=== PATIENT | male | born 1945 | race Caucasian/White ===

== ENCOUNTER 2017-05-05 07:53 | Day surgery (SDC) | payer MEDICARE, MEDICAID ==
[~2017-05-05 07:53] MED LIST: Buffered Lidocaine 0.9% SYRIN* 5 ML/SYR SYRINGE INTRADERM ONE; Famotidine IV* 10 MG/ML 2 ML (20 mg) IV ONE; Metoclopramide IV* 5 MG/ML 2 ML VIAL IV SLOW PU ONE
[2017-05-05] MEDS ORDERED: ceFAZolin 2 GM PREMIX (*) 2 GM/50 ML BAG IVPB ONE (08:00)
[2017-05-05] MEDS ORDERED: Metoclopramide IV* 5 MG/ML 2 ML VIAL ONE (08:00)
[2017-05-05] MEDS ORDERED: Famotidine IV* 10 MG/ML 2 ML (20 mg) ONE (08:00)
[2017-05-05] MEDS ORDERED: Buffered Lidocaine 0.9% SYRIN* 5 ML/SYR SYRINGE ONE (08:00)
[2017-05-05] MEDS ORDERED: Bupivacaine 0.25% SDV* 30 ML ONE ×2 (09:51→11:14)
[2017-05-05] MEDS ORDERED: Heparin DIALYSIS ONLY(*) 1,000 UNITS/ML VIAL ONE (09:51)
[2017-05-05] MEDS ORDERED: PROCHLORPERAZINE INJ 5 MG/ML 2 ML VIAL IV PRN (10:09)
[2017-05-05] MEDS ORDERED: oxyCODONE TAB* 5 MG TAB PO PRN (10:09)
[2017-05-05] MEDS ORDERED: fentaNYL* 50 MCG/ML 2 ML VIAL (100 MCG VIAL) IV PRN (10:09)
[2017-05-05] MEDS ORDERED: Propofol* 10 MG/ML 20 ML BTL IV PUSH ONE (10:16)
[2017-05-05] MEDS ORDERED: Mivacurium Chloride* 20 MG/10 ML VIAL IV ONE (10:16)
[2017-05-05] MEDS ORDERED: Lidocaine 2% PF * 5 ML VIAL ONE (10:17)
[2017-05-05] MEDS ORDERED: fentaNYL* 50 MCG/ML 2 ML VIAL (100 MCG VIAL) ONE ×2 (10:17→10:33)
[2017-05-05] MEDS ORDERED: EPHEDrine (Pressors)* 50 MG/ML VIAL ONE (10:38)
[2017-05-05] MEDS ORDERED: Ondansetron INJ* 2 MG/ML VIAL ONE (10:46)
--- NOTE | 2017-05-05 11:26 | SURGPN ---
Brief Operative Note - Surgery Procedures: Procedures Pre-OP Diagnoses: ESRD Post-op Diagnosis: ESRD, umbilical hernia epigastric hernia, R inguinal hernia Procedure: Laparoscopic placement of peritoneal dialysis catheter, primary repair of umbilical and epigastgric hernia Surgeon: Hetal Asst: Eunice Connellythegarett: ANGE Grayson EBL: minimal IVF: 600ccNS Specimen: none Drains: 62cm [facility]
[2017-05-05] MEDS ORDERED: Insulin LISPRO* 1 UNITS UNIT SUBCUT ONE (12:04)
[2017-05-05] MEDS ORDERED: oxyCODONE TAB* 5 MG TAB ONE (12:28)
[2017-05-05 13:42] VITALS: BP 153/61
--- NOTE | 2017-05-06 03:29 | OP ---
CC: Dr. Kyle Watkins; Dr. Akin Chacon * DATE OF OPERATION: 05/05/17 - [facility] DATE OF : 43 SURGEON: Haroon Fong MD SUPERINTENDENT COMPRESSOR STATIONS: SHANNON Burns ANESTHESIOLOGIST: Sanjay Grayson MD ANESTHESIA: General anesthesia. PRE-OP DIAGNOSIS: End-stage renal disease. POST-OP DIAGNOSES: 1. End-stage renal disease. 2. Umbilical hernia. 3. Epigastric hernia. 4. Left groin inguinal hernia. OPERATIVE PROCEDURE: Laparoscopic placement of peritoneal dialysis catheter and primary repair of umbilical and epigastric hernia. ESTIMATED BLOOD LOSS: Minimal blood loss. FLUIDS: 600 cc of normal saline given. SPECIMEN: None. CATHETER: 62-Argent[place] Curl catheter placed in the deep pelvis. DESCRIPTION OF PROCEDURE: The patient identified in the preoperative area. Consent signed. He was marked and brought to the operating room and placed on the operating table in supine position. General anesthesia was induced. The patient's abdomen was prepped and draped in a standard surgical fashion. A time -out was performed. He had received preoperative antibiotics. Sequential devices were applied to both extremities. A subcostal incision was made on the left. This was deepened to the anterior fascia, which was elevated and a Veress needle inserted through the abdominal cavity, which was then allowed to insufflate to pressure of 15 mmHg. The patient tolerated the insufflation well. The Veress needle was removed and an 8 -mm trocar was inserted. Laparoscope was inserted through this. There was no evidence of injuries on trocar insertion or from Veress needle. Review of the abdomen showed an umbilical hernia with omentum. Additional 5-mm trocar was then placed in the left lower quadrant. The patient was placed in a Trendelenburg fashion. The umbilical hernia was reduced. The omentum taken out of the defect and we were able to identify 2 defects; one just below a centimeter and one just above a centimeter. The smaller one at the umbilicus and a larger one just above this. Next, a 62-cm Curl catheter was inserted into the abdominal cavity. It was placed into the pelvis. Review of the pelvis did reveal a left inguinal hernia through the direct space. We made decision not to repair this, as this would require mesh. The neck appeared to be approximately 1 cm and it did not travel very far. With the catheter placed in the pelvis, a 5-mm trocar was then inserted along the left rectus muscle and the catheter grasped and brought out through this port site. The cuffs were both brought into the incision with the cuff closer to the abdomen right under the peritoneum. Next, an omentopexy was performed with a 0 Vicryl suture tacking this to the right upper quadrant. Next, the 2 hernias were reapproximated utilizing 0 Prolene suture making small skin viridiana just below the umbilicus and one above and a figure-of-8 was used at the epigastric hernia site. These both obliterated the defects. Next, the catheter was tunneled in the chosen position preoperatively. This was hooked up to dialysate which flowed freely and then was removed with ease. Review of the abdomen showed that hemostasis was excellent. The abdomen was allowed to collapse. Trocar was removed under direct vision. All skin incisions were reapproximated with 4-0 Monocryl subcuticular sutures. We did place a 0 Polysorb suture at the right upper quadrant 8-mm port site through the fascial layer. Steri- Strips and sterile dressing were applied. The patient tolerated the procedure well. He will most likely require a left inguinal hernia repair in the future, but this is not emergent. [id number]/[facility] #: [id number] MTDD
== END 2017-05-05 13:54 | disposition home or self-care (01) ==
LOC: OR 07:53
PROVIDERS: ATTEND Surgery
DX: E11.22 Type 2 diabetes mellitus with diabetic chronic kidney disease (principal); N18.6 End stage renal disease; K42.9 Umbilical hernia without obstruction or gangrene; K43.9 Ventral hernia without obstruction or gangrene; K40.90 Unilateral inguinal hernia, without obstruction or gangrene, not specified as recurrent; Z79.4 Long term (current) use of insulin; Z87.891 Personal history of nicotine dependence; J44.9 Chronic obstructive pulmonary disease, unspecified; I12.9 Hypertensive chronic kidney disease with stage 1 through stage 4 chronic kidney disease, or unspecified chronic kidney disease
CPT/HCPCS: A9270-GY; J0690; J1644; J2405; J2704; J2765; J3010

== ENCOUNTER 2017-05-14 15:39 | Inpatient (IN) | payer MEDICARE, MEDICAID ==
[2017-05-14 17:55] LABS: ABS Basophils 0 10^3/ul (0-0.2); ABS Eosinophils 0.2 10^3/ul (0-0.6); ABS Monocytes 0.7 10^3/ul (0-0.8); ABS Neutrophils 3.5 10^3/ul (1.5-7.7); ABS Nucleated RBC 0 10^3/ul; Hematocrit 26 % (42-52); Hemoglobin 9.1 g/dl (14.0-18.0); Lymphocyte % 17.8 % (25-47); Mean Corpuscular HGB Conc 35 g/dl (31-36); Mean Corpuscular Hemoglobin 31 pg (27-31); Mean Corpuscular Volume 88 fL (80-94); Mean Platelet Volume 8 um3 (7.4-10.4); Nucleated Red Blood Cells % 0; Platelet Count 190 10^3/ul (150-450); Red Blood Count 2.92 10^6/ul (4.0-5.4); Red Cell Distribution Width 13 % (10.5-15); White Blood Count 5.5 10^3/ul (3.5-10.8)
[2017-05-14 18:01] LABS: Urine Appearance Cloudy; Urine Blood Negative (Negative); Urine Color Yellow; Urine Ketones Negative (Negative); Urine Protein 3+(>=500 mg/dL) (Negative); Urine Specific Gravity 1.011 (1.010-1.030); Urine Urobilinogen Negative (Negative)
[2017-05-14 18:03] LABS: INR 1.03 (0.89-1.11)
[2017-05-14 18:10] LABS: EGFR Non-African American 5.8 (>60)
--- NOTE | 2017-05-14 18:25 | RAD ---
CLINICAL HISTORY: The patient is 7 days status post placement of a peritoneal dialysis catheter and reports no bowel movement since. Additional relevant surgery includes appendectomy. COMPARISON: CT of the abdomen and pelvis dated October 03, 2015. TECHNIQUE: Noncontrast CT examination of the abdomen and pelvis from the lung bases through the initial tuberosities. FINDINGS: VISUALIZED LUNG BASES: There is pleural-based linear density at the right lower lobe most consistent with atelectasis. Otherwise the visualized lung bases are grossly clear. There is no pleural effusion. There is coarse calcification of the coronary arteries and mitral valve. ABDOMEN AND PELVIS: Evaluation of the solid organs and vasculature is limited without intravenous contrast. The liver, spleen, pancreas and adrenal glands are grossly normal in appearance. Hyperdense material in the dependent portion of the gallbladder is consistent with gallstones and/or sludge. The kidneys are normal in appearance without focal mass, calcification or signs of hydronephrosis. Evaluation of the gastrointestinal tract is limited without oral contrast. The small bowel is not pathologically dilated. The appendix is not seen consistent with patient's reported surgical history. There is gas in the lateral seen throughout the length of the colon. The rectum is stool-filled measuring up to 7.9 x 7.5 cm in the axial plane. There is no pathologic dilatation of the bowel. There is no gross retroperitoneal or mesenteric lymphadenopathy. Overlying the left lower abdomen there is a peritoneal dialysis catheter that terminates along the posterior inferior margin of the urinary bladder. The pelvic viscera is normal in appearance. There is calcified atherosclerosis of the infrarenal abdominal aorta. Calcified atherosclerosis is seen in the major branch vessels and bilateral common iliac arteries. Degenerative changes include multilevel loss of intervertebral disc height involving the lower thoracic and lumbar spine.There are no sinister bone lesions. IMPRESSION: 1. There is a moderate amount of stool in the rectum with the rectum top normal in dimension measuring 7.5 x 8 cm in the axial plane. More proximally there is stool throughout the colon but no pathologic bowel dilatation. CT findings are most indicative of rectal fecal impaction with subsequent constipation. 2. The peritoneal dialysis catheter appears to be appropriately positioned along the posterior margin of the urinary bladder. 3. There are additional chronic, degenerative and iatrogenic findings as described in the body the report.
--- NOTE | 2017-05-14 19:22 | ED ---
Kahlil Pope Tiffany, scribed for Dhaval Horta MD on 05/14/17 at 1753 . Abdominal Pain/Male - HPI Summary HPI Summary: This patient is a 72 year old M referred from his radiologist to [facility] accompanied by with a chief complaint of abdominal pain that has lasted one week. The patient rates the pain 5/10 in severity. Symptoms aggravated by nothing. Symptoms alleviated by nothing. Patient reports constipation, vomiting with brown production since nine days ago, chills, abdominal bloating, feet swelling, and decreased appetite. Patient denies dysuria and problems passing gas. The patient recently had an operation for a catheter nine days ago. He has not been to the bathroom since then. - History of Current Complaint Chief Complaint: EDAbdPain Stated Complaint: NO BOWEL MOVEMNT, SOB Time Seen by Provider: 05/14/17 17:16 Hx Obtained From: Patient Onset/Duration: Gradual Onset, Lasting Weeks - One week, Still Present Pain Intensity: 5 Pain Scale Used: 0-10 Numeric Location: Diffuse Aggravating Factor(s): Nothing Alleviating Factor(s): Nothing Associated Signs And Symptoms: Positive: Other - constipation, vomiting with brown production, chills, abdominal bloating, swelling of the feet, and decreased appetite; NEGATIVE: dysuria and problems passing gas - Allergies/Home Medications Allergies/Adverse Reactions: Allergies Allergy/AdvReac Type Severity Reaction Status Date / Time Amlodipine [From Norvasc] Allergy Severe Swelling Verified 04/28/17 11:35 Hydrocodone Allergy Severe Difficulty Verified 04/28/17 11:35 Breathing Lisinopril Allergy Intermediate Coughing Verified 04/28/17 11:35 NSAIDs Allergy Unknown Verified 04/28/17 11:35 Reaction Details Shellfish Allergy Allergy Difficulty Verified 04/28/17 11:35 Breathing Acetaminophen [From Tylenol] AdvReac Unknown Verified 04/28/17 11:35 Reaction Details Home Medications: Home Medications Albuterol HFA INHALER* [Ventolin HFA Inhaler*] 2 puff INH Q6H PRN 05/14/17 [ History Confirmed 05/14/17] Cholecalciferol TAB* [Vitamin D TAB*] 1,000 unit PO BID 05/14/17 [History Confirmed 05/14/17] Diltiazem CD CAP* [Cardizem CD CAP*] 180 mg PO DAILY 05/14/17 [History Confirmed 05/14/17] Flaxseed (Linseed) [Flax Seed Oil 1000 mg] 1 cap PO DAILY 05/14/17 [History Confirmed 05/14/17] Glucagon* [Glucagen*] 1 mg SUBCUT ONCE 05/14/17 [History Confirmed 05/14/17] Guaifenesin-Codeine [Codeine/Guaifenesin 100-10 mg/5Ml] 10 ml PO BID PRN MDD 20ml 05/14/17 [History Confirmed 05/14/17] Multivitamins/Minerals TAB* [Theragran/minerals TAB*] 1 tab PO DAILY 05/14/17 [ History Confirmed 05/14/17] Omeprazole CAP* [Prilosec CAP* 20 MG] 40 mg PO BID 05/14/17 [History Confirmed 05/14/17] Simvastatin (NF) [Zocor (NF)] 40 mg PO DAILY 05/14/17 [History Confirmed ] Triamcinolone 0.1% CREAM (NF) [Kenalog 0.1% Cream (NF)] 1 applic TOPICAL BID [History Confirmed 05/14/17] PMH/Surg Hx/FS Hx/Imm Hx Previously Healthy: No Endocrine/Hematology History: Reports: Hx Diabetes Denies: Hx Thyroid Disease, Hx Anemia Cardiovascular History: Reports: Hx Angina, Hx Coronary Artery Disease, Hx Hypercholesterolemia, Hx Hypertension, Hx Myocardial Infarction, Hx Peripheral Vascular Disease - RECENTLY HAD PROCEDURE WITH DR. PAN, Other Cardiovascular Problems/Disorders Denies: Hx Pacemaker/ICD, Hx Valvular Heart Disease Respiratory History: Reports: Hx Asthma, Hx Chronic Bronchitis, Hx Chronic Obstructive Pulmonary Disease (COPD), Hx Pneumonia, Hx Seasonal Allergies GI History: Reports: Hx Gastroesophageal Reflux Disease, Other GI Disorders - GASTROENTERITIS/COLITIS Denies: Hx Jaundice History: Reports: Hx Acute Renal Failure, Hx Chronic Renal Failure Musculoskeletal History: Reports: Hx Back Problems Sensory History: Reports: Hx Cataracts, Hx Contacts or Glasses, Hx Glaucoma Denies: Hx Hearing Aid Opthamlomology History: Reports: Hx Cataracts, Hx Contacts or Glasses, Hx Glaucoma Neurological History: Reports: Other Neuro Impairments/Disorders - DIABETIC NEUROPATHY Denies: Hx Headaches, Hx Seizures, Hx Spinal Cord Injury - Cancer History Cancer Type, Location and Year: Basal Cell CA Hx Chemotherapy: No Hx Radiation Therapy: No - Surgical History Surgery Procedure, Year, and Place: Eye surgery 1986, . Tonsillectomy, appendectomy in childhood Hx Anesthesia Reactions: No Infectious Disease History: No Infectious Disease History: Denies: Traveled Outside the [place] in Last 30 Days - Family History Known Family History: Positive: Cardiac Disease - Mother from heart attack , Other - Brother has kidney disease - Social History Alcohol Use: None Alcohol Amount: Stopped 30 years ago Hx Substance Use: No Substance Use Type: Reports: None Hx Tobacco Use: Yes Smoking Status (MU): Former Smoker Type: Cigarettes, Cigars, Pipe, Smokeless Tobacco Amount Used/How Often: Daily Length of Time of Smoking/Using Tobacco: 30 years Have You Smoked in the Last Year: No Review of Systems Positive: Chills Positive: Abdominal Pain, Vomiting, Other - Abdominal bloating, decreased appetite; NEGATIVE: problems passing gas Negative: dysuria Positive: Other - Swelling of feet All Other Systems Reviewed And Are Negative: Yes Physical Exam Triage Information Reviewed: Yes Vital Signs On Initial Exam: Initial Vitals Temp Pulse Resp BP Pulse Ox 98.2 F 63 18 118/61 100 05/14/17 15:40 05/14/17 15:40 05/14/17 15:40 05/14/17 15:40 05/14/17 15:40 Vital Signs Reviewed: Yes Appearance: Positive: Well-Appearing, No Pain Distress Skin: Positive: Warm, Skin Color Reflects Adequate Perfusion Head/Face: Positive: Normal Head/Face Inspection Eyes: Positive: EOMI ENT: Positive: Normal ENT inspection, Hearing grossly normal Neck: Positive: Nontender Respiratory/Lung Sounds: Positive: Clear to Auscultation, Breath Sounds Present Cardiovascular: Positive: RRR. Negative: Murmur Abdomen Description: Positive: Distended - No peritoneal signs. Musculoskeletal: Positive: Strength/ROM Intact Neurological: Positive: Sensory/Motor Intact, Alert, Oriented to Person Place, Time, CN Intact II-III Psychiatric: Positive: Normal - Rachelle Coma Scale Best Eye Response: 4 - Spontaneous Best Motor Response: 6 - Obeys Commands Best Verbal Response: 5 - Oriented Coma Scale Total: 15 Diagnostics - Vital Signs Vital Signs Temp Pulse Resp BP Pulse Ox 05/14/17 15:40 98.2 F 63 18 118/61 100 - Laboratory Lab Results: Lab Results 05/14/17 05/14/1717 Range/Units 17:34 17:42 17:42 WBC 5.5 (3.5-10.8) 10^3/ul RBC 2.92 L (4.0-5.4) 10^6/ul Hgb 9.1 L (14.0-18.0) g/dl Hct 26 L (42-52) % MCV 88 (80-94) fL MCH 31 (27-31) pg MCHC 35 (31-36) g/dl RDW 13 (10.5-15) % Plt Count 190 (150-450) 10^3/ul MPV 8 (7.4-10.4) um3 Neut % (Auto) 64.6 (38-83) % Lymph % (Auto) 17.8 L (25-47) % [place] % (Auto) 13.2 H (1-9) % Eos % (Auto) 4.0 (0-6) % Baso % (Auto) 0.4 (0-2) % Absolute Neuts (auto) 3.5 (1.5-7.7) 10^3/ul Absolute Lymphs (auto) 1.0 (1.0-4.8) 10^3/ul Absolute Monos (auto) 0.7 (0-0.8) 10^3/ul Absolute Eos (auto) 0.2 (0-0.6) 10^3/ul Absolute Basos (auto) 0 (0-0.2) 10^3/ul Absolute Nucleated RBC 0 10^3/ul Nucleated RBC % 0 INR (Anticoag Therapy) (0.89-1.11) Sodium 135 (133-145) mmol/L Potassium 3.3 L (3.5-5.0) mmol/L Chloride 91 L (101-111) mmol/L Carbon Dioxide 28 (22-32) mmol/L Anion Gap 16 H (2-11) mmol/L BUN 128 H (6-24) mg/dL Creatinine 8.94 H (0.67-1.17) mg/dL Est GFR ( Amer) 7.5 (>60) Est GFR (Non-Af Amer) 5.8 (>60) BUN/Creatinine Ratio 14.3 (8-20) Glucose 119 H (70-100) mg/dL Lactic Acid (0.5-2.0) mmol/L Calcium 9.9 (8.6-10.3) mg/dL Total Bilirubin 0.50 (0.2-1.0) mg/dL AST 21 (13-39) U/L ALT 11 (7-52) U/L Alkaline Phosphatase 70 (34-104) U/L C-Reactive Protein 23.99 H (< 5.00) mg/L Total Protein 7.0 (6.4-8.9) g/dL Albumin 3.9 (3.2-5.2) g/dL Globulin 3.1 (2-4) g/dL Albumin/Globulin Ratio 1.3 (1-3) Lipase 24 (11.0-82.0) U/L Urine Color Yellow Urine Appearance Cloudy Urine pH 7.0 (5-9) Ur Specific [place] 1.011 (1.010-1.030) Urine Protein 3+(>=500 mg/dl) H (Negative) Urine Ketones Negative (Negative) Urine Blood Negative (Negative) Urine Nitrate Negative (Negative) Urine Bilirubin Negative (Negative) Urine Urobilinogen Negative (Negative) Ur Leukocyte Esterase Trace H (Negative) Urine WBC (Auto) 1+(6-10/hpf) H (Absent) Urine RBC (Auto) 1+(3-5/hpf) H (Absent) Ur Squamous Epith Cells Present H (Absent) Urine Bacteria 1+ H (Absent) Urine Glucose 1+(50 mg/dl) H (Negative) 05/14/17 05/14/17 Range/Units 17:42 17:42 WBC (3.5-10.8) 10^3/ul RBC (4.0-5.4) 10^6/ul Hgb (14.0-18.0) g/dl Hct (42-52) % MCV (80-94) fL MCH (27-31) pg MCHC (31-36) g/dl RDW (10.5-15) % Plt Count (150-450) 10^3/ul MPV (7.4-10.4) um3 Neut % (Auto) (38-83) % Lymph % (Auto) (25-47) % [place] % (Auto) (1-9) % Eos % (Auto) (0-6) % Baso % (Auto) (0-2) % Absolute Neuts (auto) (1.5-7.7) 10^3/ul Absolute Lymphs (auto) (1.0-4.8) 10^3/ul Absolute Monos (auto) (0-0.8) 10^3/ul Absolute Eos (auto) (0-0.6) 10^3/ul Absolute Basos (auto) (0-0.2) 10^3/ul Absolute Nucleated RBC 10^3/ul Nucleated RBC % INR (Anticoag Therapy) 1.03 (0.89-1.11) Sodium (133-145) mmol/L Potassium (3.5-5.0) mmol/L Chloride (101-111) mmol/L Carbon Dioxide (22-32) mmol/L Anion Gap (2-11) mmol/L BUN (6-24) mg/dL Creatinine (0.67-1.17) mg/dL Est GFR ( Amer) (>60) Est GFR (Non-Af Amer) (>60) BUN/Creatinine Ratio (8-20) Glucose (70-100) mg/dL Lactic Acid 1.5 (0.5-2.0) mmol/L Calcium (8.6-10.3) mg/dL Total Bilirubin (0.2-1.0) mg/dL AST (13-39) U/L ALT (7-52) U/L Alkaline Phosphatase (34-104) U/L C-Reactive Protein (< 5.00) mg/L Total Protein (6.4-8.9) g/dL Albumin (3.2-5.2) g/dL Globulin (2-4) g/dL Albumin/Globulin Ratio (1-3) Lipase (11.0-82.0) U/L Urine Color Urine Appearance Urine pH (5-9) Ur Specific [place] (1.010-1.030) Urine Protein (Negative) Urine Ketones (Negative) Urine Blood (Negative) Urine Nitrate (Negative) Urine Bilirubin (Negative) Urine Urobilinogen (Negative) Ur Leukocyte Esterase (Negative) Urine WBC (Auto) (Absent) Urine RBC (Auto) (Absent) Ur Squamous Epith Cells (Absent) Urine Bacteria (Absent) Urine Glucose (Negative) Result Diagrams: 05/14/17 17:42 05/14/17 17:42 Lab Statement: Any lab studies that have been ordered have been reviewed, and results considered in the medical decision making process. - CT Abd/Pel CT Interpretation Completed By: Radiologist - 1. There is a moderate amount of stool in the rectum with the rectum top normal in dimension measuring 7.5 x 8 cm in the axial plane. More proximally there is stool throughout the colon but no pathologic bowel dilatation. CT findings are most indicative of rectal fecal impaction with subsequent constipation. 2. The peritoneal dialysis catheter appears to be appropriately positioned along the posterior margin of the urinary bladder. 3. There are additional chronic, degenerative and iatrogenic findings as described in the body the report. ED physician has reviewed this radiology report and agrees. - EKG 17:38 Cardiac Rate: NL EKG Rhythm: Sinus Rhythm - 63 BPM. EKG Interpretation: Non-STEMI. Abdominal Pain Fem Course/Dx - Course Course Of Treatment: Case George Chacon who recommends OBV admission with serial enemas. He states he may start dialysis while patient here. Case George Alexander the hospitalists who will admit the patient for further treatment. - Diagnoses Provider Diagnoses: Constipation, Fecal impaction of colon - Provider Notifications Discussed Care Of Patient With: Akin Chacon Time Discussed With Above Provider: 19:05 Discharge - Discharge Plan Condition: Good Disposition: ADMITTED TO [facility] Referrals: Kyle Watkins MD [Primary Care Provider] - The documentation as recorded by the Kahlil rivera Tiffany accurately reflects the service I personally performed and the decisions made by , Dhaval Horta MD.
[2017-05-14] MEDS ORDERED: Albuterol HFA INHALER* 8 gm MDI INH PRN (19:51)
[2017-05-14] MEDS ORDERED: Cetirizine* 10 MG TAB PO PRN (19:51)
[2017-05-14] MEDS ORDERED: Dextrose 50% Syringe 50 ML* 25 GM/50 ML SYRINGE IV PUSH PRN (20:16)
[2017-05-14] MEDS: Cholecalciferol TAB* 1000 UNITS PO SCH (23:13)
[2017-05-14] MEDS: Heparin VIAL(*) 5000 UNITS/ML VIAL (FIVE THOUSAND) SUBCUT SCH (23:13)
[2017-05-14] MEDS: Omeprazole CAP* 20 MG PO SCH (23:13)
[2017-05-14] MEDS: traZODone TAB* 50 MG TAB PO SCH (23:13)
[2017-05-14] MEDS: Ondansetron INJ* 2 MG/ML VIAL IV PRN (23:14)
--- NOTE | 2017-05-14 23:20 | HP ---
H&P (Free Text) History and Physical: Mr Kaur is a 72YO male HX ESRD recently undergoing placement of PD catheter with constipation ever since. He will be admitted overnight for bowel regimen. Dr Chacon aware.
--- NOTE | 2017-05-14 23:45 | HP ---
CC: Dr. Watkins * HOSPITAL MEDICINE HISTORY AND PHYSICAL: DATE OF ADMISSION: 05/14/17 PRIMARY CARE PHYSICIAN: Dr. Watkins. ATTENDING PHYSICIAN: Aravind Win MD * (dictation provided by Mamie Plunkett NP). CHIEF COMPLAINT: Nausea and lower abdominal pain and bloating. HISTORY OF PRESENT ILLNESS: Mr. Kaur is a 72-year-old male with a past medical history of diabetes which is insulin dependent, chronic kidney disease, now with end-stage renal disease on peritoneal dialysis and COPD, who presents today to the hospital with concern for no bowel movement since his peritoneal dialysis catheter placement on 05/05/17. Mr. Kaur states that he tolerated dialysis catheter placement well , but since then he has had continued bloating with constipation. Today, he was nauseous, has plan to follow up with Dr. Fong who placed the catheter but after he spoke with the nurse at the office, she recommended that he come directly to the emergency room for evaluation based on the fact that he had not had a bowel movement for about 9 days. The patient denies any other complaints. He has had no fevers, no chills, no unintentional weight loss, no chest pain, no shortness of breath. In the emergency room, Mr. Kaur had labs which showed a chronic anemia. He has an elevated BUN and creatinine which is consistent with previous, though at its maximum with BUN 128 and creatinine of 8.94. CRP is 23.99. His urine shows trace leuk esterase and 1+ bacteria. He had a CT abdomen, pelvis which showed fecal impaction. PAST MEDICAL HISTORY: 1. CKD with end-stage renal disease now with peritoneal dialysis catheter placement on 05/05/17. 2. Type 2 diabetes insulin dependent. 3. Glaucoma. 4. COPD. 5. Hypertension. 6. Hyperlipidemia. PAST SURGICAL HISTORY: He denies any surgical history. MEDICATIONS: Outpatient: 1. Furosemide 80 mg p.o. b.i.d. 2. NPH insulin 40 units subcutaneously b.i.d. 3. Regular insulin 10 to 15 units in the a.m. and 15 to 20 units in the p.m. 4. Dorzolamide 2% 1 drop both eyes b.i.d. 5. Flaxseed 1 cap p.o. daily. 6. Fluticasone/salmeterol 115/21, 2 puffs inhaled b.i.d. 7. Glucagon 1 mg subcutaneously once as needed. 8. Guaifenesin with codeine 10 mL p.o. b.i.d. p.r.n. 9. Triamcinolone 0.1% cream 1 application topically b.i.d. 10. Albuterol inhaler 2 puffs inhaled q.6 hours p.r.n. 11. Ascorbic acid 1000 mg p.o. q.a.m. 12. Brimonidine 0.2% 1 drop both eyes b.i.d. 13. Cholecalciferol 1000 units p.o. b.i.d. 14. Diltiazem CD 180 mg p.o. daily. 15. Loratadine 10 mg p.o. q.p.m. p.r.n. 16. Losartan 100 mg p.o. q.p.m. 17. Multivitamins with minerals 1 tab p.o. daily. 18. Omeprazole 40 mg p.o. b.i.d. 19. Simvastatin 40 mg p.o. daily. 20. Trazodone 50 mg p.o. at bedtime. ALLERGIES: AMLODIPINE, HYDROCODONE, LISINOPRIL, NSAIDS, and SHELLFISH as well as TYLENOL. FAMILY HISTORY: The patient reports his father has , thinks this was from an [place] at about 65. His mother around 88 from old age. SOCIAL HISTORY: He is a former smoker. He does not drink alcohol or use illicit drugs. He has no children. 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 Suyapa Shannon would be his healthcare proxy. REVIEW OF SYSTEMS: A 14-point review of systems was completed with Mr. Kaur and all those not mentioned above are negative. PHYSICAL EXAMINATION GENERAL: Mr. Kaur is sitting up in the chair. He is in no acute distress. VITAL SIGNS: Temperature 98.2, heart rate 61, respiratory rate 19, O2 saturation 95% on room air, blood pressure 122/50. LUNGS: Clear to auscultation bilaterally with no accessory muscle use and good aeration. HEART: S1, S2. No murmur, rub, or gallop and regular. ABDOMEN: Soft, but distended. There is bowel sounds positive x4 and there is tenderness in the lower abdomen to deep palpation. EXTREMITIES: No cyanosis, clubbing, or edema. NEURO: He is alert. He is oriented x3. He moves all extremities equally. There is no facial asymmetry or focal weakness. Extraocular movements are intact. SKIN: Intact. DIAGNOSTIC STUDIES/LAB DATA: WBC 5.5, hemoglobin 9.1, hematocrit 96, platelet count 190,000. INR 1.03. Sodium 135, potassium 3.3, chloride 91, serum bicarbonate 28, BUN 128, creatinine 8.94, glucose 135, CRP 23.99. Urine shows trace leuk esterase and 1+ bacteria. CT abdomen and pelvis shows "there was a moderate amount of stool in rectum with rectum top normal in dimension measuring 7.5 x 8 cm in the axial plane. More proximally there is stool throughout the colon, but no pathological bladder dilatation." CT findings are most indicative of rectal fecal impaction with subsequent constipation. Peritoneal dialysis catheter appears to be appropriately positioned along the posterior margin of the urinary bladder. ASSESSMENT: Mr. Kaur is a 72-year-old male with a past medical history of diabetes which is insulin dependent and chronic kidney disease, is now end- stage renal disease with plan for peritoneal dialysis who had a catheter placed on 05/05/17 and has not had a bowel movement since. Plans are for him to be observed in the hospital overnight for fecal impaction. Plan is as follows: 1. Fecal impaction with constipation: The patient will have soap suds enema now. He will have lactulose which has been ordered in the ED. He will go on to receive a mineral oil enema at 5 a.m. Further treatment will be arranged based on clinical course. 2. Type 2 diabetes. The patient states that he has taken 40 units of NPH b.i.d., but he adjusts this based on his blood sugars. Given the fact that I anticipate he will not eat much, I plan to use 10 units subcutaneously b.i.d. He will have lispro sliding scale with meals. 3. Hypertension. Continue diltiazem and furosemide and losartan. 4. Gastroesophageal reflux disease. Continue omeprazole. 5. Hyperlipidemia. Continue with simvastatin. 6. DVT prophylaxis with heparin subcutaneous. 7. Code status is full code. TIME SPENT: Approximately 60 minutes were spent on the admission of this patient, more than half of the time was spent with the patient at the bedside reviewing the events leading up to this hospitalization, performing the physical examination, and reviewing my plan of care. MAMIE PLUNKETT, TWILL CUTTER [id number]/[facility] #: [id number] [facility] HOSPITALLucas
[2017-05-15] MEDS: Mineral Oil ENEMA* 1 BOTTLE PR SCH (06:04)
[2017-05-15] MEDS: Heparin VIAL(*) 5000 UNITS/ML VIAL (FIVE THOUSAND) SUBCUT SCH ×3 (06:04→21:49)
[2017-05-15 06:31] LABS: ABS Basophils 0 10^3/ul (0-0.2); ABS Eosinophils 0.3 10^3/ul (0-0.6); ABS Lymphocytes 1.3 10^3/ul (1.0-4.8); ABS Monocytes 0.7 10^3/ul (0-0.8); ABS Neutrophils 3.8 10^3/ul (1.5-7.7); ABS Nucleated RBC 0 10^3/ul; Eosinophil % 4.8 % (0-6); Hematocrit 27 % (42-52); Hemoglobin 9.2 g/dl (14.0-18.0); Lymphocyte % 21.1 % (25-47); Mean Corpuscular HGB Conc 34 g/dl (31-36); Mean Corpuscular Hemoglobin 31 pg (27-31); Mean Corpuscular Volume 89 fL (80-94); Mean Platelet Volume 9 um3 (7.4-10.4); Nucleated Red Blood Cells % 0.1; Platelet Count 191 10^3/ul (150-450); Red Blood Count 3.02 10^6/ul (4.0-5.4); Red Cell Distribution Width 13 % (10.5-15); White Blood Count 6.1 10^3/ul (3.5-10.8)
[2017-05-15] MEDS: Ondansetron INJ* 2 MG/ML VIAL IV PRN (07:42)
[2017-05-15] MEDS: Multivitamins/Minerals TAB PO SCH (08:51)
[2017-05-15] MEDS: Insulin LISPRO* 1 UNITS UNIT SUBCUT SCH ×3 (08:51→17:22)
[2017-05-15] MEDS: Cholecalciferol TAB* 1000 UNITS PO SCH ×2 (08:52→21:46)
[2017-05-15] MEDS: Ascorbic Acid TAB* 500 MG PO SCH (08:52)
[2017-05-15] MEDS: Insulin ISOPH/REG 70/30 (*) 1 UNITS UNIT SUBCUT SCH ×2 (09:17→17:24)
--- NOTE | 2017-05-15 09:17 | PN ---
Subjective Date of Service: 05/15/17 Interval History: Patient has nausea, no appetite this AM. Had soap suds enema then mineral oil enema overnight, little output. Abdomen feels bloated. Patient has not had to proceed with hemodialysis or PD at this point, but it is planned. Tolerating PO liquids. Family History: Unchanged from Admission Social History: Unchanged from Admission Past Medical History: Unchanged from Admission Objective Active Medications: Albuterol (Ventolin Hfa Inhaler*) 2 puff INH Q6H PRN PRN Reason: SHORTNESS OF BREATH Ascorbic Acid (Vitamin C Tab*) 1,000 mg PO QAM [facility] Last Admin: 05/15/17 08:52 Dose: Not Given Atorvastatin Calcium (Lipitor*) 20 mg PO DAILY [facility] Brimonidine Tartrate (Alphagan 0.2%) 1 drop BOTH EYES BID [facility] Last Admin: 05/14/17 23:13 Dose: 1 drop Cetirizine HCl (Zyrtec*) 10 mg PO QPM PRN PRN Reason: Allergy Symptoms Cholecalciferol (Vitamin D Tab*) 1,000 units PO BID [facility] Last Admin: 05/15/17 08:52 Dose: Not Given Dextrose (D50w Syringe 50 Ml*) 12.5 gm IV PUSH .FOR FS < 60 - SS PRN PRN Reason: FS < 60 Diltiazem HCl (Cardizem Cd Cap*) 180 mg PO DAILY [facility] Furosemide (Lasix Tab*) 80 mg PO BID [facility] Heparin Sodium (Porcine) (Heparin Vial(*)) 5,000 units SUBCUT Q8HR [facility] Last Admin: 05/15/17 06:04 Dose: 5,000 units Insulin Human Isoph/Insulin Regular (Humulin 70/30 (*)) 10 units SUBCUT 0800, 1700 [facility] Insulin Human Lispro (Humalog*) 0 units SUBCUT AC [facility] PRN Reason: Protocol Last Admin: 05/15/17 08:51 Dose: Not Given Losartan Potassium (Cozaar Tab*) 100 mg PO QPM [facility] Mineral Oil (Fleet Mineral Oil Enema*) 1 bottle SD ONCE ONE Stop: 05/15/17 13:01 Multivitamins/Minerals (Theragran/Minerals Tab*) 1 tab PO DAILY [facility] Last Admin: 05/15/17 08:51 Dose: Not Given Omeprazole (Prilosec Cap*) 40 mg PO BID [facility] Last Admin: 05/14/17 23:13 Dose: 40 mg Ondansetron HCl (Zofran Inj*) 4 mg IV Q6H PRN PRN Reason: NAUSEA Last Admin: 05/15/17 07:42 Dose: 4 mg Trazodone HCl (Desyrel Tab*) 50 mg PO BEDTIME [facility] Last Admin: 05/14/17 23:13 Dose: 50 mg Vital Signs 05/14/17 05/14/17 05/15/17 21:30 22:46 04:10 Temperature 36.7 C 36.8 C Pulse Rate 63 66 72 Respiratory 17 20 18 Rate Blood Pressure 138/54 124/54 (mmHg) O2 Sat by Pulse 98 100 97 Oximetry 05/15/17 06:42 Temperature 36.4 C Pulse Rate 69 Respiratory 20 Rate Blood Pressure 125/57 (mmHg) O2 Sat by Pulse 100 Oximetry Oxygen Devices in Use Now: None Appearance: no distress Eyes: No Scleral Icterus Ears/Nose/Mouth/Throat: NL Teeth, Lips, Gums Neck: Trachea Midline Respiratory: Clear to Auscultation Cardiovascular: NL Sounds; No Murmurs; No JVD Abdominal: - - tender RLQ, LLQ, hypoactive BS, no masses, rectal no masses, no impaction Skin: No Rash or Ulcers Neurological: Alert and Oriented x 3 Lines/Tubes/Other Access: Clean, Dry and Intact Other Access - PD cath at umbilicus Nutrition: Taking PO's Result Diagrams: 05/15/17 06:17 05/15/17 06:17 Additional Lab and Data: Lab Results Assess/Plan/Problems-Billing Assessment: 72 year old man w/ CKD stage 5, with obstipation since PD catheter placement 10 days 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 -Assessed w/ rectal exam, no need for disimpaction. -SMOG enema ordered (2) Type II diabetes mellitus - poor control Current Visit: Yes Status: Chronic Priority: Medium Code(s): E11.65 - TYPE 2 DIABETES MELLITUS WITH HYPERGLYCEMIA SNOMED Code(s): 64925371 Comment: -On 1/4 of usual dose 70/30, sugars running high. -Will remain on low dose today, as not taking POs well -May increase dose later in day if FS >200 (3) Nephrotic syndrome Current Visit: Yes Status: Chronic Priority: Medium Code(s): N04.9 - NEPHROTIC SYNDROME WITH UNSPECIFIED MORPHOLOGIC CHANGES SNOMED Code(s): 79095590 Comment: -Patient at stage 5 CKD -No immediate need for dialysis, no hyperkalemia, acidosis, or volume overload -May need to start hemodialysis while inpatient (4) DVT prophylaxis Current Visit: Yes Status: Chronic Priority: Low Code(s): DED3341 - SNOMED Code(s): 918780663 Comment: on SC heparin Status and Disposition: Continued inpatient stay due to obstipation, not responding well to treatment so far
[2017-05-15] MEDS: Furosemide TAB* 40 MG PO SCH ×3 (09:56→21:46)
[2017-05-15] MEDS: Omeprazole CAP* 20 MG PO SCH ×3 (09:56→21:46)
[2017-05-15] MEDS ORDERED: GLYCERIN ONE (11:00)
[2017-05-15] MEDS ORDERED: Mineral Oil ENEMA* 1 BOTTLE PR ONE ×2 (11:00→13:00)
[2017-05-15] MEDS: Diltiazem CD CAP* 180 MG PO SCH (12:08)
[2017-05-15] MEDS: Atorvastatin* 20 MG TAB PO SCH (12:09)
[2017-05-15] MEDS ORDERED: Docusate CAP* 100 MG PO STA (16:02)
[2017-05-15] MEDS: Magnesium CITRATE* 300 ML BTL PO ONE ×2 (16:44→16:46)
[2017-05-15] MEDS: Losartan TAB* 25 MG PO SCH (16:44)
[2017-05-15] MEDS: traZODone TAB* 50 MG TAB PO SCH (21:47)
[2017-05-15] MEDS ORDERED: Mineral Oil, LAXITIVE* 30 ML UDC PO ONE (23:00)
[2017-05-16] MEDS: Ondansetron INJ* 2 MG/ML VIAL IV PRN ×2 (01:07→23:10)
[2017-05-16 05:08] LABS: EGFR Non-African American 5.8 (>60)
[2017-05-16] MEDS: Mineral Oil ENEMA* 1 BOTTLE PR SCH (05:15)
[2017-05-16] MEDS: Heparin VIAL(*) 5000 UNITS/ML VIAL (FIVE THOUSAND) SUBCUT SCH ×3 (05:27→22:21)
[2017-05-16] MEDS: Diltiazem CD CAP* 180 MG PO SCH (09:11)
[2017-05-16] MEDS: Insulin LISPRO* 1 UNITS UNIT SUBCUT SCH ×3 (09:11→17:35)
[2017-05-16] MEDS: Ascorbic Acid TAB* 500 MG PO SCH (09:11)
[2017-05-16] MEDS: Cholecalciferol TAB* 1000 UNITS PO SCH ×2 (09:11→20:04)
[2017-05-16] MEDS: Furosemide TAB* 40 MG PO SCH ×2 (09:11→19:55)
[2017-05-16] MEDS: Omeprazole CAP* 20 MG PO SCH ×2 (09:11→20:03)
[2017-05-16] MEDS: Multivitamins/Minerals TAB PO SCH (09:11)
[2017-05-16] MEDS: Atorvastatin* 20 MG TAB PO SCH (09:11)
[2017-05-16] MEDS: Insulin ISOPH/REG 70/30 (*) 1 UNITS UNIT SUBCUT SCH ×2 (09:12→17:35)
[2017-05-16] MEDS ORDERED: Metoclopramide IV* 5 MG/ML 2 ML VIAL IV SLOW PU ONE (11:39)
--- NOTE | 2017-05-16 13:20 | PN ---
Subjective Date of Service: 05/16/17 Interval History: No new issues. Patient is ambulatory. No bowel movement yet. Discussed case with Dr Chacon. He ordered Reglan Family History: Unchanged from Admission Social History: Unchanged from Admission Past Medical History: Unchanged from Admission Objective Active Medications: Albuterol (Ventolin Hfa Inhaler*) 2 puff INH Q6H PRN PRN Reason: SHORTNESS OF BREATH Ascorbic Acid (Vitamin C Tab*) 1,000 mg PO QAM [facility] Last Admin: 05/16/17 09:11 Dose: 1,000 mg Atorvastatin Calcium (Lipitor*) 20 mg PO DAILY [facility] Last Admin: 05/16/17 09:11 Dose: 20 mg Brimonidine Tartrate (Alphagan 0.2%) 1 drop BOTH EYES BID [facility] Last Admin: 05/16/17 09:16 Dose: 1 drop Cetirizine HCl (Zyrtec*) 10 mg PO QPM PRN PRN Reason: Allergy Symptoms Cholecalciferol (Vitamin D Tab*) 1,000 units PO BID [facility] Last Admin: 05/16/17 09:11 Dose: 1,000 units Dextrose (D50w Syringe 50 Ml*) 12.5 gm IV PUSH .FOR FS < 60 - SS PRN PRN Reason: FS < 60 Diltiazem HCl (Cardizem Cd Cap*) 180 mg PO DAILY [facility] Last Admin: 05/16/17 09:11 Dose: 180 mg Furosemide (Lasix Tab*) 80 mg PO BID [facility] Last Admin: 05/16/17 09:11 Dose: 80 mg Heparin Sodium (Porcine) (Heparin Vial(*)) 5,000 units SUBCUT Q8HR [facility] Last Admin: 05/16/17 05:27 Dose: 5,000 units Insulin Human Isoph/Insulin Regular (Humulin 70/30 (*)) 10 units SUBCUT 0800, 1700 [facility] Last Admin: 05/16/17 09:12 Dose: 10 unit Insulin Human Lispro (Humalog*) 0 units SUBCUT AC [facility] PRN Reason: Protocol Last Admin: 05/16/17 12:46 Dose: 2 unit Lactulose (Lactulose*) 30 ml PO QID [facility] Last Admin: 05/16/17 12:46 Dose: 30 ml Losartan Potassium (Cozaar Tab*) 100 mg PO QPM [facility] Last Admin: 05/15/17 16:44 Dose: 100 mg Mineral Oil (Fleet Mineral Oil Enema*) 1 bottle SD 0500 [facility] Last Admin: 05/16/17 05:15 Dose: 1 bottle Multivitamins/Minerals (Theragran/Minerals Tab*) 1 tab PO DAILY [facility] Last Admin: 05/16/17 09:11 Dose: 1 tab Omeprazole (Prilosec Cap*) 40 mg PO BID [facility] Last Admin: 05/16/17 09:11 Dose: 40 mg Ondansetron HCl (Zofran Inj*) 4 mg IV Q6H PRN PRN Reason: NAUSEA Last Admin: 05/16/17 01:07 Dose: 4 mg Trazodone HCl (Desyrel Tab*) 50 mg PO BEDTIME [facility] Last Admin: 05/15/17 21:47 Dose: 50 mg Vital Signs 05/15/17 05/16/17 05/16/17 23:24 04:07 08:05 Temperature 36.5 C 36.5 C 36.6 C Pulse Rate 59 57 58 Respiratory 16 16 16 Rate Blood Pressure 112/49 119/50 127/55 (mmHg) O2 Sat by Pulse 97 99 94 Oximetry 05/16/17 11:47 Temperature 36.6 C Pulse Rate 52 Respiratory 16 Rate Blood Pressure 123/54 (mmHg) O2 Sat by Pulse 98 Oximetry Oxygen Devices in Use Now: None Appearance: no distress Ears/Nose/Mouth/Throat: Clear Oropharnyx Neck: No Thyroid Enlargement, Masses Respiratory: Symmetrical Chest Expansion and Respiratory Effort Cardiovascular: NL Sounds; No Murmurs; No JVD Abdominal: No Hepatosplenomegaly, - - active BS, distended, soft Skin: No Rash or Ulcers Neurological: Alert and Oriented x 3 Lines/Tubes/Other Access: Clean, Dry and Intact Peripheral IV Nutrition: Taking PO's Result Diagrams: 05/15/17 06:17 05/16/17 04:24 Assess/Plan/Problems-Billing Assessment: 72 year old man w/ CKD stage 5, with obstipation since PD catheter placement 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 (1) Obstipation Current Visit: Yes Status: Acute Priority: High Code(s): K59.00 - CONSTIPATION, UNSPECIFIED SNOMED Code(s): 670892263 Comment: -Patient has no had good response to mineral oil, SMOG, lactulose -Trying reglan IV, and then will try gastrograffin enema in radiology (2) Type II diabetes mellitus - poor control Current Visit: Yes Status: Chronic Priority: Medium Code(s): E11.65 - TYPE 2 DIABETES MELLITUS WITH HYPERGLYCEMIA SNOMED Code(s): 24306226 Comment: -On 1/4 of usual dose 70/30, sugars running high, dose of 70/30 increased (3) Nephrotic syndrome Current Visit: Yes Status: Chronic Priority: Medium Code(s): N04.9 - NEPHROTIC SYNDROME WITH UNSPECIFIED MORPHOLOGIC CHANGES SNOMED Code(s): 16460613 Comment: -Patient at stage 5 CKD -No immediate need for dialysis, no hyperkalemia, acidosis, or volume overload -May need to start hemodialysis while inpatient -BP may be overtreated, will reduce dose lasix, could be contributing to constipation. (4) DVT prophylaxis Current Visit: Yes Status: Chronic Priority: Low Code(s): QPD3714 - SNOMED Code(s): 084084661 Comment: on SC heparin Status and Disposition: Continued inpatient stay due to obstipation, not responding well to treatment so far
[2017-05-16] MEDS: Losartan TAB* 25 MG PO SCH (17:35)
[2017-05-16] MEDS: traZODone TAB* 50 MG TAB PO SCH (20:04)
--- NOTE | 2017-05-16 23:47 | PN ---
PROGRESS NOTE: DATE OF SERVICE: 05/16/17 HISTORY: Mr. Kaur is well known to me from previous consultations and outpatient management. He was admitted because of feeling bloated and not having a bowel movement for a number of days. It is now according to him, 10 days since his last bowel movement. He has had some nausea and some vomiting. He has had no response to enemas. PHYSICAL EXAMINATION: His vital signs are stable with a blood pressure 127/55, pulse 58, respirations 16. He is anicteric. His extraocular muscles are intact. Mucous membranes are moist. His abdomen is distended. He has got 1+ edema, which is typical for him. LABORATORY DATA: His sodium is 136, potassium 3.3, total CO2 of 29, chloride 92 , BUN 120 with a creatinine of 9.01. These are up from his previous values. IMPRESSION AND PLAN: Constipation with obstipation. I think there may be a component of gastroparesis with this as well. I think it will be a good idea to get him some intravenous Reglan as well as the presently prescribed lactulose. I will discuss this with Dr. Allen. [id number]/[facility] #: [id number] NAMAN
[2017-05-17] MEDS: LORazepam INJ* 2 MG/ML 1 ML VIAL IV PUSH SCH ×2 (01:41→05:25)
[2017-05-17] MEDS: Mineral Oil ENEMA* 1 BOTTLE PR SCH (05:26)
[2017-05-17] MEDS: Heparin VIAL(*) 5000 UNITS/ML VIAL (FIVE THOUSAND) SUBCUT SCH (05:37)
[2017-05-17 08:15] VITALS: BP 122/61
[2017-05-17] MEDS: Atorvastatin* 20 MG TAB PO SCH (08:16)
[2017-05-17] MEDS: Multivitamins/Minerals TAB PO SCH (08:17)
[2017-05-17] MEDS: Insulin LISPRO* 1 UNITS UNIT SUBCUT SCH ×2 (08:17→12:40)
[2017-05-17] MEDS: Ascorbic Acid TAB* 500 MG PO SCH (08:17)
[2017-05-17] MEDS: Diltiazem CD CAP* 180 MG PO SCH (08:17)
[2017-05-17] MEDS: Furosemide TAB* 40 MG PO SCH (08:17)
[2017-05-17] MEDS: Omeprazole CAP* 20 MG PO SCH (08:17)
[2017-05-17] MEDS: Cholecalciferol TAB* 1000 UNITS PO SCH (08:17)
[2017-05-17] MEDS: Insulin ISOPH/REG 70/30 (*) 1 UNITS UNIT SUBCUT SCH (08:17)
--- NOTE | 2017-05-17 14:56 | PN ---
Subjective Date of Service: 05/17/17 Interval History: Patient seen and examined at bedside. Denies fever, chills, shortness of breath , chest discomfort, N/V/D. Pt states that he has been moving his bowels and is anxious to be discharged to home. Family History: Unchanged from Admission Social History: Unchanged from Admission Past Medical History: Unchanged from Admission Objective Active Medications: Albuterol (Ventolin Hfa Inhaler*) 2 puff INH Q6H PRN Reason: SHORTNESS OF BREATH Ascorbic Acid (Vitamin C Tab*) 1,000 mg PO QAM [facility] Atorvastatin Calcium (Lipitor*) 20 mg PO DAILY [facility] Brimonidine Tartrate (Alphagan 0.2%) 1 drop BOTH EYES BID [facility] Cetirizine HCl (Zyrtec*) 10 mg PO QPM PRN Reason: Allergy Symptoms Cholecalciferol (Vitamin D Tab*) 1,000 units PO BID [facility] Dextrose (D50w Syringe 50 Ml*) 12.5 gm IV PUSH .FOR FS < 60 - SS PRN Reason: FS < 60 Diltiazem HCl (Cardizem Cd Cap*) 180 mg PO DAILY [facility] Furosemide (Lasix Tab*) 40 mg PO BID [facility] Heparin Sodium (Porcine) (Heparin Vial(*)) 5,000 units SUBCUT Q8HR [facility] Insulin Human Isoph/Insulin Regular (Humulin 70/30 (*)) 16 units SUBCUT 0800, 1700 [facility] Insulin Human Lispro (Humalog*) 0 units SUBCUT AC [facility] Reason: Protocol Lactulose (Lactulose*) 30 ml PO QID [facility] Losartan Potassium (Cozaar Tab*) 100 mg PO QPM [facility] Mineral Oil (Fleet Mineral Oil Enema*) 1 bottle [place] 0500 [facility] Multivitamins/Minerals (Theragran/Minerals Tab*) 1 tab PO DAILY [facility] Omeprazole (Prilosec Cap*) 40 mg PO BID [facility] Ondansetron HCl (Zofran Inj*) 4 mg IV Q6H PRN Reason: NAUSEA Trazodone HCl (Desyrel Tab*) 50 mg PO BEDTIME [facility] Vital Signs 05/16/17 05/16/17 05/16/17 15:37 19:31 21:00 Temperature 97.7 F 97.6 F Pulse Rate 54 60 Respiratory 16 20 16 Rate Blood Pressure 122/50 120/46 (mmHg) O2 Sat by Pulse 98 98 Oximetry 11/26/17 11/27/17 11/27/17 23:19 00:23 01:41 Temperature 98.2 F Pulse Rate 51 Respiratory 16 18 18 Rate Blood Pressure 110/40 (mmHg) O2 Sat by Pulse 99 Oximetry 05/17/17 05/17/17 05/17/17 03:30 05:08 07:35 Temperature 97.8 F 98.3 F Pulse Rate 56 64 Respiratory 16 16 19 Rate Blood Pressure 122/47 122/61 (mmHg) O2 Sat by Pulse 98 96 Oximetry 05/17/17 08:00 Temperature Pulse Rate Respiratory 19 Rate Blood Pressure (mmHg) O2 Sat by Pulse Oximetry Oxygen Devices in Use Now: None Appearance: NAD, sitting up in chair Respiratory: Symmetrical Chest Expansion and Respiratory Effort, Clear to Auscultation Cardiovascular: NL Sounds; No Murmurs; No JVD, RRR Abdominal: NL Sounds; No Tenderness; No Distention Extremities: No Edema Skin: No Rash or Ulcers Neurological: Alert and Oriented x 3, NL Muscle Strength and Tone Lines/Tubes/Other Access: Clean, Dry and Intact Peripheral IV - site benign Nutrition: Taking PO's Result Diagrams: 05/15/17 06:17 05/16/17 04:24 Additional Lab and Data: Assess/Plan/Problems-Billing Assessment: Mr. 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 (1) Obstipation Code(s): K59.00 - CONSTIPATION, UNSPECIFIED SNOMED Code(s): 094712021 Comment: - Patient states he has been moving his bowels since yesterday - Will continue Lactulose PRN at home (2) Type II diabetes mellitus - poor control Code(s): E11.65 - TYPE 2 DIABETES MELLITUS WITH HYPERGLYCEMIA SNOMED Code(s): 52641527 Comment: - Glucose 140-150's - Resume home Insulin (3) Nephrotic syndrome Code(s): N04.9 - NEPHROTIC SYNDROME WITH UNSPECIFIED MORPHOLOGIC CHANGES SNOMED Code(s): 15112810 Comment: - Stage 5 CKD - No immediate need for dialysis, no hyperkalemia, acidosis, or volume overload - BP may be overtreated, reduce dose lasix, could be contributing to constipation. (4) Hypertension Code(s): I10 - ESSENTIAL (PRIMARY) HYPERTENSION SNOMED Code(s): 19081367 Comment: - SBP 110-120's - Continue Lasix (decreased), Losartan (5) Hyperlipidemia Status: Chronic Priority: Low Code(s): E78.5 - HYPERLIPIDEMIA, UNSPECIFIED SNOMED Code(s): 56172287 (6) Obesity Code(s): E66.9 - OBESITY, UNSPECIFIED SNOMED Code(s): 255143934 Comment: - BMI 32.8 (7) DVT prophylaxis Code(s): RTG4523 - SNOMED Code(s): 482530580 Comment: - SC heparin (8) Full code status Code(s): Z78.9 - OTHER SPECIFIED HEALTH STATUS SNOMED Code(s): 655094775 Status and Disposition: Inpatient due to obstipation. Stable for discharge to home today.
[2017-05-17] MEDS ORDERED: GLYCERIN ONE (16:30)
--- NOTE | 2017-05-18 18:50 | DS ---
CC: Dr. Kyle Watkins * DISCHARGE SUMMARY: DATE OF ADMISSION: 05/14/17 DATE OF DISCHARGE: 05/17/17 ATTENDING PHYSICIAN: Dr. Tia Alexander * (dictated by Tess Landa NP) PRIMARY CARE PROVIDER: Dr. Kyle Watkins. PRIMARY DIAGNOSIS: Obstipation. SECONDARY DIAGNOSES: 1. Diabetes mellitus. 2. Hypertension. 3. Gastroesophageal reflux disease. 4. Hyperlipidemia. 5. Chronic kidney disease stage 5. CONSULTATIONS WHILE IN THE HOSPITAL: Dr. Akin Chacon with Nephrology. STUDIES WHILE IN THE HOSPITAL: Abdomen and pelvis CT on 05/14/17. Radiologist' s impression: There is a moderate amount of stool in the rectum with the rectum top normal in dimension measuring 7.5 x 3 cm in the axial plane. More proximally, there is stool throughout the colon, but no pathologic bowel dilation. CT findings are most indicative of rectal, cecal impaction with subsequent constipation. The peritoneal dialysis catheter appears to be appropriately positioned along the posterior margin of the urinary bladder. There are additional chronic degenerative and iatrogenic findings as described in the body of the report. DISCHARGE MEDICATIONS: New home medication: Lactulose 30 mL oral 4 times daily as needed for constipation. Continued home medications: 1. Losartan 100 mg oral every evening. 2. Regular insulin 15 to 20 units subcutaneous every evening. 3. Regular insulin 10 to 15 units subcutaneous every morning. 4. NPH 40 units subcutaneous twice daily. 5. Claritin 10 mg oral every evening as needed for allergy symptoms. 6. Advair HFA 115/21 two puffs inhalation twice daily. 7. Ascorbic acid 1000 mg oral every morning. 8. Trazodone 50 mg once daily at bedtime. 9. Trusopt 2% ophthalmic solution 1 drop to both eyes twice daily. 10. Alphagan P 0.2% 1 drop to both eyes twice daily. 11. Triamcinolone 0.1% cream apply topical twice daily. 12. Simvastatin 40 mg oral daily. 13. Albuterol HFA inhaler 2 puffs inhalation every 6 hours as needed for shortness of breath or wheeze. 14. Omeprazole 40 mg oral twice daily. 15. Glucagon 1 mg subcutaneous once as needed for low blood sugars. 16. Flaxseed oil 1000 mg oral daily. 17. Diltiazem CD 180 mg oral daily. 18. Vitamin D 1000 units oral twice daily. 19. Multivitamin 1 tablet oral daily. 20. Guaifenesin with codeine 100/10, 10 mL oral twice daily as needed for cough. Changed home medication: 1. Furosemide 40 mg oral twice daily, decreased from 80 mg twice daily. HISTORY OF PRESENT ILLNESS/HOSPITAL COURSE: Mr. Kaur is a 72-year-old male with past medical history significant for chronic kidney disease with end-stage renal disease, now with a peritoneal dialysis catheter placement on 05/05/17; diabetes mellitus type 2; glaucoma; COPD; hypertension; hyperlipidemia, who presented to the hospital with concern of no bowel movement since the placement of his peritoneal dialysis catheter on 05/05/17. The patient denied any complications with his dialysis catheter placement, but reported bloating and constipation since its placement in addition to some nausea. The patient had been in contact with Dr. Fong's office who had recommended that he come to the emergency room for evaluation due to the fact that he had not had a bowel movement in 9 days. While in the emergency room, the patient had labs showing a chronic anemia and elevated BUN and creatinine, which were consistent with his previous labs. CRP of 23.99. He had a urine showing trace leukocyte esterase, 1+ bacteria. He had a CT of his abdomen and pelvis showing a fecal impaction. The hospitalists were asked to evaluate the patient for admission. While in the hospital, the patient was treated with glycerin suppository, mineral enemas, lactulose. He was seen in consultation by Dr. Chacon who recommended trying Reglan as he felt that gastroparesis could be playing a role into this, and additionally, it was felt that the patient may be over-diuresed, and his Lasix could be contributing to his constipation, so his Lasix was decreased. The patient was also given barium enema by Dr. Allen on 05/16/17. He was only able to retain the enema for approximately 1 minute. The patient later had a soft, medium bowel movement and then had 2 more medium bowel movements feeling some relief in his discomfort. The patient was frequently ambulating. He felt as though his abdomen was feeling better, although it was still slightly distended. The patient was feeling better and requesting to go home today. Mr. Kaur is stable for discharge to home today. Vital signs are as follows: Temperature 98.3, heart rate 64, respiratory rate 19, O2 sat 96% on room air, blood pressure 122/61. DISCHARGE PLAN: Mr. Kaur will be discharged to home. Activity as tolerated. He has been encouraged to ambulate. Consistent carbohydrate diet. As far as the patient's constipation, he has been encouraged to keep walking, make sure that he is drinking plenty of fluids, and to continue lactulose 30 mL every 6 hours as needed for constipation. We have also decreased his furosemide to 40 mg daily from 80 as this may have been contributing to his constipation. He has a followup appointment with his primary care provider, Dr. Kyle Watkins, on 07/07 at 2:40 p.m. Points for follow-up: If it is felt that gastroparesis is contributing to his constipation, I would recommend considering Reglan for this. This is a summarized report of a complex medical history and hospital stay. For further details, please see the entire medical record. TIME SPENT: Time for this discharge was approximately 50 minutes, greater than half of that was spent [id number] with the patient, discussing discharge plans and instructions. CONDITION ON DISCHARGE: Stable. Reviewed by FRANCESCO KENNEY 05/21/17 1145 [id number]/[facility] #: [id number] NAMAN
== END 2017-05-17 15:45 | disposition home or self-care (01) | DRG 388 ==
LOC: ED 15:39 → MED 20:03 → OBSVTOIN 05-16 13:14
PROVIDERS: ADMIT Hospitalist; ATTEND Hospitalist
DX: K56.41 Fecal impaction (principal); N18.6 End stage renal disease; E11.21 Type 2 diabetes mellitus with diabetic nephropathy; E11.65 Type 2 diabetes mellitus with hyperglycemia; I12.0 Hypertensive chronic kidney disease with stage 5 chronic kidney disease or end stage renal disease; K31.84 Gastroparesis; E11.22 Type 2 diabetes mellitus with diabetic chronic kidney disease; Z99.2 Dependence on renal dialysis; H40.9 Unspecified glaucoma; J44.9 Chronic obstructive pulmonary disease, unspecified; E78.5 Hyperlipidemia, unspecified; K21.9 Gastro-esophageal reflux disease without esophagitis; D64.9 Anemia, unspecified; Z79.84 Long term (current) use of oral hypoglycemic drugs; Z79.4 Long term (current) use of insulin; Z79.899 Other long term (current) drug therapy; Z88.8 Allergy status to other drugs, medicaments and biological substances; Z88.6 Allergy status to analgesic agent; Z88.5 Allergy status to narcotic agent; Z91.013 Allergy to seafood; Z82.49 Family history of ischemic heart disease and other diseases of the circulatory system; Z87.891 Personal history of nicotine dependence; E66.9 Obesity, unspecified; Z68.32 Body mass index [BMI] 32.0-32.9, adult; E11.43 Type 2 diabetes mellitus with diabetic autonomic (poly)neuropathy
CPT/HCPCS: 36415; 74020; 74176; 80048; 80053; 81003; 81015; 83605; 83690; 84443; 85025; 85610; 86140; 87086; 93005; 99284; A9270-GY; G0378; J1644; J2060; J2405; J2765

== ENCOUNTER → 2017-06-29 11:46 | Day surgery (SDC) | payer MEDICARE, MEDICAID ==
--- NOTE | 2017-06-25 21:01 | HP ---
CC: Dr. Kyle Watkins; Dr. Akin Chacon * ADMISSION HISTORY AND PHYSICAL: DATE OF ADMISSION: Will be 06/29/17. ATTENDING SURGEON: Dr. Haroon Fong * (DICTATED BY SHANNON MUÑOZ) CHIEF COMPLAINT: End-stage renal disease with malfunctioning peritoneal dialysis catheter. HISTORY OF PRESENT ILLNESS: This is a 72-year-old male with chronic kidney disease who underwent laparoscopic placement of a peritoneal dialysis catheter in April [address] Fong. His postoperative course was complicated by significant obstipation. The patient has been through teaching and trial of fluid instillation via the catheter. However, he does not tolerate large volumes of fluid and in fact states that his whole abdomen becomes hard and painful with pain radiating to the shoulder. A PD catheter imaging study was performed, which per Dr. Fong's note showed a loculated collection at the distal end of the loop with no free flow of contrast. Dr. Fong met with Mr. Kaur on 06/24/17 and reviewed the indications for surgery, the risks, benefits , and alternatives. The patient would like to proceed as scheduled with laparoscopic revision of peritoneal dialysis catheter. Also, of note, tentative plans are in place for placement of an upper extremity AV fistula by Dr. Craven in July. PAST MEDICAL HISTORY: 1. Chronic kidney disease (not actively receiving dialysis at the present time) . 2. Diabetes mellitus. 3. COPD. 4. Hypertension. 5. 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 6. Chronic bilateral lower extremity edema. 7. Allergic rhinitis. 8. GERD. 9. Restless legs syndrome. 10. Glaucoma. 11. Hyperlipidemia. 12. Hypothyroidism. 13. Insomnia. 14. Chronic constipation. 15. Retinal detachment. PAST SURGICAL HISTORY: Include peritoneal dialysis catheter placement in April 2017, appendectomy, tonsillectomy, right eye vitrectomy. CURRENT MEDICATIONS: 1. Advair 115/21 two puffs b.i.d. 2. Vitamin C 1000 mg once daily. 3. Brimonidine 0.2% eye drops one drop each eye b.i.d. 4. Multivitamin once daily. 5. Vitamin D 3 1000 IU 2 tablets once daily. 6. Diltiazem extended release 180 mg daily. 7. Dorzolamide 2% eye drops one drop OU b.i.d. 8. Furosemide 40 mg b.i.d. 9. Humulin N 25 to 40 units subcutaneous b.i.d. (generally the patient uses 25 to 30 units). 10. Regular insulin 10 to 15 units q.a.m., 15 to 20 units q.p.m. or as directed. 11. Loratadine 10 mg once daily. 12. Losartan 100 mg once daily. 13. Metolazone 5 mg once daily. 14. Omeprazole 40 mg b.i.d. 15. ProAir HFA 2 puffs q.i.d. p.r.n. (has not required recently). 16. Simvastatin 40 mg daily. 17. Trazodone 50 mg 1 to 2 tablets q.h.s. p.r.n. for insomnia. 18. Metoclopramide 5 mg 1 tablet 15 minutes before each meal and at bedtime. 19. Levothyroxine 25 mcg once daily. 20. Metolazone 5 mg daily. 21. Ropinirole 0.25 mg 2 tablets at h.s. 22. Lactulose 15 mL once or twice daily p.r.n. for constipation. DRUG ALLERGIES: NORVASC (swelling), HYDROCODONE (shortness of breath) (the patient does tolerate oxycodone and codeine, though has had significant postoperative constipation), TYLENOL and NSAIDs (directed by Dr. Chacon not to use because of his renal failure), LISINOPRIL (cough). FAMILY HISTORY: Remarkable for diabetes including a brother who with end- stage renal disease. SOCIAL HISTORY: The patient lives with his long time partner. 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 He is a former smoker who quit cigarettes, cigars, and pipe in 1989 and stopped chewing tobacco in 1995. He also stopped alcohol in 1989. He denies other drug use. REVIEW OF SYSTEMS: General: No recent constitutional symptoms or acute illnesses other than described in the HPI. Cardiovascular: No recent chest pain, palpitations. He does use lymphedema pumps most of the days, though his restless legs syndrome has not permitted the use of the pumps lately. He also states that he has a small skin tear on the left lower extremity, but no evidence of infection. Respiratory: No recent exacerbations of the COPD. No chronic cough. GI: GERD well controlled. No lower GI symptoms. His last colonoscopy was approximately 5 years ago and he is due for repeat exam later this year with no interval problems reported. : As above per HPI. No additions. Endocrine: Diabetes (he reports occasional hypoglycemia up to once weekly and has tapered his insulin accordingly and sometimes holds it altogether ). He was recently diagnosed as being mildly hypothyroid and is followed by Dr. Watkins. PHYSICAL EXAMINATION GENERAL: Well-nourished, obese male, in no acute distress. VITAL SIGNS: Height 68 inches, weight 213 pounds, temperature 98.3, blood pressure 152/68, pulse 78, respirations 18. HEENT: He has some conjunctival injection of the right eye. EOMs intact. Otherwise normal. LUNGS: Clear to auscultation. No rales or wheezes. HEART: Regular rate and rhythm. No murmur appreciated. ABDOMEN: Peritoneal dialysis catheter with exit to the left mid abdomen. Well - healed laparoscopic incision sites. Per Dr. Fong, there is recurrent epigastric hernia, though I am not able to discern that on today's exam. He apparently also has an inguinal hernia, though on my exam I am unable to differentiate. The abdomen is otherwise obese, but soft, nontender without palpable masses within limitations of exam. GENITALIA: No definite palpable inguinal hernia. BACK: No spinous process or CVA tenderness. EXTREMITIES: 1 to 2+ edema. He has compression stockings in place and therefore the skin was not examined directly. There is a bandage present along the anterolateral aspect of the left lower leg. Distal pulses were not examined. NEUROLOGICAL: Grossly intact. SKIN: Warm and dry. No suspicious rashes or lesions noted. IMPRESSION: End-stage renal disease with malfunctioning peritoneal dialysis catheter. PLAN: Laparoscopic revision of peritoneal dialysis catheter. SHANNON MUÑOZ [id number]/[facility] #: [id number] NAMAN
[~2017-06-29 11:46] MED LIST changes: +ALBUTEROL INH PRN; +Acetaminophen TAB* 325 MG PO PRN; +Ascorbic Acid TAB* 500 MG PO SCH; +Buffered Lidocaine 0.9% SYRIN* 5 ML/SYR SYRINGE ONE; +Bupivacaine 0.5% SDV PF* 10-30ML VIAL ONE; +Cholecalciferol TAB* 1000 UNITS PO SCH; +DOXYcycline CAP(*) 100 MG PO SCH; +Dexamethasone IV* 4 MG/ML 1 ML (4 MG) ONE; +DiMENhydriNATE IV* 50 MG/ML VIAL IV PUSH PRN; +DiMENhydriNATE IV* 50 MG/ML VIAL ONE; +Diltiazem CD CAP* 180 MG PO SCH; +Dorzolamide 2% OPTH (NF) 10 ML BTL BOTH EYES SCH; +Famotidine IV* 10 MG/ML 2 ML (20 mg) ONE; +Fluticas/Salmet 115/21 HFA(NF) MDI INH SCH; +Furosemide TAB* 40 MG PO SCH; +Glycopyrrolate IV* 0.2 MG/ML 1 ML VIAL ONE; +Heparin DIALYSIS ONLY(*) 1,000 UNITS/ML VIAL ONE; +Heparin VIAL(*) 5000 UNITS/ML VIAL (FIVE THOUSAND) SUBCUT SCH; +INSULIN REGULAR SUBCUT SCH; +Levothyroxine TAB* 25 MCG TAB PO SCH; +Lidocaine 2% PF * 5 ML VIAL ONE; +LoraTADine TAB(NF) 10 MG TAB (AUTOSUB to CETIRIZINE) PO PRN; +Losartan TAB* 25 MG PO SCH; +METOCLOPRAMIDE HCL 5 MG PO SCH; -Metoclopramide IV* 5 MG/ML 2 ML VIAL IV SLOW PU ONE; +Metoclopramide TAB* 10 MG PO SCH; +Metolazone TAB* 5 MG PO SCH; +Midazolam* 1 MG/ML 2 ML VIAL (2 MG) ONE; +NS 0.9% 1000 ML* 1,000 ML IV SCH; +Neostigmine Methylsulfate* 2 MG/2 ML SYRINGE ONE; +Omeprazole CAP* 20 MG PO SCH; +Ondansetron INJ* 2 MG/ML VIAL ONE; +Propofol* 10 MG/ML 20 ML BTL IV PUSH ONE; +ROPINIROLE HYDROCHLORIDE 0.5 MG PO SCH; +Rocuronium* 10 MG/ML VIAL ONE; +Simvastatin (NF) 40 MG TAB PO SCH; +Succinylcholine* 20 MG/ML 10 ML VIAL ONE; +Triamcinolone 0.1% CREAM (NF) 15 GM TUBE TOPICAL SCH; +ceFAZolin 2 GM PREMIX (*) 2 GM/50 ML BAG IVPB ONE; +fentaNYL* 50 MCG/ML 2 ML VIAL (100 MCG VIAL) ONE; +guaiFENesin/CODIEN 100MG-10MG* 5 ML UDC PO PRN; +oxyCODONE/Acetamin 5/325 MG* TAB PO PRN; +traZODone TAB* 50 MG TAB PO SCH
[2017-06-29 13:11] LABS: EGFR Non-African American 9.7 (>60)
--- NOTE | 2017-06-29 15:02 | BRIEFOPN ---
Brief Operative Note - Surgery Procedures: Procedures Pre-OP Diagnoses: ESRD Post-op Diagnosis: same Procedure: Laparoscopic revision of peritoneal dialysis catheter Surgeon: Hetal Asst: none Anethesia: ANGE Bland EBL: minimal IVF: minimal Specimen: none Drains: [facility]
[2017-06-29 18:16] VITALS: BP 131/61
--- NOTE | 2017-06-30 10:41 | OP ---
C: Dr. Akin Chacon * DATE OF OPERATION: 06/29/17 - [facility] DATE OF : 43 SURGEON: Haroon Fong MD [employer] REPAIRER: None. ANESTHESIOLOGIST: Dr. Bland. ANESTHESIA: General anesthesia. PRE-OP DIAGNOSIS: Malfunctioning peritoneal dialysis catheter and end-stage renal disease. POST-OP DIAGNOSIS: Malfunctioning peritoneal dialysis catheter and end-stage renal disease. OPERATIVE PROCEDURE: Laparoscopic revision of peritoneal dialysis catheter. ESTIMATED BLOOD LOSS: Minimal. FLUIDS: Minimal crystalloid fluids given. The patient remained with 62 cm curl catheter in the same position. DESCRIPTION OF PROCEDURE: The patient was identified in the preoperative area. I noted that he did have a left lower extremity partial thickness wound that likely was secondary to venous stasis disease and continued swelling of his lower extremities. The patient was then marked on the abdomen. Consent was signed. He was taken to the operating room, placed on the operating table in supine position. Preoperative antibiotics were given. Sequential devices were placed on the right lower extremity. General anesthesia was induced. The patient's abdomen was prepped and draped in a standard surgical fashion after the hair in the abdomen was clipped and the time-out was performed. I entered the previous left upper quadrant incision, deepened down to the anterior fascia, which is elevated and a Veress needle inserted into the abdominal cavity, which was allowed to insufflate to a pressure of 15 mmHg. The patient tolerated the insufflation well. A 5 mm trocar was then inserted at this site. Laparoscope was inserted. There was no evidence of injury from the trocar insertion or from the Veress needle. The Veress needle was then removed. Review of the abdomen showed no free fluid. Bowel appeared intact. There was no significant adhesions. The omentopexy of the right upper quadrant still held. We could see Prolene sutures from previous surgery at the umbilicus and at the epigastrium area. There was additional herniation in between these 2 sites and we placed a 5 mm trocar through this small approximately 4 mm hernia. Another 5 mm trocar was then placed in the left lower quadrant. We accessed the pelvis and placed the patient in a Trendelenburg. The curl catheter was then brought up through the pelvis to take a look at. We then flushed with saline and noted that there was no obstruction and the ports, where the side holes were, all appearing patent. There was no clotting. There was no sheath or fibers, connective tissue at the site of the catheter. However, we did note in the pelvis, there was a large redundant bulky sigmoid colon that may have been part of the issue. I reviewed the left and right hernias. These hernias seem very shallow and not significant. Next, we performed a pexy of the epiploica to the sigmoid colon and attached this to the anterior abdominal wall of the left lower quadrant hoping that this would give more mobility to freely flow the dialysate through the abdominal cavity. Once this was done, we put dialysate through the catheter. If flowed freely in and also out. We then removed the umbilical port and used an Endo Close device and a #1 Prolene suture to reapproximate this hernia defect in a [id number] fashion. Next, the trocar was removed and abdomen collapsed and then all the skin incisions were reapproximated with skin emeka followed by a sterile dressing. The patient tolerated the procedure well. [id number]/[facility] #: [id number] NAMAN
== END | disposition home or self-care (01) ==
LOC: OR 11:46
PROVIDERS: ATTEND Surgery
DX: T85.611A Breakdown (mechanical) of intraperitoneal dialysis catheter, initial encounter (principal); Y83.1 Surgical operation with implant of artificial internal device as the cause of abnormal reaction of the patient, or of later complication, without mention of misadventure at the time of the procedure; N18.6 End stage renal disease; E11.9 Type 2 diabetes mellitus without complications; Z79.4 Long term (current) use of insulin; I12.0 Hypertensive chronic kidney disease with stage 5 chronic kidney disease or end stage renal disease; E03.9 Hypothyroidism, unspecified; J44.9 Chronic obstructive pulmonary disease, unspecified; I25.2 Old myocardial infarction; R60.0 Localized edema; K21.9 Gastro-esophageal reflux disease without esophagitis; G25.81 Restless legs syndrome; E78.5 Hyperlipidemia, unspecified; K59.09 Other constipation; Z79.899 Other long term (current) drug therapy; Z99.2 Dependence on renal dialysis
CPT/HCPCS: 36415; 80048; J0330; J0690; J1100; J1240; J1644; J2250; J2405; J2704; J3010

== ENCOUNTER 2017-08-11 10:22 | Day surgery (SDC) | payer MEDICARE, MEDICAID ==
--- NOTE | 2017-08-06 20:02 | HP ---
HISTORY AND PHYSICAL: DATE OF ADMISSION: 08/11/17 The patient is scheduled for surgery on 08/11/17 at [facility] where he will undergo left arm [place] AV fistula to be performed by Dr. Craven. ATTENDING SURGEON: Dr. Craven * (DICTATED BY SHANNON RAYA) HISTORY OF PRESENT ILLNESS: This is a 72-year-old male who presented to Dr. Craven for the evaluation of placement of an AV fistula due to his renal failure. The patient has a long medical history, which includes insulin dependent diabetes, COPD, hypertension, coronary artery disease, and most recently end-stage renal disease for which he currently is using peritoneal dialysis and is followed by Dr. Chacon. He prefers to stay local and not travel to have this procedure done and had been a previous patient of Dr. Craven and presented for his evaluation on in April 2017 for the evaluation of an AV fistula for dialysis. The patient was evaluated by Dr. Craven in April 2017. He had end-stage renal disease at that time. He was undergoing peritoneal dialysis back in April 2017. He was referred by Dr. Chacon for AV fistula placement. On examination, the patient had visible palpable veins bilaterally noted on the dorsum of both hands right and left. The left hand is better and arm. He has excellent palpable pulses at the radial, brachial and axillary region. It was felt that the patient would be a good candidate for AV fistula of the left arm to be done by Dr. Craven, so at that point in April, we had them save the left arm for no needle sticks IV in preparation for the upcoming surgery. The patient understands that fistulas have to mature. There is potential complication, such as thrombosis and bleeding, and understands all of these concerns and wishes to proceed with a fistula as scheduled on 08/11/17 at [facility] with Dr. Craven. PAST MEDICAL HISTORY: For this patient includes COPD; end-stage renal disease, currently using peritoneal dialysis and is followed by Dr. Chacon. He has a history of coronary artery disease. He is status post an OR 2 years ago. He does not have any active chronic angina and had a full workup 2 years ago as well at [facility] for his cardiac condition. He is insulin dependent diabetic. He has a history of hypertension, history of heart murmur, and has chronic venous insufficiency, and venous hypertension, had non-healing ulcer on to the right leg at one point and is status post endoluminal radiofrequency closure of the right greater saphenous vein by Dr. Craven back in February 2017. MEDICATIONS: Medications are many and current medications are the followin. He is on Cozaar 100 mg p.o. q.p.m. 2. He takes insulin regular, Humulin 10 to 15 units subcu every morning. He takes insulin regular 15 to 20 units subcu every evening. He takes NPH insulin 0 to 40 units subcu twice a day, not to exceed 100 units. 3. Claritin 10 mg daily as needed. 4. Advair 2 puffs inhaler twice a day. 5. Vitamin C tablet 1000 units daily. 6. Trazodone 50 mg p.o. q.h.s. 7. Trusopt 2% ophthalmic solution both eyes twice a day. 8. Eye drops brimonidine 0.2% 1 drop both eyes daily. 9. Kenalog 0.1% cream apply topically daily as needed. 10. Zocor 40 mg p.o. q.h.s. 11. Albuterol inhaler 2 puffs every 6 hours as needed. 12. Prilosec 40 mg twice a day. 13. Cardizem CD 180 mg p.o. q.a.m. 14. Vitamin D tablet 1000 units twice a day. 15. Multivitamin each morning. 16. She takes codeine cough medicine, guaifenesin 100-10 mg cough medicine 10 mL orally daily as needed for cough. 17. Lasix 40 mg twice daily. 18. Zaroxolyn 5 mg daily. 19. Ropinirole 0.5 mg orally at bedtime. 20. Metoclopramide HCl 5 mg 3 times daily before meals. 21. Levo-T 25 mcg orally at bedtime, which is levothyroxine. 22. Reglan 5 mg p.o. q.h.s. 23. Lactulose 30 mL orally 3 times a day. ALLERGIES: He appears to have an allergy to NORVASC where he has swelling. Allergic to HYDROCODONE, difficulty breathing. SHELLFISH allergy, difficulty breathing. ACETAMINOPHEN intolerance. NON-STEROIDAL ANTI-INFLAMMATORIES has some side effects. SOCIAL HISTORY: I believe he is . He does not smoke, previously smoked and drank, but has not smoked and drank for many years since 1989. He has no children. Lives in his home. He does drive. PHYSICAL EXAMINATION VITAL SIGNS: Today in our office, the patient's vital signs: His weight is 209 pounds, he is 5 feet 8 inches. His blood pressure is 161/53, his pulse is 67 and regular. HEENT: Within normal limits. NECK: Supple. There is no JVD or carotid bruits. Thyroid is felt to be normal. LUNGS: Breast sounds are distant. There were no wheezes or rhonchi heard today. HEART: His heart had a regular rhythm, but there is a loud systolic murmur 3/6 , which he said is noted has had for several years. ABDOMEN: He has a catheter in place from the peritoneal dialysis. There is no signs of infection. The abdomen itself is soft. There is no tenderness on exam. EXTREMITIES: As we mentioned before, the left arm has been saved. There has been no IV or needle sticks to the left arm and the veins were in good condition. He was evaluated and scanned by Dr. Craven who felt there were a couple of excellent places for placement of the AV fistula. Extremities reveal full range of motion without limitations. NEUROLOGIC: He is nonfocal and grossly intact. He is alert and oriented x3. IMPRESSION: The patient in end-stage renal disease, requiring access for hemodialysis. PLAN: At this time is to undergo placement of AV fistula to the left arm to be performed by Dr. Craven. Plan is for surgery to be scheduled at [facility] on 08/11/17. SHANNON RAYA [id number]/[facility] #: [id number] MTDD
[~2017-08-11 10:22] MED LIST changes: -ALBUTEROL INH PRN; -Acetaminophen TAB* 325 MG PO PRN; -Ascorbic Acid TAB* 500 MG PO SCH; -Buffered Lidocaine 0.9% SYRIN* 5 ML/SYR SYRINGE ONE; -Bupivacaine 0.5% SDV PF* 10-30ML VIAL ONE; -Cholecalciferol TAB* 1000 UNITS PO SCH; -DOXYcycline CAP(*) 100 MG PO SCH; -Dexamethasone IV* 4 MG/ML 1 ML (4 MG) ONE; -DiMENhydriNATE IV* 50 MG/ML VIAL IV PUSH PRN; -DiMENhydriNATE IV* 50 MG/ML VIAL ONE; -Diltiazem CD CAP* 180 MG PO SCH; -Dorzolamide 2% OPTH (NF) 10 ML BTL BOTH EYES SCH; -Famotidine IV* 10 MG/ML 2 ML (20 mg) ONE; -Fluticas/Salmet 115/21 HFA(NF) MDI INH SCH; -Furosemide TAB* 40 MG PO SCH; -Glycopyrrolate IV* 0.2 MG/ML 1 ML VIAL ONE; +Heparin 2 UNITS/ML IVPREMIX* 1,000 ML IV ONE; -Heparin VIAL(*) 5000 UNITS/ML VIAL (FIVE THOUSAND) SUBCUT SCH; -INSULIN REGULAR SUBCUT SCH; -Levothyroxine TAB* 25 MCG TAB PO SCH; +Lidocaine 1% INJ* 10 MG/ML 30 ML SDV ONE; -Lidocaine 2% PF * 5 ML VIAL ONE; -LoraTADine TAB(NF) 10 MG TAB (AUTOSUB to CETIRIZINE) PO PRN; -Losartan TAB* 25 MG PO SCH; -METOCLOPRAMIDE HCL 5 MG PO SCH; -Metoclopramide TAB* 10 MG PO SCH; -Metolazone TAB* 5 MG PO SCH; -Midazolam* 1 MG/ML 2 ML VIAL (2 MG) ONE; +NS 0.45% 1000 ML BAG* 1,000 ML IV SCH; -NS 0.9% 1000 ML* 1,000 ML IV SCH; -Neostigmine Methylsulfate* 2 MG/2 ML SYRINGE ONE; -Omeprazole CAP* 20 MG PO SCH; -Ondansetron INJ* 2 MG/ML VIAL ONE; -Propofol* 10 MG/ML 20 ML BTL IV PUSH ONE; -ROPINIROLE HYDROCHLORIDE 0.5 MG PO SCH; -Rocuronium* 10 MG/ML VIAL ONE; -Simvastatin (NF) 40 MG TAB PO SCH; -Succinylcholine* 20 MG/ML 10 ML VIAL ONE; -Triamcinolone 0.1% CREAM (NF) 15 GM TUBE TOPICAL SCH; -ceFAZolin 2 GM PREMIX (*) 2 GM/50 ML BAG IVPB ONE; -fentaNYL* 50 MCG/ML 2 ML VIAL (100 MCG VIAL) ONE; -guaiFENesin/CODIEN 100MG-10MG* 5 ML UDC PO PRN; -oxyCODONE/Acetamin 5/325 MG* TAB PO PRN; -traZODone TAB* 50 MG TAB PO SCH
[2017-08-11] MEDS ORDERED: Buffered Lidocaine 0.9% SYRIN* 5 ML/SYR SYRINGE ONE ×3 (10:26→11:41)
[2017-08-11] MEDS ORDERED: Famotidine IV* 10 MG/ML 2 ML (20 mg) ONE (10:26)
[2017-08-11] MEDS ORDERED: ceFAZolin 2 GM in 100 MLS NS (*) BAG IVPB ONE (10:32)
[2017-08-11] MEDS ORDERED: Propofol* 10 MG/ML 20 ML BTL IV PUSH ONE ×3 (10:33→13:21)
[2017-08-11] MEDS ORDERED: KETAMINE HCL* 50 MG/ML 10 ML VIAL ONE (10:33)
[2017-08-11] MEDS ORDERED: Ondansetron INJ* 2 MG/ML VIAL ONE (10:33)
[2017-08-11] MEDS ORDERED: fentaNYL* 50 MCG/ML 2 ML VIAL (100 MCG VIAL) ONE (10:33)
[2017-08-11] MEDS ORDERED: Midazolam* 1 MG/ML 10 ML VIAL (10 MG) ONE (10:33)
[2017-08-11] MEDS ORDERED: Lidocaine 2% PF * 5 ML VIAL ONE ×2 (10:33→12:19)
[2017-08-11] MEDS ORDERED: Heparin VIAL(*) 5000 UNITS/ML VIAL (FIVE THOUSAND) ONE (10:40)
[2017-08-11] MEDS ORDERED: Phenylephrine 1% NASAL* 15 ML BOT ONE (13:08)
[2017-08-11] MEDS ORDERED: Naloxone* 0.4 MG/ML 1 ML VIAL IV PRN (13:44)
[2017-08-11] MEDS ORDERED: Levalbuterol 0.63MG/3ML NEB* UNIT OF USE INH PRN (13:44)
[2017-08-11] MEDS ORDERED: Ondansetron INJ* 2 MG/ML VIAL IV PRN (13:44)
[2017-08-11] MEDS ORDERED: fentaNYL* 50 MCG/ML 2 ML VIAL (100 MCG VIAL) IV PRN (13:44)
[2017-08-11] MEDS ORDERED: Oxymetazoline 0.05% NASAL SPR* 15 ML BTL ONE (15:57)
[2017-08-11 16:03] VITALS: BP 132/72
--- NOTE | 2017-08-12 09:56 | OP ---
CC: Dr. Akin Chacon * DATE OF OPERATION: 08/11/17 - [facility] DATE OF : 43 SURGEON: Ziggy Craven MD. SECURITY ALARM INSTALLER: AMY Pool. ANESTHESIA: Local plus MAC. PRE-OP DIAGNOSIS: Endstage renal failure. POST-OP DIAGNOSIS: Endstage renal failure. OPERATIVE PROCEDURE: Left radiocephalic arteriovenous fistula. ESTIMATED BLOOD LOSS: Less than 20 cc. IV FLUIDS: 550 cc. DESCRIPTION OF PROCEDURE: The patient was taken to the procedure room. Prior to the surgery, the patient's cephalic vein and radial artery had been marked and ultrasound of the different sizes of the veins and arteries had been evaluated in the office prior to surgery. The patient was placed in the supine position. He received preoperative antibiotics. He was prepped and draped in the usual sterile fashion and exposing the left arm after proper identification and time-out. Lidocaine 1% was used to infiltrate on the lateral aspect of the left mid wrist and after the local anesthesia had been given a lateral incision was then made the; incision carried down through the skin, subcutaneous tissue , bleeding was controlled by electrocoagulation. The cephalic vein was identified and dissected off proximally and distally with enough length to avoid tension. After this was done the vein was encircled in vessel loops and after this was completed the radial artery was then exposed. Vessel loops were placed around the radial artery proximally and distally. The radial nerve was identified and preserved and left away from the operative field. After the vessels were completely exposed, the patient received 1000 units of heparin. We then proceeded to ligate the cephalic vein distally and transected with Metzenbaum scissors and we then proceeded to use the coronary dilators and the dilators were used up to a size of 3.5 mm and they will go easily without any evidence of stenosis or obstruction. After this was done, heparinized saline was used and cephalic vein was tested and there was good pulse and dilatation using the heparinized saline and after this was completed we then proceeded to apply a clamp to the cephalic vein. We then proceeded to cross clamp the radial artery proximally and distally. An arteriotomy was performed within 11 blade and enlarged with micro Amin. We then place the cephalic vein next to the to arteriotomy to match their size and in order to be open with minimal spatulation. The anastomosis was then performed using 6-0 Prolene running and after this was completed we then proceeded to release the levee superintendent the distal clamp of the radial and then the proximal. There was a good thrill noticed right away, any adhesions around the cephalic vein to avoid kinking were relieved and after this was done there was a good strong pulse on the radial artery distally and ulnar artery as well. There was a good thrill into the veins and at this point the incision was then closed; first subcutaneous tissue with 4-0 Vicryl sutures and the skin was closed subcuticular using 5-0 Monocryl and Steri- Strips without tension. The patient tolerated procedure well and he was taken in good condition to recovery room. [id number]/[facility] #: [id number] NAMAN
== END 2017-08-11 17:11 | disposition home or self-care (01) ==
LOC: OR 10:22
PROVIDERS: ATTEND Surgery
DX: N18.6 End stage renal disease (principal); E11.9 Type 2 diabetes mellitus without complications; Z79.4 Long term (current) use of insulin; J44.9 Chronic obstructive pulmonary disease, unspecified; I25.10 Atherosclerotic heart disease of native coronary artery without angina pectoris; E03.9 Hypothyroidism, unspecified; D64.9 Anemia, unspecified; I12.0 Hypertensive chronic kidney disease with stage 5 chronic kidney disease or end stage renal disease
CPT/HCPCS: A9270-GY; J1644; J2250; J2405; J2704; J3010

== ENCOUNTER 2017-08-27 10:54 | Day surgery (SDC) | payer MEDICARE, MEDICAID ==
[~2017-08-27 10:54] MED LIST changes: -Famotidine IV* 10 MG/ML 2 ML (20 mg) IV ONE; -Heparin 2 UNITS/ML IVPREMIX* 1,000 ML IV ONE; -Heparin DIALYSIS ONLY(*) 1,000 UNITS/ML VIAL ONE; -Lidocaine 1% INJ* 10 MG/ML 30 ML SDV ONE; -NS 0.45% 1000 ML BAG* 1,000 ML IV SCH; +NS 0.9% 1000 ML* 1,000 ML IV SCH
[2017-08-27] MEDS ORDERED: ceFAZolin 2 GM (*##) 2 GM/100 ML BAG USE CEFA2SOL IVPB ONE (11:18)
[2017-08-27] MEDS ORDERED: Buffered Lidocaine 0.9% SYRIN* 5 ML/SYR SYRINGE ONE (11:38)
[2017-08-27] MEDS ORDERED: Naloxone* 0.4 MG/ML 1 ML VIAL IV PRN (12:19)
[2017-08-27] MEDS ORDERED: Ondansetron INJ* 2 MG/ML VIAL IV PRN (12:19)
[2017-08-27] MEDS ORDERED: Midazolam* 1 MG/ML 2 ML VIAL (2 MG) ONE ×2 (12:46→14:26)
[2017-08-27] MEDS ORDERED: fentaNYL* 50 MCG/ML 2 ML VIAL (100 MCG VIAL) ONE ×2 (12:46→14:56)
[2017-08-27] MEDS ORDERED: Lidocaine 1% MPF wEPI 200,000* 30 ML SDV ONE (12:51)
[2017-08-27] MEDS ORDERED: Propofol* 10 MG/ML 20 ML BTL IV PUSH ONE ×3 (13:38→14:51)
[2017-08-27] MEDS ORDERED: Lidocaine 2% PF * 5 ML VIAL ONE (13:38)
[2017-08-27] MEDS ORDERED: Ondansetron INJ* 2 MG/ML VIAL ONE (14:26)
--- NOTE | 2017-08-27 15:21 | BRIEFOPN ---
Brief Operative Note - Surgery Procedures: Procedures Pre-OP Diagnoses: ESRD Post-op Diagnosis: same Procedure: placement of hemodialysis catheter Surgeon: Hetal Asst: none Anethesia: local, MAC EBL: minimal IVF: minimal Specimen: none Drains: 23cm 14.5fr curved catheter placed via R IJV
--- NOTE | 2017-08-27 16:32 | RAD ---
Indication: Post hemodialysis catheter placement. Assess for pneumothorax. Comparison: November 02, 2016 Technique: Upright AP 1538 hours Report: Distal tip of the dual-lumen tunneled RIGHT side central venous catheter is at the level of the RIGHT atrium inferior vena cava junction. Negative for pneumothorax. Suboptimal inspiration with mild subsegmental atelectasis. Diffuse mild prominence of the interstitial markings. Negative for pleural effusions. Mild cardiomegaly and mild prominence of the central pulmonary vasculature. IMPRESSION: 1. Negative for pneumothorax post tunneled hemodialysis catheter placement. 2. Probable mild pulmonary vascular congestion.
[2017-08-27 16:45] VITALS: BP 125/51
--- NOTE | 2017-08-27 16:49 | RAD ---
CPT II Codes: 6045F INDICATION: Renal failure TECHNIQUE: Intraoperative fluoroscopy was provided during placement of a right internal jugular vein hemodialysis catheter. FINDINGS: 2 spot films depict a right internal jugular vein tunneled hemodialysis catheter with the tip terminating at the cavoatrial junction. Fluoroscopy time: 155 seconds IMPRESSION: As above.
--- NOTE | 2017-08-27 21:34 | OP ---
CC: Dr. Kyle Watkins; Dr. Akin Chacon; [facility] OPERATIVE REPORT: DATE OF OPERATION: 08/27/17 DATE OF : 43 SURGEON: Haroon Fong MD PERFORMING ARTS TECHNICIANS: None. ANESTHESIOLOGIST: Dr. Montes. ANESTHESIA: Local MAC anesthesia. PRE-OP DIAGNOSIS: End-stage renal disease. POST-OP DIAGNOSIS: End-stage renal disease. OPERATIVE PROCEDURE: Insertion of hemodialysis catheter. ESTIMATED BLOOD LOSS: Minimal blood loss. FLUIDS: Minimal crystalloid fluid given. SPECIMEN: None. INSTRUMENT: A 23-cm hemodialysis catheter inserted via the right IJ vein. DESCRIPTION OF PROCEDURE: The patient was identified in the preoperative area, case discussed, conse nt signed, he was marked. He was taken to the operating room, placed on the operating table in a nor mal supine position with back minimally up. His upper neck was prepped and draped in a standard surgi zack fashion. A time-out was performed. I injected lidocaine for a local block at our anticipated site. The patient was placed in a [place] n[place] fashion and we accessed what we thought was the internal jugular vein. A wire did not advance and after multiple attempts, which simply go towards the subclavian vein. At this point, the needle was removed and we made an attempt to use a micro-access kit. We were unable to find the vein again and utilized ultrasound. With ultrasound over the right neck, we could see a very collapsed IJ vein just overlying the carotid artery. With the ultrasound, we placed a micro-access needle into the vei n and advanced its wiring, placed the small catheter over this microwire. This was all done under fl uoroscopy and once the wire was removed as well as the dilated portion of the small catheter, it appe ared that we were in an artery. The catheter was removed and pressure held for approximately 7 minut es. No hematoma was appreciated. Next, we placed the ultrasound over the site. There was no hematoma. We moved our attempt more infe rior to this. Again, the vein appeared almost on top of the artery. The vein was accessed and the m icrowire inserted with ease. We then placed its catheter through and under fluoroscopy, I assured th at we were in a right position, placed the dialysis wire over this micro-access catheter set under fl uoroscopy. Now with this all intact, the patient was taken out of Trendelenburg. The vein was dilated in a step burnett fashion until we could put in the 8-Libyan catheter split- away catheter in. We then tunneled t he 23-cm catheter from a separate stab incision on the upper chest to this puncture site and then ins erted it through the split-away catheter, which was then removed. We assured the appropriate locatio n with fluoroscopy. We then sutured the catheter to the skin. Both ports were flushed with saline a fter aspiration of blood. We then closed our incision sites with 4-0 Monocryl subcuticular sutures a nd placed 3-0 Prolene at the hub of the catheter. Heparinized saline was injected into both lumen an d sterile dressing was applied. The patient tolerated the procedure well. This overall represented a more complicated case than usual representing more than twice the time of typical that taking 90 mi nutes in all. [id number]/[facility] #: [id number]
== END 2017-08-27 16:45 | disposition home or self-care (01) ==
LOC: OR 10:54
PROVIDERS: ATTEND Surgery
DX: N18.6 End stage renal disease (principal); Z87.891 Personal history of nicotine dependence; I87.8 Other specified disorders of veins; E11.9 Type 2 diabetes mellitus without complications; Z79.4 Long term (current) use of insulin; I12.9 Hypertensive chronic kidney disease with stage 1 through stage 4 chronic kidney disease, or unspecified chronic kidney disease; J44.9 Chronic obstructive pulmonary disease, unspecified; E03.9 Hypothyroidism, unspecified; Z99.2 Dependence on renal dialysis; I83.009 Varicose veins of unspecified lower extremity with ulcer of unspecified site
CPT/HCPCS: 71045; 76000; C1752; J1642; J2001; J2250; J2405; J2704; J3010

== ENCOUNTER 2017-09-22 12:08 | Day surgery (SDC) | payer MEDICARE, MEDICAID ==
--- NOTE | 2017-09-20 23:02 | HP ---
CC: Dr. Kyle Watkins; Dr. Akin Chacon * ADMISSION HISTORY AND PHYSICAL: DATE OF ADMISSION: 09/22/17 ATTENDING SURGEON: Dr. Haroon Fong * (SHANNON Jenkins, dictating). CHIEF COMPLAINT: Left inguinal hernia. HISTORY OF PRESENT ILLNESS: This is a 72-year-old male with chronic kidney disease, currently undergoing hemodialysis on a Wednesday, , Wednesday schedule. He had had a peritoneal dialysis catheter placed laparoscopically in April 2017 with subsequent revision on 06/29/17 (no specific findings at that time, but sigmoid colon was pexied with subsequent improvement in PD catheter function). The patient was noted at the time of his April surgery to have an umbilical and supraumbilical hernia, which were closed at that time as well as a left inguinal hernia. There was no intervention on the left inguinal hernia at that time. Since then, the patient has attempted peritoneal dialysis, but with subsequent scrotal swelling of significance. He has therefore continued with hemodialysis, but would like to transition back to peritoneal dialysis. He states that the swelling typically occurs after 1 to 2 days of peritoneal dialysis and that it is asymptomatic in terms of pain or discomfort. It has been difficult to confirm the presence of a hernia by physical exam, though again an inguinal hernia was noted on the left at the time of initial laparoscopy in April of 2017. The patient was seen again today by Dr. Fong. Indications for surgery were discussed, the open approach versus laparoscopic, and the risks and benefits. The patient would like to proceed as scheduled with open repair of left inguinal hernia with mesh. PAST MEDICAL HISTORY: Kidney disease, currently on hemodialysis; diabetes mellitus; COPD; hypertension; old ND; chronic bilateral lower extremity edema; allergic rhinitis; GERD; restless leg syndrome; glaucoma; hyperlipidemia; hypothyroidism; insomnia; chronic constipation; retinal detachment. PAST SURGICAL HISTORY: Previous surgeries include peritoneal dialysis catheter placement, April 2017 with subsequent revision, June of 2017, appendectomy , tonsillectomy, right eye vitrectomy, recent left forearm [place] AV fistula by Dr. Craven. CURRENT MEDICATIONS: 1. Losartan 100 mg q.p.m. 2. Insulin NPH, usually 30 units q.a.m. and between 10 and 30 units q.p.m. subcutaneously based on fingersticks. 3. Novolin R typically 5 to 10 units q.a.m. and 5 to 10 units q.p.m. subcutaneously based on fingersticks. 4. Loratadine 10 mg daily p.r.n. (not using recently). 5. Advair 115/21 two puffs twice daily. 6. Vitamin C 1000 mg once daily. 7. Trazodone 50 mg q.h.s. 8. Dorzolamide 2% ophthalmic 1 drop both eyes twice daily. 9. Brimonidine 0.2% one drop both eyes twice daily. 10. Simvastatin 40 mg q.p.m. 11. Albuterol HFA MDI 2 puffs every 6 hours p.r.n. 12. Omeprazole 40 mg b.i.d. 13. Diltiazem 180 mg daily. 14. Diltiazem CD. 15. Vitamin D 1000 International Units b.i.d. 16. Multivitamin daily. 17. Triamcinolone 0.1% cream topically b.i.d. p.r.n. (has not needed recently). 18. Furosemide 40 mg p.o. b.i.d. 19. Metolazone 5 mg daily. 20. Ropinirole 1 mg q.h.s. 21. Metoclopramide 5 mg 4 times a day (a.c. and at h.s.). 22. Levothyroxine 25 mcg q.h.s. 23. Lactulose 30 mL 1 to 2 times per day. 24. MiraLAX 17 g daily p.r.n. 25. Extra Strength Tylenol 2 tablets b.i.d. DRUG ALLERGIES: NORVASC (swelling), HYDROCODONE (shortness of breath), (the patient does tolerate oxycodone and codeine, though has had significant postoperative constipation); NSAIDs (directed by Dr. Chacon, not to use because of renal failure), LISINOPRIL (cough). FAMILY HISTORY: Remarkable for diabetes including a brother, who with end - stage renal disease. SOCIAL HISTORY: The patient lives with his long time partner. 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 He is a former smoker, who quit cigarettes, cigar, and pipe in 1989 and stopped chewing tobacco in 1995. He also stopped alcohol in 1989 and admits to heavy alcohol use prior to that. He denies other drug use. REVIEW OF SYSTEMS: General: No recent constitutional symptoms or acute illnesses other than described above. Cardiovascular: No recent chest pain, palpitations. He has used lymphedema pump for lower extremity edema in the past , though not recently. Respiratory: No recent exacerbations of his COPD. No recent cough. GI: GERD, well controlled. No lower GI symptoms. Last colonoscopy approximately 5 years ago. : Renal failure, currently on hemodialysis (via right-sided central line). Endocrine: Diabetes, hypothyroidism. PHYSICAL EXAMINATION GENERAL: Well-nourished, obese male, in no acute distress. VITAL SIGNS: Per nursing. HEENT: EOMs intact. Otherwise unremarkable. LUNGS: Clear to auscultation. No rales or wheezes. HEART: Regular rate and rhythm. There is a soft systolic murmur at the left sternal border. ABDOMEN: Peritoneal dialysis catheter with exit to the left mid abdomen, well- healed laparoscopic incision site. Soft and nontender to palpation. No palpable masses. No specific hernia on exam, though previously noted laparoscopically. EXTREMITIES: 1+ edema on the left, trace on the right. NEUROLOGIC: Grossly intact. SKIN: Warm and dry. No suspicious rashes or lesions noted. He has some stigmata of chronic venous insufficiency of both lower extremities. No open lesions. IMPRESSION: Left inguinal hernia. PLAN: Open repair, left inguinal hernia with mesh. SHANNON JENKINS [id number]/[facility] #: [id number] MTDD
[2017-09-22] MEDS ORDERED: ceFAZolin 2 GM PREMIX (*) 2 GM/50 ML BAG IVPB ONE (12:55)
[2017-09-22] MEDS ORDERED: Midazolam* 1 MG/ML 5 ML VIAL (5 MG) ONE (15:30)
[2017-09-22] MEDS ORDERED: Lidocaine 1% MPF wEPI 200,000* 30 ML SDV ONE (15:33)
[2017-09-22] MEDS ORDERED: Bupivacaine 0.25% SDV* 30 ML ONE (15:33)
[2017-09-22] MEDS ORDERED: fentaNYL* 50 MCG/ML 2 ML VIAL (100 MCG VIAL) ONE ×2 (15:50→16:36)
[2017-09-22] MEDS ORDERED: Naloxone* 0.4 MG/ML 1 ML VIAL IV PRN (16:08)
[2017-09-22] MEDS ORDERED: Ondansetron INJ* 2 MG/ML VIAL IV PRN (16:08)
[2017-09-22] MEDS ORDERED: fentaNYL* 50 MCG/ML 2 ML VIAL (100 MCG VIAL) IV PRN (16:08)
[2017-09-22] MEDS ORDERED: Midazolam* 1 MG/ML 2 ML VIAL (2 MG) ONE (16:24)
[2017-09-22] MEDS ORDERED: Propofol* 10 MG/ML 20 ML BTL IV PUSH ONE (16:50)
--- NOTE | 2017-09-22 17:30 | OP ---
Operative Report - Blank - Operative Report Date of Operation: 09/22/17 Note: Pre-op diagnosis: Left inguinal hernia Post-op diagnosis: Left inguinal hernia Procedure: Open repair of left inguinal hernia with mesh Anesthesia: Local MAC Surgeon: Dr. Fong Assists: SHANNON Logan; LEWIS Baeza Fluids: 700 cc 1/2NS EBL: 25 cc Drains: none Specimen: none Findings: dictated
[2017-09-22 18:10] VITALS: BP 141/73
== END 2017-09-22 17:58 | disposition home or self-care (01) ==
LOC: OR 12:08
PROVIDERS: ATTEND Surgery
DX: K40.90 Unilateral inguinal hernia, without obstruction or gangrene, not specified as recurrent (principal); E11.9 Type 2 diabetes mellitus without complications; Z79.4 Long term (current) use of insulin; N18.6 End stage renal disease; Z99.2 Dependence on renal dialysis; J44.9 Chronic obstructive pulmonary disease, unspecified; I12.9 Hypertensive chronic kidney disease with stage 1 through stage 4 chronic kidney disease, or unspecified chronic kidney disease; I25.2 Old myocardial infarction; R60.0 Localized edema; G25.81 Restless legs syndrome; E78.5 Hyperlipidemia, unspecified; E03.9 Hypothyroidism, unspecified
CPT/HCPCS: J0690; J2001; J2250; J2704; J3010

== ENCOUNTER → 2017-10-27 10:35 | Day surgery (SDC) | payer MEDICARE, MEDICAID ==
[~2017-10-27 10:35] MED LIST changes: +Acetaminophen TAB* 325 MG PO PRN; +Bupivacaine 0.5%* 50 ML VIAL ONE; +Famotidine TAB* 20 MG ONE; +Famotidine TAB* 20 MG PO ONE; +KETAMINE HCL* 50 MG/ML 10 ML VIAL ONE; +Lidocaine 1% INJ* 10 MG/ML 30 ML SDV ONE; +Lidocaine 1% MPF wEPI 200,000* 30 ML SDV ONE; +Lidocaine 2% PF * 5 ML VIAL ONE; +Midazolam* 1 MG/ML 5 ML VIAL (5 MG) ONE; +NS 0.45% 1000 ML BAG* 1,000 ML IV SCH; -NS 0.9% 1000 ML* 1,000 ML IV SCH; +Naloxone* 0.4 MG/ML 1 ML VIAL IV PRN; +Ondansetron ODT TAB* 4 MG PO PRN; +Propofol* 10 MG/ML 20 ML BTL IV PUSH ONE; +ceFAZolin 2 GM PREMIX (*) 2 GM/50 ML BAG IVPB ONE; +fentaNYL* 50 MCG/ML 2 ML VIAL (100 MCG VIAL) IV PRN; +fentaNYL* 50 MCG/ML 2 ML VIAL (100 MCG VIAL) ONE
--- NOTE | 2017-10-27 15:03 | OP ---
Operative Report - Blank - Operative Report Date of Operation: 10/27/17 Note: Preop Dx: Right Inguinal Hernia Postop Dx: Same, Indirect Procedure: Open Right Inguinal Hernia repair with mesh Anesthesia: Local MAC Surgeon: Hetal Assist: SHANNON Logan; LEWIS Valdes Fluids: 350cc 1/2 NS EBL: 20mL Specimen: Hernia Sac Findings: Dictated
[2017-10-27 15:19] VITALS: BP 131/65
--- NOTE | 2017-10-29 07:30 | OP ---
CC: Dr. Akin Chacon; [facility]; Dr. Kyle Watkins * DATE OF OPERATION: 10/27/17 - [facility] DATE OF : 43 SURGEON: Haroon Fong MD DOOR TRIMMER: SHANNON Jenkins ANESTHESIA: Local MAC anesthesia. PRE-OP DIAGNOSES: Right inguinal hernia; end-stage renal disease, on peritoneal dialysis with persistent scrotal filling. POST-OP DIAGNOSIS: Right inguinal hernia; end-stage renal disease, on peritoneal dialysis with persistent scrotal filling. OPERATIVE PROCEDURE: Open right inguinal hernia repair with mesh. BLOOD LOSS: 20 cc. FLUIDS: 350 cc of half-normal saline. SPECIMEN: Hernia sac. DESCRIPTION OF PROCEDURE: Patient was identified in the preoperative area. Patient was marked. Consent was signed. I discussed the care with him again. Patient was taken to the operating room, placed on the operating table in supine position. Preoperative antibiotics were given. Sequential devices were placed on bilateral lower extremities. Gentle sedation was given. The patient' s right groin was clipped of hair and prepped and draped in standard surgical fashion. A time- out was performed. An inguinal incision was made. This was deepened down through the layers down to the aponeurosis of the external oblique. This was incised and flaps were made both cephalad and caudad. The spermatic structures were isolated around the [place] drain and the floor of the inguinal canal was cleared off. We did see that the floor was lax. Next, the attention was turned towards the spermatic structures. A hernia sac was identified. This was very small and narrow. This is extended down into the scrotum. It was ligated at the mid portion and dissected freely off of the spermatic structures proximally until we got to the internal ring. We then ligated the sac and passed it off as specimen. Hemostasis was achieved and we then placed a ProGrip hernia mesh into the floor of the canal covering over both the direct and indirect spaces. It was sutured at the pubic tubercle. We did a wrap around the cord structures making sure it was not too tight. I did make a small incision in the mesh to accommodate for this. The ilioinguinal nerve, which was dissected off and protected during the procedure was going to be in the area laterally that the mesh would sit and for this reason I ligated this nerve. Mesh sat well without any wrinkling. We then reapproximated the external oblique aponeurosis and then closed the skin in the standard fashion. Steri-Strips and sterile dressing were applied. Patient tolerated the procedure well. [id number]/[facility] #: [id number] NAMAN
== END | disposition home or self-care (01) ==
LOC: OR 10:35
PROVIDERS: ATTEND Surgery
DX: K40.90 Unilateral inguinal hernia, without obstruction or gangrene, not specified as recurrent (principal); N18.6 End stage renal disease; Z99.2 Dependence on renal dialysis; I12.0 Hypertensive chronic kidney disease with stage 5 chronic kidney disease or end stage renal disease; Z87.891 Personal history of nicotine dependence; E11.9 Type 2 diabetes mellitus without complications; Z79.4 Long term (current) use of insulin; J44.9 Chronic obstructive pulmonary disease, unspecified; E66.9 Obesity, unspecified; I25.10 Atherosclerotic heart disease of native coronary artery without angina pectoris; I25.2 Old myocardial infarction; E03.9 Hypothyroidism, unspecified; E78.5 Hyperlipidemia, unspecified; Z79.899 Other long term (current) drug therapy; F41.0 Panic disorder [episodic paroxysmal anxiety]
CPT/HCPCS: 88302; A9270-GY; C1781; J0690; J2001; J2250; J2704; J3010

== ENCOUNTER 2017-12-26 20:42 | Inpatient (IN) | payer MEDICARE, MEDICAID ==
--- NOTE | 2017-12-26 21:02 | ED ---
Shortness of Breath - HPI Summary HPI Summary: Patient is a 72-year-old male with history of CKD III, COPD, diabete, ME and obesity who is currently on peritoneal dialysis twice daily presenting to the ED with weakness. He has been on hemodialysis until approximately 1 week ago when he switched to PD. He states he has completed his PD this morning, however has not completed his PD this evening. He states he called the EMS twice today, once due to a fall. EMS was able to help patient back into chair. He was not transported to the ED at that time. The second time was d/t not being able to get up from his chair secondary to weakness. He is SOB on arrival. Is currently on 4L O2 at baseline at home, but states he is feeling more wheezy than normal. Denies any urinary symptoms, however he states he has not had a BM today. Denies any fevers, sweats, chills. He states he has been feeling more short of breath and ill over the past week since changing to PD. - History of Current Complaint Chief Complaint: EDShortnessOfBreath Time Seen by Provider: 12/26/17 20:48 Hx Obtained From: Patient Onset/Duration: Gradual Onset Timing: Constant Current Severity: Severe Aggrevating Factors: Recumbent Position Alleviating Factors: Upright Position Associated Signs & Symptoms: Wheezing - Risk Factors Pulmonary Embolism: Negative Cardiac: Negative Pseudomonas: Negative Tuberculosis: Negative - Allergy/Home Medications Allergies/Adverse Reactions: Allergies Allergy/AdvReac Type Severity Reaction Status Date / Time amlodipine [From [facility]] Allergy Severe Swelling Verified 12/26/17 21:01 hydrocodone Allergy Severe Difficulty Verified 12/26/17 21:01 Breathing shellfish derived Allergy Severe Difficulty Verified 12/26/17 21:01 Breathing lisinopril Allergy Intermediate Coughing Verified 12/26/17 21:01 NSAIDS (Non-Steroidal AdvReac Unknown Unknown Verified 12/26/17 21:01 Anti-Inflamma Reaction Details PMH/Surg Hx/FS Hx/Imm Hx Previously Healthy: No Endocrine/Hematology History: Reports: Hx Diabetes - on insulin, Hx Thyroid Disease - Hypothyroid Denies: Hx Anemia Cardiovascular History: Reports: Hx Angina, Hx Coronary Artery Disease, Hx Hypercholesterolemia, Hx Hypertension - Hypertension and Venous hypertension, Hx Myocardial Infarction, Hx Peripheral Vascular Disease - Chronic Venous insufficiency, Other Cardiovascular Problems/Disorders - AV Fistula left arm. Denies: Hx Pacemaker/ICD, Hx Valvular Heart Disease Respiratory History: Reports: Hx Asthma - Inhaler prn, Hx Chronic Bronchitis, Hx Chronic Obstructive Pulmonary Disease (COPD), Hx Pneumonia, Hx Seasonal Allergies, Other Respiratory Problems/Disorders - has O2 for prn use, has not needed it GI History: Reports: Hx Gastroesophageal Reflux Disease - on omeprazole, Hx Irritable Bowel Denies: Hx Jaundice, Other GI Disorders History: Reports: Hx Acute Renal Failure, Hx Chronic Renal Failure, Hx Dialysis - PT HAS FISTULA, PERITONEAL AND HEMODIALYSIS CATHETERS IN PLACE Denies: Other Problems/Disorders - frequent urination, pt states from fluid pill Musculoskeletal History: Reports: Hx Arthritis, Hx Back Problems, Other Musculoskeletal History - Chronic back pain, History of wound right leg- healed Sensory History: Reports: Hx Cataracts - Bilateral, history of, Hx Contacts or Glasses - Reading glasses, Hx Glaucoma Denies: Hx Hearing Aid Opthamlomology History: Reports: Hx Cataracts - Bilateral, history of, Hx Contacts or Glasses - Reading glasses, Hx Glaucoma Neurological History: Reports: Hx Nerve Disease - Diabetic Neuropathy, Other Neuro Impairments/Disorders Denies: Hx Headaches, Hx Seizures, Hx Spinal Cord Injury Psychiatric History: Reports: Hx Anxiety - Panic Attacks - Cancer History Cancer Type, Location and Year: Basal Cell CA Hx Chemotherapy: No Hx Radiation Therapy: No - Surgical History Surgery Procedure, Year, and Place: Eye surgery 1986, 2013. Tonsillectomy, appendectomy in childhood. Cataracts- Bilateral. AV Fistula Left Arm. PERITONEAL AND HEMODIALYSIS CATHETERS. Left inguinal hernia repair 10/06. SEPTEMBER 2017 - HERNIA REPAIR Hx Anesthesia Reactions: No - Immunization History Hx Pertussis Vaccination: No Immunizations Up to Date: Unable to Obtain/Confirm Infectious Disease History: No Infectious Disease History: Denies: Traveled Outside the [place] in Last 30 Days - Family History Known Family History: Positive: Cardiac Disease - Mother from heart attack , Other - Brother has kidney disease - Social History Occupation: Unemployed Lives: With Family Alcohol Use: None Alcohol Amount: Stopped 30 years ago Hx Substance Use: No Substance Use Type: Reports: None Hx Tobacco Use: Yes Smoking Status (MU): Former Smoker Type: Cigarettes, Cigars, Pipe, Smokeless Tobacco Amount Used/How Often: 50 cigars per week, pipe, chewed tobacco Length of Time of Smoking/Using Tobacco: 30 years Have You Smoked in the Last Year: No Review of Systems Constitutional: Negative Negative: Fever, Chills, Fatigue, Skin Diaphoresis Negative: Palpitations, Chest Pain Positive: Shortness Of Breath. Negative: Cough Negative: Abdominal Pain, Vomiting, Diarrhea, Nausea Genitourinary: Negative Positive: no symptoms reported, see HPI Negative: Arthralgia, Myalgia Positive: Weakness. Negative: Paresthesia, Numbness, Syncope Psychological: Normal All Other Systems Reviewed And Are Negative: Yes Physical Exam Triage Information Reviewed: Yes Vital Signs On Initial Exam: Initial Vitals Temp Pulse Resp BP Pulse Ox 97.6 F 51 26 154/59 94 12/26/17 20:48 12/26/17 20:48 12/26/17 20:48 12/26/17 20:48 12/26/17 20:48 Vital Signs Reviewed: Yes Appearance: Positive: Ill-Appearing, Pain Distress, Obese Skin: Positive: Warm, Skin Color Reflects Adequate Perfusion Head/Face: Positive: Normal Head/Face Inspection Eyes: Positive: EOMI, Conjunctiva Clear Respiratory/Lung Sounds: Positive: Wheezes - diffuse throughout Cardiovascular: Positive: Bradycardia, Leg Edema Left, Leg Edema Right Musculoskeletal: Positive: Strength/ROM Intact Neurological: Positive: Speech Normal Diagnostics - Vital Signs Vital Signs Temp Pulse Resp BP Pulse Ox 12/26/17 20:57 26 12/26/17 20:48 97.6 F 51 26 154/59 94 - Laboratory Result Diagrams: 12/26/17 21:21 12/26/17 21:21 Lab Statement: Any lab studies that have been ordered have been reviewed, and results considered in the medical decision making process. Course/Dx - Course Course Of Treatment: On physical examination, patient is wheezing with obvious distress. He is placed on 5LO2, but continues to wheeze. Labs obtained which show hyponatremia at 121 with a potassium of 7.0. Troponin 0.07. This is likely secondary due to his CHF. Chest x-ray obtained which shows exacerbation of CHF and fluid overload. Also new left bundle-branch block likely secondary due to his elevated potassium, however he is given aspirin 324. He is also given insulin 10, D50, calcium chloride 1 g, bicarbonate 1 amp and an albuterol treatment. He is also given 100mg Lasix due to fluid overload. He is also given Kayexalate 15 mg by mouth. Akers is placed. Discussed case with Dr. Mills who advises another 120 IV Lasix and metolazone 5 mg. We will repeat Kayexalate at midnight and assess urinary output and we'll decide to dialyze based on these results of the time. Discussed case with Dr. Durham who agrees to admit. - Diagnoses Provider Diagnoses: Fluid overload, Hyperkalemia Discharge - Sign-Out/Discharge Documenting (check all that apply): Discharge/Admit/Transfer - Discharge Plan Condition: Stable Disposition: ADMITTED TO [facility] Referrals: Kyle Watkins MD [Primary Care Provider] - - Billing Disposition and Condition Condition: STABLE Disposition: Admitted to [facility]
[2017-12-26] MEDS ORDERED: Aspirin 81 mg CHEW TAB* 81 MG TAB.CHEW PO ONE (21:38)
[2017-12-26 21:40] LABS: ABS Basophils 0 10^3/ul (0-0.2); ABS Eosinophils 0 10^3/ul (0-0.6); ABS Lymphocytes 0.3 10^3/ul (1.0-4.8); ABS Nucleated RBC 0 10^3/ul; Eosinophil % 0 % (0-6); Hematocrit 32 % (42-52); Hemoglobin 10.9 g/dl (14.0-18.0); Lymphocyte % 2.9 % (25-47); Mean Corpuscular HGB Conc 34 g/dl (31-36); Mean Corpuscular Hemoglobin 31 pg (27-31); Mean Corpuscular Volume 90 fL (80-94); Nucleated Red Blood Cells % 0; Platelet Count 150 10^3/ul (150-450); Red Blood Count 3.54 10^6/ul (4.00-5.40); Red Cell Distribution Width 15 % (10.5-15); White Blood Count 9.3 10^3/ul (3.5-10.8)
[2017-12-26 21:49] LABS: INR 1.25 (0.77-1.02)
[2017-12-26] MEDS ORDERED: Furosemide IV* 10 MG/ML 10 ML VIAL (100 MG) IV ONE ×2 (22:16→22:32)
[2017-12-26] MEDS ORDERED: Insulin REGULAR(*) 1 UNITS UNIT IV PUSH ONE (22:23)
[2017-12-26] MEDS ORDERED: Dextrose 50% Syringe 50 ML* 25 GM/50 ML SYRINGE IV PUSH ONE (22:23)
[2017-12-26] MEDS ORDERED: Sodium Polystyrene ORAL.SOL* 15 GM/60 ML BTL PO ONE ×2 (22:24→22:37)
[2017-12-26] MEDS ORDERED: Sodium Bicarbonate 8.4% IV* 50 ML VIAL IV ONE (22:25)
[2017-12-26] MEDS ORDERED: Albuterol/Ipratropium NEB.SOL* Albuterol 2.5 MG/Ipratropium 0.5 MG 3 ML INH ONE (22:25)
[2017-12-26] MEDS ORDERED: Metolazone TAB* 5 MG PO ONE (22:33)
[2017-12-26 22:46] LABS: Urine Appearance Cloudy; Urine Blood 1+ (Negative); Urine Color Yellow; Urine Ketones Negative (Negative); Urine Protein 3+(>=500 mg/dL) (Negative); Urine Red Blood Cell Absent (Absent); Urine Specific Gravity 1.038 (1.010-1.030); Urine Urobilinogen Negative (Negative); Urine White Blood Cell 1+(6-10/hpf) (Absent)
[2017-12-26] MEDS ORDERED: Calcium CHLORIDE 10% SYRINGE* 1 GM in D5W 100 ML BAG* 100 ML IV ONE (22:56)
--- NOTE | 2017-12-27 01:12 | HP ---
H&P (Free Text) History and Physical: PCP: Ana Watkins MD Nephrology: Gabriella Chacon MD Date/Time: 12/27/2017 0030 CC: generalized weakness HPI: Mr Kaur is a 72YO male poor historian HX DM2 w/ ESRD formerly on HD but transitioned ~1 week ago to PD. He reports increased SOB starting 3-4 days ago. Today he called EMS 2nd being unable to get up after falling. They assisted him to a chair and later he called EMS again as he could not get out of his chair which prompted presentation for evaluation revealing volume overload, respiratory distress, and marked hyperKalemia with peaked T-waves. Dr Chacon was consulted by ED via phone & advised 220mg IV furosemide and 5mg metolazone along with standard potassium mitigation. Should he fail to respond, emergent hemodialysis would then be initiated. Upon re-evaluation, Mr Kaur states he feels he is breathing better while sitting on the edge of the bed in a semi-tripod position with saO2 in the low 90s on 5L NC and respirations in the high-20s to low 30s. He had a moderate amount of urinary incontinence prior to trimble insertion and only ~150cc out since despite the above diuretics. Dr Chacon apprised and will arrange emergency dialysis in the ICU. PMedHx DM2 w/ proliferative retinopathy & nephropathy ESRD-PD CAD/SC COPD hypothyroidism HTN HLD GERD restless leg syndrome glaucoma Ambulatory Orders Nursing to reconcile. Insulin Regular, Human [Novolin R] 10 - 15 unit SUBCUT QAM MDD 60 units Losartan TAB* [Cozaar TAB*] 100 mg PO QPM 08/08/13 Insulin NPH Human Isophane [Humulin N] 0 - 40 unit SC BID MDD 100 units Insulin Regular, Human [Novolin R] 15 - 30 unit SUBCUT QPM MDD 60 units Ascorbic Acid TAB* [Vitamin C TAB*] 1,000 mg PO QAM 10/04/15 Fluticas/Salmet 115/21 HFA(NF) [Advair HFA 115/21 (NF)] 2 puff INH BID 10/04/15 LoraTADine TAB(NF) [Claritin 10 MG TAB(NF)] 10 mg PO QPM PRN 10/04/15 Brimonidine 0.2 % * [Alphagan P 0.2% *] 1 drop BOTH EYES BID 04/28/17 Dorzolamide 2% OPTH (NF) [Trusopt 2% OPTH (NF)] 1 drop BOTH EYES BID 04/28/17 traZODone TAB* [Desyrel TAB*] 50 mg PO QPM 04/28/17 Albuterol HFA INHALER* [Ventolin HFA Inhaler*] 2 puff INH Q6H PRN 05/14/17 Cholecalciferol TAB* [Vitamin D TAB*] 1,000 unit PO BID 05/14/17 Codeine Phosphate/Guaifenesin [Codeine-Guaifen 10-100 mg/5 ml] 10 ml PO BID PRN MDD 20ml 05/14/17 Diltiazem CD CAP* [Cardizem CD CAP*] 180 mg PO QAM 05/14/17 Multivitamins/Minerals TAB* [Theragran/minerals TAB*] 1 tab PO QAM 05/14/17 Omeprazole CAP* [Prilosec CAP* 20 MG] 40 mg PO BID 05/14/17 Simvastatin (NF) [Zocor (NF)] 40 mg PO QPM 05/14/17 Lactulose* 30 ml PO BID 06/25/17 Levothyroxine Sodium [Levo-T] 25 mcg PO QPM 06/25/17 Metoclopramide HCl 5 mg PO TID AC 06/25/17 Metoclopramide HCl [Reglan] 5 mg PO QPM 06/25/17 Metolazone TAB* [Zaroxolyn TAB*] 5 mg PO QAM 06/25/17 Ropinirole HCl 1 mg PO QPM 06/25/17 Furosemide TAB* [Lasix TAB*] 120 mg PO BID 08/26/17 guaiFENesin LIQ* [Robitussin*] 10 ml PO Q4H PRN 08/26/17 Acetaminophen [Acetaminophen Extra Strength] 1,000 mg PO BID PRN 09/21/17 Polyethylene Glycol 3350* [Miralax*] 17 gm PO BEDTIME PRN 09/27/17 Allergies amlodipine [From [facility]vas] Allergy (Severe, Verified 12/26/17 21:01) Swelling hydrocodone Allergy (Severe, Verified 12/26/17 21:01) Difficulty Breathing shellfish derived Allergy (Severe, Verified 12/26/17 21:01) Difficulty Breathing lisinopril Allergy (Intermediate, Verified 12/26/17 21:01) Coughing NSAIDS (Non-Steroidal Anti-Inflamma Adverse Reaction (Unknown, Verified 21:01) Unknown Reaction Details PSurgHx OU cataract extraction OD vitrectomy for retinal detachment tonsillectomy LUE dialysis fistula placement PD catheter placement appendectomy SocHx: quit tobacco >25years ago, quit alcohol >25 years ago w/ heavy history, denies recreational drugs; lives with his ; 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 ROS: as above, otherwise reviewed and all were negative vitals: Vital Signs Temp 36.6 C 12/27/17 03:00 Pulse 76 12/27/17 02:31 Resp 30 12/27/17 02:31 BP 150/57 12/27/17 02:31 Pulse Ox 91 12/27/17 02:31 Intake & Output 12/26/17 12/26/17 12/27/17 11:59 23:59 11:59 Intake Total 100 Balance 100 Weight 99.79 kg Intake: IV Fluids 100 Constitutional: mild respiratory distress, normally developed, obese white male HEENM: atraumatic; sclera/conjunctiva: anicteric/clear; hearing: clinically intact; oropharynx: clear, mucosa moist Neck: soft tissue: non-tender, no nuchal rigidity; thyroid: normal Pulmonary: moderate tachypnea, coarse B, fair to poor aeration, mild accessory muscle use CV: RR/RR, normal S1S2, no carotid bruit, moderate jugular venous distention, 2 + B DP/PT, 2+BLE edema Abdominal: soft, non-distended, non-tender, no rebound/guarding/rigidity, normoactive bowel sounds, no hepatosplenomegaly or masses, no costovertebral angle tenderness Musculoskeletal: general: grossly intact, non-tender Integumental: normal appearance and texture of exposed skin Psychiatric orientation: AA&O to PPS affect: calm mood: cooperative eye contact: fair content: unreliable responses: timely to mildly slowed insight: poor Testing: Lab Results 12/26/17 12/26/17 12/26/17 Range/Units 21:21 21:21 21:21 WBC 9.3 (3.5-10.8) 10^3/ul RBC 3.54 L (4.00-5.40) 10^6/ul Hgb 10.9 L (14.0-18.0) g/dl Hct 32 L (42-52) % MCV 90 (80-94) fL MCH 31 (27-31) pg MCHC 34 (31-36) g/dl RDW 15 (10.5-15) % Plt Count 150 (150-450) 10^3/ul MPV 9.0 (7.4-10.4) um3 Neut % (Auto) 85.9 H (38-83) % Lymph % (Auto) 2.9 L (25-47) % [place] % (Auto) 11.1 H (0-7) % Eos % (Auto) 0 (0-6) % Baso % (Auto) 0.1 (0-2) % Absolute Neuts (auto) 8.0 H (1.5-7.7) 10^3/ul Absolute Lymphs (auto) 0.3 L (1.0-4.8) 10^3/ul Absolute Monos (auto) 1.0 H (0-0.8) 10^3/ul Absolute Eos (auto) 0 (0-0.6) 10^3/ul Absolute Basos (auto) 0 (0-0.2) 10^3/ul Absolute Nucleated RBC 0 10^3/ul Nucleated RBC % 0 INR (Anticoag Therapy) (0.77-1.02) Sodium 121 L (135-145) mmol/L Potassium 7.0 H* (3.5-5.0) mmol/L Chloride 84 L (101-111) mmol/L Carbon Dioxide 23 (22-32) mmol/L Anion Gap 14 H (2-11) mmol/L BUN 112 H (6-24) mg/dL Creatinine 10.29 H (0.67-1.17) mg/dL Est GFR ( Amer) 6.0 (>60) Est GFR (Non-Af Amer) 5.0 (>60) BUN/Creatinine Ratio 10.9 (8-20) Glucose 208 H (70-100) mg/dL Lactic Acid 1.1 (0.5-2.0) mmol/L Calcium 9.1 (8.6-10.3) mg/dL Total Bilirubin 0.40 (0.2-1.0) mg/dL AST 10 L (13-39) U/L ALT 14 (7-52) U/L Alkaline Phosphatase 55 (34-104) U/L Total Creatine Kinase 216 (10-223) U/L Myoglobin 1497.9 H (17.4-105.7) ng/mL Troponin I 0.07 H* (<0.04) ng/mL C-Reactive Protein 169.49 H (<8.01) mg/L B-Natriuretic Peptide ( - 100) pg/mL Total Protein 6.3 L (6.4-8.9) g/dL Albumin 3.6 (3.2-5.2) g/dL Globulin 2.7 (2-4) g/dL Albumin/Globulin Ratio 1.3 (1-3) Urine Color Urine Appearance Urine pH (5-9) Ur Specific [place] (1.010-1.030) Urine Protein (Negative) Urine Ketones (Negative) Urine Blood (Negative) Urine Nitrate (Negative) Urine Bilirubin (Negative) Urine Urobilinogen (Negative) Ur Leukocyte Esterase (Negative) Urine WBC (Auto) (Absent) Urine RBC (Auto) (Absent) Urine Bacteria (Absent) Urine Glucose (Negative) 12/26/17 12/26/17 12/26/17 Range/Units 21:21 21:21 22:30 WBC (3.5-10.8) 10^3/ul RBC (4.00-5.40) 10^6/ul Hgb (14.0-18.0) g/dl Hct (42-52) % MCV (80-94) fL MCH (27-31) pg MCHC (31-36) g/dl RDW (10.5-15) % Plt Count (150-450) 10^3/ul MPV (7.4-10.4) um3 Neut % (Auto) (38-83) % Lymph % (Auto) (25-47) % [place] % (Auto) (0-7) % Eos % (Auto) (0-6) % Baso % (Auto) (0-2) % Absolute Neuts (auto) (1.5-7.7) 10^3/ul Absolute Lymphs (auto) (1.0-4.8) 10^3/ul Absolute Monos (auto) (0-0.8) 10^3/ul Absolute Eos (auto) (0-0.6) 10^3/ul Absolute Basos (auto) (0-0.2) 10^3/ul Absolute Nucleated RBC 10^3/ul Nucleated RBC % INR (Anticoag Therapy) 1.25 H (0.77-1.02) Sodium (135-145) mmol/L Potassium (3.5-5.0) mmol/L Chloride (101-111) mmol/L Carbon Dioxide (22-32) mmol/L Anion Gap (2-11) mmol/L BUN (6-24) mg/dL Creatinine (0.67-1.17) mg/dL Est GFR ( Amer) (>60) Est GFR (Non-Af Amer) (>60) BUN/Creatinine Ratio (8-20) Glucose (70-100) mg/dL Lactic Acid (0.5-2.0) mmol/L Calcium (8.6-10.3) mg/dL Total Bilirubin (0.2-1.0) mg/dL AST (13-39) U/L ALT (7-52) U/L Alkaline Phosphatase (34-104) U/L Total Creatine Kinase (10-223) U/L Myoglobin (17.4-105.7) ng/mL Troponin I (<0.04) ng/mL C-Reactive Protein (<8.01) mg/L B-Natriuretic Peptide 1888 H ( - 100) pg/mL Total Protein (6.4-8.9) g/dL Albumin (3.2-5.2) g/dL Globulin (2-4) g/dL Albumin/Globulin Ratio (1-3) Urine Color Yellow Urine Appearance Cloudy Urine pH 5.0 (5-9) Ur Specific [place] 1.038 H (1.010-1.030) Urine Protein 3+(>=500 mg/dl) A (Negative) Urine Ketones Negative (Negative) Urine Blood 1+ A (Negative) Urine Nitrate Negative (Negative) Urine Bilirubin Negative (Negative) Urine Urobilinogen Negative (Negative) Ur Leukocyte Esterase Negative (Negative) Urine WBC (Auto) 1+(6-10/hpf) A (Absent) Urine RBC (Auto) Absent (Absent) Urine Bacteria Absent (Absent) Urine Glucose 2+(150 mg/dl) A (Negative) 12/27/17 12/27/17 Range/Units 00:53 01:50 WBC (3.5-10.8) 10^3/ul RBC (4.00-5.40) 10^6/ul Hgb (14.0-18.0) g/dl Hct (42-52) % MCV (80-94) fL MCH (27-31) pg MCHC (31-36) g/dl RDW (10.5-15) % Plt Count (150-450) 10^3/ul MPV (7.4-10.4) um3 Neut % (Auto) (38-83) % Lymph % (Auto) (25-47) % [place] % (Auto) (0-7) % Eos % (Auto) (0-6) % Baso % (Auto) (0-2) % Absolute Neuts (auto) (1.5-7.7) 10^3/ul Absolute Lymphs (auto) (1.0-4.8) 10^3/ul Absolute Monos (auto) (0-0.8) 10^3/ul Absolute Eos (auto) (0-0.6) 10^3/ul Absolute Basos (auto) (0-0.2) 10^3/ul Absolute Nucleated RBC 10^3/ul Nucleated RBC % INR (Anticoag Therapy) (0.77-1.02) Sodium 119 L* (135-145) mmol/L Potassium 6.2 H* (3.5-5.0) mmol/L Chloride 85 L (101-111) mmol/L Carbon Dioxide 24 (22-32) mmol/L Anion Gap 10 (2-11) mmol/L BUN 111 H (6-24) mg/dL Creatinine 10.08 H (0.67-1.17) mg/dL Est GFR ( Amer) 6.2 (>60) Est GFR (Non-Af Amer) 5.1 (>60) BUN/Creatinine Ratio 11.0 (8-20) Glucose 261 H (70-100) mg/dL Lactic Acid (0.5-2.0) mmol/L Calcium 17.5 H* 9.8 (8.6-10.3) mg/dL Total Bilirubin 0.40 (0.2-1.0) mg/dL AST 11 L (13-39) U/L ALT 14 (7-52) U/L Alkaline Phosphatase 51 (34-104) U/L Total Creatine Kinase (10-223) U/L Myoglobin (17.4-105.7) ng/mL Troponin I (<0.04) ng/mL C-Reactive Protein (<8.01) mg/L B-Natriuretic Peptide ( - 100) pg/mL Total Protein 5.9 L (6.4-8.9) g/dL Albumin 3.4 (3.2-5.2) g/dL Globulin 2.5 (2-4) g/dL Albumin/Globulin Ratio 1.4 (1-3) Urine Color Urine Appearance Urine pH (5-9) Ur Specific [place] (1.010-1.030) Urine Protein (Negative) Urine Ketones (Negative) Urine Blood (Negative) Urine Nitrate (Negative) Urine Bilirubin (Negative) Urine Urobilinogen (Negative) Ur Leukocyte Esterase (Negative) Urine WBC (Auto) (Absent) Urine RBC (Auto) (Absent) Urine Bacteria (Absent) Urine Glucose (Negative) ECG, personally reviewed(12/27/2017 01:17): sinus bradycardic atrial bigeminy rate 44, no ischemia, improved T-wave peaking CXR, personally reviewed: pulmonary edema, R chest tunnelled catheter Impression: 72M HX DM2, ESRD transitioned ~1 week ago from HD to PD presenting in volume overload & respiratory distress with associated hyperKalemia DIAGNOSIS & PLAN Primary ESRD in volume overload & hyperKalemia failed conservative medical management : Dr Chacon to arrange emergent hemodialysis & will follow : ICU monitoring Secondary DM2 w/ proliferative retinopathy & nephropathy : update A1c : insulin carb ratio diet : basal/bolus/correctional insulin CAD/SC : review meds once reconciled COPD : albuterol nebs PRN : mometasone/formoterol : tiotropium hypothyroidism : review meds once reconciled HTN : review meds once reconciled HLD : review meds once reconciled GERD : review meds once reconciled restless leg syndrome : review meds once reconciled glaucoma : review meds once reconciled Admission Rational: inpatient ICU for marked hyperKalemia w/ ECG changes & volume overload w/ mild respiratory distress DVTp: SCDs & heparin SQ Code Status: full HCP:
[2017-12-27 01:17] LABS: EGFR Non-African American 5.1 (>60)
[2017-12-27] MEDS ORDERED: Heparin DIALYSIS ONLY(*) 1,000 UNITS/ML VIAL DIALYSIS ONE (05:00)
[2017-12-27] MEDS ORDERED: Albuterol HFA INHALER* 8 gm MDI INH PRN (05:57)
[2017-12-27] MEDS ORDERED: Acetaminophen TAB* 325 MG PO PRN (06:02)
[2017-12-27] MEDS ORDERED: Albuterol 2.5 MG/3 ML NEB.SOL* (0.083%) INH PRN (06:02)
--- NOTE | 2017-12-27 07:16 | RAD ---
INDICATION: Shortness of breath. COMPARISON: Comparison is made with a prior study from September 06, 2017. TECHNIQUE: A single AP view of the chest was obtained in the sitting position. FINDINGS: There is a dual-lumen central venous catheter entering on the right side. The catheter tip projects over the region of the right atrium. The heart appears mildly enlarged. There is diffuse prominence of the interstitial markings which is a new finding from the prior study. IMPRESSION: FINDINGS MOST CONSISTENT WITH CONGESTIVE HEART FAILURE. NO DISCREPANCY
[2017-12-27] MEDS: Mometasone/Formoter 200/5 MDI INH SCH ×2 (07:58→20:37)
--- NOTE | 2017-12-27 09:01 | PN ---
Subjective - Subjective Reason for Note: Progress Note History: I have reviewed his presentation with the patient, Dr. Akin Chacon directly and with Dr. Aravind Win's admitting history and physical. He has diabetic nephropathy with end stage renal disease. He has a fistula for hemodialysis (HD). He is on home peritoneal dialysis. He has declined further HD. However, he has not been taking care of his PD. He has had weight gain and has neither changed his solutions appropriately, nor called the 11/01 available dialysis nurse for advice. He is despondent and wanting to give up. He admits he is depressed. His glycemic control has also been poor the past few days in the 200 - 300 mg/dl range. He has a flat affect and is not spontaneously engaging with us or discussing his situation. Active Problems: Active Problems Acute renal failure (Acute) Asterixis (Acute) R27.8 Bradycardia (Acute) R00.1 Depression (Acute) F32.9 End stage renal disease on dialysis (Acute) N18.6, Z99.2 Hemodialysis access site with mature fistula (Acute) Z99.2 LBBB (left bundle branch block) (Acute) I44.7 Peritoneal dialysis status (Acute) Z99.2 Type II diabetes mellitus - poor control (Acute) E11.65 - Glucose 140-150's - Resume home Insulin Chronic obstructive lung disease (Chronic) J44.9 Essential hypertension (Chronic) I10 Hyperlipidemia (Chronic) E78.5 Hypertension (Chronic) I10 - SBP 110-120's - Continue Lasix (decreased), Losartan Nephrotic syndrome (Chronic) N04.9 - Stage 5 CKD - No immediate need for dialysis, no hyperkalemia, acidosis, or volume overload - BP may be overtreated, reduce dose lasix, could be contributing to constipation. Neuropathy (Chronic) G62.9 Obesity (Chronic) E66.9 - BMI 32.8 Retinopathy (Chronic) H35.00 Current Medications: Current Medications Acetaminophen (Tylenol Tab*) 650 mg PO Q6H PRN PRN Reason: FEVER/PAIN Albuterol (Ventolin Hfa Inhaler*) 2 puff INH Q6H PRN PRN Reason: SHORTNESS OF BREATH Last Admin: 12/27/17 07:57 Dose: 2 puff Albuterol (Ventolin 2.5 Mg/3 Ml Neb.Brooke*) 2.5 mg INH Q2H PRN PRN Reason: SOB/WHEEZING Atorvastatin Calcium (Lipitor*) 20 mg PO QPM GREGG Furosemide (Lasix Tab*) 120 mg PO BID GREGG Insulin Glargine (Lantus(*)) 24 units 0.24 units/kg (24 units) SUBCUT 2100 GREGG Insulin Human Lispro (Humalog*) 0 units SUBCUT AC GREGG; Protocol Insulin Human Lispro (Humalog*) 0 units SUBCUT ACHS GREGG; Protocol Lactulose (Lactulose*) 30 ml PO BID GREGG Levothyroxine Sodium (Synthroid Tab*) 25 mcg PO QPM GREGG Metoclopramide HCl (Reglan Tab*) 5 mg PO QPM GREGG Metolazone (Zaroxolyn Tab*) 5 mg PO QAM@0830 GREGG Mometasone Furoate/Formoterol Fumar (Dulera 200/5 Mdi*) 2 puff INH BID GREGG; Protocol Last Admin: 12/27/17 07:58 Dose: 2 puff Omeprazole (Prilosec Cap*) 40 mg PO BID AC GREGG Ropinirole HCl (Requip Tab*) 1 mg PO QPM GREGG Trazodone HCl (Desyrel Tab*) 50 mg PO QPM [facility] Home Medications: Home Medications Medication Instructions Recorded Confirmed Type Insulin Regular, Human [Novolin R] 10 - 15 unit SUBCUT QAM MDD 60 08/08/1312/26 History units Losartan TAB* [Cozaar TAB*] 100 mg PO QPM 08/08/13 12/26/17 History Insulin NPH Human Isophane 0 - 40 unit SC BID MDD 100 units 01/16/14 12/26/17 History [Humulin N] Insulin Regular, Human [Novolin R] 15 - 30 unit SUBCUT QPM MDD 60 01/16/1412/26 History units Ascorbic Acid TAB* [Vitamin C 1,000 mg PO QAM 10/04/15 12/26/17 History TAB*] Fluticas/Salmet 115/21 HFA(NF) 2 puff INH BID 10/04/15 12/26/17 History [Advair HFA 115/21 (NF)] LoraTADine TAB(NF) [Claritin 10 MG 10 mg PO QPM PRN 10/04/15 12/26/17 History TAB(NF)] Brimonidine 0.2 % * [Alphagan P 1 drop BOTH EYES BID 04/28/17 12/26/17 History 0.2% *] Dorzolamide 2% OPTH (NF) [Trusopt 1 drop BOTH EYES BID 04/28/17 12/26/17 History 2% OPTH (NF)] traZODone TAB* [Desyrel TAB*] 50 mg PO QPM 04/28/17 12/26/17 History Albuterol HFA INHALER* [Ventolin 2 puff INH Q6H PRN 05/14/17 12/26/17 History HFA Inhaler*] Cholecalciferol TAB* [Vitamin D 1,000 unit PO BID 05/14/17 12/26/17 History TAB*] Codeine Phosphate/Guaifenesin 10 ml PO BID PRN MDD 20ml 05/14/17 12/26/17 History [Codeine-Guaifen 10-100 mg/5 ml] Diltiazem CD CAP* [Cardizem CD 180 mg PO QAM 05/14/17 12/26/17 History CAP*] Multivitamins/Minerals TAB* 1 tab PO QAM 05/14/17 12/26/17 History [Theragran/minerals TAB*] Omeprazole CAP* [Prilosec CAP* 20 40 mg PO BID 05/14/17 12/26/17 History MG] Simvastatin (NF) [Zocor (NF)] 40 mg PO QPM 05/14/17 12/26/17 History Lactulose* 30 ml PO BID 06/25/17 12/26/17 History Levothyroxine Sodium [Levo-T] 25 mcg PO QPM 06/25/17 12/26/17 History Metoclopramide HCl 5 mg PO TID AC 06/25/17 12/26/17 History Metoclopramide HCl [Reglan] 5 mg PO QPM 06/25/17 12/26/17 History Metolazone TAB* [Zaroxolyn TAB*] 5 mg PO QAM 06/25/17 12/26/17 History Ropinirole HCl 1 mg PO QPM 06/25/17 12/26/17 History Furosemide TAB* [Lasix TAB*] 120 mg PO BID 08/26/17 12/26/17 History guaiFENesin LIQ* [Robitussin*] 10 ml PO Q4H PRN 08/26/17 12/26/17 History Acetaminophen [Acetaminophen Extra 1,000 mg PO BID PRN 09/21/17 12/26/17 History Strength] Polyethylene Glycol 3350* 17 gm PO BEDTIME PRN 09/27/17 12/26/17 History [Miralax*] Allergies: Allergies Allergy/AdvReac Type Severity Reaction Status Date / Time amlodipine [From [facility]] Allergy Severe Swelling Verified 12/26/17 21:01 hydrocodone Allergy Severe Difficulty Verified 12/26/17 21:01 Breathing shellfish derived Allergy Severe Difficulty Verified 12/26/17 21:01 Breathing lisinopril Allergy Intermediate Coughing Verified 12/26/17 21:01 NSAIDS (Non-Steroidal AdvReac Unknown Unknown Verified 12/26/17 21:01 Anti-Inflamma Reaction Details Objective - Vital Signs Vital Signs: Vital Signs 12/26/17 12/26/17 12/26/17 20:48 20:57 21:19 Temperature 97.6 F Pulse Rate 51 55 Respiratory 26 26 13 Rate Blood Pressure 154/59 154/67 (mmHg) O2 Sat by Pulse 94 94 Oximetry 12/26/17 12/26/17 12/26/17 21:24 21:49 22:00 Temperature Pulse Rate 52 52 51 Respiratory 17 22 17 Rate Blood Pressure 154/61 (mmHg) O2 Sat by Pulse 96 92 94 Oximetry 12/26/17 12/26/17 12/26/17 22:19 22:49 23:00 Temperature Pulse Rate 57 58 56 Respiratory 20 21 17 Rate Blood Pressure 148/56 131/51 (mmHg) O2 Sat by Pulse 91 93 96 Oximetry 12/26/17 12/26/17 12/27/17 23:08 23:19 00:00 Temperature Pulse Rate 55 49 59 Respiratory 20 21 28 Rate Blood Pressure 132/72 (mmHg) O2 Sat by Pulse 97 96 94 Oximetry 12/27/17 12/27/17 12/27/17 00:19 01:00 01:19 Temperature Pulse Rate 51 55 Respiratory 31 27 25 Rate Blood Pressure 145/64 149/54 (mmHg) O2 Sat by Pulse 92 93 Oximetry 12/27/17 12/27/17 12/27/17 01:20 01:49 02:00 Temperature 98.8 F 98.4 F Pulse Rate 51 72 53 Respiratory 27 31 28 Rate Blood Pressure 150/57 151/57 151/57 (mmHg) O2 Sat by Pulse 90 94 94 Oximetry 12/27/17 12/27/17 12/27/17 02:15 02:31 03:00 Temperature 97.9 F Pulse Rate 69 76 Respiratory 34 30 32 Rate Blood Pressure 136/45 150/57 141/55 (mmHg) O2 Sat by Pulse 91 91 Oximetry 12/27/17 12/27/17 12/27/17 03:15 03:22 03:31 Temperature Pulse Rate 73 56 58 Respiratory 29 24 27 Rate Blood Pressure 144/51 139/60 150/56 (mmHg) O2 Sat by Pulse 89 92 90 Oximetry 12/27/17 12/27/17 12/27/17 03:46 04:00 04:01 Temperature Pulse Rate 66 71 67 Respiratory 29 32 31 Rate Blood Pressure 129/73 123/53 (mmHg) O2 Sat by Pulse 91 89 90 Oximetry 12/27/17 12/27/17 12/27/17 04:15 04:31 04:33 Temperature Pulse Rate 63 66 64 Respiratory 27 28 24 Rate Blood Pressure 135/55 117/70 120/61 (mmHg) O2 Sat by Pulse 95 97 97 Oximetry 12/27/17 12/27/17 12/27/17 04:46 05:00 05:01 Temperature Pulse Rate 69 69 78 Respiratory 25 27 28 Rate Blood Pressure 119/63 108/60 (mmHg) O2 Sat by Pulse 97 97 97 Oximetry 12/27/17 12/27/17 12/27/17 05:05 05:07 05:16 Temperature Pulse Rate 85 72 77 Respiratory 26 26 26 Rate Blood Pressure 95/60 109/75 134/53 (mmHg) O2 Sat by Pulse 97 98 96 Oximetry 12/27/17 12/27/17 12/27/17 05:26 05:31 05:39 Temperature Pulse Rate 83 86 79 Respiratory 26 27 25 Rate Blood Pressure 121/67 115/62 123/58 (mmHg) O2 Sat by Pulse 97 97 97 Oximetry 12/27/17 12/27/17 12/27/17 05:46 05:49 05:57 Temperature Pulse Rate 88 90 87 Respiratory 32 27 33 Rate Blood Pressure 115/74 134/75 135/50 (mmHg) O2 Sat by Pulse 95 95 97 Oximetry 12/27/17 12/27/17 12/27/17 06:00 06:01 06:16 Temperature Pulse Rate 89 99 88 Respiratory 21 20 27 Rate Blood Pressure 119/55 124/50 (mmHg) O2 Sat by Pulse 94 97 94 Oximetry 12/27/17 12/27/17 12/27/17 06:31 06:46 07:00 Temperature Pulse Rate 76 94 79 Respiratory 27 24 21 Rate Blood Pressure 120/50 145/50 (mmHg) O2 Sat by Pulse 96 95 98 Oximetry 12/27/17 12/27/17 12/27/17 07:01 07:16 07:30 Temperature Pulse Rate 72 67 71 Respiratory 16 36 22 Rate Blood Pressure 126/46 123/57 139/48 (mmHg) O2 Sat by Pulse 98 93 90 Oximetry 12/27/17 12/27/17 12/27/17 07:46 08:00 08:01 Temperature 98.1 F Pulse Rate 67 83 71 Respiratory 28 30 25 Rate Blood Pressure 140/58 147/47 (mmHg) O2 Sat by Pulse 92 97 94 Oximetry - Intake and Output Intake and Output: Intake & Output 12/24/17 12/25/17 12/26/17 12/27/17 11:59 11:59 11:59 11:59 Intake Total 150 Output Total 150 Balance 0 Weight 220 lb 6.338 oz Intake: IV Fluids 100 Oral 50 Output: Urine 0 Akers 150 ADLs: Meal Record Start: 12/27/17 01: 20 Freq: 09,13,18 Status: Active Protocol: Created 12/27/17 01:20 System (Rec: 12/27/17 01:20 System [id number]) Intake and Output Start: 12/26/17 20: 51 Freq: Status: Active Protocol: Created 12/26/17 20:51 System (Rec: 12/26/17 20:51 System [id number]) Intake and Output Start: 12/27/17 01: 20 Freq: Q1HR Status: Active Protocol: Created 12/27/17 01:20 System (Rec: 12/27/17 01:20 System ICU-C12) Document 12/27/17 03:00 [id number] (Rec: 12/27/17 04:39 [id number] ICU-C15) Document 12/27/17 05:00 [id number] (Rec: 12/27/17 05:10 [id number] ICU-C15) Document 12/27/17 05:17 [id number] (Rec: 12/27/17 05:17 [id number]) - Physical Exam General Physical Exam Comment: He is sitting in a chair. He has marked asterixis. He is depressed - flat affect, negative in his responses and poverty of spontaneous conversation. He is oriented, has normal speech and no signs of a stroke General: No Cyanosis, Yes Anemia, No Jaundice, No Clubbing Lungs and Chest: Yes: Chest Expansion Full, Chest Expansion Symetrica, Vessicular Breath Sounds. No: Percussion Note Resonant - dull bases, Crackles, Wheezes, Respiratory Distress Heart Rate and Rhythm: Regular Additional Cardiovascular: Yes: Normal Heart Sounds, Pedal Edema - wearing compression hose. No: Heart Murmur Abdominal Exam: Yes: Distention, Soft, Bowel Sounds Present. No: Hepatomegaly, Abdominal Tenderness - Extremities Cranial Nerves II-XII Intact: Yes Limbs: Normal Power - poor effort - Neuro Orientation: A/O x3 Speech: Normal Results - Results Lab Results: Laboratory Results - last 24 hr 12/26/17 12/26/17 12/26/17 21:21 21:21 21:21 WBC 9.3 RBC 3.54 L Hgb 10.9 L Hct 32 L MCV 90 MCH 31 MCHC 34 RDW 15 Plt Count 150 MPV 9.0 Neut % (Auto) 85.9 H Lymph % (Auto) 2.9 L Billings % (Auto) 11.1 H Eos % (Auto) 0 Baso % (Auto) 0.1 Absolute Neuts (auto) 8.0 H Absolute Lymphs (auto) 0.3 L Absolute Monos (auto) 1.0 H Absolute Eos (auto) 0 Absolute Basos (auto) 0 Absolute Nucleated RBC 0 Nucleated RBC % 0 INR (Anticoag Therapy) Sodium 121 L Potassium 7.0 H* Chloride 84 L Carbon Dioxide 23 Anion Gap 14 H BUN 112 H Creatinine 10.29 H Est GFR ( Amer) 6.0 Est GFR (Non-Af Amer) 5.0 BUN/Creatinine Ratio 10.9 Glucose 208 H POC Glucose (mg/dL) Lactic Acid 1.1 Calcium 9.1 Total Bilirubin 0.40 AST 10 L ALT 14 Alkaline Phosphatase 55 Total Creatine Kinase 216 Myoglobin 1497.9 H Troponin I 0.07 H* C-Reactive Protein 169.49 H B-Natriuretic Peptide Total Protein 6.3 L Albumin 3.6 Globulin 2.7 Albumin/Globulin Ratio 1.3 Urine Color Urine Appearance Urine pH Ur Specific Hart Urine Protein Urine Ketones Urine Blood Urine Nitrate Urine Bilirubin Urine Urobilinogen Ur Leukocyte Esterase Urine WBC (Auto) Urine RBC (Auto) Urine Bacteria Urine Glucose 12/26/17 12/26/17 12/26/17 21:21 21:21 22:30 WBC RBC Hgb Hct MCV MCH MCHC RDW Plt Count MPV Neut % (Auto) Lymph % (Auto) Billings % (Auto) Eos % (Auto) Baso % (Auto) Absolute Neuts (auto) Absolute Lymphs (auto) Absolute Monos (auto) Absolute Eos (auto) Absolute Basos (auto) Absolute Nucleated RBC Nucleated RBC % INR (Anticoag Therapy) 1.25 H Sodium Potassium Chloride Carbon Dioxide Anion Gap BUN Creatinine Est GFR ( Amer) Est GFR (Non-Af Amer) BUN/Creatinine Ratio Glucose POC Glucose (mg/dL) Lactic Acid Calcium Total Bilirubin AST ALT Alkaline Phosphatase Total Creatine Kinase Myoglobin Troponin I C-Reactive Protein B-Natriuretic Peptide 1888 H Total Protein Albumin Globulin Albumin/Globulin Ratio Urine Color Yellow Urine Appearance Cloudy Urine pH 5.0 Ur Specific Hart 1.038 H Urine Protein 3+(>=500 mg/dl) A Urine Ketones Negative Urine Blood 1+ A Urine Nitrate Negative Urine Bilirubin Negative Urine Urobilinogen Negative Ur Leukocyte Esterase Negative Urine WBC (Auto) 1+(6-10/hpf) A Urine RBC (Auto) Absent Urine Bacteria Absent Urine Glucose 2+(150 mg/dl) A 12/27/17 12/27/17 12/27/17 00:53 01:50 08:00 WBC RBC Hgb Hct MCV MCH MCHC RDW Plt Count MPV Neut % (Auto) Lymph % (Auto) Billings % (Auto) Eos % (Auto) Baso % (Auto) Absolute Neuts (auto) Absolute Lymphs (auto) Absolute Monos (auto) Absolute Eos (auto) Absolute Basos (auto) Absolute Nucleated RBC Nucleated RBC % INR (Anticoag Therapy) Sodium 119 L* Potassium 6.2 H* Chloride 85 L Carbon Dioxide 24 Anion Gap 10 BUN 111 H Creatinine 10.08 H Est GFR ( Amer) 6.2 Est GFR (Non-Af Amer) 5.1 BUN/Creatinine Ratio 11.0 Glucose 261 H POC Glucose (mg/dL) 138 H Lactic Acid Calcium 17.5 H* 9.8 Total Bilirubin 0.40 AST 11 L ALT 14 Alkaline Phosphatase 51 Total Creatine Kinase Myoglobin Troponin I C-Reactive Protein B-Natriuretic Peptide Total Protein 5.9 L Albumin 3.4 Globulin 2.5 Albumin/Globulin Ratio 1.4 Urine Color Urine Appearance Urine pH Ur Specific Hart Urine Protein Urine Ketones Urine Blood Urine Nitrate Urine Bilirubin Urine Urobilinogen Ur Leukocyte Esterase Urine WBC (Auto) Urine RBC (Auto) Urine Bacteria Urine Glucose Radiology Results: Patient Name: JACOB MORSE Medical Record#: [id number] Ordering Physician: Karina ORTEGA Acct.#: [id number] : 1945 Age: 72 Sex: M Location: [facility] Exam Date: 12/26/172053 ADM Status: ADM IN Order Information: CHEST PA & LAT 2 VWS Accession Number: [id number] CPT: 03977 INDICATION: Shortness of breath. COMPARISON: Comparison is made with a prior study from September 06, 2017. TECHNIQUE: A single AP view of the chest was obtained in the sitting position. FINDINGS: There is a dual-lumen central venous catheter entering on the right side. The catheter tip projects over the region of the right atrium. The heart appears mildly enlarged. There is diffuse prominence of the interstitial markings which is a new finding from the prior study. IMPRESSION: FINDINGS MOST CONSISTENT WITH CONGESTIVE HEART FAILURE. NO DISCREPANCY <Electronically signed by Alexy Lucas MD in OV> 12/27/17712 Dictated By: Alexy Lucas MD Dictated Date/Time: 12/27/17712 Transcribed Date/Time: 12/27/17707 Copy to: CC:Kyle Watkins MD; Aravind Win MD; Karina ORTEGA; Akin Chacon MD Imaging - [facility] Imaging - [place] [facility] [address] [address] ph [phone]) ph ([phone]) ph ([phone]) EKG Report: Sinus bradycardia 44 [place] 223 QTc 372 QRS axis -19 LBB Assessment - Problem List Assessment: Patient Problems Acute renal failure (Acute) Asterixis (Acute) Bradycardia (Acute) Depression (Acute) End stage renal disease on dialysis (Acute) Hemodialysis access site with mature fistula (Acute) LBBB (left bundle branch block) (Acute) Peritoneal dialysis status (Acute) Type II diabetes mellitus - poor control (Acute) Chronic obstructive lung disease (Chronic) Essential hypertension (Chronic) Hyperlipidemia (Chronic) Hypertension (Chronic) Nephrotic syndrome (Chronic) Neuropathy (Chronic) Obesity (Chronic) Retinopathy (Chronic) DVT prophylaxis (Chronic) Full code status (Chronic) Plan: Acute renal failure (Acute) Asterixis (Acute) End stage renal disease on dialysis (Acute) Hemodialysis access site with mature fistula (Acute) Peritoneal dialysis status (Acute) Nephrotic syndrome (Chronic) He has had technical issues with peritoneal dialysis resulting in surgeries for inguinal hernias owing to leaks. He has restarted PD at home after 6 weeks of cessation from his last surgery. He has gained weight and developed acute renal failure. Either the PD is not working, or he is not modifying his treatment as instructed - he has not changed his bags and hasn't communicated with the dialysis team. Dr. Chacon is actively managing this PD to see if this is a technical problem or a compliance problem. He has marked fluid overload and electrolyte imbalance with hyperkalemic. He has had HD overnight and kayexelate. He came off early as he declines HD. Bradycardia (Acute) LBBB (left bundle branch block) (Acute) I will check his thyroid function and watch his rhythm as his electrolytes are improved Depression (Acute) This is a major issue. At present, he states he wants to stop HD. He does not discuss whether he wants or doesn't want peritoneal dialysis. I think he requires a psychiatry opinion: evaluation for depression, altered mental status, capacity. Once this is established, we will have hospice evaluate him Type II diabetes mellitus - poor control (Acute) I will bring this back under control Chronic obstructive lung disease (Chronic) not exacerbated Essential hypertension (Chronic) ongoing secondary diagnosis Hyperlipidemia (Chronic) continue current Rx Neuropathy (Chronic) secondary diagnosis Obesity (Chronic) ongoing Retinopathy (Chronic) secondary diagnosis DVT prophylaxis (Chronic) Full code status (Chronic) Phone to Suyapa Shannon, his dometic partner. "I don't know what happened, his swelling got so big, I wonder if that stuff is leaking". He is depressed. He was coughing with dialysis at the hospital. He has got weaker. She had a hard time getting him to answer the question as to whether he wants to go to the hospital with the ambulance. He has had falls - "lizette crumbled" - his legs couldn't support him. The ambulance crew asked him over and over if he wants to get into the hospital. "He is depressed because he can't mow the lawn , he can't do many of the things he used to do". She is his proxy. She states he called the dialysis unit Wednesday or Wednesday and spoke to a RN who told him to go to the hospital.
[2017-12-27 09:02] LABS: ABS Basophils 0 10^3/ul (0-0.2); ABS Eosinophils 0 10^3/ul (0-0.6); ABS Lymphocytes 0.5 10^3/ul (1.0-4.8); ABS Monocytes 1.3 10^3/ul (0-0.8); ABS Neutrophils 5.3 10^3/ul (1.5-7.7); ABS Nucleated RBC 0 10^3/ul; Eosinophil % 0.4 % (0-6); Hematocrit 31 % (42-52); Hemoglobin 10.6 g/dl (14.0-18.0); Lymphocyte % 7.4 % (25-47); Mean Corpuscular HGB Conc 35 g/dl (31-36); Mean Corpuscular Hemoglobin 31 pg (27-31); Mean Corpuscular Volume 90 fL (80-94); Mean Platelet Volume 9.1 um3 (7.4-10.4); Nucleated Red Blood Cells % 0; Platelet Count 150 10^3/ul (150-450); Red Blood Count 3.41 10^6/ul (4.00-5.40); Red Cell Distribution Width 15 % (10.5-15); White Blood Count 7.1 10^3/ul (3.5-10.8)
[2017-12-27] MEDS: Furosemide TAB* 40 MG PO SCH ×2 (09:08→21:32)
[2017-12-27] MEDS: Omeprazole CAP* 20 MG PO SCH ×2 (09:09→17:55)
[2017-12-27] MEDS: Metolazone TAB* 5 MG PO SCH (09:13)
[2017-12-27] MEDS: Insulin LISPRO* 1 UNITS UNIT SUBCUT SCH ×7 (09:14→21:27)
[2017-12-27 09:23] LABS: EGFR Non-African American 7.8 (>60)
[2017-12-27] MEDS ORDERED: Vancomycin 1500 MG IV - x ONCE IVPB ONE ×2 (11:00)
[2017-12-27] MEDS ORDERED: Levofloxacin 250 MG IVPREMX(*) 250 MG/50 ML BAG IVPB SCH (11:00)
[2017-12-27] MEDS: Levofloxacin 250 MG IVPREMX(*) 250 MG/50 ML BAG IVPB SCH (11:13)
[2017-12-27] MEDS ORDERED: Lidocain 1% EPI 1:100,000 * 30 ML MDV ONE (11:42)
--- NOTE | 2017-12-27 12:27 | PN ---
PROGRESS NOTE: DATE OF SERVICE: 12/27/17 HISTORY OF PRESENT ILLNESS: Mr. Kaur had recently crossed over from hemodialysis to peritoneal dialysis at his request. We started him off on rather low volume exchanges, but he has been increasing his volumes 200 cc every other day since that occurred and he should be now up to very reasonable exchange volumes. He presented to the hospital markedly short of breath and fluid overloaded last night. As he was continuing to make urine, we attempted to diurese him with high dose furosemide and metolazone and that was unsuccessful. He was hyperkalemic and we were partially successful in getting his potassium down with some Kayexalate. Since he was still short of breath, I went ahead and brought a nurse in the night to hemodialyze him. He demanded to come off treatment early before we got all the weight that was targeted off of him. He said that he is through with hemodialysis. This is an opinion that he has had in the past and he had told me that if he could not go back to peritoneal dialysis, that he was going to be quitting dialysis and going to hospice care. Apparently, he has been gaining weight and fluid sequentially for the past few days. He has not been adjusting his dialysate concentration as would be typical. In addition, he apparently did not call the dialysis nurse environmental protection forester to report and to get advice on how to do that. In talking to him today together with Dr. Watkins, it is clear to me that there has been some significant mental status change. He has a very flat affect. He does not respond to questions in a reasonably rapid fashion. 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 He said that he was through with hemodialysis that he would do peritoneal dialysis, but that was not working. It is not clear to me whether it was not working or whether or not he was making the appropriate adjustments for his situation. Dr. Watkins and I have agreed that he probably should have a hospice interview. In addition, he probably ought to have a psychiatry consultation to look at his competency to make decisions. I am going to bring in my peritoneal dialysis nurse over today in order to see if we could ultrafilter off some more fluid. IMPRESSION: End-state renal disease. [id number]/[facility] #: [id number] NAMAN
--- NOTE | 2017-12-27 12:29 | PN ---
Progress Note - Progress Note Date of Service: 12/27/17 Note: After my earlier note, I noted the elevated CRP. I spoke with Dr. Chacon. He had discussed him with his dialysis team. In fact, he had been on the phone daily with the team. He had become worse rapidly. We are both concerned now about infection. We have ordered blood cultures, culture of PD fluid, culture from the HD catheter. I have at Dr. Chacon's instructions asked Dr. Marcus to remove his HD catheter - he is declining future HD anyhow. I have also started him after these cultures on vancomycin 1.5 gram stat and levofloxacin 250 mg qod.
[2017-12-27] MEDS ORDERED: Castor Oil (Pharmaceutic Aid)* 118 ML BTL ONE (13:00)
[2017-12-27] MEDS ORDERED: Vancomycin per Pharmacy* NOTE FOLLOW UP PRN (15:22)
[2017-12-27] MEDS: rOPINIRole TAB* 1 MG PO SCH (17:56)
[2017-12-27] MEDS: traZODone TAB* 50 MG TAB PO SCH (17:56)
[2017-12-27] MEDS: Levothyroxine TAB* 25 MCG TAB PO SCH (17:56)
[2017-12-27] MEDS: Atorvastatin* 20 MG TAB PO SCH (17:56)
[2017-12-27] MEDS: Metoclopramide TAB* 10 MG PO SCH (17:56)
[2017-12-27] MEDS ORDERED: Insulin GLARGINE(*) 1 UNITS UNIT SUBCUT SCH ×2 (21:00)
[2017-12-28 05:43] LABS: ABS Basophils 0 10^3/ul (0-0.2); ABS Eosinophils 0.1 10^3/ul (0-0.6); ABS Lymphocytes 0.6 10^3/ul (1.0-4.8); ABS Monocytes 1.2 10^3/ul (0-0.8); ABS Neutrophils 3.3 10^3/ul (1.5-7.7); ABS Nucleated RBC 0 10^3/ul; Eosinophil % 1.2 % (0-6); Hematocrit 30 % (42-52); Hemoglobin 10.3 g/dl (14.0-18.0); Lymphocyte % 11.8 % (25-47); Mean Corpuscular HGB Conc 34 g/dl (31-36); Mean Corpuscular Hemoglobin 31 pg (27-31); Mean Corpuscular Volume 91 fL (80-94); Mean Platelet Volume 9.2 um3 (7.4-10.4); Nucleated Red Blood Cells % 0; Platelet Count 149 10^3/ul (150-450); Red Blood Count 3.29 10^6/ul (4.00-5.40); Red Cell Distribution Width 15 % (10.5-15); White Blood Count 5.2 10^3/ul (3.5-10.8)
[2017-12-28 05:54] LABS: EGFR Non-African American 6.8 (>60)
--- NOTE | 2017-12-28 07:20 | PN ---
Subjective - Subjective Reason for Note: Progress Note History: He is alert and oriented and aware of his situation today. He has some mild tenderness in his abdomen. The lactulose has resulted in some diarrhea. He went into atrial fibrillation overnight with a variable rate - but mostly slow. He is coughing. He denies other pain or new symptoms. He acknowledges he is depressed. Yesterday, we cultured blood, PD fluid, his HD catheter and started him on levofloxacin and vancomycin. Active Problems: Active Problems Acute renal failure (Acute) Asterixis (Acute) R27.8 Atrial fibrillation (Acute) I48.91 Bradycardia (Acute) R00.1 Depression (Acute) F32.9 End stage renal disease on dialysis (Acute) N18.6, Z99.2 Hemodialysis access site with mature fistula (Acute) Z99.2 Infection (Acute) B99.9 LBBB (left bundle branch block) (Acute) I44.7 Peritoneal dialysis status (Acute) Z99.2 Type II diabetes mellitus - poor control (Acute) E11.65 - Glucose 140-150's - Resume home Insulin Chronic obstructive lung disease (Chronic) J44.9 Essential hypertension (Chronic) I10 Hyperlipidemia (Chronic) E78.5 Hypertension (Chronic) I10 - SBP 110-120's - Continue Lasix (decreased), Losartan Nephrotic syndrome (Chronic) N04.9 - Stage 5 CKD - No immediate need for dialysis, no hyperkalemia, acidosis, or volume overload - BP may be overtreated, reduce dose lasix, could be contributing to constipation. Neuropathy (Chronic) G62.9 Obesity (Chronic) E66.9 - BMI 32.8 Retinopathy (Chronic) H35.00 Current Medications: Current Medications Acetaminophen (Tylenol Tab*) 650 mg PO Q6H PRN PRN Reason: FEVER/PAIN Albuterol (Ventolin Hfa Inhaler*) 2 puff INH Q6H PRN PRN Reason: SHORTNESS OF BREATH Last Admin: 12/27/17 07:57 Dose: 2 puff Albuterol (Ventolin 2.5 Mg/3 Ml Neb.Brooke*) 2.5 mg INH Q2H PRN PRN Reason: SOB/WHEEZING Atorvastatin Calcium (Lipitor*) 20 mg PO QPM [facility] Last Admin: 12/27/17 17:56 Dose: 20 mg Furosemide (Lasix Tab*) 120 mg PO BID GREGG Last Admin: 12/27/17 21:32 Dose: 120 mg Levofloxacin/Dextrose (Levaquin 250 Mg Ivpremx(*)) 250 mg in 50 mls @ 50 mls/ hr IVPB Q48H [facility] Last Admin: 12/27/17 11:13 Dose: 50 mls/hr Insulin Glargine (Lantus(*)) 36 units SUBCUT 2100 [facility] Last Admin: 12/27/17 21:32 Dose: 36 units Insulin Human Lispro (Humalog*) 0 units SUBCUT AC [facility]; Protocol Last Admin: 12/27/17 17:36 Dose: Not Given Insulin Human Lispro (Humalog*) [address] [facility]; Protocol Last Admin: 12/27/17 21:27 Dose: Not Given Lactulose (Lactulose*) 30 ml PO BID [facility] Last Admin: 12/27/17 21:32 Dose: 30 ml Levothyroxine Sodium (Synthroid Tab*) 25 mcg PO QPM [facility] Last Admin: 12/27/17 17:56 Dose: 25 mcg Metoclopramide HCl (Reglan Tab*) 5 mg PO QPM [facility] Last Admin: 12/27/17 17:56 Dose: 5 mg Metolazone (Zaroxolyn Tab*) 5 mg PO QAM@0830 [facility] Last Admin: 12/27/17 09:13 Dose: 5 mg Mometasone Furoate/Formoterol Fumar (Dulera 200/5 Mdi*) 2 puff INH BID [facility]; Protocol Last Admin: 12/27/17 20:37 Dose: 2 puff Mupirocin (Bactroban 2 % Oint*) 1 applic TOPICAL DAILY [facility] Omeprazole (Prilosec Cap*) 40 mg PO BID AC [facility] Last Admin: 12/27/17 17:55 Dose: 40 mg Pharmacy Consult (Vancomycin Per Pharmacy*) 1 note FOLLOW UP . PRN PRN Reason: PER PROTOCOL Ropinirole HCl (Requip Tab*) 1 mg PO QPM [facility] Last Admin: 12/27/17 17:56 Dose: 1 mg Trazodone HCl (Desyrel Tab*) 50 mg PO QPM [facility] Last Admin: 12/27/17 17:56 Dose: 50 mg Home Medications: Home Medications Medication Instructions Recorded Confirmed Type Insulin Regular, Human [Novolin R] 10 - 15 unit SUBCUT QAM MDD 60 08/08/1312/26 History units Losartan TAB* [Cozaar TAB*] 100 mg PO QPM 08/08/13 12/26/17 History Insulin NPH Human Isophane 0 - 40 unit SC BID MDD 100 units 01/16/14 12/26/17 History [Humulin N] Insulin Regular, Human [Novolin R] 15 - 30 unit SUBCUT QPM MDD 60 01/16/1412/26 History units Ascorbic Acid TAB* [Vitamin C 1,000 mg PO QAM 10/04/15 12/26/17 History TAB*] Fluticas/Salmet 115/21 HFA(NF) 2 puff INH BID 10/04/15 12/26/17 History [Advair HFA 115/21 (NF)] LoraTADine TAB(NF) [Claritin 10 MG 10 mg PO QPM PRN 10/04/15 12/26/17 History TAB(NF)] Brimonidine 0.2 % * [Alphagan P 1 drop BOTH EYES BID 04/28/17 12/26/17 History 0.2% *] Dorzolamide 2% OPTH (NF) [Trusopt 1 drop BOTH EYES BID 04/28/17 12/26/17 History 2% OPTH (NF)] traZODone TAB* [Desyrel TAB*] 50 mg PO QPM 04/28/17 12/26/17 History Albuterol HFA INHALER* [Ventolin 2 puff INH Q6H PRN 05/14/17 12/26/17 History HFA Inhaler*] Cholecalciferol TAB* [Vitamin D 1,000 unit PO BID 05/14/17 12/26/17 History TAB*] Codeine Phosphate/Guaifenesin 10 ml PO BID PRN MDD 20ml 05/14/17 12/26/17 History [Codeine-Guaifen 10-100 mg/5 ml] Diltiazem CD CAP* [Cardizem CD 180 mg PO QAM 05/14/17 12/26/17 History CAP*] Multivitamins/Minerals TAB* 1 tab PO QAM 05/14/17 12/26/17 History [Theragran/minerals TAB*] Omeprazole CAP* [Prilosec CAP* 20 40 mg PO BID 05/14/17 12/26/17 History MG] Simvastatin (NF) [Zocor (NF)] 40 mg PO QPM 05/14/17 12/26/17 History Lactulose* 30 ml PO BID 06/25/17 12/26/17 History Levothyroxine Sodium [Levo-T] 25 mcg PO QPM 06/25/17 12/26/17 History Metoclopramide HCl 5 mg PO TID AC 06/25/17 12/26/17 History Metoclopramide HCl [Reglan] 5 mg PO QPM 06/25/17 12/26/17 History Metolazone TAB* [Zaroxolyn TAB*] 5 mg PO QAM 06/25/17 12/26/17 History Ropinirole HCl 1 mg PO QPM 06/25/17 12/26/17 History Furosemide TAB* [Lasix TAB*] 120 mg PO BID 08/26/17 12/26/17 History guaiFENesin LIQ* [Robitussin*] 10 ml PO Q4H PRN 08/26/17 12/26/17 History Acetaminophen [Acetaminophen Extra 1,000 mg PO BID PRN 09/21/17 12/26/17 History Strength] Polyethylene Glycol 3350* 17 gm PO BEDTIME PRN 09/27/17 12/26/17 History [Miralax*] Allergies: Allergies Allergy/AdvReac Type Severity Reaction Status Date / Time amlodipine [From [facility]] Allergy Severe Swelling Verified 12/26/17 21:01 hydrocodone Allergy Severe Difficulty Verified 12/26/17 21:01 Breathing shellfish derived Allergy Severe Difficulty Verified 12/26/17 21:01 Breathing lisinopril Allergy Intermediate Coughing Verified 12/26/17 21:01 NSAIDS (Non-Steroidal AdvReac Unknown Unknown Verified 12/26/17 21:01 Anti-Inflamma Reaction Details Objective - Vital Signs Vital Signs: Vital Signs 12/27/17 12/27/17 12/27/17 07:16 07:30 07:46 Temperature Pulse Rate 67 71 67 Respiratory 36 22 28 Rate Blood Pressure 123/57 139/48 140/58 (mmHg) O2 Sat by Pulse 93 90 92 Oximetry 12/27/17 12/27/17 12/27/17 08:00 08:01 08:16 Temperature 98.1 F Pulse Rate 83 71 82 Respiratory 30 25 24 Rate Blood Pressure 147/47 135/47 (mmHg) O2 Sat by Pulse 97 94 90 Oximetry 12/27/17 12/27/17 12/27/17 08:31 08:46 09:00 Temperature Pulse Rate 65 76 80 Respiratory 19 26 20 Rate Blood Pressure 136/48 147/88 (mmHg) O2 Sat by Pulse 92 92 90 Oximetry 12/27/17 12/27/17 12/27/17 09:02 09:16 09:32 Temperature Pulse Rate 87 75 76 Respiratory 25 28 30 Rate Blood Pressure 140/54 154/69 144/57 (mmHg) O2 Sat by Pulse 93 92 93 Oximetry 12/27/17 12/27/17 12/27/17 09:46 10:00 10:01 Temperature Pulse Rate 72 70 79 Respiratory 25 30 29 Rate Blood Pressure 129/51 145/42 (mmHg) O2 Sat by Pulse 95 92 93 Oximetry 12/27/17 12/27/17 12/27/17 10:16 10:30 10:55 Temperature Pulse Rate 64 68 72 Respiratory 29 28 23 Rate Blood Pressure 139/48 129/62 139/57 (mmHg) O2 Sat by Pulse 93 94 93 Oximetry 12/27/17 12/27/17 12/27/17 11:00 11:01 11:16 Temperature Pulse Rate 66 63 62 Respiratory 28 28 23 Rate Blood Pressure 152/52 146/52 (mmHg) O2 Sat by Pulse 93 92 95 Oximetry 12/27/17 12/27/17 12/27/17 11:45 12:00 13:00 Temperature 98 F Pulse Rate 72 74 Respiratory 27 31 Rate Blood Pressure 139/53 (mmHg) O2 Sat by Pulse 96 88 Oximetry 12/27/17 12/27/17 12/27/17 13:01 14:00 15:00 Temperature Pulse Rate 71 76 65 Respiratory 26 30 21 Rate Blood Pressure 143/58 148/69 (mmHg) O2 Sat by Pulse 87 96 100 Oximetry 12/27/17 12/27/17 12/27/17 15:01 15:52 16:00 Temperature 98.3 F Pulse Rate 61 55 Respiratory 24 22 Rate Blood Pressure 128/65 (mmHg) O2 Sat by Pulse 100 100 Oximetry 12/27/17 12/27/17 12/27/17 16:01 17:00 18:00 Temperature Pulse Rate 63 72 Respiratory 20 27 16 Rate Blood Pressure 130/69 (mmHg) O2 Sat by Pulse 99 96 Oximetry 12/27/17 12/27/17 12/27/17 18:11 19:00 19:20 Temperature 97.6 F Pulse Rate 78 Respiratory 16 22 Rate Blood Pressure 121/51 (mmHg) O2 Sat by Pulse 98 Oximetry 12/27/17 12/27/17 12/27/17 20:00 20:37 21:00 Temperature Pulse Rate 82 61 87 Respiratory 22 16 22 Rate Blood Pressure 137/65 141/64 (mmHg) O2 Sat by Pulse 100 93 100 Oximetry 12/27/17 12/27/17 12/27/17 21:47 22:00 23:00 Temperature Pulse Rate 90 88 Respiratory 22 19 16 Rate Blood Pressure 130/56 (mmHg) O2 Sat by Pulse 100 98 Oximetry 12/27/17 12/27/17 12/27/17 23:01 23:08 23:23 Temperature 98.3 F Pulse Rate 90 Respiratory 25 24 Rate Blood Pressure 134/60 (mmHg) O2 Sat by Pulse 99 Oximetry 12/28/17 12/28/17 12/28/17 00:00 00:11 01:00 Temperature Pulse Rate 72 56 60 Respiratory 21 21 24 Rate Blood Pressure 133/59 (mmHg) O2 Sat by Pulse 100 98 100 Oximetry 12/28/17 12/28/17 12/28/17 01:01 02:00 02:01 Temperature Pulse Rate 59 69 72 Respiratory 26 27 24 Rate Blood Pressure 131/59 135/73 (mmHg) O2 Sat by Pulse 99 99 95 Oximetry 12/28/17 12/28/17 12/28/17 03:00 03:02 03:28 Temperature 98.2 F Pulse Rate 58 57 Respiratory 17 19 Rate Blood Pressure 118/53 (mmHg) O2 Sat by Pulse 91 84 Oximetry 12/28/17 12/28/17 12/28/17 04:00 04:15 05:00 Temperature Pulse Rate 54 50 Respiratory 5 12 19 Rate Blood Pressure 137/52 (mmHg) O2 Sat by Pulse 96 92 Oximetry 12/28/17 12/28/17 05:01 06:00 Temperature Pulse Rate 49 51 Respiratory 20 21 Rate Blood Pressure 137/59 137/59 (mmHg) O2 Sat by Pulse 90 97 Oximetry - Intake and Output Intake and Output: Intake & Output 12/25/17 12/26/17 12/27/17 07/10/18 11:59 11:59 11:59 11:59 Intake Total 150 638 Output Total 300 1075 Balance -150 -437 Weight 233 lb 3.985 oz 225 lb 8 oz Intake: IV Fluids 100 65 KVO 45 NS to Maintain IV Patency 20 IVPB 293 KVO 48 NS to Maintain IV Patency 245 Oral 50 280 Output: Urine 0 Akers 300 1075 ADLs: Meal Record Start: 12/27/17 01: 20 Freq: ,,18 Status: Active Protocol: Created 12/27/17 01:20 System (Rec: 12/27/17 01:20 System ICU-C12) Document 12/27/17 09:00 [id number] (Rec: 12/27/17 13:41 [id number] ICU-C12) Document 12/27/17 13:00 [id number] (Rec: 12/27/17 14:56 [id number] ICU-C12) Document 12/27/17 18:00 [id number] (Rec: 12/27/17 18:18 [id number] ICU-C12) Intake and Output Start: 12/26/17 20: 51 Freq: Status: Active Protocol: Created 12/26/17 20:51 System (Rec: 12/26/17 20:51 System [id number]) Intake and Output Start: 12/27/17 01: 20 Freq: Q1HR Status: Active Protocol: Created 12/27/17 01:20 System (Rec: 12/27/17 01:20 System ICU-C12) Document 12/27/17 03:00 [id number] (Rec: 12/27/17 04:39 [id number] ICU-C15) Document 12/27/17 05:00 [id number] (Rec: 12/27/17 05:10 [id number] ICU-C15) Document 12/27/17 05:17 [id number] (Rec: 12/27/17 05:17 [id number] ICU-M29) Document 12/27/17 11:23 [id number] (Rec: 12/27/17 11:23 [id number] ICU-C12) Document 12/27/17 16:42 [id number] (Rec: 12/27/17 16:42 [id number] [facility] Document 12/27/17 18:18 [id number] (Rec: 12/27/17 18:18 [id number] ICU-C12) Document 12/27/17 19:00 [id number] (Rec: 12/27/17 20:04 [id number] ICU-C16) Document 12/27/17 20:00 [id number] (Rec: 12/27/17 20:04 [id number] ICU-C16) Document 12/27/17 22:00 [id number] (Rec: 12/27/17 22:08 [id number] ICU-M28) Document 12/28/17 06:07 [id number] (Rec: 12/28/17 06:07 [id number] ICU-C15) - Physical Exam General Physical Exam Comment: He is sitting in a cardiac chair. His hands are warm, feet are cold and mottled. He is no longer as tremulous as yesterday and is more attentive. However, he has some slowness of speech and is sleepy. General: No Cyanosis, Yes Anemia, No Jaundice, No Clubbing Lungs and Chest: Yes: Chest Expansion Full, Chest Expansion Symetrica. No: Percussion Note Resonant - dull bases, Vessicular Breath Sounds - diminished - particularly at bases, Crackles, Wheezes Heart Rate and Rhythm: Irregular Additional Cardiovascular: Yes: Normal Heart Sounds. No: Heart Murmur, Pedal Edema Abdominal Exam: Yes: Distention, Soft, Abdominal Tenderness - mild generalized, Bowel Sounds Present. No: Abdominal Mass, Hepatomegaly, Guarding, Rebound Tenderness - Extremities Cranial Nerves II-XII Intact: Yes Limbs: Abnormal Power - weak generally - Neuro Orientation: A/O x3 Psychiatric: Depressed - slow Speech: Normal Results - Results Lab Results: Laboratory Results - last 24 hr 12/27/17 12/27/17 12/27/17 08:00 08:45 08:45 WBC 7.1 RBC 3.41 L Hgb 10.6 L Hct 31 L MCV 90 MCH 31 MCHC 35 RDW 15 Plt Count 150 MPV 9.1 Neut % (Auto) 74.2 Lymph % (Auto) 7.4 L Florence % (Auto) 17.9 H Eos % (Auto) 0.4 Baso % (Auto) 0.1 Absolute Neuts (auto) 5.3 Absolute Lymphs (auto) 0.5 L Absolute Monos (auto) 1.3 H Absolute Eos (auto) 0 Absolute Basos (auto) 0 Absolute Nucleated RBC 0 Nucleated RBC % 0 Sodium 127 L D Potassium 4.9 Chloride 86 L Carbon Dioxide 28 Anion Gap 13 H BUN 68 H Creatinine 6.93 H Est GFR ( Amer) 9.5 Est GFR (Non-Af Amer) 7.8 BUN/Creatinine Ratio 9.8 Glucose 127 H POC Glucose (mg/dL) 138 H Hemoglobin A1c Calcium 9.3 Phosphorus 4.8 Magnesium 2.7 Total Bilirubin AST ALT Alkaline Phosphatase Troponin I 0.09 H* C-Reactive Protein Total Protein Albumin Globulin Albumin/Globulin Ratio Procalcitonin TSH Free T4 Free T3 Total T3 Cortisol Fluid Source Fluid Volume Fluid Color Fluid Appearance Fluid WBC Fluid RBC Fluid Tot Cell Count Fluid Neutrophils Fluid Lymphocytes Fluid Monocytes Fluid Other Cells Fluid Cell Count Rvw By 12/27/17 12/27/17 12/27/17 08:45 09:53 09:53 WBC RBC Hgb Hct MCV MCH MCHC RDW Plt Count MPV Neut % (Auto) Lymph % (Auto) Florence % (Auto) Eos % (Auto) Baso % (Auto) Absolute Neuts (auto) Absolute Lymphs (auto) Absolute Monos (auto) Absolute Eos (auto) Absolute Basos (auto) Absolute Nucleated RBC Nucleated RBC % Sodium Potassium Chloride Carbon Dioxide Anion Gap BUN Creatinine Est GFR ( Amer) Est GFR (Non-Af Amer) BUN/Creatinine Ratio Glucose POC Glucose (mg/dL) Hemoglobin A1c 7.5 H Calcium Phosphorus Magnesium Total Bilirubin AST ALT Alkaline Phosphatase Troponin I C-Reactive Protein 230.77 H Total Protein Albumin Globulin Albumin/Globulin Ratio Procalcitonin 4.9 H TSH 0.08 L Free T4 1.07 Free T3 2.30 L Total T3 58 L Cortisol 29.44 Fluid Source Fluid Volume Fluid Color Fluid Appearance Fluid WBC Fluid RBC Fluid Tot Cell Count Fluid Neutrophils Fluid Lymphocytes Fluid Monocytes Fluid Other Cells Fluid Cell Count Rvw By 12/27/17 12/27/17 12/27/17 12:30 14:22 17:24 WBC RBC Hgb Hct MCV MCH MCHC RDW Plt Count MPV Neut % (Auto) Lymph % (Auto) Florence % (Auto) Eos % (Auto) Baso % (Auto) Absolute Neuts (auto) Absolute Lymphs (auto) Absolute Monos (auto) Absolute Eos (auto) Absolute Basos (auto) Absolute Nucleated RBC Nucleated RBC % Sodium Potassium Chloride Carbon Dioxide Anion Gap BUN Creatinine Est GFR ( Amer) Est GFR (Non-Af Amer) BUN/Creatinine Ratio Glucose POC Glucose (mg/dL) 209 H 105 H Hemoglobin A1c Calcium Phosphorus Magnesium Total Bilirubin AST ALT Alkaline Phosphatase Troponin I C-Reactive Protein Total Protein Albumin Globulin Albumin/Globulin Ratio Procalcitonin TSH Free T4 Free T3 Total T3 Cortisol Fluid Source Peritonial fluid Fluid Volume 4.0 Fluid Color Yellow Fluid Appearance Clear Fluid WBC 110 Fluid RBC 77 Fluid Tot Cell Count 100 Fluid Neutrophils 13 Fluid Lymphocytes 13 Fluid Monocytes 74 Fluid Other Cells 5 Fluid Cell Count Rvw By 12/27/17 12/28/17 12/28/17 21:24 05:16 05:16 WBC 5.2 RBC 3.29 L Hgb 10.3 L Hct 30 L MCV 91 MCH 31 MCHC 34 RDW 15 Plt Count 149 L MPV 9.2 Neut % (Auto) 63.7 Lymph % (Auto) 11.8 L Florence % (Auto) 23.1 H Eos % (Auto) 1.2 Baso % (Auto) 0.2 Absolute Neuts (auto) 3.3 Absolute Lymphs (auto) 0.6 L Absolute Monos (auto) 1.2 H Absolute Eos (auto) 0.1 Absolute Basos (auto) 0 Absolute Nucleated RBC 0 Nucleated RBC % 0 Sodium 130 L Potassium 4.5 Chloride 90 L Carbon Dioxide 27 Anion Gap 13 H BUN 78 H Creatinine 7.87 H Est GFR ( Amer) 8.2 Est GFR (Non-Af Amer) 6.8 BUN/Creatinine Ratio 9.9 Glucose 77 POC Glucose (mg/dL) 108 H Hemoglobin A1c Calcium 9.5 Phosphorus 6.7 H Magnesium 2.8 H Total Bilirubin 0.40 AST 20 ALT 18 Alkaline Phosphatase 55 Troponin I C-Reactive Protein 215.38 H Total Protein 5.8 L Albumin 3.2 Globulin 2.6 Albumin/Globulin Ratio 1.2 Procalcitonin TSH 0.06 L Free T4 0.91 Free T3 2.40 L Total T3 Cortisol Fluid Source Fluid Volume Fluid Color Fluid Appearance Fluid WBC Fluid RBC Fluid Tot Cell Count Fluid Neutrophils Fluid Lymphocytes Fluid Monocytes Fluid Other Cells Fluid Cell Count Rvw By EKG Report: 12/28/2017 Atrial flutter/fibrillation 58 QTc 449 QRS axis 30 Flutter waves in V1. Assessment - Problem List Assessment: Patient Problems Acute renal failure (Acute) Asterixis (Acute) Atrial fibrillation (Acute) Bradycardia (Acute) Depression (Acute) End stage renal disease on dialysis (Acute) Hemodialysis access site with mature fistula (Acute) Infection (Acute) LBBB (left bundle branch block) (Acute) Peritoneal dialysis status (Acute) Type II diabetes mellitus - poor control (Acute) Chronic obstructive lung disease (Chronic) Essential hypertension (Chronic) Hyperlipidemia (Chronic) Hypertension (Chronic) Nephrotic syndrome (Chronic) Neuropathy (Chronic) Obesity (Chronic) Retinopathy (Chronic) DVT prophylaxis (Chronic) Full code status (Chronic) Plan: Infection: Yesterday, we recognized he is infected. The site is not clear - but likely to either be from his HD catheter or his peritoneum. We started him on vancomycin and levofloxacin. His neut% and CRP are coming down today. We are awaiting results from microbiological cultures to help guide our treatment. Acute renal failure (Acute)Asterixis (Acute) End stage renal disease on dialysis (Acute) Hemodialysis access site with mature fistula (Acute) Peritoneal dialysis status (Acute) Dr. Chacon is following this. I have heard second hand that at present PD is problematic as he has an inflammed peritoneum and HD is not possible as we have removed his catheter. I discussed HD as a bridge to PD. I ensured he understands the issues so that he can have a discussion later with Dr. Chacon. I defer to the nephrology team Atrial fibrillation (Acute) Bradycardia (Acute) LBBB (left bundle branch block) (Acute) This is new. and likely relates to a combination of infection and electrolyte disturbances. I see some flutter waves in some of the leads. I asked Mr. Kaur if we can anticoagulate him - I explained the risks of not going ahead (embolism - particularly to brain) and the risk of anticoagulation ( hemorrhage), he agrees to this Depression (Acute) He admits to depression and is willing to speak to a psychiatrist, but wants to delay another day as he feels too weak today Type II diabetes mellitus - poor control (Acute) His glucose levels have come down. I will trim the glargine insulin once more. This is a dynamic state in which his insulin resistance is increased owing to the infection, but coming down as he responds to antibacterials Chronic obstructive lung disease (Chronic) secondary diagnosis Essential hypertension (Chronic) secondary diagnosis Hyperlipidemia (Chronic) secondary diagnosis Nephrotic syndrome (Chronic) secondary diagnosis Neuropathy (Chronic) secondary diagnosis - I inspected his feet - no ulcers, callouses or infections Obesity (Chronic) Retinopathy (Chronic) secondary diagnosis DVT prophylaxis (Chronic) Full code status (Chronic) I discussed the above with Jan Kaur and spoke on the phone with his domestic partner Suyapa Shannon. They understand that Dr. Chacon is going to discuss the possibility of HD as a bridge and give him some idea of the timeline before we can initiate PD once more. Mr. Kaur will need to make a choice as to whether he accepts this bridging strategy. I will place him on IV heparin for the moment in case we need to place a new HD catheter and stop anticoagulation. I note his platelets are just below the lower end of the reference range, we will be follwoing them closely.
[2017-12-28] MEDS: Mometasone/Formoter 200/5 MDI INH SCH ×2 (08:40→20:30)
[2017-12-28] MEDS: Insulin LISPRO* 1 UNITS UNIT SUBCUT SCH ×7 (09:12→20:18)
[2017-12-28] MEDS: Omeprazole CAP* 20 MG PO SCH ×2 (09:13→16:48)
[2017-12-28] MEDS: Furosemide TAB* 40 MG PO SCH ×2 (09:13→20:17)
[2017-12-28] MEDS: Metolazone TAB* 5 MG PO SCH (09:15)
[2017-12-28] MEDS: Mupirocin 2% OINT* TUBE TOPICAL SCH (09:18)
[2017-12-28 09:40] LABS: ABS Basophils 0 10^3/ul (0-0.2); ABS Eosinophils 0 10^3/ul (0-0.6); ABS Lymphocytes 0.5 10^3/ul (1.0-4.8); ABS Neutrophils 3.7 10^3/ul (1.5-7.7); ABS Nucleated RBC 0 10^3/ul; Eosinophil % 0.6 % (0-6); Hematocrit 31 % (42-52); Hemoglobin 10.5 g/dl (14.0-18.0); Lymphocyte % 8.9 % (25-47); Mean Corpuscular HGB Conc 34 g/dl (31-36); Mean Corpuscular Hemoglobin 31 pg (27-31); Mean Corpuscular Volume 91 fL (80-94); Nucleated Red Blood Cells % 0; Platelet Count 160 10^3/ul (150-450); Red Blood Count 3.43 10^6/ul (4.00-5.40); Red Cell Distribution Width 16 % (10.5-15); White Blood Count 5.2 10^3/ul (3.5-10.8)
[2017-12-28 09:55] LABS: EGFR Non-African American 6.7 (>60)
--- NOTE | 2017-12-28 11:00 | OP ---
CC: Dr. Kyle Watkins; Dr. Akin Chacon, Nephrology * DATE OF OPERATION: 12/27/17 - ROOM #434 DATE OF : 43 SURGEON: Triston Marcus MD ANESTHESIA: 1% lidocaine with epinephrine. PRE-OP DIAGNOSIS: Sepsis. POST-OP DIAGNOSIS: Sepsis. OPERATIVE PROCEDURE: Removal of tunneled right internal jugular hemodialysis catheter. ESTIMATED BLOOD LOSS: Minimal. SPECIMENS: Catheter tip for Gram-stain and culture. COMPLICATIONS: None. WOUND CLASSIFICATION: I. BRIEF HISTORY: Mr. David Kaur is a 72-year-old gentleman with multiple medical issues, also on hemodialysis, who has had a tunneled right internal jugular hemodialysis catheter placed in August of this year. He has been admitted with sepsis to the intensive care unit and was concerned for catheter infection. It has been requested by both Dr. Chacon as well as Dr. Watkins to have the catheter removed and cultured to adequately treat his sepsis. The procedure was discussed with the patient and the risks but not limited to bleeding, infection, air embolism, and discomfort were all explained. DESCRIPTION OF PROCEDURE: Written informed consent was obtained and the site was marked with indelible ink. Antibiotics were not administered. The time- out verification check list was completed. The area along the right chest wall including the exit site and portion of the proximal catheter were prepped and draped in the usual sterile fashion. 1% lidocaine was infiltrated at the exit site as well as over the palpable cuff in the subcutaneous tissue, which was just below the clavicle. The previous sutures that had been placed at the exit site were removed and a transverse incision was made over the cuff and the cuff was freed up using sharp dissection from the surrounding tissue. Next, the patient was placed in a Trendelenburg position and the catheter was removed with firm pressure over the clavicle to prevent air embolism. The catheter tip was sent for culture after it was removed from the tunnel. The patient was then placed back up in the sitting position. Firm pressure was held over with the clavicle and the catheter tract until hemostasis was assured. The incision over the cuff site was then closed with an interrupted loose 3-0 silk suture. Bacitracin ointment was applied to both the cuff site as well as the exit site and covered with an occlusive Tegaderm dressing and gauze. The patient tolerated the procedure well. [id number]/[facility] #: [id number] [facility]
--- NOTE | 2017-12-28 11:43 | PN ---
PROGRESS NOTE: DATE OF SERVICE: 12/27/17 HISTORY OF PRESENT ILLNESS: After seeing Mr. Kaur this morning, I discussed his case with one of my home dialysis nurses, who had been dealing with him last week. While he reported that he had not been speaking to my nurses, she mentioned that she had talked with him every day last week except for the 22 of December itself and she had talked with him on the Wednesday before this weekend. He had stated that he was at his target weight of 214 pounds. Clearly, his weight is up considerably, well beyond what he reasonably could have gained over the weekend, which obviously means that he had not been relaying the information correctly to her. In talking with him today, she mentioned that she noticed a significant mental status change in him concurrent to what she had been dealing with over the phone last week. His abdomen is markedly edematous and he is edematous elsewhere. I am highly suspicious that he has peritoneal and gut wall edema. This will make him highly difficult to ultrafilter off fluid via peritoneal dialysis. Nevertheless, he told us that he was never doing hemodialysis again, which is why I discussed with Dr. Watkins discontinuance of his hemodialysis catheter as a potential source of sepsis. Because there was a question of discontinuance of dialysis, I did not proceed with peritoneal dialysis today, but we will revisit this issue tomorrow. [id number] #: [id number] NAMAN
[2017-12-28] MEDS: Heparin DRIP 25,000 UNITS(*) 25,000 UNITS/500 ML BAG IV SCH (16:12)
[2017-12-28] MEDS: Atorvastatin* 20 MG TAB PO SCH (16:48)
[2017-12-28] MEDS: Levothyroxine TAB* 25 MCG TAB PO SCH (16:48)
[2017-12-28] MEDS: Metoclopramide TAB* 10 MG PO SCH (16:48)
[2017-12-28] MEDS: traZODone TAB* 50 MG TAB PO SCH (16:48)
[2017-12-28] MEDS: rOPINIRole TAB* 1 MG PO SCH (16:48)
[2017-12-28] MEDS ORDERED: Vancomycin(*) 1,000 MG in NS 0.9% 250 ML* 250 ML IVPB ONE (17:00)
[2017-12-28] MEDS: Amiodarone TAB* 200 MG PO SCH (17:32)
[2017-12-28] MEDS: Insulin GLARGINE(*) 1 UNITS UNIT SUBCUT SCH (20:17)
--- NOTE | 2017-12-28 21:27 | PN ---
PROGRESS NOTE: DATE OF SERVICE: 12/28/17 HISTORY OF PRESENT ILLNESS: Mr. Kaur seems a little more awake and alert this morning, although I do not think back to his baseline. His weight is down a few pounds and he did have a couple of large bowel movements last night. He is breathing a little bit better. His abdomen seems a little less distended. He is allowing us to proceed with peritoneal dialysis today and we are going to attempt ultrafilter off some more fluid. However, I am concerned that he may have peritoneal edema and, if he does, ultrafiltration may be highly problematic. I think this situation is guarded. [id number]/CPS #: [id number] MTDD
[2017-12-29] MEDS: Heparin VIAL(*) 5000 UNITS/ML VIAL (FIVE THOUSAND) IV SCH ×2 (00:47→07:59)
[2017-12-29] MEDS ORDERED: traMADol TAB* 50 MG PO ONE (00:50)
--- NOTE | 2017-12-29 07:13 | PN ---
Subjective - Subjective Reason for Note: Progress Note History: He had problems sleeping last night due to chronic back pain - his usual acetaminophen didn't help. Tramadol was useful in the end. He is undergoing PD and I don't know the result - he is not able to tell me if the dwell fluid has been taken off. He is less alert today and more monosyllabic than usual. He had a run of 27 beats of VT last evening and I started him on amiodarone. He continues on telemetry to show an irregularly, irregular rhythm with occasional P-looking waves that don't capture. He is afebrile. He denies chest pain or dyspnea, cough. Active Problems: Active Problems Acute renal failure (Acute) Asterixis (Acute) R27.8 Atrial fibrillation (Acute) I48.91 Bradycardia (Acute) R00.1 Depression (Acute) F32.9 End stage renal disease on dialysis (Acute) N18.6, Z99.2 Infection (Acute) B99.9 LBBB (left bundle branch block) (Acute) I44.7 Peritoneal dialysis status (Acute) Z99.2 Type II diabetes mellitus - poor control (Acute) E11.65 - Glucose 140-150's - Resume home Insulin Ventricular tachycardia, non-sustained (Acute) I47.2 Chronic obstructive lung disease (Chronic) J44.9 Essential hypertension (Chronic) I10 Hyperlipidemia (Chronic) E78.5 Hypertension (Chronic) I10 - SBP 110-120's - Continue Lasix (decreased), Losartan Low back pain (Chronic) M54.5 Nephrotic syndrome (Chronic) N04.9 - Stage 5 CKD - No immediate need for dialysis, no hyperkalemia, acidosis, or volume overload - BP may be overtreated, reduce dose lasix, could be contributing to constipation. Neuropathy (Chronic) G62.9 Obesity (Chronic) E66.9 - BMI 32.8 Retinopathy (Chronic) H35.00 Current Medications: Current Medications Acetaminophen (Tylenol Tab*) 650 mg PO Q6H PRN PRN Reason: FEVER/PAIN Albuterol (Ventolin Hfa Inhaler*) 2 puff INH Q6H PRN PRN Reason: SHORTNESS OF BREATH Last Admin: 12/27/17 07:57 Dose: 2 puff Albuterol (Ventolin 2.5 Mg/3 Ml Neb.Brooke*) 2.5 mg INH Q2H PRN PRN Reason: SOB/WHEEZING Amiodarone HCl (Cordarone Tab*) 200 mg PO BID [facility] Last Admin: 12/28/17 17:32 Dose: 200 mg Atorvastatin Calcium (Lipitor*) 20 mg PO QPM [facility] Last Admin: 12/28/17 16:48 Dose: 20 mg Furosemide (Lasix Tab*) 120 mg PO BID [facility] Last Admin: 12/28/17 20:17 Dose: 120 mg Heparin Sodium (Porcine) (Heparin Vial(*)) 0 units IV .PER PROTOCOL GREGG Last Admin: 12/29/17 00:47 Dose: 5,750 units Levofloxacin/Dextrose (Levaquin 250 Mg Ivpremx(*)) 250 mg in 50 mls @ 50 mls/ hr IVPB Q48H [facility] Last Admin: 12/27/17 11:13 Dose: 50 mls/hr Heparin Sodium/Dextrose (Heparin Drip 25,000 Units(*)) 25,000 units in 500 mls @ 0 mls/hr IV PER RATE GREGG; Protocol Last Admin: 12/28/17 16:12 Dose: 25 mls/hr Insulin Glargine (Lantus(*)) 20 units SUBCUT 2100 [facility] Last Admin: 12/28/17 20:17 Dose: 20 units Insulin Human Lispro (Humalog*) 0 units SUBCUT AC [facility]; Protocol Last Admin: 12/28/17 17:54 Dose: 2 units Insulin Human Lispro (Humalog*) 0 units SUBCUT ACHS [facility]; Protocol Last Admin: 12/28/17 20:18 Dose: 3 units Lactulose (Lactulose*) 30 ml PO BID PRN PRN Reason: CONSTIPATION Last Admin: 12/28/17 09:19 Dose: 30 ml Levothyroxine Sodium (Synthroid Tab*) 25 mcg PO QPM [facility] Last Admin: 12/28/17 16:48 Dose: 25 mcg Metoclopramide HCl (Reglan Tab*) 5 mg PO QPM [facility] Last Admin: 12/28/17 16:48 Dose: 5 mg Metolazone (Zaroxolyn Tab*) 5 mg PO QAM@0830 [facility] Last Admin: 12/28/17 09:15 Dose: 5 mg Mometasone Furoate/Formoterol Fumar (Dulera 200/5 Mdi*) 2 puff INH BID [facility]; Protocol Last Admin: 12/28/17 20:30 Dose: 2 puff Mupirocin (Bactroban 2 % Oint*) 1 applic TOPICAL DAILY [facility] Last Admin: 12/28/17 09:18 Dose: Not Given Omeprazole (Prilosec Cap*) 40 mg PO BID AC [facility] Last Admin: 12/28/17 16:48 Dose: 40 mg Pharmacy Consult (Vancomycin Per Pharmacy*) 1 note FOLLOW UP . PRN PRN Reason: PER PROTOCOL Ropinirole HCl (Requip Tab*) 1 mg PO QPM [facility] Last Admin: 12/28/17 16:48 Dose: 1 mg Trazodone HCl (Desyrel Tab*) 50 mg PO QPM [facility] Last Admin: 12/28/17 16:48 Dose: 50 mg Home Medications: Home Medications Medication Instructions Recorded Confirmed Type Insulin Regular, Human [Novolin R] 10 - 15 unit SUBCUT QAM MDD 60 08/08/1312/26 History units Losartan TAB* [Cozaar TAB*] 100 mg PO QPM 08/08/13 12/26/17 History Insulin NPH Human Isophane 0 - 40 unit SC BID MDD 100 units 01/16/14 12/26/17 History [Humulin N] Insulin Regular, Human [Novolin R] 15 - 30 unit SUBCUT QPM MDD 60 01/16/1412/26 History units Ascorbic Acid TAB* [Vitamin C 1,000 mg PO QAM 10/04/15 12/26/17 History TAB*] Fluticas/Salmet 115/21 HFA(NF) 2 puff INH BID 10/04/15 12/26/17 History [Advair HFA 115/21 (NF)] LoraTADine TAB(NF) [Claritin 10 MG 10 mg PO QPM PRN 10/04/15 12/26/17 History TAB(NF)] Brimonidine 0.2 % * [Alphagan P 1 drop BOTH EYES BID 04/28/17 12/26/17 History 0.2% *] Dorzolamide 2% OPTH (NF) [Trusopt 1 drop BOTH EYES BID 04/28/17 12/26/17 History 2% OPTH (NF)] traZODone TAB* [Desyrel TAB*] 50 mg PO QPM 04/28/17 12/26/17 History Albuterol HFA INHALER* [Ventolin 2 puff INH Q6H PRN 05/14/17 12/26/17 History HFA Inhaler*] Cholecalciferol TAB* [Vitamin D 1,000 unit PO BID 05/14/17 12/26/17 History TAB*] Codeine Phosphate/Guaifenesin 10 ml PO BID PRN MDD 20ml 05/14/17 12/26/17 History [Codeine-Guaifen 10-100 mg/5 ml] Diltiazem CD CAP* [Cardizem CD 180 mg PO QAM 05/14/17 12/26/17 History CAP*] Multivitamins/Minerals TAB* 1 tab PO QAM 05/14/17 12/26/17 History [Theragran/minerals TAB*] Omeprazole CAP* [Prilosec CAP* 20 40 mg PO BID 05/14/17 12/26/17 History MG] Simvastatin (NF) [Zocor (NF)] 40 mg PO QPM 05/14/17 12/26/17 History Lactulose* 30 ml PO BID 06/25/17 12/26/17 History Levothyroxine Sodium [Levo-T] 25 mcg PO QPM 06/25/17 12/26/17 History Metoclopramide HCl 5 mg PO TID AC 06/25/17 12/26/17 History Metoclopramide HCl [Reglan] 5 mg PO QPM 06/25/17 12/26/17 History Metolazone TAB* [Zaroxolyn TAB*] 5 mg PO QAM 06/25/17 12/26/17 History Ropinirole HCl 1 mg PO QPM 06/25/17 12/26/17 History Furosemide TAB* [Lasix TAB*] 120 mg PO BID 08/26/17 12/26/17 History guaiFENesin LIQ* [Robitussin*] 10 ml PO Q4H PRN 08/26/17 12/26/17 History Acetaminophen [Acetaminophen Extra 1,000 mg PO BID PRN 09/21/17 12/26/17 History Strength] Polyethylene Glycol 3350* 17 gm PO BEDTIME PRN 09/27/17 12/26/17 History [Miralax*] Allergies: Allergies Allergy/AdvReac Type Severity Reaction Status Date / Time amlodipine [From [facility]] Allergy Severe Swelling Verified 12/26/17 21:01 hydrocodone Allergy Severe Difficulty Verified 12/26/17 21:01 Breathing shellfish derived Allergy Severe Difficulty Verified 12/26/17 21:01 Breathing lisinopril Allergy Intermediate Coughing Verified 12/26/17 21:01 NSAIDS (Non-Steroidal AdvReac Unknown Unknown Verified 12/26/17 21:01 Anti-Inflamma Reaction Details Objective - Vital Signs Vital Signs: Vital Signs 12/28/17 12/28/17 12/28/17 07:53 08:00 08:40 Temperature 97.8 F Pulse Rate 55 56 Respiratory 23 21 16 Rate Blood Pressure 139/61 (mmHg) O2 Sat by Pulse 100 97 Oximetry 12/28/17 12/28/17 12/28/17 09:00 09:01 10:00 Temperature Pulse Rate 62 52 50 Respiratory 17 19 22 Rate Blood Pressure 131/57 (mmHg) O2 Sat by Pulse 91 94 100 Oximetry 12/28/17 12/28/17 12/28/17 10:01 11:00 12:00 Temperature Pulse Rate 50 53 51 Respiratory 21 24 20 Rate Blood Pressure 120/48 147/67 (mmHg) O2 Sat by Pulse 100 96 91 Oximetry 12/28/17 12/28/17 12/28/17 12:01 13:00 13:01 Temperature Pulse Rate 51 49 50 Respiratory 28 23 22 Rate Blood Pressure 150/53 149/59 (mmHg) O2 Sat by Pulse 91 95 97 Oximetry 12/28/17 12/28/17 12/28/17 13:42 14:00 14:29 Temperature 97.9 F Pulse Rate 64 58 Respiratory 27 27 Rate Blood Pressure 133/49 (mmHg) O2 Sat by Pulse 91 93 Oximetry 12/28/17 12/28/17 12/28/17 15:00 17:10 19:22 Temperature 98.3 F 97.9 F Pulse Rate 60 27 Respiratory 23 24 24 Rate Blood Pressure 134/59 146/49 (mmHg) O2 Sat by Pulse 93 93 Oximetry 12/28/17 12/28/17 12/28/17 19:28 19:55 20:00 Temperature Pulse Rate 31 89 Respiratory 16 Rate Blood Pressure 153/44 (mmHg) O2 Sat by Pulse 95 Oximetry 12/28/17 12/28/17 12/29/17 20:31 23:37 00:00 Temperature 98.3 F Pulse Rate 75 89 Respiratory 14 24 Rate Blood Pressure 118/67 (mmHg) O2 Sat by Pulse 93 94 94 Oximetry 12/29/17 12/29/17 12/29/17 01:10 03:10 03:34 Temperature 98.1 F Pulse Rate 81 Respiratory 24 22 24 Rate Blood Pressure 139/59 (mmHg) O2 Sat by Pulse 94 Oximetry - Intake and Output Intake and Output: Intake & Output 12/26/17 12/27/17 12/28/17 12/29/17 11:59 11:59 11:59 11:59 Intake Total 150 638 739.8 Output Total 300 1225 825 Balance -150 -587 -85.2 Weight 233 lb 3.985 oz 225 lb 8 oz 229 lb 4.8 oz Intake: IV Fluids 100 65 KVO 45 NS to Maintain IV Patency 20 IVPB 293 KVO 48 NS to Maintain IV Patency 245 Heparin 619.8 Oral 50 280 120 Output: Urine 0 Akers 300 1225 825 ADLs: Meal Record Start: 12/27/17 01: 20 Freq: 09,13,18 Status: Complete Protocol: Created 12/27/17 01:20 System (Rec: 12/27/17 01:20 System ICU-C12) Document 12/27/17 09:00 [id number] (Rec: 12/27/17 13:41 [id number] ICU-C12) Document 12/27/17 13:00 [id number] (Rec: 12/27/17 14:56 [id number] ICU-C12) Document 12/27/17 18:00 [id number] (Rec: 12/27/17 18:18 [id number] ICU-C12) Document 12/28/17 09:00 [id number] (Rec: 12/28/17 09:34 [id number] ICU-C15) ADLs: Meal Record Start: 12/28/17 17: 08 Freq: DAILY@0900,1400,1800 Status: Active Protocol: Created 12/28/17 17:08 [id number] (Rec: 12/28/17 17:08 [id number] TELE-C11) Document 12/28/17 20:29 [id number] (Rec: 12/28/17 20:29 [id number] TELE-C03) Intake and Output Start: 12/26/17 20: 51 Freq: Status: Active Protocol: Created 12/26/17 20:51 System (Rec: 12/26/17 20:51 System [id number]) Intake and Output Start: 12/27/17 01: 20 Freq: Q1HR Status: Complete Protocol: Created 12/27/17 01:20 System (Rec: 12/27/17 01:20 System ICU-C12) Document 12/27/17 03:00 [id number] (Rec: 12/27/17 04:39 [id number] ICU-C15) Document 12/27/17 05:00 [id number] (Rec: 12/27/17 05:10 [id number] ICU-C15) Document 12/27/17 05:17 [id number] (Rec: 12/27/17 05:17 [id number] ICU-M29) Document 12/27/17 11:23 [id number] (Rec: 12/27/17 11:23 [id number] ICU-C12) Document 12/27/17 16:42 [id number] (Rec: 12/27/17 16:42 [id number] ) Document 12/27/17 18:18 [id number] (Rec: 12/27/17 18:18 [id number] ICU-C12) Document 12/27/17 19:00 [id number] (Rec: 12/27/17 20:04 [id number] ICU-C16) Document 12/27/17 20:00 [id number] (Rec: 12/27/17 20:04 [id number] ICU-C16) Document 12/27/17 22:00 [id number] (Rec: 12/27/17 22:08 [id number] ICU-M28) Document 12/28/17 06:07 [id number] (Rec: 12/28/17 06:07 [id number] ICU-C15) Document 12/28/17 07:00 [id number] (Rec: 12/28/17 07:37 [id number] ICU-C15) Document 12/28/17 13:40 [id number] (Rec: 12/28/17 13:40 [id number] ICU-C15) - Physical Exam General Physical Exam Comment: He is sitting in a cardiac chair and is in no acute distress. He is awake and alert, but not as mentally engaged as yesterday. General: No Cyanosis, Yes Anemia, No Jaundice, No Clubbing Skin: Normal: Rash Lungs and Chest: Yes: Chest Expansion Full, Chest Expansion Symetrica, Wheezes. No: Vessicular Breath Sounds - diminished at bases, Crackles Heart Rate and Rhythm: Irregular Additional Cardiovascular: Yes: Normal Heart Sounds, Pedal Edema - trace. No: Heart Murmur Abdominal Exam: Yes: Soft, Bowel Sounds Present. No: Distention, Abdominal Tenderness - Extremities Cranial Nerves II-XII Intact: Yes Limbs: Abnormal Power - generally weak, but moving all extremities - Neuro Orientation: Person, Place Speech: Normal - though slow and some poverty of speech Results - Results Lab Results: Laboratory Results - last 24 hr 12/28/17 12/28/17 12/28/17 05:16 07:28 09:29 WBC RBC Hgb Hct MCV MCH MCHC RDW Plt Count MPV Neut % (Auto) Lymph % (Auto) Crisp % (Auto) Eos % (Auto) Baso % (Auto) Absolute Neuts (auto) Absolute Lymphs (auto) Absolute Monos (auto) Absolute Eos (auto) Absolute Basos (auto) Absolute Nucleated RBC Nucleated RBC % APTT Sodium 130 L Potassium 4.5 Chloride 90 L Carbon Dioxide 27 Anion Gap 13 H BUN 78 H 83 H Creatinine 7.87 H 7.93 H Est GFR ( Amer) 8.2 8.1 Est GFR (Non-Af Amer) 6.8 6.7 BUN/Creatinine Ratio 9.9 Glucose 77 POC Glucose (mg/dL) 80 Calcium 9.5 Phosphorus 6.7 H Magnesium 2.8 H Total Bilirubin 0.40 AST 20 ALT 18 Alkaline Phosphatase 55 C-Reactive Protein 215.38 H Total Protein 5.8 L Albumin 3.2 Globulin 2.6 Albumin/Globulin Ratio 1.2 TSH 0.06 L Free T4 0.91 Free T3 2.40 L Random Vancomycin 10.5 Cancelled 12/28/17 12/28/17 12/28/17 09:29 09:29 11:36 WBC 5.2 RBC 3.43 L Hgb 10.5 L Hct 31 L MCV 91 MCH 31 MCHC 34 RDW 16 H Plt Count 160 MPV 9.0 Neut % (Auto) 71.3 Lymph % (Auto) 8.9 L Crisp % (Auto) 19.0 H Eos % (Auto) 0.6 Baso % (Auto) 0.2 Absolute Neuts (auto) 3.7 Absolute Lymphs (auto) 0.5 L Absolute Monos (auto) 1.0 H Absolute Eos (auto) 0 Absolute Basos (auto) 0 Absolute Nucleated RBC 0 Nucleated RBC % 0 APTT 31.8 Sodium Potassium Chloride Carbon Dioxide Anion Gap BUN Creatinine Est GFR ( Amer) Est GFR (Non-Af Amer) BUN/Creatinine Ratio Glucose POC Glucose (mg/dL) 115 H Calcium Phosphorus Magnesium Total Bilirubin AST ALT Alkaline Phosphatase C-Reactive Protein Total Protein Albumin Globulin Albumin/Globulin Ratio TSH Free T4 Free T3 Random Vancomycin 12/28/17 12/28/17 12/28/17 16:31 17:37 19:50 WBC RBC Hgb Hct MCV MCH MCHC RDW Plt Count MPV Neut % (Auto) Lymph % (Auto) Crisp % (Auto) Eos % (Auto) Baso % (Auto) Absolute Neuts (auto) Absolute Lymphs (auto) Absolute Monos (auto) Absolute Eos (auto) Absolute Basos (auto) Absolute Nucleated RBC Nucleated RBC % APTT 169.1 H* Sodium Potassium Chloride Carbon Dioxide Anion Gap BUN Creatinine Est GFR ( Amer) Est GFR (Non-Af Amer) BUN/Creatinine Ratio Glucose POC Glucose (mg/dL) 212 H 188 H Calcium Phosphorus Magnesium Total Bilirubin AST ALT Alkaline Phosphatase C-Reactive Protein Total Protein Albumin Globulin Albumin/Globulin Ratio TSH Free T4 Free T3 Random Vancomycin 12/28/17 23:53 WBC RBC Hgb Hct MCV MCH MCHC RDW Plt Count MPV Neut % (Auto) Lymph % (Auto) Crisp % (Auto) Eos % (Auto) Baso % (Auto) Absolute Neuts (auto) Absolute Lymphs (auto) Absolute Monos (auto) Absolute Eos (auto) Absolute Basos (auto) Absolute Nucleated RBC Nucleated RBC % APTT 34.5 Sodium Potassium Chloride Carbon Dioxide Anion Gap BUN Creatinine Est GFR ( Amer) Est GFR (Non-Af Amer) BUN/Creatinine Ratio Glucose POC Glucose (mg/dL) Calcium Phosphorus Magnesium Total Bilirubin AST ALT Alkaline Phosphatase C-Reactive Protein Total Protein Albumin Globulin Albumin/Globulin Ratio TSH Free T4 Free T3 Random Vancomycin Assessment - Problem List Assessment: Patient Problems Acute renal failure (Acute) Asterixis (Acute) Atrial fibrillation (Acute) Bradycardia (Acute) Depression (Acute) End stage renal disease on dialysis (Acute) Infection (Acute) LBBB (left bundle branch block) (Acute) Peritoneal dialysis status (Acute) Type II diabetes mellitus - poor control (Acute) Ventricular tachycardia, non-sustained (Acute) Chronic obstructive lung disease (Chronic) Essential hypertension (Chronic) Hyperlipidemia (Chronic) Hypertension (Chronic) Low back pain (Chronic) Nephrotic syndrome (Chronic) Neuropathy (Chronic) Obesity (Chronic) Retinopathy (Chronic) DVT prophylaxis (Chronic) Full code status (Chronic) Plan: Infection (Acute) Labs are pending. All cultures thus far are negative. We are continuing with antibacterial therapy. End stage renal disease on dialysis (Acute) Acute renal failure (Acute) Nephrotic syndrome (Chronic) Peritoneal dialysis status (Acute)Asterixis (Acute ) He has more asterixis this morning. I am not sure what transpired with PD overnight. His labs are pending Atrial fibrillation (Acute)Bradycardia (Acute) Ventricular tachycardia, non- sustained (Acute) I am going to obtain a cardiology consultation today. This is either atrial fibrillation with some flutter waves, or some form of heart block as he has what look like P waves. I will convert him onto oral anticoagulation. I started him on amiodarone for the long period of non- sustained VT - cardiology may amend this. Depression (Acute) Ongoing - clearly there are situational components, plus metabolic and infectious components. Type II diabetes mellitus - poor control (Acute) His glucose is just above the acceptable level, I will increase the lantus a little Chronic obstructive lung disease (Chronic) secondary diagnosis Essential hypertension (Chronic) controlled Hyperlipidemia (Chronic) treated Low back pain (Chronic) I will write for tramadol prn Neuropathy (Chronic) secondary diagnosis DVT prophylaxis (Chronic) Full code status (Chronic) I called Suyapa Shannon and discussed the above with her. She saw him yesterday - he slept for several hours. Not much conversation. I explained the above to her. I explained that if the PD is functional we will continue as above, however if this is not functional and there is no prospect of it working we should consider hospicecare as he has adamantly declined HD on multiple occasions.
[2017-12-29 07:20] LABS: ABS Basophils 0 10^3/ul (0-0.2); ABS Eosinophils 0.1 10^3/ul (0-0.6); ABS Lymphocytes 0.4 10^3/ul (1.0-4.8); ABS Monocytes 0.8 10^3/ul (0-0.8); ABS Neutrophils 3.2 10^3/ul (1.5-7.7); ABS Nucleated RBC 0 10^3/ul; Eosinophil % 2.3 % (0-6); Hematocrit 33 % (42-52); Lymphocyte % 8.5 % (25-47); Mean Corpuscular HGB Conc 34 g/dl (31-36); Mean Corpuscular Hemoglobin 31 pg (27-31); Mean Corpuscular Volume 91 fL (80-94); Mean Platelet Volume 9.3 um3 (7.4-10.4); Nucleated Red Blood Cells % 0; Platelet Count 165 10^3/ul (150-450); Red Blood Count 3.57 10^6/ul (4.00-5.40); Red Cell Distribution Width 15 % (10.5-15); White Blood Count 4.5 10^3/ul (3.5-10.8)
[2017-12-29 07:30] LABS: EGFR Non-African American 7.2 (>60)
[2017-12-29] MEDS: Mometasone/Formoter 200/5 MDI INH SCH ×2 (07:30→19:31)
[2017-12-29] MEDS: Omeprazole CAP* 20 MG PO SCH ×2 (07:49→17:45)
[2017-12-29] MEDS: Furosemide TAB* 40 MG PO SCH ×2 (08:03→20:09)
[2017-12-29] MEDS: Mupirocin 2% OINT* TUBE TOPICAL SCH (08:04)
[2017-12-29] MEDS: Amiodarone TAB* 200 MG PO SCH ×2 (08:04→20:08)
[2017-12-29] MEDS: Metolazone TAB* 5 MG PO SCH (09:19)
[2017-12-29] MEDS: Insulin LISPRO* 1 UNITS UNIT SUBCUT SCH ×7 (09:19→20:06)
[2017-12-29] MEDS: Heparin DRIP 25,000 UNITS(*) 25,000 UNITS/500 ML BAG IV SCH (11:15)
[2017-12-29] MEDS: Levofloxacin 250 MG IVPREMX(*) 250 MG/50 ML BAG IVPB SCH (11:15)
[2017-12-29] MEDS ORDERED: Vancomycin(*) 1,000 MG in NS 0.9% 250 ML* 250 ML IVPB ONE (12:30)
[2017-12-29] MEDS: traMADol TAB* 50 MG PO PRN ×2 (13:16→20:08)
[2017-12-29] MEDS ORDERED: Warfarin TAB(*) 5 MG PO ONE (17:00)
[2017-12-29] MEDS: traZODone TAB* 50 MG TAB PO SCH (17:45)
[2017-12-29] MEDS: rOPINIRole TAB* 1 MG PO SCH (17:45)
[2017-12-29] MEDS: Levothyroxine TAB* 25 MCG TAB PO SCH (17:45)
[2017-12-29] MEDS: Atorvastatin* 20 MG TAB PO SCH (17:45)
[2017-12-29] MEDS: Metoclopramide TAB* 10 MG PO SCH (17:45)
--- NOTE | 2017-12-29 19:31 | PN ---
Cardiology Progress Note Date of Service: 12/29/17 I reviewed ECG's and rhythm strips as requested by Dr Watkins: ECG 12/27/17: NSR, 1st degree AVB and 2nd degree AVB Type 1. ECG 12/28/17: afib vs. atypical flutter, ventricular rate 58 bpm, variable block, 1 PVC. Tele strip 12/27/17 14:51: NSR to [id number] bpm. Tele strip 12/28/17 16:28: NSR to wide complex tachycardia, most c/w VT, initiated by a wide complex beat, axis very different than [place] QRS, ends with a PVC of a different morphology. Tele strip 12/28/13 03:23: Atypical flutter w/flutter CL 200 ms vs coarse afb, variable block, single PVC. I discussed the above with Dr Watkins who reports significant metabolic disturbances with ESRD on PD. We discussed amiodarone which Dr Watkins started, I supported as well tolerated with ESRD, effective for atrial and ventricular dysrhythmias. If desired in the future and complete cardiology consultation can be performed. Laboratory Results - last 24 hr 12/28/17 12/28/17 12/29/17 19:50 23:53 07:03 WBC RBC Hgb Hct MCV MCH MCHC RDW Plt Count MPV Neut % (Auto) Lymph % (Auto) Andrews % (Auto) Eos % (Auto) Baso % (Auto) Absolute Neuts (auto) Absolute Lymphs (auto) Absolute Monos (auto) Absolute Eos (auto) Absolute Basos (auto) Absolute Nucleated RBC Nucleated RBC % APTT 34.5 Sodium 132 L Potassium 3.7 Chloride 90 L Carbon Dioxide 28 Anion Gap 14 H BUN 79 H Creatinine 7.43 H Est GFR ( Amer) 8.8 Est GFR (Non-Af Amer) 7.2 BUN/Creatinine Ratio 10.6 Glucose 190 H POC Glucose (mg/dL) 188 H Calcium 9.3 C-Reactive Protein 174.33 H Vancomycin Trough 14.0
[2017-12-29] MEDS: Insulin GLARGINE(*) 1 UNITS UNIT SUBCUT SCH (20:07)
[2017-12-30] MEDS: Heparin VIAL(*) 5000 UNITS/ML VIAL (FIVE THOUSAND) IV SCH ×2 (02:20→17:48)
[2017-12-30] MEDS: traMADol TAB* 50 MG PO PRN ×3 (02:22→20:12)
[2017-12-30] MEDS ORDERED: Vancomycin Random Level* NOTE FOLLOW UP ONE (06:00)
[2017-12-30 06:09] LABS: ABS Basophils 0 10^3/ul (0-0.2); ABS Eosinophils 0.2 10^3/ul (0-0.6); ABS Lymphocytes 0.5 10^3/ul (1.0-4.8); ABS Monocytes 0.6 10^3/ul (0-0.8); ABS Neutrophils 2.4 10^3/ul (1.5-7.7); ABS Nucleated RBC 0 10^3/ul; Eosinophil % 4.5 % (0-6); Hematocrit 36 % (42-52); Hemoglobin 12.1 g/dl (14.0-18.0); Lymphocyte % 12.7 % (25-47); Mean Corpuscular HGB Conc 34 g/dl (31-36); Mean Corpuscular Hemoglobin 31 pg (27-31); Mean Corpuscular Volume 91 fL (80-94); Mean Platelet Volume 9.1 um3 (7.4-10.4); Nucleated Red Blood Cells % 0; Platelet Count 161 10^3/ul (150-450); Red Blood Count 3.93 10^6/ul (4.00-5.40); Red Cell Distribution Width 15 % (10.5-15); White Blood Count 3.6 10^3/ul (3.5-10.8)
[2017-12-30 06:14] LABS: EGFR Non-African American 7.6 (>60)
[2017-12-30 06:17] LABS: INR 1.21 (0.77-1.02)
--- NOTE | 2017-12-30 07:43 | PN ---
Subjective - Subjective Reason for Note: Progress Note History: He is drowsy this morning and tries to answer questions, but drifts off inbetween. He continues to have some back pain. He denies other new symptoms. In particular, he denies chest pain. He has occasional dyspnea. Yesterday, he spontaneously reverted to sinus rhythm with second degree heart block. I spoke with Dr. Vianca Lee about this, who went through his rhythm disturbances with me. His BP is stable, he has lost more weight with the PD. His glycemic control is a around 200 mg/dl Active Problems: Active Problems Asterixis (Acute) R27.8 Bradycardia (Acute) R00.1 Depression (Acute) F32.9 End stage renal disease on dialysis (Acute) N18.6, Z99.2 Infection (Acute) B99.9 Peritoneal dialysis status (Acute) Z99.2 Acute renal failure (Chronic) Chronic obstructive lung disease (Chronic) J44.9 Essential hypertension (Chronic) I10 Hyperlipidemia (Chronic) E78.5 Hypertension (Chronic) I10 - SBP 110-120's - Continue Lasix (decreased), Losartan Low back pain (Chronic) M54.5 Nephrotic syndrome (Chronic) N04.9 - Stage 5 CKD - No immediate need for dialysis, no hyperkalemia, acidosis, or volume overload - BP may be overtreated, reduce dose lasix, could be contributing to constipation. Neuropathy (Chronic) G62.9 Obesity (Chronic) E66.9 - BMI 32.8 Retinopathy (Chronic) H35.00 Type II diabetes mellitus - poor control (Chronic) E11.65 - Glucose 140-150's - Resume home Insulin Current Medications: Current Medications Acetaminophen (Tylenol Tab*) 650 mg PO Q6H PRN PRN Reason: FEVER/PAIN Albuterol (Ventolin Hfa Inhaler*) 2 puff INH Q6H PRN PRN Reason: SHORTNESS OF BREATH Last Admin: 12/27/17 07:57 Dose: 2 puff Albuterol (Ventolin 2.5 Mg/3 Ml Neb.Brooke*) 2.5 mg INH Q2H PRN PRN Reason: SOB/WHEEZING Amiodarone HCl (Cordarone Tab*) 200 mg PO BID [facility] Last Admin: 12/29/17 20:08 Dose: 200 mg Atorvastatin Calcium (Lipitor*) 20 mg PO QPM [facility] Last Admin: 12/29/17 17:45 Dose: 20 mg Furosemide (Lasix Tab*) 120 mg PO BID [facility] Last Admin: 12/29/17 20:09 Dose: 120 mg Heparin Sodium (Porcine) (Heparin Vial(*)) 0 units IV .PER PROTOCOL [facility] Last Admin: 12/30/17 02:20 Dose: 5,750 units Levofloxacin/Dextrose (Levaquin 250 Mg Ivpremx(*)) 250 mg in 50 mls @ 50 mls/ hr IVPB Q48H [facility] Last Admin: 12/29/17 11:15 Dose: 50 mls/hr Heparin Sodium/Dextrose (Heparin Drip 25,000 Units(*)) 25,000 units in 500 mls @ 0 mls/hr IV PER RATE [facility]; Protocol Last Admin: 12/29/17 11:15 Dose: 30 mls/hr Insulin Glargine (Lantus(*)) 20 units SUBCUT 2100 [facility] Last Admin: 12/29/17 20:07 Dose: 20 units Insulin Human Lispro (Humalog*) 0 units SUBCUT AC [facility]; Protocol Last Admin: 12/29/17 17:45 Dose: 2 units Insulin Human Lispro (Humalog*) 0 units SUBCUT ACHS [facility]; Protocol Last Admin: 12/29/17 20:06 Dose: 3 units Lactulose (Lactulose*) 30 ml PO BID PRN PRN Reason: CONSTIPATION Last Admin: 12/28/17 09:19 Dose: 30 ml Levothyroxine Sodium (Synthroid Tab*) 25 mcg PO QPM [facility] Last Admin: 12/29/17 17:45 Dose: 25 mcg Metoclopramide HCl (Reglan Tab*) 5 mg PO QPM [facility] Last Admin: 12/29/17 17:45 Dose: 5 mg Metolazone (Zaroxolyn Tab*) 5 mg PO QAM@0830 [facility] Last Admin: 12/29/17 09:19 Dose: 5 mg Mometasone Furoate/Formoterol Fumar (Dulera 200/5 Mdi*) 2 puff INH BID [facility]; Protocol Last Admin: 12/29/17 19:31 Dose: 2 puff Mupirocin (Bactroban 2 % Oint*) 1 applic TOPICAL DAILY [facility] Last Admin: 12/29/17 08:04 Dose: 1 applic Omeprazole (Prilosec Cap*) 40 mg PO BID AC [facility] Last Admin: 12/29/17 17:45 Dose: 40 mg Pharmacy Consult (Vancomycin Per Pharmacy*) 1 note FOLLOW UP . PRN PRN Reason: PER PROTOCOL Pharmacy Profile Note (Coumadin Per Pharmacy*) 0 note FOLLOW UP .PER PHARMACY PROTOC [facility]; Protocol Ropinirole HCl (Requip Tab*) 1 mg PO QPM [facility] Last Admin: 12/29/17 17:45 Dose: 1 mg Tramadol HCl (Ultram*) 50 mg PO Q6H PRN PRN Reason: PAIN Last Admin: 12/30/17 02:22 Dose: 50 mg Trazodone HCl (Desyrel Tab*) 50 mg PO QPM [facility] Last Admin: 12/29/17 17:45 Dose: 50 mg Home Medications: Home Medications Medication Instructions Recorded Confirmed Type Insulin Regular, Human [Novolin R] 10 - 15 unit SUBCUT QAM MDD 60 08/08/1312/26 History units Losartan TAB* [Cozaar TAB*] 100 mg PO QPM 08/08/13 12/26/17 History Insulin NPH Human Isophane 0 - 40 unit SC BID MDD 100 units 01/16/14 12/26/17 History [Humulin N] Insulin Regular, Human [Novolin R] 15 - 30 unit SUBCUT QPM MDD 60 01/16/1412/26 History units Ascorbic Acid TAB* [Vitamin C 1,000 mg PO QAM 10/04/15 12/26/17 History TAB*] Fluticas/Salmet 115/21 HFA(NF) 2 puff INH BID 10/04/15 12/26/17 History [Advair HFA 115/21 (NF)] LoraTADine TAB(NF) [Claritin 10 MG 10 mg PO QPM PRN 10/04/15 12/26/17 History TAB(NF)] Brimonidine 0.2 % * [Alphagan P 1 drop BOTH EYES BID 04/28/17 12/26/17 History 0.2% *] Dorzolamide 2% OPTH (NF) [Trusopt 1 drop BOTH EYES BID 04/28/17 12/26/17 History 2% OPTH (NF)] traZODone TAB* [Desyrel TAB*] 50 mg PO QPM 04/28/17 12/26/17 History Albuterol HFA INHALER* [Ventolin 2 puff INH Q6H PRN 05/14/17 12/26/17 History HFA Inhaler*] Cholecalciferol TAB* [Vitamin D 1,000 unit PO BID 05/14/17 12/26/17 History TAB*] Codeine Phosphate/Guaifenesin 10 ml PO BID PRN MDD 20ml 05/14/17 12/26/17 History [Codeine-Guaifen 10-100 mg/5 ml] Diltiazem CD CAP* [Cardizem CD 180 mg PO QAM 05/14/17 12/26/17 History CAP*] Multivitamins/Minerals TAB* 1 tab PO QAM 05/14/17 12/26/17 History [Theragran/minerals TAB*] Omeprazole CAP* [Prilosec CAP* 20 40 mg PO BID 05/14/17 12/26/17 History MG] Simvastatin (NF) [Zocor (NF)] 40 mg PO QPM 05/14/17 12/26/17 History Lactulose* 30 ml PO BID 06/25/17 12/26/17 History Levothyroxine Sodium [Levo-T] 25 mcg PO QPM 06/25/17 12/26/17 History Metoclopramide HCl 5 mg PO TID AC 06/25/17 12/26/17 History Metoclopramide HCl [Reglan] 5 mg PO QPM 06/25/17 12/26/17 History Metolazone TAB* [Zaroxolyn TAB*] 5 mg PO QAM 06/25/17 12/26/17 History Ropinirole HCl 1 mg PO QPM 06/25/17 12/26/17 History Furosemide TAB* [Lasix TAB*] 120 mg PO BID 08/26/17 12/26/17 History guaiFENesin LIQ* [Robitussin*] 10 ml PO Q4H PRN 08/26/17 12/26/17 History Acetaminophen [Acetaminophen Extra 1,000 mg PO BID PRN 09/21/17 12/26/17 History Strength] Polyethylene Glycol 3350* 17 gm PO BEDTIME PRN 09/27/17 12/26/17 History [Miralax*] Allergies: Allergies Allergy/AdvReac Type Severity Reaction Status Date / Time amlodipine [From [facility]] Allergy Severe Swelling Verified 12/26/17 21:01 hydrocodone Allergy Severe Difficulty Verified 12/26/17 21:01 Breathing shellfish derived Allergy Severe Difficulty Verified 12/26/17 21:01 Breathing lisinopril Allergy Intermediate Coughing Verified 12/26/17 21:01 NSAIDS (Non-Steroidal AdvReac Unknown Unknown Verified 12/26/17 21:01 Anti-Inflamma Reaction Details Objective - Vital Signs Vital Signs: Vital Signs 12/29/17 12/29/17 12/29/17 07:42 08:00 11:54 Temperature 97.9 F 97.9 F Pulse Rate 85 82 Respiratory 18 18 22 Rate Blood Pressure 129/48 145/61 (mmHg) O2 Sat by Pulse 94 94 96 Oximetry 12/29/17 12/29/17 12/29/17 13:16 15:17 16:00 Temperature 97.7 F Pulse Rate 74 Respiratory 22 22 Rate Blood Pressure 119/51 (mmHg) O2 Sat by Pulse 92 92 Oximetry 12/29/17 12/29/17 12/29/17 16:19 19:27 19:34 Temperature 98.0 F Pulse Rate 78 85 Respiratory 20 18 16 Rate Blood Pressure 148/65 (mmHg) O2 Sat by Pulse 100 94 Oximetry 12/29/17 12/29/17 12/29/17 20:00 20:08 22:10 Temperature Pulse Rate Respiratory 20 22 22 Rate Blood Pressure (mmHg) O2 Sat by Pulse Oximetry 12/30/17 12/30/17 12/30/17 00:00 00:19 02:02 Temperature 97.7 F Pulse Rate 80 80 Respiratory 25 23 Rate Blood Pressure 145/61 (mmHg) O2 Sat by Pulse 96 99 99 Oximetry 12/30/17 12/30/17 12/30/17 02:22 03:37 04:25 Temperature 97.3 F Pulse Rate 78 Respiratory 22 21 22 Rate Blood Pressure 136/64 (mmHg) O2 Sat by Pulse 100 Oximetry 12/30/17 07:23 Temperature 97.4 F Pulse Rate 84 Respiratory 16 Rate Blood Pressure 138/45 (mmHg) O2 Sat by Pulse 95 Oximetry - Intake and Output Intake and Output: Intake & Output 12/27/17 12/28/17 12/29/17 12/30/17 11:59 11:59 11:59 11:59 Intake Total 636 501 8044.3 718 Output Total 300 1225 825 625 Balance -150 -587 191.3 93 Weight 233 lb 3.985 oz 225 lb 8 oz 229 lb 4.8 oz 222 lb 1.6 oz Intake: IV Fluids 100 65 KVO 45 NS to Maintain IV Patency 20 IVPB 293 KVO 48 NS to Maintain IV Patency 245 Heparin 656.3 598 Oral 50 280 360 120 Output: Urine 0 Akers 300 1225 825 625 ADLs: Meal Record Start: 12/27/17 01: 20 Freq: 09,13,18 Status: Complete Protocol: Created 12/27/17 01:20 System (Rec: 12/27/17 01:20 System ICU-C12) Document 12/27/17 09:00 [id number] (Rec: 12/27/17 13:41 [id number] ICU-C12) Document 12/27/17 13:00 [id number] (Rec: 12/27/17 14:56 [id number] ICU-C12) Document 12/27/17 18:00 [id number] (Rec: 12/27/17 18:18 [id number] ICU-C12) Document 12/28/17 09:00 [id number] (Rec: 12/28/17 09:34 [id number] ICU-C15) ADLs: Meal Record Start: 12/28/17 17: 08 Freq: DAILY@0900,1400,1800 Status: Active Protocol: Created 12/28/17 17:08 [id number] (Rec: 12/28/17 17:08 [id number] TELE-C11) Document 12/28/17 20:29 [id number] (Rec: 12/28/17 20:29 [id number] TELE-C03) Document 12/29/17 09:00 [id number] (Rec: 12/29/17 09:19 [id number] TELE-C11) Document 12/29/17 10:25 [id number] (Rec: 12/29/17 10:25 [id number] TELE-C07) Document 12/29/17 14:00 [id number] (Rec: 12/29/17 15:23 [id number] TELE-C09) Document 12/29/17 20:59 [id number] (Rec: 12/29/17 21:00 [id number] TELE-C11) Intake and Output Start: 12/26/17 20: 51 Freq: Status: Active Protocol: Created 12/26/17 20:51 System (Rec: 12/26/17 20:51 System ED-C31) Intake and Output Start: 12/27/17 01: 20 Freq: Q1HR Status: Complete Protocol: Created 12/27/17 01:20 System (Rec: 12/27/17 01:20 System ICU-C12) Document 12/27/17 03:00 [id number] (Rec: 12/27/17 04:39 [id number] ICU-C15) Document 12/27/17 05:00 [id number] (Rec: 12/27/17 05:10 [id number] ICU-C15) Document 12/27/17 05:17 [id number] (Rec: 12/27/17 05:17 [id number] ICU-M29) Document 12/27/17 11:23 [id number] (Rec: 12/27/17 11:23 [id number] ICU-C12) Document 12/27/17 16:42 [id number] (Rec: 12/27/17 16:42 [id number] ) Document 12/27/17 18:18 [id number] (Rec: 12/27/17 18:18 [id number] ICU-C12) Document 12/27/17 19:00 [id number] (Rec: 12/27/17 20:04 [id number] ICU-C16) Document 12/27/17 20:00 [id number] (Rec: 12/27/17 20:04 [id number] ICU-C16) Document 12/27/17 22:00 [id number] (Rec: 12/27/17 22:08 [id number] ICU-M28) Document 12/28/17 06:07 [id number] (Rec: 12/28/17 06:07 [id number] ICU-C15) Document 12/28/17 07:00 [id number] (Rec: 12/28/17 07:37 [id number] ICU-C15) Document 12/28/17 13:40 [id number] (Rec: 12/28/17 13:40 [id number] ICU-C15) - Physical Exam General Physical Exam Comment: He is drowsy, but he is able to answer questions General: No Cyanosis, Yes Anemia, No Jaundice, No Clubbing Lungs and Chest: Yes: Chest Expansion Full, Chest Expansion Symetrica. No: Percussion Note Resonant - dull at bases, Vessicular Breath Sounds - decreased at bases, Crackles, Wheezes Heart Rate and Rhythm: Regular Additional Cardiovascular: Yes: Normal Heart Sounds, Heart Murmur, Pedal Edema - trace Abdominal Exam: Yes: Distention, Soft, Bowel Sounds Present. No: Abdominal Tenderness - Extremities Cranial Nerves II-XII Intact: Yes Limbs: Abnormal Power - weak, but moving hands and feet Results - Results Lab Results: Laboratory Results - last 24 hr 12/29/17 12/29/17 12/29/17 07:03 07:49 11:20 WBC RBC Hgb Hct MCV MCH MCHC RDW Plt Count MPV Neut % (Auto) Lymph % (Auto) [place] % (Auto) Eos % (Auto) Baso % (Auto) Absolute Neuts (auto) Absolute Lymphs (auto) Absolute Monos (auto) Absolute Eos (auto) Absolute Basos (auto) Absolute Nucleated RBC Nucleated RBC % INR (Anticoag Therapy) APTT Sodium Potassium Chloride Carbon Dioxide Anion Gap BUN Creatinine Est GFR ( Amer) Est GFR (Non-Af Amer) BUN/Creatinine Ratio Glucose POC Glucose (mg/dL) 220 H 232 H Calcium C-Reactive Protein Vancomycin Trough 14.0 Random Vancomycin 12/29/17 12/29/17 12/29/17 13:06 16:44 18:07 WBC RBC Hgb Hct MCV MCH MCHC RDW Plt Count MPV Neut % (Auto) Lymph % (Auto) [place] % (Auto) Eos % (Auto) Baso % (Auto) Absolute Neuts (auto) Absolute Lymphs (auto) Absolute Monos (auto) Absolute Eos (auto) Absolute Basos (auto) Absolute Nucleated RBC Nucleated RBC % INR (Anticoag Therapy) APTT 74.7 H 104.7 H* Sodium Potassium Chloride Carbon Dioxide Anion Gap BUN Creatinine Est GFR ( Amer) Est GFR (Non-Af Amer) BUN/Creatinine Ratio Glucose POC Glucose (mg/dL) 132 H Calcium C-Reactive Protein Vancomycin Trough Random Vancomycin 12/29/17 12/30/17 12/30/17 19:51 01:34 05:26 WBC RBC Hgb Hct MCV MCH MCHC RDW Plt Count MPV Neut % (Auto) Lymph % (Auto) [place] % (Auto) Eos % (Auto) Baso % (Auto) Absolute Neuts (auto) Absolute Lymphs (auto) Absolute Monos (auto) Absolute Eos (auto) Absolute Basos (auto) Absolute Nucleated RBC Nucleated RBC % INR (Anticoag Therapy) APTT 37.6 H Sodium 132 L Potassium 3.5 Chloride 89 L Carbon Dioxide 29 Anion Gap 14 H BUN 73 H Creatinine 7.09 H Est GFR ( Amer) 9.2 Est GFR (Non-Af Amer) 7.6 BUN/Creatinine Ratio 10.3 Glucose 206 H POC Glucose (mg/dL) 193 H Calcium 9.4 C-Reactive Protein 141.66 H Vancomycin Trough Random Vancomycin 19.1 12/30/17 12/30/17 12/30/17 05:26 05:26 07:19 WBC 3.6 RBC 3.93 L Hgb 12.1 L Hct 36 L MCV 91 MCH 31 MCHC 34 RDW 15 Plt Count 161 MPV 9.1 Neut % (Auto) 65.7 Lymph % (Auto) 12.7 L [place] % (Auto) 16.9 H Eos % (Auto) 4.5 Baso % (Auto) 0.2 Absolute Neuts (auto) 2.4 Absolute Lymphs (auto) 0.5 L Absolute Monos (auto) 0.6 Absolute Eos (auto) 0.2 Absolute Basos (auto) 0 Absolute Nucleated RBC 0 Nucleated RBC % 0 INR (Anticoag Therapy) 1.21 H APTT Cancelled 79.0 H Sodium Potassium Chloride Carbon Dioxide Anion Gap BUN Creatinine Est GFR ( Amer) Est GFR (Non-Af Amer) BUN/Creatinine Ratio Glucose POC Glucose (mg/dL) Calcium C-Reactive Protein Vancomycin Trough Random Vancomycin Assessment - Problem List Assessment: Patient Problems Asterixis (Acute) Bradycardia (Acute) Depression (Acute) End stage renal disease on dialysis (Acute) Infection (Acute) Peritoneal dialysis status (Acute) Acute renal failure (Chronic) Chronic obstructive lung disease (Chronic) Essential hypertension (Chronic) Hyperlipidemia (Chronic) Hypertension (Chronic) Low back pain (Chronic) Nephrotic syndrome (Chronic) Neuropathy (Chronic) Obesity (Chronic) Retinopathy (Chronic) Type II diabetes mellitus - poor control (Chronic) DVT prophylaxis (Chronic) Full code status (Chronic) Plan: Infection (Acute) The CRP continues to come down, he had normal neut%. I think that the antibacterials are working, but he continues to require IV treatment Acute renal failure (Acute) End stage renal disease on dialysis (Acute) Peritoneal dialysis status (Acute)Nephrotic syndrome (Chronic) He is losing weight with the PD, Dr. Chacon is watching the quality of the dialysis. Asterixis (Acute) He is more drowsy today - this is likely due to encephalopathy. Atrial fibrillation (Acute) He is back in sinus rhthm with secondary degree heart block.Bradycardia (Acute)Ventricular tachycardia, non-sustained (Acute) I will maintain him on amiodarone and warfarin. He is not at a target INR and will maintain IV heparin Depression (Acute) He is too impaired by metabolic and infectious factors to assess this at present Type II diabetes mellitus - poor control (Acute) I will increase his lantus Chronic obstructive lung disease (Chronic) stable Essential hypertension (Chronic) Stable Hyperlipidemia (Chronic) treated Low back pain (Chronic) ongoing I communicated the above to the patient, though it is not clear how much he followed. I called Suyapa Shannon - she stayed quite a while yesterday - he didn't want company as he wanted to sleep.
[2017-12-30] MEDS: Mometasone/Formoter 200/5 MDI INH SCH ×2 (08:29→20:05)
[2017-12-30] MEDS: Heparin DRIP 25,000 UNITS(*) 25,000 UNITS/500 ML BAG IV SCH (09:01)
[2017-12-30] MEDS: Amiodarone TAB* 200 MG PO SCH ×2 (09:16→20:12)
[2017-12-30] MEDS: Metolazone TAB* 5 MG PO SCH (09:17)
[2017-12-30] MEDS: Omeprazole CAP* 20 MG PO SCH ×2 (09:18→17:46)
[2017-12-30] MEDS: Furosemide TAB* 40 MG PO SCH ×2 (10:01→20:12)
[2017-12-30] MEDS: Insulin LISPRO* 1 UNITS UNIT SUBCUT SCH ×9 (10:02→20:29)
[2017-12-30] MEDS: Mupirocin 2% OINT* TUBE TOPICAL SCH (10:06)
[2017-12-30] MEDS ORDERED: Warfarin TAB(*) 5 MG PO ONE (17:00)
[2017-12-30] MEDS: traZODone TAB* 50 MG TAB PO SCH (17:46)
[2017-12-30] MEDS: Levothyroxine TAB* 25 MCG TAB PO SCH (17:46)
[2017-12-30] MEDS: Atorvastatin* 20 MG TAB PO SCH (17:46)
[2017-12-30] MEDS: Metoclopramide TAB* 10 MG PO SCH (17:47)
[2017-12-30] MEDS: rOPINIRole TAB* 1 MG PO SCH (17:48)
[2017-12-30] MEDS: Insulin GLARGINE(*) 1 UNITS UNIT SUBCUT SCH (20:28)
[2017-12-31] MEDS: traMADol TAB* 50 MG PO PRN ×2 (04:40→21:25)
[2017-12-31 06:36] LABS: ABS Basophils 0 10^3/ul (0-0.2); ABS Eosinophils 0.3 10^3/ul (0-0.6); ABS Lymphocytes 0.6 10^3/ul (1.0-4.8); ABS Monocytes 0.8 10^3/ul (0-0.8); ABS Neutrophils 2.9 10^3/ul (1.5-7.7); ABS Nucleated RBC 0 10^3/ul; Eosinophil % 5.6 % (0-6); Hematocrit 33 % (42-52); Hemoglobin 11.3 g/dl (14.0-18.0); Lymphocyte % 13.4 % (25-47); Mean Corpuscular HGB Conc 35 g/dl (31-36); Mean Corpuscular Hemoglobin 31 pg (27-31); Mean Corpuscular Volume 91 fL (80-94); Mean Platelet Volume 9.6 um3 (7.4-10.4); Nucleated Red Blood Cells % 0.1; Platelet Count 186 10^3/ul (150-450); Red Cell Distribution Width 15 % (10.5-15); White Blood Count 4.6 10^3/ul (3.5-10.8)
[2017-12-31 06:47] LABS: INR 1.15 (0.77-1.02)
[2017-12-31 07:03] LABS: EGFR Non-African American 8.4 (>60)
[2017-12-31] MEDS: Mometasone/Formoter 200/5 MDI INH SCH ×2 (07:35→20:33)
--- NOTE | 2017-12-31 08:08 | PN ---
Subjective - Subjective Reason for Note: Progress Note History: He has recently vomited. Otherwise, he has had no new symptoms. He is more awake and less tremulous than yesterday. He continues to lose weight with peritoneal dialysis. He has a little abdominal pain on direct questioning. His glucose is running much higher. Telemetry shows atrial flutter and bradycardia, without any pauses. He is afebrile and normotensive. Active Problems: Active Problems Asterixis (Acute) R27.8 Bradycardia (Acute) R00.1 Depression (Acute) F32.9 End stage renal disease on dialysis (Acute) N18.6, Z99.2 Infection (Acute) B99.9 Peritoneal dialysis status (Acute) Z99.2 Vomiting (Acute) R11.10 Acute renal failure (Chronic) Chronic obstructive lung disease (Chronic) J44.9 Essential hypertension (Chronic) I10 Hyperlipidemia (Chronic) E78.5 Hypertension (Chronic) I10 - SBP 110-120's - Continue Lasix (decreased), Losartan Low back pain (Chronic) M54.5 Nephrotic syndrome (Chronic) N04.9 - Stage 5 CKD - No immediate need for dialysis, no hyperkalemia, acidosis, or volume overload - BP may be overtreated, reduce dose lasix, could be contributing to constipation. Neuropathy (Chronic) G62.9 Obesity (Chronic) E66.9 - BMI 32.8 Retinopathy (Chronic) H35.00 Type II diabetes mellitus - poor control (Chronic) E11.65 - Glucose 140-150's - Resume home Insulin Current Medications: Current Medications Acetaminophen (Tylenol Tab*) 650 mg PO Q6H PRN PRN Reason: FEVER/PAIN Albuterol (Ventolin Hfa Inhaler*) 2 puff INH Q6H PRN PRN Reason: SHORTNESS OF BREATH Last Admin: 12/27/17 07:57 Dose: 2 puff Albuterol (Ventolin 2.5 Mg/3 Ml Neb.Brooke*) 2.5 mg INH Q2H PRN PRN Reason: SOB/WHEEZING Amiodarone HCl (Cordarone Tab*) 200 mg PO BID ON LICENSE OF [facility] Last Admin: 12/30/17 20:12 Dose: 200 mg Atorvastatin Calcium (Lipitor*) 20 mg PO QPM ON LICENSE OF [facility] Last Admin: 12/30/17 17:46 Dose: 20 mg Furosemide (Lasix Tab*) 120 mg PO BID ON LICENSE OF [facility] Last Admin: 12/30/17 20:12 Dose: 120 mg Heparin Sodium (Porcine) (Heparin Vial(*)) 0 units IV .PER PROTOCOL ON LICENSE OF [facility] Last Admin: 12/30/17 17:48 Dose: 5,750 units Levofloxacin/Dextrose (Levaquin 250 Mg Ivpremx(*)) 250 mg in 50 mls @ 50 mls/ hr IVPB Q48H GREGG Last Admin: 12/29/17 11:15 Dose: 50 mls/hr Heparin Sodium/Dextrose (Heparin Drip 25,000 Units(*)) 25,000 units in 500 mls @ 0 mls/hr IV PER RATE ON LICENSE OF [facility]; Protocol Last Admin: 12/30/17 09:01 Dose: 26 mls/hr Vancomycin HCl 750 mg/ Sodium (Chloride) 250 mls @ 166.667 mls/hr IVPB 1230 ONE Stop: 12/31/17 13:59 Insulin Glargine (Lantus(*)) 20 units SUBCUT 2100 ON LICENSE OF [facility] Last Admin: 12/30/17 20:28 Dose: 20 units Insulin Human Lispro (Humalog*) 0 units SUBCUT AC ON LICENSE OF [facility]; Protocol Last Admin: 12/30/17 18:09 Dose: Not Given Insulin Human Lispro (Humalog*) 0 units SUBCUT ACHS ON LICENSE OF [facility]; Protocol Last Admin: 12/30/17 20:29 Dose: 9 units Lactulose (Lactulose*) 30 ml PO BID PRN PRN Reason: CONSTIPATION Last Admin: 12/31/17 04:41 Dose: 30 ml Levothyroxine Sodium (Synthroid Tab*) 25 mcg PO QPM ON LICENSE OF [facility] Last Admin: 12/30/17 17:46 Dose: 25 mcg Metoclopramide HCl (Reglan Tab*) 5 mg PO QPM GREGG Last Admin: 12/30/17 17:47 Dose: 5 mg Metolazone (Zaroxolyn Tab*) 5 mg PO QAM@0830 ON LICENSE OF [facility] Last Admin: 12/30/17 09:17 Dose: 5 mg Mometasone Furoate/Formoterol Fumar (Dulera 200/5 Mdi*) 2 puff INH BID ON LICENSE OF [facility]; Protocol Last Admin: 12/31/17 07:35 Dose: 2 puff Mupirocin (Bactroban 2 % Oint*) 1 applic TOPICAL DAILY ON LICENSE OF [facility] Last Admin: 12/30/17 10:06 Dose: 1 applic Omeprazole (Prilosec Cap*) 40 mg PO BID AC ON LICENSE OF [facility] Last Admin: 12/30/17 17:46 Dose: 40 mg Pharmacy Consult (Vancomycin Per Pharmacy*) 1 note FOLLOW UP . PRN PRN Reason: PER PROTOCOL Pharmacy Consult (Vancomycin Random Level*) 1 note FOLLOW UP 0600 ONE Stop: 01/01/18 06:01 Pharmacy Profile Note (Coumadin Per Pharmacy*) 0 note FOLLOW UP .PER PHARMACY PROTOC GREGG; Protocol Ropinirole HCl (Requip Tab*) 1 mg PO QPM ON LICENSE OF [facility] Last Admin: 12/30/17 17:48 Dose: 1 mg Tramadol HCl (Ultram*) 50 mg PO Q6H PRN PRN Reason: PAIN Last Admin: 12/31/17 04:40 Dose: 50 mg Trazodone HCl (Desyrel Tab*) 50 mg PO QPM ON LICENSE OF [facility] Last Admin: 12/30/17 17:46 Dose: 50 mg Home Medications: Home Medications Medication Instructions Recorded Confirmed Type Insulin Regular, Human [Novolin R] 10 - 15 unit SUBCUT QAM MDD 60 08/08/1312/26 History units Losartan TAB* [Cozaar TAB*] 100 mg PO QPM 08/08/13 12/26/17 History Insulin NPH Human Isophane 0 - 40 unit SC BID MDD 100 units 01/16/14 12/26/17 History [Humulin N] Insulin Regular, Human [Novolin R] 15 - 30 unit SUBCUT QPM MDD 60 01/16/1412/26 History units Ascorbic Acid TAB* [Vitamin C 1,000 mg PO QAM 10/04/15 12/26/17 History TAB*] Fluticas/Salmet 115/21 HFA(NF) 2 puff INH BID 10/04/15 12/26/17 History [Advair HFA 115/21 (NF)] LoraTADine TAB(NF) [Claritin 10 MG 10 mg PO QPM PRN 10/04/15 12/26/17 History TAB(NF)] Brimonidine 0.2 % * [Alphagan P 1 drop BOTH EYES BID 04/28/17 12/26/17 History 0.2% *] Dorzolamide 2% OPTH (NF) [Trusopt 1 drop BOTH EYES BID 04/28/17 12/26/17 History 2% OPTH (NF)] traZODone TAB* [Desyrel TAB*] 50 mg PO QPM 04/28/17 12/26/17 History Albuterol HFA INHALER* [Ventolin 2 puff INH Q6H PRN 05/14/17 12/26/17 History HFA Inhaler*] Cholecalciferol TAB* [Vitamin D 1,000 unit PO BID 05/14/17 12/26/17 History TAB*] Codeine Phosphate/Guaifenesin 10 ml PO BID PRN MDD 20ml 05/14/17 12/26/17 History [Codeine-Guaifen 10-100 mg/5 ml] Diltiazem CD CAP* [Cardizem CD 180 mg PO QAM 05/14/17 12/26/17 History CAP*] Multivitamins/Minerals TAB* 1 tab PO QAM 05/14/17 12/26/17 History [Theragran/minerals TAB*] Omeprazole CAP* [Prilosec CAP* 20 40 mg PO BID 05/14/17 12/26/17 History MG] Simvastatin (NF) [Zocor (NF)] 40 mg PO QPM 05/14/17 12/26/17 History Lactulose* 30 ml PO BID 06/25/17 12/26/17 History Levothyroxine Sodium [Levo-T] 25 mcg PO QPM 06/25/17 12/26/17 History Metoclopramide HCl 5 mg PO TID AC 06/25/17 12/26/17 History Metoclopramide HCl [Reglan] 5 mg PO QPM 06/25/17 12/26/17 History Metolazone TAB* [Zaroxolyn TAB*] 5 mg PO QAM 06/25/17 12/26/17 History Ropinirole HCl 1 mg PO QPM 06/25/17 12/26/17 History Furosemide TAB* [Lasix TAB*] 120 mg PO BID 08/26/17 12/26/17 History guaiFENesin LIQ* [Robitussin*] 10 ml PO Q4H PRN 08/26/17 12/26/17 History Acetaminophen [Acetaminophen Extra 1,000 mg PO BID PRN 09/21/17 12/26/17 History Strength] Polyethylene Glycol 3350* 17 gm PO BEDTIME PRN 09/27/17 12/26/17 History [Miralax*] Allergies: Allergies Allergy/AdvReac Type Severity Reaction Status Date / Time amlodipine [From [facility]] Allergy Severe Swelling Verified 12/26/17 21:01 hydrocodone Allergy Severe Difficulty Verified 12/26/17 21:01 Breathing shellfish derived Allergy Severe Difficulty Verified 12/26/17 21:01 Breathing lisinopril Allergy Intermediate Coughing Verified 12/26/17 21:01 NSAIDS (Non-Steroidal AdvReac Unknown Unknown Verified 12/26/17 21:01 Anti-Inflamma Reaction Details Objective - Vital Signs Vital Signs: Vital Signs 12/30/17 12/30/17 12/30/17 08:32 09:17 11:37 Temperature 97.4 F Pulse Rate 77 48 Respiratory 16 16 20 Rate Blood Pressure 131/39 (mmHg) O2 Sat by Pulse 96 97 Oximetry 12/30/17 12/30/17 12/30/17 13:50 15:15 15:24 Temperature 97.5 F Pulse Rate 48 Respiratory 16 20 Rate Blood Pressure 134/48 117/38 (mmHg) O2 Sat by Pulse 98 Oximetry 12/30/17 12/30/17 12/30/17 19:30 20:00 20:12 Temperature 97.9 F Pulse Rate 79 Respiratory 24 22 22 Rate Blood Pressure 121/55 (mmHg) O2 Sat by Pulse 98 Oximetry 12/30/17 12/30/17 12/30/17 20:47 22:15 23:48 Temperature 98.4 F Pulse Rate 92 147 Respiratory 14 20 24 Rate Blood Pressure 138/52 (mmHg) O2 Sat by Pulse 94 96 Oximetry 12/31/17 12/31/17 12/31/17 00:00 00:05 01:09 Temperature 98.4 F Pulse Rate 89 105 Respiratory 24 Rate Blood Pressure 138/52 (mmHg) O2 Sat by Pulse 96 96 Oximetry 12/31/17 12/31/17 12/31/17 01:47 03:38 04:40 Temperature 97.9 F Pulse Rate 54 Respiratory 21 522 Rate Blood Pressure 125/36 (mmHg) O2 Sat by Pulse 96 96 Oximetry 12/31/17 12/31/17 12/31/17 06:40 07:40 07:43 Temperature 98.4 F Pulse Rate 59 Respiratory 22 20 20 Rate Blood Pressure 119/41 (mmHg) O2 Sat by Pulse 95 Oximetry - Intake and Output Intake and Output: Intake & Output 12/28/17 12/29/17 12/30/17 12/31/17 11:59 11:59 11:59 11:59 Intake Total 638 1016.3 951.7 252.9 Output Total 1225 825 625 955 Balance -587 191.3 326.7 -702.1 Weight 225 lb 8 oz 229 lb 4.8 oz 222 lb 1.6 oz 218 lb Intake: IV Fluids 65 KVO 45 NS to Maintain IV Patency 20 IVPB 293 KVO 48 NS to Maintain IV Patency 245 Heparin 656.3 631.7 252.9 Oral 280 360 320 0 Output: Urine 525 Akers 1225 825 625 430 ADLs: Meal Record Start: 12/27/17 01: 20 Freq: 09,13,18 Status: Complete Protocol: Created 12/27/17 01:20 System (Rec: 12/27/17 01:20 System ICU-C12) Document 12/27/17 09:00 [id number] (Rec: 12/27/17 13:41 [id number] ICU-C12) Document 12/27/17 13:00 [id number] (Rec: 12/27/17 14:56 [id number] ICU-C12) Document 12/27/17 18:00 [id number] (Rec: 12/27/17 18:18 [id number] ICU-C12) Document 12/28/17 09:00 [id number] (Rec: 12/28/17 09:34 [id number] ICU-C15) ADLs: Meal Record Start: 12/28/17 17: 08 Freq: DAILY@0900,1400,1800 Status: Active Protocol: Created 12/28/17 17:08 [id number] (Rec: 12/28/17 17:08 [id number] TELE-C11) Document 12/28/17 20:29 [id number] (Rec: 12/28/17 20:29 [id number] TELE-C03) Document 12/29/17 09:00 [id number] (Rec: 12/29/17 09:19 [id number] TELE-C11) Document 12/29/17 10:25 [id number] (Rec: 12/29/17 10:25 [id number] TELE-C07) Document 12/29/17 14:00 [id number] (Rec: 12/29/17 15:23 [id number] TELE-C09) Document 12/29/17 20:59 [id number] (Rec: 12/29/17 21:00 [id number] TELE-C11) Document 12/30/17 09:00 [id number] (Rec: 12/30/17 10:33 [id number] TELE-C11) Document 12/30/17 14:00 [id number] (Rec: 12/30/17 14:56 [id number] TELE-C03) Document 12/30/17 18:00 [id number] (Rec: 12/30/17 21:05 [id number] TELE-C10) Intake and Output Start: 12/26/17 20: 51 Freq: Status: Active Protocol: Created 12/26/17 20:51 System (Rec: 12/26/17 20:51 System ED-C31) Intake and Output Start: 12/27/17 01: 20 Freq: Q1HR Status: Complete Protocol: Created 12/27/17 01:20 System (Rec: 12/27/17 01:20 System ICU-C12) Document 12/27/17 03:00 [id number] (Rec: 12/27/17 04:39 [id number] ICU-C15) Document 12/27/17 05:00 [id number] (Rec: 12/27/17 05:10 [id number] ICU-C15) Document 12/27/17 05:17 [id number] (Rec: 12/27/17 05:17 [id number] ICU-M29) Document 12/27/17 11:23 [id number] (Rec: 12/27/17 11:23 [id number] ICU-C12) Document 12/27/17 16:42 [id number] (Rec: 12/27/17 16:42 [id number] ISDEMO-M05 ) Document 12/27/17 18:18 [id number] (Rec: 12/27/17 18:18 [id number] ICU-C12) Document 12/27/17 19:00 [id number] (Rec: 12/27/17 20:04 [id number] ICU-C16) Document 12/27/17 20:00 [id number] (Rec: 12/27/17 20:04 [id number] ICU-C16) Document 12/27/17 22:00 [id number] (Rec: 12/27/17 22:08 [id number] ICU-M28) Document 12/28/17 06:07 [id number] (Rec: 12/28/17 06:07 [id number] ICU-C15) Document 12/28/17 07:00 [id number] (Rec: 12/28/17 07:37 [id number] ICU-C15) Document 12/28/17 13:40 [id number] (Rec: 12/28/17 13:40 [id number] ICU-C15) - Physical Exam General Physical Exam Comment: He recently vomited. He is sitting in a cardiac chair. He is more conversational than yesterday and has less asterixis General: No Cyanosis, Yes Anemia, No Jaundice, No Clubbing Lungs and Chest: Yes: Chest Expansion Full, Chest Expansion Symetrica. No: Percussion Note Resonant, Vessicular Breath Sounds - diminished at bases, Crackles, Wheezes, Respiratory Distress Heart Rate and Rhythm: Regular Additional Cardiovascular: Yes: Normal Heart Sounds. No: Heart Murmur, Pedal Edema Abdominal Exam: Yes: Distention, Soft, Abdominal Tenderness - mild. No: Guarding, Rebound Tenderness, Bowel Sounds Present - diminished Results - Results Lab Results: Laboratory Results - last 24 hr 12/30/17 12/30/17 12/30/17 11:49 15:47 16:27 WBC RBC Hgb Hct MCV MCH MCHC RDW Plt Count MPV Neut % (Auto) Lymph % (Auto) Rooks % (Auto) Eos % (Auto) Baso % (Auto) Absolute Neuts (auto) Absolute Lymphs (auto) Absolute Monos (auto) Absolute Eos (auto) Absolute Basos (auto) Absolute Nucleated RBC Nucleated RBC % INR (Anticoag Therapy) APTT 35.9 Sodium Potassium Chloride Carbon Dioxide Anion Gap BUN Creatinine Est GFR ( Amer) Est GFR (Non-Af Amer) BUN/Creatinine Ratio Glucose POC Glucose (mg/dL) 286 H 202 H Calcium C-Reactive Protein 12/30/17 12/30/17 12/31/17 20:11 20:41 02:52 WBC RBC Hgb Hct MCV MCH MCHC RDW Plt Count MPV Neut % (Auto) Lymph % (Auto) Rooks % (Auto) Eos % (Auto) Baso % (Auto) Absolute Neuts (auto) Absolute Lymphs (auto) Absolute Monos (auto) Absolute Eos (auto) Absolute Basos (auto) Absolute Nucleated RBC Nucleated RBC % INR (Anticoag Therapy) APTT 133.3 H* 59.0 H Sodium Potassium Chloride Carbon Dioxide Anion Gap BUN Creatinine Est GFR ( Amer) Est GFR (Non-Af Amer) BUN/Creatinine Ratio Glucose POC Glucose (mg/dL) 292 H Calcium C-Reactive Protein 12/31/17 12/31/17 12/31/17 05:53 05:53 05:54 WBC 4.6 RBC 3.60 L Hgb 11.3 L Hct 33 L MCV 91 MCH 31 MCHC 35 RDW 15 Plt Count 186 MPV 9.6 Neut % (Auto) 63.1 Lymph % (Auto) 13.4 L Rooks % (Auto) 17.8 H Eos % (Auto) 5.6 Baso % (Auto) 0.1 Absolute Neuts (auto) 2.9 Absolute Lymphs (auto) 0.6 L Absolute Monos (auto) 0.8 Absolute Eos (auto) 0.3 Absolute Basos (auto) 0 Absolute Nucleated RBC 0 Nucleated RBC % 0.1 INR (Anticoag Therapy) 1.15 H APTT Sodium 135 Potassium 3.1 L Chloride 91 L Carbon Dioxide 30 Anion Gap 14 H BUN 63 H Creatinine 6.55 H Est GFR ( Amer) 10.1 Est GFR (Non-Af Amer) 8.4 BUN/Creatinine Ratio 9.6 Glucose 322 H POC Glucose (mg/dL) Calcium 9.7 C-Reactive Protein 101.98 H 12/31/17 07:23 WBC RBC Hgb Hct MCV MCH MCHC RDW Plt Count MPV Neut % (Auto) Lymph % (Auto) Rooks % (Auto) Eos % (Auto) Baso % (Auto) Absolute Neuts (auto) Absolute Lymphs (auto) Absolute Monos (auto) Absolute Eos (auto) Absolute Basos (auto) Absolute Nucleated RBC Nucleated RBC % INR (Anticoag Therapy) APTT Sodium Potassium Chloride Carbon Dioxide Anion Gap BUN Creatinine Est GFR ( Amer) Est GFR (Non-Af Amer) BUN/Creatinine Ratio Glucose POC Glucose (mg/dL) 329 H Calcium C-Reactive Protein Assessment - Problem List Assessment: Patient Problems Asterixis (Acute) Bradycardia (Acute) Depression (Acute) End stage renal disease on dialysis (Acute) Infection (Acute) Peritoneal dialysis status (Acute) Vomiting (Acute) Acute renal failure (Chronic) Chronic obstructive lung disease (Chronic) Essential hypertension (Chronic) Hyperlipidemia (Chronic) Hypertension (Chronic) Low back pain (Chronic) Nephrotic syndrome (Chronic) Neuropathy (Chronic) Obesity (Chronic) Retinopathy (Chronic) Type II diabetes mellitus - poor control (Chronic) DVT prophylaxis (Chronic) Full code status (Chronic) Plan: Asterixis (Acute) He has a clearer sensorium today and less asterixis Bradycardia (Acute) He has atrial flutter with block and bradycardia Depression (Acute) ongoing Peritoneal dialysis status (Acute) End stage renal disease on dialysis (Acute) Acute renal failure (Chronic) He is having results from his PD - his weight is down substantially and his BUN/CR are responding. He is hypokalemic today - I will give him some potassium to prevent rhythm disturbances. Infection (Acute) This is likely related to his catheters or his peritoneum with mild peritonitis. His CRP is coming down, his WBC and neut% are on target. One of his venous blood cultures came back as positive for Staph epidermidis. I don't know if this is a pathogen, so I will maintain current choice of antibacterials IV. Type II diabetes mellitus - poor control (Chronic) He has marked hyperglycemia today. I will increase his basal insulin. Vomiting (Acute) I don't know the cause for this - it could relate to his polypharmacy. I will check a Troponin I to ensure this isn't a silent TX. Chronic obstructive lung disease (Chronic) stable Essential hypertension (Chronic) stable I discussed his management with the patient. He is aware that he is able to make the choice to discontinue the peritoneal dialysis and receive palliative/ hospicecare. He is not ready to make a decision on this and wants us to continue current Rx. I called Suyapa Shannon and discussed the above with her. I told her we would evaluate the vomiting/higher glucose levels to see if there is a cardiac other underlying cause.
[2017-12-31] MEDS: KCL 20 MEQ/100 ML IVPREMIX* 20 MEQ/100 ML BAG IV SCH ×3 (09:03→17:30)
[2017-12-31] MEDS: Ondansetron INJ* 2 MG/ML VIAL IV PRN (09:03)
[2017-12-31] MEDS: Insulin GLARGINE(*) 1 UNITS UNIT SUBCUT SCH ×2 (09:04→21:19)
[2017-12-31] MEDS: Insulin LISPRO* 1 UNITS UNIT SUBCUT SCH ×8 (09:04→21:29)
[2017-12-31] MEDS: Heparin DRIP 25,000 UNITS(*) 25,000 UNITS/500 ML BAG IV SCH (09:08)
[2017-12-31] MEDS: Omeprazole CAP* 20 MG PO SCH ×2 (09:32→17:04)
[2017-12-31] MEDS: Amiodarone TAB* 200 MG PO SCH ×2 (09:56→21:28)
[2017-12-31] MEDS: Metolazone TAB* 5 MG PO SCH (09:56)
[2017-12-31] MEDS: Mupirocin 2% OINT* TUBE TOPICAL SCH (10:25)
[2017-12-31] MEDS: Furosemide TAB* 40 MG PO SCH ×2 (10:25→21:25)
[2017-12-31] MEDS: Levofloxacin 250 MG IVPREMX(*) 250 MG/50 ML BAG IVPB SCH (12:08)
[2017-12-31] MEDS ORDERED: Vancomycin(*) 750 MG in NS 0.9% 250 ML* 250 ML IVPB ONE (12:30)
[2017-12-31] MEDS ORDERED: Warfarin TAB(*) 5 MG PO ONE (17:00)
[2017-12-31] MEDS: Atorvastatin* 20 MG TAB PO SCH (17:04)
[2017-12-31] MEDS: Levothyroxine TAB* 25 MCG TAB PO SCH (17:04)
[2017-12-31] MEDS: Metoclopramide TAB* 10 MG PO SCH (17:04)
[2017-12-31] MEDS: rOPINIRole TAB* 1 MG PO SCH (17:04)
[2017-12-31] MEDS: traZODone TAB* 50 MG TAB PO SCH (17:05)
[2017-12-31] MEDS ORDERED: KCL 20 MEQ/100 ML IVPREMIX* 20 MEQ/100 ML BAG ONE (17:27)
[2018-01-01] MEDS: traMADol TAB* 50 MG PO PRN ×4 (03:48→23:08)
[2018-01-01] MEDS: Heparin DRIP 25,000 UNITS(*) 25,000 UNITS/500 ML BAG IV SCH (04:56)
[2018-01-01] MEDS ORDERED: Vancomycin Random Level* NOTE FOLLOW UP ONE (06:00)
[2018-01-01 06:18] LABS: INR 1.33 (0.77-1.02)
[2018-01-01 06:19] LABS: ABS Basophils 0 10^3/ul (0-0.2); ABS Eosinophils 0.3 10^3/ul (0-0.6); ABS Lymphocytes 0.6 10^3/ul (1.0-4.8); ABS Monocytes 0.8 10^3/ul (0-0.8); ABS Neutrophils 3.8 10^3/ul (1.5-7.7); ABS Nucleated RBC 0 10^3/ul; Eosinophil % 4.9 % (0-6); Hematocrit 32 % (42-52); Hemoglobin 10.8 g/dl (14.0-18.0); Lymphocyte % 11.3 % (25-47); Mean Corpuscular HGB Conc 34 g/dl (31-36); Mean Corpuscular Hemoglobin 31 pg (27-31); Mean Corpuscular Volume 91 fL (80-94); Mean Platelet Volume 8.8 um3 (7.4-10.4); Nucleated Red Blood Cells % 0; Platelet Count 205 10^3/ul (150-450); Red Blood Count 3.52 10^6/ul (4.00-5.40); Red Cell Distribution Width 15 % (10.5-15); White Blood Count 5.5 10^3/ul (3.5-10.8)
[2018-01-01 06:38] LABS: EGFR Non-African American 9.2 (>60)
[2018-01-01] MEDS: Metolazone TAB* 5 MG PO SCH (08:35)
[2018-01-01] MEDS: Omeprazole CAP* 20 MG PO SCH ×2 (08:35→16:59)
[2018-01-01] MEDS: Insulin LISPRO* 1 UNITS UNIT SUBCUT SCH ×7 (08:35→21:41)
[2018-01-01] MEDS: Amiodarone TAB* 200 MG PO SCH ×2 (08:35→21:41)
[2018-01-01] MEDS: Insulin GLARGINE(*) 1 UNITS UNIT SUBCUT SCH ×2 (08:36→21:40)
[2018-01-01] MEDS: Mupirocin 2% OINT* TUBE TOPICAL SCH (09:27)
[2018-01-01] MEDS: Furosemide TAB* 40 MG PO SCH ×2 (09:27→21:41)
--- NOTE | 2018-01-01 09:29 | PN ---
Subjective - Subjective Reason for Note: Progress Note History: His vomiting was self-limited yesterday. Today, is care team all comment on how much more alert and awake he is. He ate a good breakfast and he is smiling and making jokes again. He is a febrile. His glucose remains high. He has some lower back pain, but otherwise is not hurting. He has no dyspnea at rest, no chest pain or palpitations. Active Problems: Active Problems Asterixis (Acute) R27.8 Bradycardia (Acute) R00.1 Depression (Acute) F32.9 End stage renal disease on dialysis (Acute) N18.6, Z99.2 Infection (Acute) B99.9 Peritoneal dialysis status (Acute) Z99.2 Vomiting (Acute) R11.10 Acute renal failure (Chronic) Chronic obstructive lung disease (Chronic) J44.9 Essential hypertension (Chronic) I10 Hyperlipidemia (Chronic) E78.5 Hypertension (Chronic) I10 - SBP 110-120's - Continue Lasix (decreased), Losartan Low back pain (Chronic) M54.5 Nephrotic syndrome (Chronic) N04.9 - Stage 5 CKD - No immediate need for dialysis, no hyperkalemia, acidosis, or volume overload - BP may be overtreated, reduce dose lasix, could be contributing to constipation. Neuropathy (Chronic) G62.9 Obesity (Chronic) E66.9 - BMI 32.8 Retinopathy (Chronic) H35.00 Type II diabetes mellitus - poor control (Chronic) E11.65 - Glucose 140-150's - Resume home Insulin Current Medications: Current Medications Acetaminophen (Tylenol Tab*) 650 mg PO Q6H PRN PRN Reason: FEVER/PAIN Albuterol (Ventolin Hfa Inhaler*) 2 puff INH Q6H PRN PRN Reason: SHORTNESS OF BREATH Last Admin: 12/27/17 07:57 Dose: 2 puff Albuterol (Ventolin 2.5 Mg/3 Ml Neb.Brooke*) 2.5 mg INH Q2H PRN PRN Reason: SOB/WHEEZING Amiodarone HCl (Cordarone Tab*) 200 mg PO BID [facility] Last Admin: 01/01/18 08:35 Dose: 200 mg Atorvastatin Calcium (Lipitor*) 20 mg PO QPM [facility] Last Admin: 12/31/17 17:04 Dose: 20 mg Furosemide (Lasix Tab*) 120 mg PO BID [facility] Last Admin: 12/31/17 21:25 Dose: 120 mg Heparin Sodium (Porcine) (Heparin Vial(*)) 0 units IV .PER PROTOCOL [facility] Last Admin: 12/30/17 17:48 Dose: 5,750 units Levofloxacin/Dextrose (Levaquin 250 Mg Ivpremx(*)) 250 mg in 50 mls @ 50 mls/ hr IVPB Q48H [facility] Last Admin: 12/31/17 12:08 Dose: 50 mls/hr Heparin Sodium/Dextrose (Heparin Drip 25,000 Units(*)) 25,000 units in 500 mls @ 0 mls/hr IV PER RATE [facility]; Protocol Last Admin: 01/01/18 04:56 Dose: 28 mls/hr Insulin Glargine (Lantus(*)) 20 units SUBCUT Q12H [facility] Last Admin: 01/01/18 08:36 Dose: 20 unit Insulin Human Lispro (Humalog*) 0 units SUBCUT AC [facility]; Protocol Last Admin: 01/01/18 08:35 Dose: 3 units Insulin Human Lispro (Humalog*) 0 units SUBCUT [facility]; Protocol Last Admin: 01/01/18 08:35 Dose: 9 units Lactulose (Lactulose*) 30 ml PO BID PRN PRN Reason: CONSTIPATION Last Admin: 12/31/17 04:41 Dose: 30 ml Levothyroxine Sodium (Synthroid Tab*) 25 mcg PO QPM [facility] Last Admin: 12/31/17 17:04 Dose: 25 mcg Metoclopramide HCl (Reglan Tab*) 5 mg PO QPM [facility] Last Admin: 12/31/17 17:04 Dose: 5 mg Metolazone (Zaroxolyn Tab*) 5 mg PO QAM@0830 [facility] Last Admin: 01/01/18 08:35 Dose: 5 mg Mometasone Furoate/Formoterol Fumar (Dulera 200/5 Mdi*) 2 puff INH BID [facility]; Protocol Last Admin: 12/31/17 20:33 Dose: 2 puff Mupirocin (Bactroban 2 % Oint*) 1 applic TOPICAL DAILY [facility] Last Admin: 12/31/17 10:25 Dose: 1 applic Omeprazole (Prilosec Cap*) 40 mg PO BID AC [facility] Last Admin: 01/01/18 08:35 Dose: 40 mg Ondansetron HCl (Zofran Inj*) 4 mg IV Q6HR PRN PRN Reason: VOMITING Last Admin: 12/31/17 09:03 Dose: 4 mg Pharmacy Consult (Vancomycin Per Pharmacy*) 1 note FOLLOW UP . PRN PRN Reason: PER PROTOCOL Pharmacy Profile Note (Coumadin Per Pharmacy*) 0 note FOLLOW UP .PER PHARMACY PROTOC [facility]; Protocol Ropinirole HCl (Requip Tab*) 1 mg PO QPM [facility] Last Admin: 12/31/17 17:04 Dose: 1 mg Tramadol HCl (Ultram*) 50 mg PO Q6H PRN PRN Reason: PAIN Last Admin: 01/01/18 03:48 Dose: 50 mg Trazodone HCl (Desyrel Tab*) 50 mg PO QPM [facility] Last Admin: 12/31/17 17:05 Dose: 50 mg Home Medications: Home Medications Medication Instructions Recorded Confirmed Type Insulin Regular, Human [Novolin R] 10 - 15 unit SUBCUT QAM MDD 60 08/08/1312/26 History units Losartan TAB* [Cozaar TAB*] 100 mg PO QPM 08/08/13 12/26/17 History Insulin NPH Human Isophane 0 - 40 unit SC BID MDD 100 units 01/16/14 12/26/17 History [Humulin N] Insulin Regular, Human [Novolin R] 15 - 30 unit SUBCUT QPM MDD 60 01/16/1412/26 History units Ascorbic Acid TAB* [Vitamin C 1,000 mg PO QAM 10/04/15 12/26/17 History TAB*] Fluticas/Salmet 115/21 HFA(NF) 2 puff INH BID 10/04/15 12/26/17 History [Advair HFA 115/21 (NF)] LoraTADine TAB(NF) [Claritin 10 MG 10 mg PO QPM PRN 10/04/15 12/26/17 History TAB(NF)] Brimonidine 0.2 % * [Alphagan P 1 drop BOTH EYES BID 04/28/17 12/26/17 History 0.2% *] Dorzolamide 2% OPTH (NF) [Trusopt 1 drop BOTH EYES BID 04/28/17 12/26/17 History 2% OPTH (NF)] traZODone TAB* [Desyrel TAB*] 50 mg PO QPM 04/28/17 12/26/17 History Albuterol HFA INHALER* [Ventolin 2 puff INH Q6H PRN 05/14/17 12/26/17 History HFA Inhaler*] Cholecalciferol TAB* [Vitamin D 1,000 unit PO BID 05/14/17 12/26/17 History TAB*] Codeine Phosphate/Guaifenesin 10 ml PO BID PRN MDD 20ml 05/14/17 12/26/17 History [Codeine-Guaifen 10-100 mg/5 ml] Diltiazem CD CAP* [Cardizem CD 180 mg PO QAM 05/14/17 12/26/17 History CAP*] Multivitamins/Minerals TAB* 1 tab PO QAM 05/14/17 12/26/17 History [Theragran/minerals TAB*] Omeprazole CAP* [Prilosec CAP* 20 40 mg PO BID 05/14/17 12/26/17 History MG] Simvastatin (NF) [Zocor (NF)] 40 mg PO QPM 05/14/17 12/26/17 History Lactulose* 30 ml PO BID 06/25/17 12/26/17 History Levothyroxine Sodium [Levo-T] 25 mcg PO QPM 06/25/17 12/26/17 History Metoclopramide HCl 5 mg PO TID AC 06/25/17 12/26/17 History Metoclopramide HCl [Reglan] 5 mg PO QPM 06/25/17 12/26/17 History Metolazone TAB* [Zaroxolyn TAB*] 5 mg PO QAM 06/25/17 12/26/17 History Ropinirole HCl 1 mg PO QPM 06/25/17 12/26/17 History Furosemide TAB* [Lasix TAB*] 120 mg PO BID 08/26/17 12/26/17 History guaiFENesin LIQ* [Robitussin*] 10 ml PO Q4H PRN 08/26/17 12/26/17 History Acetaminophen [Acetaminophen Extra 1,000 mg PO BID PRN 09/21/17 12/26/17 History Strength] Polyethylene Glycol 3350* 17 gm PO BEDTIME PRN 09/27/17 12/26/17 History [Miralax*] Allergies: Allergies Allergy/AdvReac Type Severity Reaction Status Date / Time amlodipine [From [facility]] Allergy Severe Swelling Verified 12/26/17 21:01 hydrocodone Allergy Severe Difficulty Verified 12/26/17 21:01 Breathing shellfish derived Allergy Severe Difficulty Verified 12/26/17 21:01 Breathing lisinopril Allergy Intermediate Coughing Verified 12/26/17 21:01 NSAIDS (Non-Steroidal AdvReac Unknown Unknown Verified 12/26/17 21:01 Anti-Inflamma Reaction Details Objective - Vital Signs Vital Signs: Vital Signs 12/31/17 12/31/17 12/31/17 10:10 11:06 15:22 Temperature 97.7 F 98.2 F Pulse Rate 65 50 51 Respiratory 14 20 17 Rate Blood Pressure 117/41 122/44 (mmHg) O2 Sat by Pulse 95 95 98 Oximetry 12/31/17 12/31/17 12/31/17 17:34 19:22 19:25 Temperature 98.4 F Pulse Rate 44 58 Respiratory 24 Rate Blood Pressure 130/59 (mmHg) O2 Sat by Pulse 97 97 Oximetry 12/31/17 12/31/17 12/31/17 20:00 20:34 21:25 Temperature Pulse Rate 76 Respiratory 22 14 19 Rate Blood Pressure (mmHg) O2 Sat by Pulse 97 Oximetry 12/31/17 12/31/17 01/01/18 23:23 23:25 00:00 Temperature 98.0 F Pulse Rate 76 Respiratory 16 22 Rate Blood Pressure 122/51 (mmHg) O2 Sat by Pulse 97 96 Oximetry 01/01/18 01/01/18 01/01/18 00:40 03:42 03:48 Temperature 97.1 F Pulse Rate 79 Respiratory 20 24 Rate Blood Pressure 130/68 (mmHg) O2 Sat by Pulse 97 96 Oximetry 01/01/18 01/01/18 01/01/18 05:45 07:27 07:30 Temperature 97.6 F Pulse Rate 73 Respiratory 22 16 16 Rate Blood Pressure 137/61 (mmHg) O2 Sat by Pulse 98 Oximetry - Intake and Output Intake and Output: Intake & Output 12/29/17 12/30/17 12/31/17 01/01/18 11:59 11:59 11:59 11:59 Intake Total 1016.3 951.7 490.9 1123 Output Total 825 625 955 600 Balance 191.3 326.7 -464.1 523 Weight 229 lb 4.8 oz 222 lb 1.6 oz 218 lb 218 lb Intake: IVPB 487 ABX - LEVOFLOXACIN 59 ABX - VANCOMYCIN 238 Potassium 190 Heparin 656.3 631.7 490.9 296 Oral 360 320 0 340 Output: Urine 525 Akers 825 625 430 600 Other: # Bowel Movements 1 Estimated Stool Amount Large ADLs: Meal Record Start: 12/27/17 01: 20 Freq: 09,13,18 Status: Complete Protocol: Created 12/27/17 01:20 System (Rec: 12/27/17 01:20 System ICU-C12) Document 12/27/17 09:00 [id number] (Rec: 12/27/17 13:41 [id number] ICU-C12) Document 12/27/17 13:00 [id number] (Rec: 12/27/17 14:56 [id number] ICU-C12) Document 12/27/17 18:00 [id number] (Rec: 12/27/17 18:18 [id number] ICU-C12) Document 12/28/17 09:00 [id number] (Rec: 12/28/17 09:34 [id number] ICU-C15) ADLs: Meal Record Start: 12/28/17 17: 08 Freq: DAILY@0900,1400,1800 Status: Active Protocol: Created 12/28/17 17:08 [id number] (Rec: 12/28/17 17:08 [id number] TELE-C11) Document 12/28/17 20:29 [id number] (Rec: 12/28/17 20:29 [id number] TELE-C03) Document 12/29/17 09:00 [id number] (Rec: 12/29/17 09:19 [id number] TELE-C11) Document 12/29/17 10:25 [id number] (Rec: 12/29/17 10:25 [id number] TELE-C07) Document 12/29/17 14:00 [id number] (Rec: 12/29/17 15:23 [id number] TELE-C09) Document 12/29/17 20:59 [id number] (Rec: 12/29/17 21:00 [id number] TELE-C11) Document 12/30/17 09:00 [id number] (Rec: 12/30/17 10:33 [id number] TELE-C11) Document 12/30/17 14:00 [id number] (Rec: 12/30/17 14:56 PIT4430 TELE-C03) Document 12/30/17 18:00 [id number] (Rec: 12/30/17 21:05 [id number] TELE-C10) Document 12/31/17 09:00 [id number] (Rec: 12/31/17 09:56 [id number] TELE-C03) Document 12/31/17 14:00 [id number] (Rec: 12/31/17 14:00 [id number] TELE-C03) Document 12/31/17 17:54 [id number] (Rec: 12/31/17 17:54 [id number] TELE-C10) Intake and Output Start: 12/26/17 20: 51 Freq: Status: Active Protocol: Created 12/26/17 20:51 System (Rec: 12/26/17 20:51 System ED-C31) Intake and Output Start: 12/27/17 01: 20 Freq: Q1HR Status: Complete Protocol: Created 12/27/17 01:20 System (Rec: 12/27/17 01:20 System ICU-C12) Document 12/27/17 03:00 [id number] (Rec: 12/27/17 04:39 [id number] ICU-C15) Document 12/27/17 05:00 [id number] (Rec: 12/27/17 05:10 [id number] ICU-C15) Document 12/27/17 05:17 [id number] (Rec: 12/27/17 05:17 [id number] ICU-M29) Document 12/27/17 11:23 [id number] (Rec: 12/27/17 11:23 [id number] ICU-C12) Document 12/27/17 16:42 [id number] (Rec: 12/27/17 16:42 [id number] ISDEMO-M05 ) Document 12/27/17 18:18 [id number] (Rec: 12/27/17 18:18 [id number] ICU-C12) Document 12/27/17 19:00 [id number] (Rec: 12/27/17 20:04 [id number] ICU-C16) Document 12/27/17 20:00 [id number] (Rec: 12/27/17 20:04 [id number] ICU-C16) Document 12/27/17 22:00 [id number] (Rec: 12/27/17 22:08 [id number] ICU-M28) Document 12/28/17 06:07 [id number] (Rec: 12/28/17 06:07 [id number] ICU-C15) Document 12/28/17 07:00 [id number] (Rec: 12/28/17 07:37 [id number] ICU-C15) Document 12/28/17 13:40 [id number] (Rec: 12/28/17 13:40 [id number] ICU-C15) Intake and Output Start: 01/01/18 06: 53 Freq: Status: Active Protocol: Document 01/01/18 06:00 (Rec: 01/01/18 06:53 [id number]) Created 01/01/18 06:53 (Rec: 01/01/18 06:53 [id number]) - Physical Exam General Physical Exam Comment: Warm and well perfused. More alert and engaged. Conversational with a smile on his face at times - much more like his baseline. Mild asterixis only. General: No Cyanosis, Yes Anemia, No Jaundice, No Clubbing Lungs and Chest: Yes: Chest Expansion Full, Chest Expansion Symetrica, Percussion Note Resonant. No: Vessicular Breath Sounds - decreased at bases, Crackles, Wheezes, Respiratory Distress, Use of Accessory Muscles Heart Rate and Rhythm: Regular Additional Cardiovascular: Yes: Normal Heart Sounds, Pedal Edema - trace Abdominal Exam: Yes: Soft, Bowel Sounds Present. No: Distention, Abdominal Mass , Abdominal Tenderness - Extremities Cranial Nerves II-XII Intact: Yes - Neuro Orientation: Person, Place Speech: Normal Results - Results Lab Results: Laboratory Results - last 24 hr 12/31/17 12/31/17 12/31/17 09:19 11:15 16:40 WBC RBC Hgb Hct MCV MCH MCHC RDW Plt Count MPV Neut % (Auto) Lymph % (Auto) [place] % (Auto) Eos % (Auto) Baso % (Auto) Absolute Neuts (auto) Absolute Lymphs (auto) Absolute Monos (auto) Absolute Eos (auto) Absolute Basos (auto) Absolute Nucleated RBC Nucleated RBC % INR (Anticoag Therapy) APTT 53.1 H BUN Creatinine Est GFR ( Amer) Est GFR (Non-Af Amer) POC Glucose (mg/dL) 145 H 282 H C-Reactive Protein Random Vancomycin 12/31/17 01/01/18 01/01/18 19:31 06:00 06:00 WBC 5.5 RBC 3.52 L Hgb 10.8 L Hct 32 L MCV 91 MCH 31 MCHC 34 RDW 15 Plt Count 205 MPV 8.8 Neut % (Auto) 69.2 Lymph % (Auto) 11.3 L [place] % (Auto) 14.3 H Eos % (Auto) 4.9 Baso % (Auto) 0.3 Absolute Neuts (auto) 3.8 Absolute Lymphs (auto) 0.6 L Absolute Monos (auto) 0.8 Absolute Eos (auto) 0.3 Absolute Basos (auto) 0 Absolute Nucleated RBC 0 Nucleated RBC % 0 INR (Anticoag Therapy) APTT BUN 58 H Creatinine 6.02 H Est GFR ( Amer) 11.2 Est GFR (Non-Af Amer) 9.2 POC Glucose (mg/dL) 330 H C-Reactive Protein 72.08 H Random Vancomycin 19.1 01/01/18 01/01/18 06:00 07:21 WBC RBC Hgb Hct MCV MCH MCHC RDW Plt Count MPV Neut % (Auto) Lymph % (Auto) [place] % (Auto) Eos % (Auto) Baso % (Auto) Absolute Neuts (auto) Absolute Lymphs (auto) Absolute Monos (auto) Absolute Eos (auto) Absolute Basos (auto) Absolute Nucleated RBC Nucleated RBC % INR (Anticoag Therapy) 1.33 H APTT BUN Creatinine Est GFR ( Amer) Est GFR (Non-Af Amer) POC Glucose (mg/dL) 264 H C-Reactive Protein Random Vancomycin Assessment - Problem List Assessment: Patient Problems Asterixis (Acute) Bradycardia (Acute) Depression (Acute) End stage renal disease on dialysis (Acute) Infection (Acute) Peritoneal dialysis status (Acute) Vomiting (Acute) Acute renal failure (Chronic) Chronic obstructive lung disease (Chronic) Essential hypertension (Chronic) Hyperlipidemia (Chronic) Hypertension (Chronic) Low back pain (Chronic) Nephrotic syndrome (Chronic) Neuropathy (Chronic) Obesity (Chronic) Retinopathy (Chronic) Type II diabetes mellitus - poor control (Chronic) DVT prophylaxis (Chronic) Full code status (Chronic) Plan: Asterixis (Acute) Improved mental state - much more engaged. Bradycardia (Acute) ongoing - today he is in sinus rhythm with occasional Mobitz. I will stop telemetry as I don't think he requires a pacemaker. His troponin I was lower than before yesterday Depression (Acute) He thinks this is an issue still End stage renal disease on dialysis (Acute) Peritoneal dialysis status (Acute) Acute renal failure (Chronic) I spoke with Dr. Akin Chacon yesterday. He was concerned his mental state was not improving fast enough. I told him that I thought it was due to combined infection/intracerebral electrolyte disequilibrium. I told him that if he didn't improve I would consider an MRI brain to ensure he hasn't had a small CVA. However, today he appears to be turning around. I will have OT/PT see him and will consider a PMRU consult when he is stronger. He may require this or swing bed status to regain strength and independence. He would like to go home on PD. Infection (Acute) His CRP is continuing to come down. He has had 6 days of IV antibacterial treatment - with his renal insufficiency it is likely the levels will be effective for a few more days after stopping. I will stop them today. This may help with his mental state. Vomiting (Acute) resolved Chronic obstructive lung disease (Chronic) stable I spoke with Jan Kaur - he wants to go home on PD, but clearly remains too weak. I spoke with Suyapa Shannon and told her that his mental state is much clearer today. I have explained I am stopping both the telemetry and the antibacterials. His INR is not yet therapeutic, so he continues to require IV heparin. This is being followed per pharmacy protocol.
[2018-01-01] MEDS: Mometasone/Formoter 200/5 MDI INH SCH ×2 (09:58→19:56)
[2018-01-01] MEDS: Ondansetron INJ* 2 MG/ML VIAL IV PRN (15:56)
[2018-01-01] MEDS: traZODone TAB* 50 MG TAB PO SCH (16:59)
[2018-01-01] MEDS: Metoclopramide TAB* 10 MG PO SCH (16:59)
[2018-01-01] MEDS: Atorvastatin* 20 MG TAB PO SCH (16:59)
[2018-01-01] MEDS: rOPINIRole TAB* 1 MG PO SCH (16:59)
[2018-01-01] MEDS: Levothyroxine TAB* 25 MCG TAB PO SCH (16:59)
[2018-01-01] MEDS ORDERED: Warfarin TAB(*) 6 MG PO ONE (17:00)
[2018-01-02] MEDS: Heparin DRIP 25,000 UNITS(*) 25,000 UNITS/500 ML BAG IV SCH (00:09)
[2018-01-02 06:15] LABS: INR 1.44 (0.77-1.02)
[2018-01-02 06:30] LABS: EGFR Non-African American 7.7 (>60)
[2018-01-02] MEDS: Mometasone/Formoter 200/5 MDI INH SCH ×2 (07:51→20:03)
[2018-01-02] MEDS: traMADol TAB* 50 MG PO PRN ×3 (07:53→21:08)
[2018-01-02] MEDS: Amiodarone TAB* 200 MG PO SCH ×2 (07:53→19:49)
[2018-01-02] MEDS: Omeprazole CAP* 20 MG PO SCH ×2 (07:54→16:20)
[2018-01-02] MEDS: Metolazone TAB* 5 MG PO SCH (07:54)
[2018-01-02] MEDS: Insulin LISPRO* 1 UNITS UNIT SUBCUT SCH ×7 (08:31→21:10)
[2018-01-02] MEDS: Furosemide TAB* 40 MG PO SCH ×2 (08:31→19:49)
[2018-01-02] MEDS: Insulin GLARGINE(*) 1 UNITS UNIT SUBCUT SCH ×2 (08:31→21:10)
[2018-01-02] MEDS: Mupirocin 2% OINT* TUBE TOPICAL SCH (08:32)
[2018-01-02] MEDS: Acetaminophen TAB* 325 MG PO SCH ×3 (12:16→19:49)
[2018-01-02] MEDS: Trolamine Salicyl. 10% CREAM* 85 GM TUBE TOPICAL PRN (15:35)
[2018-01-02] MEDS: Atorvastatin* 20 MG TAB PO SCH (16:19)
[2018-01-02] MEDS: rOPINIRole TAB* 1 MG PO SCH (16:19)
[2018-01-02] MEDS: Levothyroxine TAB* 25 MCG TAB PO SCH (16:19)
[2018-01-02] MEDS: Metoclopramide TAB* 10 MG PO SCH (16:20)
[2018-01-02] MEDS: traZODone TAB* 50 MG TAB PO SCH (16:20)
[2018-01-02] MEDS: Ondansetron INJ* 2 MG/ML VIAL IV PRN (16:56)
[2018-01-02] MEDS ORDERED: Warfarin TAB(*) 7.5 MG PO ONE (17:00)
[2018-01-02] MEDS ORDERED: Ondansetron INJ* 2 MG/ML VIAL IV ONE (22:00)
[2018-01-03] MEDS: Heparin DRIP 25,000 UNITS(*) 25,000 UNITS/500 ML BAG IV SCH (00:08)
[2018-01-03] MEDS: traMADol TAB* 50 MG PO PRN ×3 (03:31→20:02)
[2018-01-03 04:34] LABS: ABS Basophils 0 10^3/ul (0-0.2); ABS Eosinophils 0.3 10^3/ul (0-0.6); ABS Monocytes 0.9 10^3/ul (0-0.8); ABS Neutrophils 5.2 10^3/ul (1.5-7.7); ABS Nucleated RBC 0 10^3/ul; Eosinophil % 4.6 % (0-6); Hematocrit 33 % (42-52); Hemoglobin 11.4 g/dl (14.0-18.0); Lymphocyte % 13.3 % (25-47); Mean Corpuscular HGB Conc 34 g/dl (31-36); Mean Corpuscular Hemoglobin 31 pg (27-31); Mean Corpuscular Volume 90 fL (80-94); Mean Platelet Volume 8.7 um3 (7.4-10.4); Nucleated Red Blood Cells % 0; Platelet Count 210 10^3/ul (150-450); Red Blood Count 3.69 10^6/ul (4.00-5.40); Red Cell Distribution Width 15 % (10.5-15); White Blood Count 7.5 10^3/ul (3.5-10.8)
[2018-01-03 04:48] LABS: INR 1.88 (0.77-1.02)
[2018-01-03 04:49] LABS: EGFR Non-African American 7.7 (>60)
--- NOTE | 2018-01-03 07:35 | PN ---
Subjective - Subjective Reason for Note: Progress Note History: He is vomiting today, this started last night. He had the same problem last week, but it resolved. In the meantime, we have discontinued his antibacterials - a possible cause of his nausea. He has a clear mental state today and is conversational. He acknowledges he is weak and would like to be able to go home. He accepts the need for PD. He denies chest pain, dyspnea or palpitations. He has no pain in his abdomen. His glucose is elevated this morning, but was fine yesterday. Active Problems: Active Problems Elevated liver enzymes (Acute) R74.8 End stage renal disease on dialysis (Acute) N18.6, Z99.2 Peritoneal dialysis status (Acute) Z99.2 Vomiting (Acute) R11.10 Acute renal failure (Chronic) Bradycardia (Chronic) R00.1 Chronic obstructive lung disease (Chronic) J44.9 Depression (Chronic) F32.9 Essential hypertension (Chronic) I10 Hyperlipidemia (Chronic) E78.5 Hypertension (Chronic) I10 - SBP 110-120's - Continue Lasix (decreased), Losartan Low back pain (Chronic) M54.5 Nephrotic syndrome (Chronic) N04.9 - Stage 5 CKD - No immediate need for dialysis, no hyperkalemia, acidosis, or volume overload - BP may be overtreated, reduce dose lasix, could be contributing to constipation. Neuropathy (Chronic) G62.9 Obesity (Chronic) E66.9 - BMI 32.8 Retinopathy (Chronic) H35.00 Type II diabetes mellitus - poor control (Chronic) E11.65 - Glucose 140-150's - Resume home Insulin Current Medications: Current Medications Acetaminophen (Tylenol Tab*) 650 mg PO QID [facility] Last Admin: 01/02/18 19:49 Dose: 650 mg Albuterol (Ventolin Hfa Inhaler*) 2 puff INH Q6H PRN PRN Reason: SHORTNESS OF BREATH Last Admin: 12/27/17 07:57 Dose: 2 puff Albuterol (Ventolin 2.5 Mg/3 Ml Neb.Brooke*) 2.5 mg INH Q2H PRN PRN Reason: SOB/WHEEZING Amiodarone HCl (Cordarone Tab*) 200 mg PO BID [facility] Last Admin: 01/02/18 19:49 Dose: 200 mg Atorvastatin Calcium (Lipitor*) 20 mg PO QPM [facility] Last Admin: 01/02/18 16:19 Dose: 20 mg Furosemide (Lasix Tab*) 120 mg PO BID [facility] Last Admin: 01/02/18 19:49 Dose: 120 mg Heparin Sodium (Porcine) (Heparin Vial(*)) 0 units IV .PER PROTOCOL GREGG Last Admin: 12/30/17 17:48 Dose: 5,750 units Heparin Sodium/Dextrose (Heparin Drip 25,000 Units(*)) 25,000 units in 500 mls @ 0 mls/hr IV PER RATE [facility]; Protocol Last Admin: 01/03/18 00:08 Dose: 22 mls/hr Insulin Glargine (Lantus(*)) 25 units SUBCUT Q12H [facility] Last Admin: 01/02/18 21:10 Dose: 25 units Insulin Human Lispro (Humalog*) 0 units SUBCUT AC [facility]; Protocol Last Admin: 01/02/18 17:37 Dose: Not Given Insulin Human Lispro (Humalog*) 0 units SUBCUT [facility]; Protocol Last Admin: 01/02/18 21:10 Dose: 2 units Lactulose (Lactulose*) 30 ml PO BID PRN PRN Reason: CONSTIPATION Last Admin: 12/31/17 04:41 Dose: 30 ml Levothyroxine Sodium (Synthroid Tab*) 25 mcg PO QPM [facility] Last Admin: 01/02/18 16:19 Dose: 25 mcg Metoclopramide HCl (Reglan Tab*) 5 mg PO QPM [facility] Last Admin: 01/02/18 16:20 Dose: 5 mg Metolazone (Zaroxolyn Tab*) 5 mg PO QAM@0830 [facility] Last Admin: 01/02/18 07:54 Dose: 5 mg Mometasone Furoate/Formoterol Fumar (Dulera 200/5 Mdi*) 2 puff INH BID [facility]; Protocol Last Admin: 01/02/18 20:03 Dose: 2 puff Mupirocin (Bactroban 2 % Oint*) 1 applic TOPICAL DAILY [facility] Last Admin: 01/02/18 08:32 Dose: 1 applic Omeprazole (Prilosec Cap*) 40 mg PO BID AC [facility] Last Admin: 01/02/18 16:20 Dose: 40 mg Ondansetron HCl (Zofran Inj*) 4 mg IV Q6HR PRN PRN Reason: VOMITING Last Admin: 01/02/18 16:56 Dose: 4 mg Pharmacy Profile Note (Coumadin Per Pharmacy*) 0 note FOLLOW UP .PER PHARMACY PROTOC [facility]; Protocol Ropinirole HCl (Requip Tab*) 1 mg PO QPM [facility] Last Admin: 01/02/18 16:19 Dose: 1 mg Tramadol HCl (Ultram*) 50 mg PO Q6H PRN PRN Reason: PAIN Last Admin: 01/03/18 03:31 Dose: 50 mg Trazodone HCl (Desyrel Tab*) 50 mg PO QPM [facility] Last Admin: 01/02/18 16:20 Dose: 50 mg Trolamine Salicylate (Myoflex 10% Cream*) 1 applic TOPICAL Q6H PRN PRN Reason: .PAIN Last Admin: 01/02/18 15:35 Dose: 1 applic Home Medications: Home Medications Medication Instructions Recorded Confirmed Type Insulin Regular, Human [Novolin R] 10 - 15 unit SUBCUT QAM MDD 60 08/08/1312/26 History units Losartan TAB* [Cozaar TAB*] 100 mg PO QPM 08/08/13 12/26/17 History Insulin NPH Human Isophane 0 - 40 unit SC BID MDD 100 units 01/16/14 12/26/17 History [Humulin N] Insulin Regular, Human [Novolin R] 15 - 30 unit SUBCUT QPM MDD 60 01/16/1412/26 History units Ascorbic Acid TAB* [Vitamin C 1,000 mg PO QAM 10/04/15 12/26/17 History TAB*] Fluticas/Salmet 115/21 HFA(NF) 2 puff INH BID 10/04/15 12/26/17 History [Advair HFA 115/21 (NF)] LoraTADine TAB(NF) [Claritin 10 MG 10 mg PO QPM PRN 10/04/15 12/26/17 History TAB(NF)] Brimonidine 0.2 % * [Alphagan P 1 drop BOTH EYES BID 04/28/17 12/26/17 History 0.2% *] Dorzolamide 2% OPTH (NF) [Trusopt 1 drop BOTH EYES BID 04/28/17 12/26/17 History 2% OPTH (NF)] traZODone TAB* [Desyrel TAB*] 50 mg PO QPM 04/28/17 12/26/17 History Albuterol HFA INHALER* [Ventolin 2 puff INH Q6H PRN 05/14/17 12/26/17 History HFA Inhaler*] Cholecalciferol TAB* [Vitamin D 1,000 unit PO BID 05/14/17 12/26/17 History TAB*] Codeine Phosphate/Guaifenesin 10 ml PO BID PRN MDD 20ml 05/14/17 12/26/17 History [Codeine-Guaifen 10-100 mg/5 ml] Diltiazem CD CAP* [Cardizem CD 180 mg PO QAM 05/14/17 12/26/17 History CAP*] Multivitamins/Minerals TAB* 1 tab PO QAM 05/14/17 12/26/17 History [Theragran/minerals TAB*] Omeprazole CAP* [Prilosec CAP* 20 40 mg PO BID 05/14/17 12/26/17 History MG] Simvastatin (NF) [Zocor (NF)] 40 mg PO QPM 05/14/17 12/26/17 History Lactulose* 30 ml PO BID 06/25/17 12/26/17 History Levothyroxine Sodium [Levo-T] 25 mcg PO QPM 06/25/17 12/26/17 History Metoclopramide HCl 5 mg PO TID AC 06/25/17 12/26/17 History Metoclopramide HCl [Reglan] 5 mg PO QPM 06/25/17 12/26/17 History Metolazone TAB* [Zaroxolyn TAB*] 5 mg PO QAM 06/25/17 12/26/17 History Ropinirole HCl 1 mg PO QPM 06/25/17 12/26/17 History Furosemide TAB* [Lasix TAB*] 120 mg PO BID 08/26/17 12/26/17 History guaiFENesin LIQ* [Robitussin*] 10 ml PO Q4H PRN 08/26/17 12/26/17 History Acetaminophen [Acetaminophen Extra 1,000 mg PO BID PRN 09/21/17 12/26/17 History Strength] Polyethylene Glycol 3350* 17 gm PO BEDTIME PRN 09/27/17 12/26/17 History [Miralax*] Allergies: Allergies Allergy/AdvReac Type Severity Reaction Status Date / Time amlodipine [From [facility]] Allergy Severe Swelling Verified 12/26/17 21:01 hydrocodone Allergy Severe Difficulty Verified 12/26/17 21:01 Breathing shellfish derived Allergy Severe Difficulty Verified 12/26/17 21:01 Breathing lisinopril Allergy Intermediate Coughing Verified 12/26/17 21:01 NSAIDS (Non-Steroidal AdvReac Unknown Unknown Verified 12/26/17 21:01 Anti-Inflamma Reaction Details Objective - Vital Signs Vital Signs: Vital Signs 01/02/18 01/02/18 01/02/18 07:51 07:53 07:56 Temperature 97.4 F Pulse Rate 64 63 Respiratory 22 20 15 Rate Blood Pressure 134/50 (mmHg) O2 Sat by Pulse 94 95 Oximetry 01/02/18 01/02/18 01/02/18 09:00 11:32 12:15 Temperature 97.9 F Pulse Rate 63 Respiratory 20 20 18 Rate Blood Pressure 134/55 (mmHg) O2 Sat by Pulse 100 Oximetry 01/02/18 01/02/18 01/02/18 14:55 15:11 16:26 Temperature 97.7 F Pulse Rate 60 Respiratory 16 20 Rate Blood Pressure 142/59 (mmHg) O2 Sat by Pulse 100 98 Oximetry 01/02/18 01/02/18 01/02/18 17:44 19:37 20:00 Temperature 98.1 F Pulse Rate 69 77 Respiratory 18 22 20 Rate Blood Pressure 139/52 (mmHg) O2 Sat by Pulse 100 100 Oximetry 01/02/18 01/02/18 01/02/18 20:08 20:30 21:08 Temperature 97.7 F Pulse Rate 77 72 Respiratory 20 24 Rate Blood Pressure 146/78 (mmHg) O2 Sat by Pulse 100 100 Oximetry 01/02/18 01/03/18 01/03/18 23:33 00:00 03:21 Temperature 97.9 F 97.5 F Pulse Rate 70 63 Respiratory 20 20 Rate Blood Pressure 147/54 147/64 (mmHg) O2 Sat by Pulse 100 100 100 Oximetry 01/03/18 03:31 Temperature Pulse Rate Respiratory 20 Rate Blood Pressure (mmHg) O2 Sat by Pulse Oximetry - Intake and Output Intake and Output: Intake & Output 12/31/17 01/01/18 01/02/18 01/03/18 11:59 11:59 11:59 11:59 Intake Total 490.9 1363 1148 1757 Output Total 204 551 6184 2060 Balance -464.1 763 -177 -303 Weight 218 lb 218 lb 213 lb 6.4 oz 213 lb 12.8 oz Intake: IVPB 487 ABX - LEVOFLOXACIN 59 ABX - VANCOMYCIN 238 Potassium 190 Heparin 490.9 296 1177 Oral 0 580 1148 580 Output: Urine 525 Akers 259 630 3506 2060 Other: # Bowel Movements 1 Estimated Stool Amount Large ADLs: Meal Record Start: 12/27/17 01: 20 Freq: 09,13,18 Status: Complete Protocol: Created 12/27/17 01:20 System (Rec: 12/27/17 01:20 System ICU-C12) Document 12/27/17 09:00 [id number] (Rec: 12/27/17 13:41 [id number] ICU-C12) Document 12/27/17 13:00 [id number] (Rec: 12/27/17 14:56 [id number] ICU-C12) Document 12/27/17 18:00 [id number] (Rec: 12/27/17 18:18 [id number] ICU-C12) Document 12/28/17 09:00 [id number] (Rec: 12/28/17 09:34 [id number] ICU-C15) ADLs: Meal Record Start: 12/28/17 17: 08 Freq: DAILY@0900,1400,1800 Status: Active Protocol: Created 12/28/17 17:08 [id number] (Rec: 12/28/17 17:08 [id number] TELE-C11) Document 12/28/17 20:29 [id number] (Rec: 12/28/17 20:29 [id number] TELE-C03) Document 12/29/17 09:00 ORY1515 (Rec: 12/29/17 09:19 [id number] TELE-C11) Document 12/29/17 10:25 MVH6956 (Rec: 12/29/17 10:25 ROF5260 TELE-C07) Document 12/29/17 14:00 [id number] (Rec: 12/29/17 15:23 QZP6165 TELE-C09) Document 12/29/17 20:59 [id number] (Rec: 12/29/17 21:00 DNJ0567 TELE-C11) Document 12/30/17 09:00 TGV1284 (Rec: 12/30/17 10:33 [id number] TELE-C11) Document 12/30/17 14:00 [id number] (Rec: 12/30/17 14:56 ZOC9469 TELE-C03) Document 12/30/17 18:00 TOP4443 (Rec: 12/30/17 21:05 [id number] TELE-C10) Document 12/31/17 09:00 MCV1758 (Rec: 12/31/17 09:56 MJQ5805 TELE-C03) Document 12/31/17 14:00 LRE3704 (Rec: 12/31/17 14:00 HFA7040 TELE-C03) Document 12/31/17 17:54 [id number] (Rec: 12/31/17 17:54 YBS0634 TELE-C10) Document 01/01/18 09:00 HFB1065 (Rec: 01/01/18 09:43 PQC2916 TELE-C05) Document 01/01/18 14:00 GVM5768 (Rec: 01/01/18 14:21 [id number] TELE-C11) Document 01/01/18 18:57 [id number] (Rec: 01/01/18 18:57 VBK0234 TELE-C03) Document 01/02/18 09:00 GMC7897 (Rec: 01/02/18 11:14 OKI5113 TELE-C11) Document 01/02/18 13:16 WJQ7637 (Rec: 01/02/18 13:17 ISJ5917 TELE-C11) Document 01/02/18 22:16 [id number] (Rec: 01/02/18 22:16 YBR0912 TELE-C11) Intake and Output Start: 12/26/17 20: 51 Freq: Status: Active Protocol: Created 12/26/17 20:51 System (Rec: 12/26/17 20:51 System ED-C31) Intake and Output Start: 12/27/17 01: 20 Freq: Q1HR Status: Complete Protocol: Created 12/27/17 01:20 System (Rec: 12/27/17 01:20 System ICU-C12) Document 12/27/17 03:00 [id number] (Rec: 12/27/17 04:39 [id number] ICU-C15) Document 12/27/17 05:00 DQP0670 (Rec: 12/27/17 05:10 LAE0512 ICU-C15) Document 12/27/17 05:17 WUM4286 (Rec: 12/27/17 05:17 GRG3603 ICU-M29) Document 12/27/17 11:23 XSV3776 (Rec: 12/27/17 11:23 [id number] ICU-C12) Document 12/27/17 16:42 YNC3943 (Rec: 12/27/17 16:42 [id number] ISDEMO-M05 ) Document 12/27/17 18:18 IET6469 (Rec: 12/27/17 18:18 ISY7700 ICU-C12) Document 12/27/17 19:00 ZPO7270 (Rec: 12/27/17 20:04 [id number] ICU-C16) Document 12/27/17 20:00 MHI6929 (Rec: 12/27/17 20:04 XIF1652 ICU-C16) Document 12/27/17 22:00 WME6510 (Rec: 12/27/17 22:08 XWE1087 ICU-M28) Document 12/28/17 06:07 XFH1337 (Rec: 12/28/17 06:07 [id number] ICU-C15) Document 12/28/17 07:00 RAG9765 (Rec: 12/28/17 07:37 [id number] ICU-C15) Document 12/28/17 13:40 [id number] (Rec: 12/28/17 13:40 [id number] ICU-C15) Intake and Output Start: 01/01/18 06: 53 Freq: Status: Active Protocol: Document 01/01/18 06:00 (Rec: 01/01/18 06:53 [id number]) Created 01/01/18 06:53 (Rec: 01/01/18 06:53 [id number]) Document 01/01/18 14:21 [id number] (Rec: 01/01/18 14:21 [id number] TELE-C11) Document 01/01/18 21:55 JUQ0463 (Rec: 01/01/18 21:55 TFW1472 TELE-C13) Document 01/02/18 06:00 LGP4048 (Rec: 01/02/18 06:16 PUO3945 TELE-C01) Document 01/02/18 22:26 LQT5442 (Rec: 01/02/18 22:27 [id number] TELE-C11) Document 01/02/18 22:45 [id number] (Rec: 01/02/18 22:45 [id number] TELE-C11) Document 01/03/18 06:00 [id number] (Rec: 01/03/18 06:05 [id number] [id number]) - Physical Exam General Physical Exam Comment: He is nauseated and having some dry heaves. Otherwise, he is conversational and aware of his situation. He has no marked tremor today General: No Cyanosis, Yes Anemia, No Jaundice, No Clubbing Lungs and Chest: Yes: Chest Expansion Full, Chest Expansion Symetrica, Percussion Note Resonant, Vessicular Breath Sounds. No: Crackles, Wheezes, Respiratory Distress Heart Rate and Rhythm: Regular Additional Cardiovascular: Yes: Normal Heart Sounds, Heart Murmur. No: Pedal Edema Abdominal Exam: Yes: Distention, Soft, Bowel Sounds Present. No: Abdominal Mass , Abdominal Tenderness Results - Results Lab Results: Laboratory Results - last 24 hr 01/02/18 01/02/18 01/02/18 07:18 09:12 11:14 WBC RBC Hgb Hct MCV MCH MCHC RDW Plt Count MPV Neut % (Auto) Lymph % (Auto) [place] % (Auto) Eos % (Auto) Baso % (Auto) Absolute Neuts (auto) Absolute Lymphs (auto) Absolute Monos (auto) Absolute Eos (auto) Absolute Basos (auto) Absolute Nucleated RBC Nucleated RBC % INR (Anticoag Therapy) APTT 83.2 H Sodium Potassium Chloride Carbon Dioxide Anion Gap BUN Creatinine Est GFR ( Amer) Est GFR (Non-Af Amer) BUN/Creatinine Ratio Glucose POC Glucose (mg/dL) 139 H 215 H Calcium Phosphorus Magnesium Total Bilirubin AST ALT Alkaline Phosphatase C-Reactive Protein Total Protein Albumin Globulin Albumin/Globulin Ratio 01/02/18 01/02/18 01/02/18 16:20 16:26 20:18 WBC RBC Hgb Hct MCV MCH MCHC RDW Plt Count MPV Neut % (Auto) Lymph % (Auto) [place] % (Auto) Eos % (Auto) Baso % (Auto) Absolute Neuts (auto) Absolute Lymphs (auto) Absolute Monos (auto) Absolute Eos (auto) Absolute Basos (auto) Absolute Nucleated RBC Nucleated RBC % INR (Anticoag Therapy) APTT 71.0 H Sodium Potassium Chloride Carbon Dioxide Anion Gap BUN Creatinine Est GFR ( Amer) Est GFR (Non-Af Amer) BUN/Creatinine Ratio Glucose POC Glucose (mg/dL) 163 H 132 H Calcium Phosphorus Magnesium Total Bilirubin AST ALT Alkaline Phosphatase C-Reactive Protein Total Protein Albumin Globulin Albumin/Globulin Ratio 01/02/18 01/03/18 01/03/18 21:53 04:17 04:17 WBC 7.5 RBC 3.69 L Hgb 11.4 L Hct 33 L MCV 90 MCH 31 MCHC 34 RDW 15 Plt Count 210 MPV 8.7 Neut % (Auto) 69.7 Lymph % (Auto) 13.3 L [place] % (Auto) 12.1 H Eos % (Auto) 4.6 Baso % (Auto) 0.3 Absolute Neuts (auto) 5.2 Absolute Lymphs (auto) 1.0 Absolute Monos (auto) 0.9 H Absolute Eos (auto) 0.3 Absolute Basos (auto) 0 Absolute Nucleated RBC 0 Nucleated RBC % 0 INR (Anticoag Therapy) 1.88 H APTT 57.8 H 53.4 H Sodium Potassium Chloride Carbon Dioxide Anion Gap BUN Creatinine Est GFR ( Amer) Est GFR (Non-Af Amer) BUN/Creatinine Ratio Glucose POC Glucose (mg/dL) Calcium Phosphorus Magnesium Total Bilirubin AST ALT Alkaline Phosphatase C-Reactive Protein Total Protein Albumin Globulin Albumin/Globulin Ratio 01/03/18 04:23 WBC RBC Hgb Hct MCV MCH MCHC RDW Plt Count MPV Neut % (Auto) Lymph % (Auto) [place] % (Auto) Eos % (Auto) Baso % (Auto) Absolute Neuts (auto) Absolute Lymphs (auto) Absolute Monos (auto) Absolute Eos (auto) Absolute Basos (auto) Absolute Nucleated RBC Nucleated RBC % INR (Anticoag Therapy) APTT Sodium 136 Potassium 3.4 L Chloride 91 L Carbon Dioxide 32 Anion Gap 13 H BUN 63 H Creatinine 7.04 H Est GFR ( Amer) 9.3 Est GFR (Non-Af Amer) 7.7 BUN/Creatinine Ratio 8.9 Glucose 239 H POC Glucose (mg/dL) Calcium 10.1 Phosphorus 7.4 H Magnesium 2.0 Total Bilirubin 0.40 AST 42 H ALT 148 H Alkaline Phosphatase 242 H C-Reactive Protein 38.33 H Total Protein 6.1 L Albumin 3.3 Globulin 2.8 Albumin/Globulin Ratio 1.2 Assessment - Problem List Assessment: Patient Problems Elevated liver enzymes (Acute) End stage renal disease on dialysis (Acute) Peritoneal dialysis status (Acute) Vomiting (Acute) Acute renal failure (Chronic) Bradycardia (Chronic) Chronic obstructive lung disease (Chronic) Depression (Chronic) Essential hypertension (Chronic) Hyperlipidemia (Chronic) Hypertension (Chronic) Low back pain (Chronic) Nephrotic syndrome (Chronic) Neuropathy (Chronic) Obesity (Chronic) Retinopathy (Chronic) Type II diabetes mellitus - poor control (Chronic) DVT prophylaxis (Chronic) Full code status (Chronic) Plan: Vomiting (Acute)/Elevated liver enzymes (Acute) He has nausea and vomiting. I note his LFTs are elevated. Possiblities: cholecystitis. I will add an amylase/lipase to rule out pancreatitis - though he is not describing pain. His neutrophil% is not elevated and his CRP remains low - making choleangitis unlikely. Nausea secondary pharmacology - I note he is receiving high doses of amiodarone - I will cut this down to 200 mg qdaily. Otherwise, there is nothing new. Gastroparesis - I think this is too acute to be secondary to gastroparesis End stage renal disease on dialysis (Acute) Peritoneal dialysis status (Acute) Acute renal failure (Chronic) Nephrotic syndrome (Chronic) Per Dr. Chacon Bradycardia (Chronic) no problems on telemetry Chronic obstructive lung disease (Chronic) secondary diagnosis Depression (Chronic) He denies significant depression at present Essential hypertension (Chronic) BP controlled Hyperlipidemia (Chronic) secondary diagnosis Low back pain (Chronic) secondary diagnosis Neuropathy (Chronic) Nephrotic syndrome (Chronic) Obesity (Chronic) Retinopathy (Chronic) Nephrotic syndrome (Chronic) Type II diabetes mellitus - poor control (Chronic) stable DVT prophylaxis (Chronic) Full code status (Chronic) Anticoagulation - he is not yet therapeutic on warfarin. I spoke to the patient and with Suyapa Shannon on the phone. The vomiting/ elevated LFTs are a setback. I will wait on considering the next step in rehab until we have resolved this problem. Otherwise, he is looking much better from the infection/renal failure point of view.
[2018-01-03] MEDS: Ondansetron INJ* 2 MG/ML VIAL IV PRN ×3 (07:46→22:15)
[2018-01-03] MEDS: Omeprazole CAP* 20 MG PO SCH ×2 (07:46→18:06)
[2018-01-03] MEDS: Mometasone/Formoter 200/5 MDI INH SCH ×2 (08:08→20:14)
[2018-01-03] MEDS: Acetaminophen TAB* 325 MG PO SCH ×4 (08:13→21:01)
[2018-01-03] MEDS: Metolazone TAB* 5 MG PO SCH (08:13)
[2018-01-03] MEDS: Amiodarone TAB* 200 MG PO SCH (08:20)
[2018-01-03] MEDS: Furosemide TAB* 40 MG PO SCH ×2 (08:24→21:01)
--- NOTE | 2018-01-03 10:31 | RAD ---
INDICATION: Cholelithiasis COMPARISON: CT May 14, 2017 TECHNIQUE: Longitudinal and transverse scans of the right upper quadrant were obtained. Doppler interrogation of the hepatic and portal venous system was performed. FINDINGS: Liver: The liver is normal in size and echogenicity. There are no focal masses. The liver measures 18.2 cm in cephalocaudal dimension. Vessels: There is normal hepatic and portal venous flow. Bile ducts: There is mild intra and extrahepatic ductal dilatation. The common duct measures 0.9 cm. Gallbladder: There are multiple gallstones. There is biliary sludge. There is a small amount of pericholecystic fluid. Gallbladder wall is top normal in thickness measuring 0.3 cm. Pancreas: Not well-visualized due to bowel gas Right kidney: The right kidney is normal in size and echogenicity. There are no masses or calculi. There is no evidence of hydronephrosis. The right kidney measures 9.8 x 4.1 x 4.5 cm. There is a small cyst in the upper pole measuring 1.7 cm IVC and aorta: The aorta and superior vena cava appear normal. Fluid: There is no ascites. Other: None. IMPRESSION: CHOLELITHIASIS WITH. SONOGRAPHIC FINDINGS OF MILD ACUTE CHOLECYSTITIS WITH MILD DUCTAL DILATATION AND PERICHOLECYSTIC FLUID
[2018-01-03] MEDS: Insulin LISPRO* 1 UNITS UNIT SUBCUT SCH ×7 (11:07→21:08)
[2018-01-03] MEDS: Insulin GLARGINE(*) 1 UNITS UNIT SUBCUT SCH ×2 (11:08→21:08)
[2018-01-03] MEDS: Mupirocin 2% OINT* TUBE TOPICAL SCH (12:29)
[2018-01-03] MEDS ORDERED: LORazepam INJ* 2 MG/ML 1 ML VIAL IV PUSH ONE (12:44)
[2018-01-03] MEDS ORDERED: LORazepam INJ* 2 MG/ML 1 ML VIAL ONE (13:30)
[2018-01-03] MEDS ORDERED: Warfarin TAB(*) 7.5 MG PO ONE (17:00)
[2018-01-03] MEDS: Atorvastatin* 20 MG TAB PO SCH (18:06)
[2018-01-03] MEDS: traZODone TAB* 50 MG TAB PO SCH (18:07)
[2018-01-03] MEDS: Metoclopramide TAB* 10 MG PO SCH (18:09)
[2018-01-03] MEDS: rOPINIRole TAB* 1 MG PO SCH (18:10)
[2018-01-03] MEDS: Levothyroxine TAB* 25 MCG TAB PO SCH (18:10)
[2018-01-04] MEDS: traMADol TAB* 50 MG PO PRN (02:11)
[2018-01-04] MEDS: Heparin DRIP 25,000 UNITS(*) 25,000 UNITS/500 ML BAG IV SCH (02:20)
[2018-01-04] MEDS: Trolamine Salicyl. 10% CREAM* 85 GM TUBE TOPICAL PRN ×3 (04:10→21:48)
[2018-01-04 06:17] LABS: Hematocrit 34 % (42-52); Hemoglobin 11.5 g/dl (14.0-18.0); Mean Corpuscular HGB Conc 34 g/dl (31-36); Mean Corpuscular Hemoglobin 31 pg (27-31); Mean Corpuscular Volume 91 fL (80-94); Mean Platelet Volume 8.5 um3 (7.4-10.4); Platelet Count 220 10^3/ul (150-450); Red Blood Count 3.73 10^6/ul (4.00-5.40); Red Cell Distribution Width 15 % (10.5-15); White Blood Count 8.7 10^3/ul (3.5-10.8)
[2018-01-04 06:22] LABS: ABS Basophils 0 10^3/ul (0-0.2); ABS Eosinophils 0.4 10^3/ul (0-0.6); ABS Lymphocytes 1.2 10^3/ul (1.0-4.8); ABS Monocytes 1.1 10^3/ul (0-0.8); ABS Neutrophils 6.1 10^3/ul (1.5-7.7); ABS Nucleated RBC 0 10^3/ul; INR 2.3 (0.77-1.02)
[2018-01-04 06:44] LABS: EGFR Non-African American 7.7 (>60)
[2018-01-04 06:49] LABS: Eosinophil % 4.3 % (0-6); Lymphocyte % 13.4 % (25-47); Nucleated Red Blood Cells % 0
[2018-01-04] MEDS: Mometasone/Formoter 200/5 MDI INH SCH ×2 (07:44→20:21)
--- NOTE | 2018-01-04 08:17 | PN ---
Subjective - Subjective Reason for Note: Progress Note History: He had some further nausea/vomiting yesterday, but denies any abdominal pain. Overnight he had severe pain in both thighs and some in his calves - this required oxycodone. He has had this in the past and attributes it to sitting in a chair for long periods of time. He tolerated PD overnight. He has no chest pain, palpitations, dyspnea. He has not vomited this morning, but has anorexia. Active Problems: Active Problems Cholecystitis (Acute) K81.9 Elevated liver enzymes (Acute) R74.8 End stage renal disease on dialysis (Acute) N18.6, Z99.2 Peritoneal dialysis status (Acute) Z99.2 Vomiting (Acute) R11.10 Acute renal failure (Chronic) Bradycardia (Chronic) R00.1 Chronic obstructive lung disease (Chronic) J44.9 Depression (Chronic) F32.9 Essential hypertension (Chronic) I10 Hyperlipidemia (Chronic) E78.5 Hypertension (Chronic) I10 - SBP 110-120's - Continue Lasix (decreased), Losartan Low back pain (Chronic) M54.5 Nephrotic syndrome (Chronic) N04.9 - Stage 5 CKD - No immediate need for dialysis, no hyperkalemia, acidosis, or volume overload - BP may be overtreated, reduce dose lasix, could be contributing to constipation. Neuropathy (Chronic) G62.9 Obesity (Chronic) E66.9 - BMI 32.8 Retinopathy (Chronic) H35.00 Type II diabetes mellitus - poor control (Chronic) E11.65 - Glucose 140-150's - Resume home Insulin Current Medications: Current Medications Acetaminophen (Tylenol Tab*) 650 mg PO QID [facility] Last Admin: 01/03/18 21:01 Dose: 650 mg Albuterol (Ventolin Hfa Inhaler*) 2 puff INH Q6H PRN PRN Reason: SHORTNESS OF BREATH Last Admin: 12/27/17 07:57 Dose: 2 puff Albuterol (Ventolin 2.5 Mg/3 Ml Neb.Brooke*) 2.5 mg INH Q2H PRN PRN Reason: SOB/WHEEZING Amiodarone HCl (Cordarone Tab*) 200 mg PO DAILY [facility] Last Admin: 01/03/18 08:20 Dose: 200 mg Atorvastatin Calcium (Lipitor*) 20 mg PO QPM [facility] Last Admin: 01/03/18 18:06 Dose: 20 mg Furosemide (Lasix Tab*) 120 mg PO BID [facility] Last Admin: 01/03/18 21:01 Dose: 120 mg Heparin Sodium (Porcine) (Heparin Vial(*)) 0 units IV .PER PROTOCOL GREGG Last Admin: 12/30/17 17:48 Dose: 5,750 units Heparin Sodium/Dextrose (Heparin Drip 25,000 Units(*)) 25,000 units in 500 mls @ 0 mls/hr IV PER RATE GREGG; Protocol Last Admin: 01/04/18 02:20 Dose: 22 mls/hr Insulin Glargine (Lantus(*)) 25 units SUBCUT Q12H [facility] Last Admin: 01/03/18 21:08 Dose: 25 units Insulin Human Lispro (Humalog*) 0 units SUBCUT AC [facility]; Protocol Last Admin: 01/03/18 18:05 Dose: 2 units Insulin Human Lispro (Humalog*) 0 units SUBCUT ACHS [facility]; Protocol Last Admin: 01/03/18 21:08 Dose: 2 units Lactulose (Lactulose*) 30 ml PO BID PRN PRN Reason: CONSTIPATION Last Admin: 12/31/17 04:41 Dose: 30 ml Levothyroxine Sodium (Synthroid Tab*) 25 mcg PO QPM [facility] Last Admin: 01/03/18 18:10 Dose: 25 mcg Metoclopramide HCl (Reglan Tab*) 5 mg PO QPM [facility] Last Admin: 01/03/18 18:09 Dose: 5 mg Metolazone (Zaroxolyn Tab*) 5 mg PO QAM@0830 [facility] Last Admin: 01/03/18 08:13 Dose: 5 mg Mometasone Furoate/Formoterol Fumar (Dulera 200/5 Mdi*) 2 puff INH BID [facility]; Protocol Last Admin: 01/04/18 07:44 Dose: 2 puff Mupirocin (Bactroban 2 % Oint*) 1 applic TOPICAL DAILY [facility] Last Admin: 01/03/18 12:29 Dose: 1 applic Omeprazole (Prilosec Cap*) 40 mg PO BID AC [facility] Last Admin: 01/03/18 18:06 Dose: 40 mg Ondansetron HCl (Zofran Inj*) 4 mg IV Q6HR PRN PRN Reason: VOMITING Last Admin: 01/03/18 22:15 Dose: 4 mg Oxycodone HCl (Roxycodone Tab*) 5 mg PO Q6H PRN PRN Reason: PAIN MODERATE TO SEVERE Pharmacy Profile Note (Coumadin Per Pharmacy*) 0 note FOLLOW UP .PER PHARMACY PROTOC [facility]; Protocol Ropinirole HCl (Requip Tab*) 1 mg PO QPM [facility] Last Admin: 01/03/18 18:10 Dose: 1 mg Tramadol HCl (Ultram*) 50 mg PO Q6H PRN PRN Reason: PAIN Last Admin: 01/04/18 02:11 Dose: 50 mg Trazodone HCl (Desyrel Tab*) 50 mg PO QPM [facility] Last Admin: 01/03/18 18:07 Dose: 50 mg Trolamine Salicylate (Myoflex 10% Cream*) 1 applic TOPICAL Q6H PRN PRN Reason: .PAIN Last Admin: 01/04/18 04:10 Dose: 1 applic Home Medications: Home Medications Medication Instructions Recorded Confirmed Type Insulin Regular, Human [Novolin R] 10 - 15 unit SUBCUT QAM MDD 60 08/08/1312/26 History units Losartan TAB* [Cozaar TAB*] 100 mg PO QPM 08/08/13 12/26/17 History Insulin NPH Human Isophane 0 - 40 unit SC BID MDD 100 units 01/16/14 12/26/17 History [Humulin N] Insulin Regular, Human [Novolin R] 15 - 30 unit SUBCUT QPM MDD 60 01/16/1412/26 History units Ascorbic Acid TAB* [Vitamin C 1,000 mg PO QAM 10/04/15 12/26/17 History TAB*] Fluticas/Salmet 115/21 HFA(NF) 2 puff INH BID 10/04/15 12/26/17 History [Advair HFA 115/21 (NF)] LoraTADine TAB(NF) [Claritin 10 MG 10 mg PO QPM PRN 10/04/15 12/26/17 History TAB(NF)] Brimonidine 0.2 % * [Alphagan P 1 drop BOTH EYES BID 04/28/17 12/26/17 History 0.2% *] Dorzolamide 2% OPTH (NF) [Trusopt 1 drop BOTH EYES BID 04/28/17 12/26/17 History 2% OPTH (NF)] traZODone TAB* [Desyrel TAB*] 50 mg PO QPM 04/28/17 12/26/17 History Albuterol HFA INHALER* [Ventolin 2 puff INH Q6H PRN 05/14/17 12/26/17 History HFA Inhaler*] Cholecalciferol TAB* [Vitamin D 1,000 unit PO BID 05/14/17 12/26/17 History TAB*] Codeine Phosphate/Guaifenesin 10 ml PO BID PRN MDD 20ml 05/14/17 12/26/17 History [Codeine-Guaifen 10-100 mg/5 ml] Diltiazem CD CAP* [Cardizem CD 180 mg PO QAM 05/14/17 12/26/17 History CAP*] Multivitamins/Minerals TAB* 1 tab PO QAM 05/14/17 12/26/17 History [Theragran/minerals TAB*] Omeprazole CAP* [Prilosec CAP* 20 40 mg PO BID 05/14/17 12/26/17 History MG] Simvastatin (NF) [Zocor (NF)] 40 mg PO QPM 05/14/17 12/26/17 History Lactulose* 30 ml PO BID 06/25/17 12/26/17 History Levothyroxine Sodium [Levo-T] 25 mcg PO QPM 06/25/17 12/26/17 History Metoclopramide HCl 5 mg PO TID AC 06/25/17 12/26/17 History Metoclopramide HCl [Reglan] 5 mg PO QPM 06/25/17 12/26/17 History Metolazone TAB* [Zaroxolyn TAB*] 5 mg PO QAM 06/25/17 12/26/17 History Ropinirole HCl 1 mg PO QPM 06/25/17 12/26/17 History Furosemide TAB* [Lasix TAB*] 120 mg PO BID 08/26/17 12/26/17 History guaiFENesin LIQ* [Robitussin*] 10 ml PO Q4H PRN 08/26/17 12/26/17 History Acetaminophen [Acetaminophen Extra 1,000 mg PO BID PRN 09/21/17 12/26/17 History Strength] Polyethylene Glycol 3350* 17 gm PO BEDTIME PRN 09/27/17 12/26/17 History [Miralax*] Allergies: Allergies Allergy/AdvReac Type Severity Reaction Status Date / Time amlodipine [From [facility]] Allergy Severe Swelling Verified 12/26/17 21:01 hydrocodone Allergy Severe Difficulty Verified 12/26/17 21:01 Breathing shellfish derived Allergy Severe Difficulty Verified 12/26/17 21:01 Breathing lisinopril Allergy Intermediate Coughing Verified 12/26/17 21:01 NSAIDS (Non-Steroidal AdvReac Unknown Unknown Verified 12/26/17 21:01 Anti-Inflamma Reaction Details Objective - Vital Signs Vital Signs: Vital Signs 01/03/18 01/03/18 01/03/18 08:10 11:34 12:20 Temperature 96.9 F 97.7 F Pulse Rate 69 62 Respiratory 20 20 24 Rate Blood Pressure 126/66 138/63 (mmHg) O2 Sat by Pulse 100 100 Oximetry 01/03/18 01/03/18 01/03/18 13:40 14:39 15:04 Temperature 97.7 F Pulse Rate 66 Respiratory 24 18 16 Rate Blood Pressure 125/58 (mmHg) O2 Sat by Pulse 100 Oximetry 01/03/18 01/03/18 01/03/18 16:12 19:21 20:00 Temperature 97.7 F Pulse Rate 70 Respiratory 18 18 18 Rate Blood Pressure 132/58 (mmHg) O2 Sat by Pulse 100 Oximetry 01/03/18 01/03/18 01/03/18 20:02 20:16 23:45 Temperature 98.3 F Pulse Rate 99 74 Respiratory 18 18 19 Rate Blood Pressure 126/61 (mmHg) O2 Sat by Pulse 98 100 Oximetry 01/04/18 01/04/18 01/04/18 02:11 03:27 03:52 Temperature 97.6 F Pulse Rate 70 Respiratory 18 28 20 Rate Blood Pressure 121/65 (mmHg) O2 Sat by Pulse 100 Oximetry 01/04/18 07:46 Temperature Pulse Rate 88 Respiratory 16 Rate Blood Pressure (mmHg) O2 Sat by Pulse 99 Oximetry - Intake and Output Intake and Output: Intake & Output 01/01/18 01/02/18 01/03/18 01/04/18 11:59 11:59 11:59 11:59 Intake Total 1363 1148 1957 417 Output Total 600 1325 2060 360 Balance 763 -177 -103 57 Weight 218 lb 213 lb 6.4 oz 213 lb 12.8 oz 203 lb 14.4 oz Intake: IVPB 487 ABX - LEVOFLOXACIN 59 ABX - VANCOMYCIN 238 Potassium 190 Heparin 296 1177 417 Oral 580 1148 780 Output: Urine 110 Akers 600 1325 2060 250 Other: # Bowel Movements 1 Estimated Stool Amount Large ADLs: Meal Record Start: 12/27/17 01: 20 Freq: 09,13,18 Status: Complete Protocol: Created 12/27/17 01:20 System (Rec: 12/27/17 01:20 System ICU-C12) Document 12/27/17 09:00 [id number] (Rec: 12/27/17 13:41 [id number] ICU-C12) Document 12/27/17 13:00 IEW2024 (Rec: 12/27/17 14:56 VBQ3659 ICU-C12) Document 12/27/17 18:00 [id number] (Rec: 12/27/17 18:18 IGE2341 ICU-C12) Document 12/28/17 09:00 PBO4669 (Rec: 12/28/17 09:34 [id number] ICU-C15) ADLs: Meal Record Start: 12/28/17 17: 08 Freq: DAILY@0900,1400,1800 Status: Active Protocol: Created 12/28/17 17:08 [id number] (Rec: 12/28/17 17:08 [id number] TELE-C11) Document 12/28/17 20:29 JVX3377 (Rec: 12/28/17 20:29 TNK0229 TELE-C03) Document 12/29/17 09:00 PUW7250 (Rec: 12/29/17 09:19 RMD1616 TELE-C11) Document 12/29/17 10:25 FIM4710 (Rec: 12/29/17 10:25 OGI6104 TELE-C07) Document 12/29/17 14:00 ZAH1159 (Rec: 12/29/17 15:23 OJI6069 TELE-C09) Document 12/29/17 20:59 EFQ8806 (Rec: 12/29/17 21:00 WKV1825 TELE-C11) Document 12/30/17 09:00 PEO8690 (Rec: 12/30/17 10:33 YEP3232 TELE-C11) Document 12/30/17 14:00 OLM6082 (Rec: 12/30/17 14:56 OTR4139 TELE-C03) Document 12/30/17 18:00 QOW1465 (Rec: 12/30/17 21:05 WCW2780 TELE-C10) Document 12/31/17 09:00 QFF5142 (Rec: 12/31/17 09:56 EBK4587 TELE-C03) Document 12/31/17 14:00 VQK0934 (Rec: 12/31/17 14:00 IXD4145 TELE-C03) Document 12/31/17 17:54 KBN3606 (Rec: 12/31/17 17:54 CZS0507 TELE-C10) Document 01/01/18 09:00 LEE0143 (Rec: 01/01/18 09:43 CBT0484 TELE-C05) Document 01/01/18 14:00 CEH2989 (Rec: 01/01/18 14:21 YFL9482 TELE-C11) Document 01/01/18 18:57 YMN9502 (Rec: 01/01/18 18:57 IZL4617 TELE-C03) Document 01/02/18 09:00 VPN0075 (Rec: 01/02/18 11:14 KEG7832 TELE-C11) Document 01/02/18 13:16 LEW2395 (Rec: 01/02/18 13:17 OIJ7853 TELE-C11) Document 01/02/18 22:16 HNN5508 (Rec: 01/02/18 22:16 MOR9051 TELE-C11) Document 01/03/18 09:00 WTD7656 (Rec: 01/03/18 12:29 YNZ4834 TELE-C05) Document 01/03/18 14:00 CXF0030 (Rec: 01/03/18 14:28 WNW4026 TELE-C05) Document 01/03/18 21:53 AES0963 (Rec: 01/03/18 21:54 RHU3137 TELE-C11) Intake and Output Start: 12/26/17 20: 51 Freq: Status: Active Protocol: Created 12/26/17 20:51 System (Rec: 12/26/17 20:51 System ED-C31) Intake and Output Start: 12/27/17 01: 20 Freq: Q1HR Status: Complete Protocol: Created 12/27/17 01:20 System (Rec: 12/27/17 01:20 System ICU-C12) Document 12/27/17 03:00 AMT8584 (Rec: 12/27/17 04:39 WLH8273 ICU-C15) Document 12/27/17 05:00 GUI0695 (Rec: 12/27/17 05:10 JEF7591 ICU-C15) Document 12/27/17 05:17 PWH0495 (Rec: 12/27/17 05:17 FTJ1789 ICU-M29) Document 12/27/17 11:23 JBO4912 (Rec: 12/27/17 11:23 GLO1178 ICU-C12) Document 12/27/17 16:42 DHB5652 (Rec: 12/27/17 16:42 SZK3572 ISDEMO-M05 ) Document 12/27/17 18:18 UCP7687 (Rec: 12/27/17 18:18 HRH4140 ICU-C12) Document 12/27/17 19:00 VXB9706 (Rec: 12/27/17 20:04 VAR3623 ICU-C16) Document 12/27/17 20:00 ZTB1128 (Rec: 12/27/17 20:04 FRV0709 ICU-C16) Document 12/27/17 22:00 QLV4593 (Rec: 12/27/17 22:08 VJS6202 ICU-M28) Document 12/28/17 06:07 WPQ4714 (Rec: 12/28/17 06:07 VTS4761 ICU-C15) Document 12/28/17 07:00 COS1150 (Rec: 12/28/17 07:37 PRG8128 ICU-C15) Document 12/28/17 13:40 SED9941 (Rec: 12/28/17 13:40 YCZ9340 ICU-C15) Intake and Output Start: 01/01/18 06: 53 Freq: Status: Active Protocol: Document 01/01/18 06:00 (Rec: 01/01/18 06:53 [id number]) Created 01/01/18 06:53 (Rec: 01/01/18 06:53 [id number]) Document 01/01/18 14:21 ICW0511 (Rec: 07/14/18 14:21 TVG6715 TELE-C11) Document 01/01/18 21:55 DRI2938 (Rec: 01/01/18 21:55 VWY2034 TELE-C13) Document 01/02/18 06:00 VIM0218 (Rec: 01/02/18 06:16 ZVX5670 TELE-C01) Document 01/02/18 22:26 LVC4544 (Rec: 01/02/18 22:27 CON2521 TELE-C11) Document 01/02/18 22:45 WYV3084 (Rec: 01/02/18 22:45 WWW8578 TELE-C11) Document 01/03/18 06:00 EJU2488 (Rec: 01/03/18 06:05 [id number]) - Physical Exam General: No Cyanosis, Yes Anemia, No Jaundice, No Clubbing Lungs and Chest: Yes: Chest Expansion Full, Chest Expansion Symetrica, Percussion Note Resonant, Vessicular Breath Sounds. No: Crackles, Wheezes Heart Rate and Rhythm: Regular Additional Cardiovascular: Yes: Normal Heart Sounds, Heart Murmur - 2/6 systolic. No: Pedal Edema Abdominal Exam: Yes: Soft, Bowel Sounds Present. No: Distention, Abdominal Mass , Abdominal Tenderness, Guarding, Rebound Tenderness Results - Results Lab Results: Laboratory Results - last 24 hr 01/03/18 01/03/18 01/03/18 04:23 13:41 16:37 WBC RBC Hgb Hct MCV MCH MCHC RDW Plt Count MPV Neut % (Auto) Lymph % (Auto) Menard % (Auto) Eos % (Auto) Baso % (Auto) Absolute Neuts (auto) Absolute Lymphs (auto) Absolute Monos (auto) Absolute Eos (auto) Absolute Basos (auto) Absolute Nucleated RBC Nucleated RBC % INR (Anticoag Therapy) APTT Sodium Potassium Chloride Carbon Dioxide Anion Gap BUN Creatinine Est GFR ( Amer) Est GFR (Non-Af Amer) BUN/Creatinine Ratio Glucose POC Glucose (mg/dL) 224 H 123 H Calcium Total Bilirubin Direct Bilirubin Indirect Bilirubin AST ALT Alkaline Phosphatase C-Reactive Protein Total Protein Albumin Globulin Albumin/Globulin Ratio Amylase < 10 L Lipase 42 01/03/18 01/03/18 01/04/18 20:19 20:29 04:13 WBC RBC Hgb Hct MCV MCH MCHC RDW Plt Count MPV Neut % (Auto) Lymph % (Auto) Menard % (Auto) Eos % (Auto) Baso % (Auto) Absolute Neuts (auto) Absolute Lymphs (auto) Absolute Monos (auto) Absolute Eos (auto) Absolute Basos (auto) Absolute Nucleated RBC Nucleated RBC % INR (Anticoag Therapy) APTT 72.3 H Sodium Potassium Chloride Carbon Dioxide Anion Gap BUN Creatinine Est GFR ( Amer) Est GFR (Non-Af Amer) BUN/Creatinine Ratio Glucose POC Glucose (mg/dL) 67 L 150 H Calcium Total Bilirubin Direct Bilirubin Indirect Bilirubin AST ALT Alkaline Phosphatase C-Reactive Protein Total Protein Albumin Globulin Albumin/Globulin Ratio Amylase Lipase 01/04/18 01/04/18 01/04/18 06:08 06:08 06:08 WBC 8.7 RBC 3.73 L Hgb 11.5 L Hct 34 L MCV 91 MCH 31 MCHC 34 RDW 15 Plt Count 220 MPV 8.5 Neut % (Auto) 69.8 Lymph % (Auto) 13.4 L Menard % (Auto) 12.3 H Eos % (Auto) 4.3 Baso % (Auto) 0.2 Absolute Neuts (auto) 6.1 Absolute Lymphs (auto) 1.2 Absolute Monos (auto) 1.1 H Absolute Eos (auto) 0.4 Absolute Basos (auto) 0 Absolute Nucleated RBC 0 Nucleated RBC % 0 INR (Anticoag Therapy) 2.30 H APTT Sodium 139 Potassium 3.3 L Chloride 93 L Carbon Dioxide 33 H Anion Gap 13 H BUN 57 H Creatinine 7.08 H Est GFR ( Amer) 9.3 Est GFR (Non-Af Amer) 7.7 BUN/Creatinine Ratio 8.1 Glucose 93 POC Glucose (mg/dL) Calcium 10.3 Total Bilirubin 0.30 Direct Bilirubin 0.10 Indirect Bilirubin 0.2 L AST 37 ALT 125 H Alkaline Phosphatase 247 H C-Reactive Protein 32.40 H Total Protein 6.3 L Albumin 3.4 Globulin 2.9 Albumin/Globulin Ratio 1.2 Amylase Lipase Radiology Results: Patient Name: JACOB KAUR Medical Record#: [id number] Ordering Physician: Kyle Watkins MD Acct.#: [id number] : 1945 Age: 72 Sex: M Location: [address] [place] [address]/TELEMETRY Exam Date: 01/03/18743 ADM Status: ADM IN Order Information: US GALL BLADDER Accession Number: [id number] CPT: 84535 INDICATION: Cholelithiasis COMPARISON: CT May 14, 2017 TECHNIQUE: Longitudinal and transverse scans of the right upper quadrant were obtained. Doppler interrogation of the hepatic and portal venous system was performed. FINDINGS: Liver: The liver is normal in size and echogenicity. There are no focal masses. The liver measures 18.2 cm in cephalocaudal dimension. Vessels: There is normal hepatic and portal venous flow. Bile ducts: There is mild intra and extrahepatic ductal dilatation. The common duct measures 0.9 cm. Gallbladder: There are multiple gallstones. There is biliary sludge. There is a small amount of pericholecystic fluid. Gallbladder wall is top normal in thickness measuring 0.3 cm. Pancreas: Not well-visualized due to bowel gas Right kidney: The right kidney is normal in size and echogenicity. There are no masses or calculi. There is no evidence of hydronephrosis. The right kidney measures 9.8 x 4.1 x 4.5 cm. There is a small cyst in the upper pole measuring 1.7 cm IVC and aorta: The aorta and superior vena cava appear normal. Fluid: There is no ascites. Other: None. IMPRESSION: CHOLELITHIASIS WITH. SONOGRAPHIC FINDINGS OF MILD ACUTE CHOLECYSTITIS WITH MILD DUCTAL DILATATION AND PERICHOLECYSTIC FLUID <Electronically signed by Miguel Elam MD in OV> 01/03/18 1028 Dictated By: Miguel Elam MD Dictated Date/Time: 01/03/18 1028 Transcribed Date/Time: 01/03/18 1024 Copy to: This report is only to be considered final once signed by the Provider(s) as displayed in the "<Electronically Signed by >" field (s). Absence of a signature indicates the report is in a draft status and still needs to be finalized. In the event this document was created by someone other than the signing Provider, the individual initiating the document will be listed in the "Entered by:" or "Dictated by:" elizabeth. 1 of 2 Assessment - Problem List Assessment: Patient Problems Cholecystitis (Acute) Elevated liver enzymes (Acute) End stage renal disease on dialysis (Acute) Peritoneal dialysis status (Acute) Vomiting (Acute) Acute renal failure (Chronic) Bradycardia (Chronic) Chronic obstructive lung disease (Chronic) Depression (Chronic) Essential hypertension (Chronic) Hyperlipidemia (Chronic) Hypertension (Chronic) Low back pain (Chronic) Nephrotic syndrome (Chronic) Neuropathy (Chronic) Obesity (Chronic) Retinopathy (Chronic) Type II diabetes mellitus - poor control (Chronic) DVT prophylaxis (Chronic) Full code status (Chronic) Plan: Cholecystitis (Acute)Elevated liver enzymes (Acute) Vomiting (Acute) I checked his gallbladder US yesterday due to elevation of his LFTs. He has evidence of mild acute cholecystitis. He declined a HIDA scan due to claustrophobia despite 1 mg IV lorazepam. His LFTs remain constant. His amylase and lipase are not elevated. His CRP continues to come down. I think this is resolving acute cholecystitis. It is mild. I don't know if this was the precipitating infection that bought him into the hospital as at that time his LFTs were normal. This may be a subsequent event. Here are the implications. If he has surgery, he will may not be able to have PD for a while and he has declined HD. Hence, I will discuss this first with Dr. Akni Chacon. As long as he stops vomiting, I think we should watch and wait. I don't think he requires further antibacterials. End stage renal disease on dialysis (Acute) Peritoneal dialysis status (Acute) He has had severe cramps/pains in his thighs and calves. I think this is likely related to his electrolytes, exacerbated by sitting in a chair. We need to mobilize him. Bradycardia (Chronic) stable Chronic obstructive lung disease (Chronic) secondary diagnosis Depression (Chronic) secondary diagnosis Essential hypertension (Chronic) on target Hyperlipidemia (Chronic) secondary diagnosis Low back pain (Chronic) stable Neuropathy (Chronic) secondary diagnosis Obesity (Chronic) Retinopathy (Chronic) secondary diagnosis Type II diabetes mellitus - poor control (Chronic) This is now on target DVT prophylaxis (Chronic) Full code status (Chronic) I discussed the above with Tonja Kaur and Suyapa Shannon on the phone. They agree with the management plan.
[2018-01-04] MEDS: Insulin LISPRO* 1 UNITS UNIT SUBCUT SCH ×7 (08:53→21:23)
[2018-01-04] MEDS: Acetaminophen TAB* 325 MG PO SCH ×4 (09:06→21:21)
[2018-01-04] MEDS: Omeprazole CAP* 20 MG PO SCH ×2 (09:06→17:05)
[2018-01-04] MEDS: Mupirocin 2% OINT* TUBE TOPICAL SCH (09:07)
[2018-01-04] MEDS: Amiodarone TAB* 200 MG PO SCH (09:07)
[2018-01-04] MEDS: Metolazone TAB* 5 MG PO SCH (09:07)
[2018-01-04] MEDS: Ondansetron INJ* 2 MG/ML VIAL IV PRN (09:08)
[2018-01-04] MEDS: Furosemide TAB* 40 MG PO SCH ×2 (10:01→21:22)
[2018-01-04] MEDS: Insulin GLARGINE(*) 1 UNITS UNIT SUBCUT SCH ×2 (10:05→21:23)
[2018-01-04] MEDS: oxyCODONE TAB* 5 MG TAB PO PRN ×2 (15:36→21:30)
[2018-01-04] MEDS ORDERED: Warfarin TAB(*) 5 MG PO ONE (17:00)
[2018-01-04] MEDS: Levothyroxine TAB* 25 MCG TAB PO SCH (17:03)
[2018-01-04] MEDS: Atorvastatin* 20 MG TAB PO SCH (17:04)
[2018-01-04] MEDS: rOPINIRole TAB* 1 MG PO SCH (17:04)
[2018-01-04] MEDS: traZODone TAB* 50 MG TAB PO SCH (17:05)
[2018-01-04] MEDS: Metoclopramide TAB* 10 MG PO SCH (17:06)
[2018-01-05 06:37] LABS: INR 2.65 (0.77-1.02)
[2018-01-05 06:55] LABS: EGFR Non-African American 7.2 (>60)
--- NOTE | 2018-01-05 07:25 | PN ---
Subjective - Subjective Reason for Note: Progress Note History: He was able to walk around the [place] several times yesterday. This has helped with the pain in his legs. He has had no further nausea or vomiting. His abdominal pain is mild. He has no other new symptoms. Active Problems: Active Problems Cholecystitis (Acute) K81.9 Elevated liver enzymes (Acute) R74.8 End stage renal disease on dialysis (Acute) N18.6, Z99.2 Peritoneal dialysis status (Acute) Z99.2 Vomiting (Acute) R11.10 Acute renal failure (Chronic) Bradycardia (Chronic) R00.1 Chronic obstructive lung disease (Chronic) J44.9 Depression (Chronic) F32.9 Essential hypertension (Chronic) I10 Hyperlipidemia (Chronic) E78.5 Hypertension (Chronic) I10 - SBP 110-120's - Continue Lasix (decreased), Losartan Low back pain (Chronic) M54.5 Nephrotic syndrome (Chronic) N04.9 - Stage 5 CKD - No immediate need for dialysis, no hyperkalemia, acidosis, or volume overload - BP may be overtreated, reduce dose lasix, could be contributing to constipation. Neuropathy (Chronic) G62.9 Obesity (Chronic) E66.9 - BMI 32.8 Retinopathy (Chronic) H35.00 Type II diabetes mellitus - poor control (Chronic) E11.65 - Glucose 140-150's - Resume home Insulin Current Medications: Current Medications Acetaminophen (Tylenol Tab*) 650 mg PO QID [facility] Last Admin: 01/04/18 21:21 Dose: 650 mg Albuterol (Ventolin Hfa Inhaler*) 2 puff INH Q6H PRN PRN Reason: SHORTNESS OF BREATH Last Admin: 12/27/17 07:57 Dose: 2 puff Albuterol (Ventolin 2.5 Mg/3 Ml Neb.Brooke*) 2.5 mg INH Q2H PRN PRN Reason: SOB/WHEEZING Amiodarone HCl (Cordarone Tab*) 200 mg PO DAILY [facility] Last Admin: 01/04/18 09:07 Dose: 200 mg Atorvastatin Calcium (Lipitor*) 20 mg PO QPM [facility] Last Admin: 01/04/18 17:04 Dose: 20 mg Furosemide (Lasix Tab*) 120 mg PO BID [facility] Last Admin: 01/04/18 21:22 Dose: 120 mg Heparin Sodium (Porcine) (Heparin Vial(*)) 0 units IV .PER PROTOCOL [facility] Last Admin: 12/30/17 17:48 Dose: 5,750 units Insulin Glargine (Lantus(*)) 25 units SUBCUT Q12H [facility] Last Admin: 01/04/18 21:23 Dose: 25 units Insulin Human Lispro (Humalog*) 0 units SUBCUT AC [facility]; Protocol Last Admin: 01/04/18 17:52 Dose: 1 units Insulin Human Lispro (Humalog*) 0 units SUBCUT ACHS [facility]; Protocol Last Admin: 01/04/18 21:23 Dose: 3 units Lactulose (Lactulose*) 30 ml PO BID PRN PRN Reason: CONSTIPATION Last Admin: 12/31/17 04:41 Dose: 30 ml Levothyroxine Sodium (Synthroid Tab*) 25 mcg PO QPM [facility] Last Admin: 01/04/18 17:03 Dose: 25 mcg Metoclopramide HCl (Reglan Tab*) 5 mg PO QPM [facility] Last Admin: 01/04/18 17:06 Dose: 5 mg Metolazone (Zaroxolyn Tab*) 5 mg PO QAM@0830 [facility] Last Admin: 01/04/18 09:07 Dose: 5 mg Mometasone Furoate/Formoterol Fumar (Dulera 200/5 Mdi*) 2 puff INH BID [facility]; Protocol Last Admin: 01/04/18 20:21 Dose: 2 puff Mupirocin (Bactroban 2 % Oint*) 1 applic TOPICAL DAILY [facility] Last Admin: 01/04/18 09:07 Dose: 1 applic Omeprazole (Prilosec Cap*) 40 mg PO BID [facility] Last Admin: 01/04/18 17:05 Dose: 40 mg Ondansetron HCl (Zofran Inj*) 4 mg IV Q6HR PRN PRN Reason: VOMITING Last Admin: 01/04/18 09:08 Dose: 4 mg Oxycodone HCl (Roxycodone Tab*) 5 mg PO Q6H PRN PRN Reason: PAIN MODERATE TO SEVERE Last Admin: 01/04/18 21:30 Dose: 5 mg Pharmacy Profile Note (Coumadin Per Pharmacy*) 0 note FOLLOW UP .PER PHARMACY PROTOC [facility]; Protocol Ropinirole HCl (Requip Tab*) 1 mg PO QPM [facility] Last Admin: 01/04/18 17:04 Dose: 1 mg Tramadol HCl (Ultram*) 50 mg PO Q6H PRN PRN Reason: PAIN Last Admin: 01/04/18 02:11 Dose: 50 mg Trazodone HCl (Desyrel Tab*) 50 mg PO QPM [facility] Last Admin: 01/04/18 17:05 Dose: 50 mg Trolamine Salicylate (Myoflex 10% Cream*) 1 applic TOPICAL Q6H PRN PRN Reason: .PAIN Last Admin: 01/04/18 21:48 Dose: 1 applic Home Medications: Home Medications Medication Instructions Recorded Confirmed Type Insulin Regular, Human [Novolin R] 10 - 15 unit SUBCUT QAM MDD 60 08/08/1312/26 History units Losartan TAB* [Cozaar TAB*] 100 mg PO QPM 08/08/13 12/26/17 History Insulin NPH Human Isophane 0 - 40 unit SC BID MDD 100 units 01/16/14 12/26/17 History [Humulin N] Insulin Regular, Human [Novolin R] 15 - 30 unit SUBCUT QPM MDD 60 01/16/1412/26 History units Ascorbic Acid TAB* [Vitamin C 1,000 mg PO QAM 10/04/15 12/26/17 History TAB*] Fluticas/Salmet 115/21 HFA(NF) 2 puff INH BID 10/04/15 12/26/17 History [Advair HFA 115/21 (NF)] LoraTADine TAB(NF) [Claritin 10 MG 10 mg PO QPM PRN 10/04/15 12/26/17 History TAB(NF)] Brimonidine 0.2 % * [Alphagan P 1 drop BOTH EYES BID 04/28/17 12/26/17 History 0.2% *] Dorzolamide 2% OPTH (NF) [Trusopt 1 drop BOTH EYES BID 04/28/17 12/26/17 History 2% OPTH (NF)] traZODone TAB* [Desyrel TAB*] 50 mg PO QPM 04/28/17 12/26/17 History Albuterol HFA INHALER* [Ventolin 2 puff INH Q6H PRN 05/14/17 12/26/17 History HFA Inhaler*] Cholecalciferol TAB* [Vitamin D 1,000 unit PO BID 05/14/17 12/26/17 History TAB*] Codeine Phosphate/Guaifenesin 10 ml PO BID PRN MDD 20ml 05/14/17 12/26/17 History [Codeine-Guaifen 10-100 mg/5 ml] Diltiazem CD CAP* [Cardizem CD 180 mg PO QAM 05/14/17 12/26/17 History CAP*] Multivitamins/Minerals TAB* 1 tab PO QAM 05/14/17 12/26/17 History [Theragran/minerals TAB*] Omeprazole CAP* [Prilosec CAP* 20 40 mg PO BID 05/14/17 12/26/17 History MG] Simvastatin (NF) [Zocor (NF)] 40 mg PO QPM 05/14/17 12/26/17 History Lactulose* 30 ml PO BID 06/25/17 12/26/17 History Levothyroxine Sodium [Levo-T] 25 mcg PO QPM 06/25/17 12/26/17 History Metoclopramide HCl 5 mg PO TID AC 06/25/17 12/26/17 History Metoclopramide HCl [Reglan] 5 mg PO QPM 06/25/17 12/26/17 History Metolazone TAB* [Zaroxolyn TAB*] 5 mg PO QAM 06/25/17 12/26/17 History Ropinirole HCl 1 mg PO QPM 06/25/17 12/26/17 History Furosemide TAB* [Lasix TAB*] 120 mg PO BID 08/26/17 12/26/17 History guaiFENesin LIQ* [Robitussin*] 10 ml PO Q4H PRN 08/26/17 12/26/17 History Acetaminophen [Acetaminophen Extra 1,000 mg PO BID PRN 09/21/17 12/26/17 History Strength] Polyethylene Glycol 3350* 17 gm PO BEDTIME PRN 09/27/17 12/26/17 History [Miralax*] Allergies: Allergies Allergy/AdvReac Type Severity Reaction Status Date / Time amlodipine [From [facility]] Allergy Severe Swelling Verified 12/26/17 21:01 hydrocodone Allergy Severe Difficulty Verified 12/26/17 21:01 Breathing shellfish derived Allergy Severe Difficulty Verified 12/26/17 21:01 Breathing lisinopril Allergy Intermediate Coughing Verified 12/26/17 21:01 NSAIDS (Non-Steroidal AdvReac Unknown Unknown Verified 12/26/17 21:01 Anti-Inflamma Reaction Details Objective - Vital Signs Vital Signs: Vital Signs 01/04/18 01/04/18 01/04/18 07:31 07:46 08:00 Temperature 98.2 F Pulse Rate 70 88 Respiratory 16 16 20 Rate Blood Pressure 116/59 (mmHg) O2 Sat by Pulse 100 99 97 Oximetry 01/04/18 01/04/18 01/04/18 15:23 15:36 16:00 Temperature 97.2 F Pulse Rate 61 Respiratory 28 26 Rate Blood Pressure 115/73 (mmHg) O2 Sat by Pulse 100 96 Oximetry 01/04/18 01/04/18 01/04/18 17:21 20:00 20:21 Temperature Pulse Rate 62 Respiratory 20 18 16 Rate Blood Pressure (mmHg) O2 Sat by Pulse 100 Oximetry 01/04/18 01/04/18 01/04/18 20:26 21:30 23:18 Temperature 97.9 F 97.6 F Pulse Rate 64 66 Respiratory 20 18 20 Rate Blood Pressure 141/54 134/56 (mmHg) O2 Sat by Pulse 100 100 Oximetry 01/05/18 01/05/18 00:00 03:46 Temperature Pulse Rate Respiratory 18 Rate Blood Pressure (mmHg) O2 Sat by Pulse 100 Oximetry - Intake and Output Intake and Output: Intake & Output 01/02/18 01/03/18 01/04/18 01/05/18 11:59 11:59 11:59 11:59 Intake Total 1148 1957 486 440 Output Total 1325 2060 360 575 Balance -177 -103 126 -135 Weight 213 lb 6.4 oz 213 lb 12.8 oz 203 lb 14.4 oz 207 lb 12.8 oz Intake: Heparin 1177 486 Oral 1148 780 0 440 Output: Urine 110 575 [place] 1325 2060 250 Other: # Bowel Movements 0 ADLs: Meal Record Start: 12/27/17 01: 20 Freq: ,,18 Status: Complete Protocol: Created 12/27/17 01:20 System (Rec: 12/27/17 01:20 System ICU-C12) Document 12/27/17 09:00 [id number] (Rec: 12/27/17 13:41 [id number] ICU-C12) Document 12/27/17 13:00 AVG1337 (Rec: 12/27/17 14:56 [id number] ICU-C12) Document 12/27/17 18:00 CSE0964 (Rec: 12/27/17 18:18 [id number] ICU-C12) Document 12/28/17 09:00 WBB6327 (Rec: 12/28/17 09:34 DIA5349 ICU-C15) ADLs: Meal Record Start: 12/28/17 17: 08 Freq: DAILY@0900,1400,1800 Status: Active Protocol: Created 12/28/17 17:08 [id number] (Rec: 12/28/17 17:08 [id number] TELE-C11) Document 12/28/17 20:29 JPO7795 (Rec: 12/28/17 20:29 RDK2023 TELE-C03) Document 12/29/17 09:00 TLM9306 (Rec: 12/29/17 09:19 HVV7897 TELE-C11) Document 12/29/17 10:25 NXV8280 (Rec: 12/29/17 10:25 CBX8801 TELE-C07) Document 12/29/17 14:00 RZY8887 (Rec: 12/29/17 15:23 XTK5203 TELE-C09) Document 12/29/17 20:59 DHU5939 (Rec: 12/29/17 21:00 FHD8991 TELE-C11) Document 12/30/17 09:00 TGM2743 (Rec: 12/30/17 10:33 VLA3202 TELE-C11) Document 12/30/17 14:00 QWL2441 (Rec: 12/30/17 14:56 DKD6800 TELE-C03) Document 12/30/17 18:00 CHG7164 (Rec: 12/30/17 21:05 NKC3804 TELE-C10) Document 12/31/17 09:00 RKC4394 (Rec: 12/31/17 09:56 XCY0232 TELE-C03) Document 12/31/17 14:00 WDG7791 (Rec: 12/31/17 14:00 KNJ0736 TELE-C03) Document 12/31/17 17:54 UOE3167 (Rec: 12/31/17 17:54 FSR7027 TELE-C10) Document 01/01/18 09:00 WGB4900 (Rec: 01/01/18 09:43 AFZ2412 TELE-C05) Document 01/01/18 14:00 JBG3200 (Rec: 01/01/18 14:21 GVC1354 TELE-C11) Document 01/01/18 18:57 NGP3825 (Rec: 01/01/18 18:57 WEA0504 TELE-C03) Document 01/02/18 09:00 ILV6287 (Rec: 01/02/18 11:14 RSV2240 TELE-C11) Document 01/02/18 13:16 WOC7772 (Rec: 01/02/18 13:17 GRF3221 TELE-C11) Document 01/02/18 22:16 SQF9568 (Rec: 01/02/18 22:16 OKM4289 TELE-C11) Document 01/03/18 09:00 CJG1719 (Rec: 01/03/18 12:29 OYA5505 TELE-C05) Document 01/03/18 14:00 RDW9489 (Rec: 01/03/18 14:28 CVR5196 TELE-C05) Document 01/03/18 21:53 LHU6960 (Rec: 01/03/18 21:54 RRS9407 TELE-C11) Document 01/04/18 08:27 IJF3813 (Rec: 01/04/18 08:27 TDZ2003 TELE-C08) Document 01/04/18 09:43 GWO7479 (Rec: 01/04/18 09:44 TWS8251 TELE-C08) Document 01/04/18 14:00 GHY5353 (Rec: 01/04/18 15:19 HGA6475 TELE-C08) Intake and Output Start: 12/26/17 20: 51 Freq: Status: Active Protocol: Created 12/26/17 20:51 System (Rec: 12/26/17 20:51 System ED-C31) Intake and Output Start: 12/27/17 01: 20 Freq: Q1HR Status: Complete Protocol: Created 12/27/17 01:20 System (Rec: 12/27/17 01:20 System ICU-C12) Document 12/27/17 03:00 ZTU8712 (Rec: 12/27/17 04:39 NKV8565 ICU-C15) Document 12/27/17 05:00 IAJ4895 (Rec: 12/27/17 05:10 VAW1448 ICU-C15) Document 12/27/17 05:17 WOX4778 (Rec: 12/27/17 05:17 YLM2977 ICU-M29) Document 12/27/17 11:23 GPP9978 (Rec: 12/27/17 11:23 CVT9472 ICU-C12) Document 12/27/17 16:42 ZND0164 (Rec: 12/27/17 16:42 QXF1434 ISDEMO-M05 ) Document 12/27/17 18:18 ECH7859 (Rec: 12/27/17 18:18 RFH5408 ICU-C12) Document 12/27/17 19:00 NSH9467 (Rec: 12/27/17 20:04 NOI8195 ICU-C16) Document 12/27/17 20:00 BJR7383 (Rec: 12/27/17 20:04 FCO9206 ICU-C16) Document 12/27/17 22:00 KTI0465 (Rec: 12/27/17 22:08 XOG9722 ICU-M28) Document 12/28/17 06:07 ZPP2557 (Rec: 12/28/17 06:07 JWL7479 ICU-C15) Document 12/28/17 07:00 DEU4784 (Rec: 12/28/17 07:37 AXS0481 ICU-C15) Document 12/28/17 13:40 RCP3187 (Rec: 12/28/17 13:40 UXQ1393 ICU-C15) Intake and Output Start: 01/01/18 06: 53 Freq: Status: Active Protocol: Document 01/01/18 06:00 (Rec: 01/01/18 06:53 [id number]) Created 01/01/18 06:53 (Rec: 01/01/18 06:53 [id number]) Document 01/01/18 14:21 KBT5245 (Rec: 01/01/18 14:21 OHC7107 TELE-C11) Document 01/01/18 21:55 KNJ5190 (Rec: 01/01/18 21:55 ITM7688 TELE-C13) Document 01/02/18 06:00 EWE5560 (Rec: 01/02/18 06:16 NBD8616 TELE-C01) Document 01/02/18 22:26 QOV7955 (Rec: 01/02/18 22:27 PAN7575 TELE-C11) Document 01/02/18 22:45 JPU8377 (Rec: 01/02/18 22:45 YBN5155 TELE-C11) Document 01/03/18 06:00 UKT9654 (Rec: 01/03/18 06:05 ALH1825 [id number]) Document 01/04/18 12:17 IGK3733 (Rec: 01/04/18 12:17 OMF7791 TELE-C10) Document 01/04/18 14:45 RSW7153 (Rec: 01/04/18 15:04 BSJ6369 TELE-C10) Document 01/04/18 15:20 RRU0816 (Rec: 01/04/18 15:20 ICJ3521 TELE-C08) Document 01/04/18 21:45 DKT7274 (Rec: 01/04/18 21:48 VIM6046 TELE-C13) Document 01/05/18 06:00 YIL9487 (Rec: 01/05/18 06:28 QBL6985 TELE-C01) - Physical Exam General Physical Exam Comment: Warm and well perfused. Metabolic flap of hand only after both wrists extended for 20 seconds. Alert and oriented. General: No Cyanosis, Yes Anemia, No Jaundice, No Clubbing Lungs and Chest: Yes: Chest Expansion Full, Chest Expansion Symetrica, Percussion Note Resonant, Vessicular Breath Sounds. No: Crackles, Wheezes Heart Rate and Rhythm: Regular Additional Cardiovascular: Yes: Normal Heart Sounds, Pedal Edema - trace. No: Heart Murmur Abdominal Exam: Yes: Distention, Soft, Abdominal Tenderness - mild, Bowel Sounds Present. No: Guarding, Rebound Tenderness - Neuro Orientation: A/O x3 Speech: Normal Results - Results Lab Results: Laboratory Results - last 24 hr 01/04/18 01/04/18 01/04/18 06:08 08:32 11:52 INR (Anticoag Therapy) Sodium 139 Potassium 3.3 L Chloride 93 L Carbon Dioxide 33 H Anion Gap 13 H BUN 57 H Creatinine 7.08 H Est GFR ( Amer) 9.3 Est GFR (Non-Af Amer) 7.7 BUN/Creatinine Ratio 8.1 Glucose 93 POC Glucose (mg/dL) 100 133 H Calcium 10.3 Magnesium 2.0 Total Bilirubin 0.30 Direct Bilirubin 0.10 Indirect Bilirubin 0.2 L AST 37 ALT 125 H Alkaline Phosphatase 247 H C-Reactive Protein 32.40 H Total Protein 6.3 L Albumin 3.4 Globulin 2.9 Albumin/Globulin Ratio 1.2 01/04/18 01/04/18 01/05/18 16:38 20:28 06:15 INR (Anticoag Therapy) Sodium 140 Potassium 3.4 L Chloride 93 L Carbon Dioxide 32 Anion Gap 15 H BUN 57 H Creatinine 7.50 H Est GFR ( Amer) 8.7 Est GFR (Non-Af Amer) 7.2 BUN/Creatinine Ratio 7.6 L Glucose 68 L POC Glucose (mg/dL) 71 157 H Calcium 10.6 H Magnesium 2.0 Total Bilirubin 0.40 Direct Bilirubin 0.00 L Indirect Bilirubin [employer]resher AST 48 H ALT 109 H Alkaline Phosphatase 265 H C-Reactive Protein Total Protein 6.7 Albumin 3.5 Globulin 3.2 Albumin/Globulin Ratio 1.1 01/05/18 06:15 INR (Anticoag Therapy) 2.65 H Sodium Potassium Chloride Carbon Dioxide Anion Gap BUN Creatinine Est GFR ( Amer) Est GFR (Non-Af Amer) BUN/Creatinine Ratio Glucose POC Glucose (mg/dL) Calcium Magnesium Total Bilirubin Direct Bilirubin Indirect Bilirubin AST ALT Alkaline Phosphatase C-Reactive Protein Total Protein Albumin Globulin Albumin/Globulin Ratio Assessment - Problem List Assessment: Patient Problems Cholecystitis (Acute) Elevated liver enzymes (Acute) End stage renal disease on dialysis (Acute) Peritoneal dialysis status (Acute) Vomiting (Acute) Acute renal failure (Chronic) Bradycardia (Chronic) Chronic obstructive lung disease (Chronic) Depression (Chronic) Essential hypertension (Chronic) Hyperlipidemia (Chronic) Hypertension (Chronic) Low back pain (Chronic) Nephrotic syndrome (Chronic) Neuropathy (Chronic) Obesity (Chronic) Retinopathy (Chronic) Type II diabetes mellitus - poor control (Chronic) DVT prophylaxis (Chronic) Full code status (Chronic) Plan: Cholecystitis (Acute)Elevated liver enzymes (Acute) Vomiting (Acute) He is clinically stable. His liver function tests are not significantly changed. His WBC and neut% are not changed. We will treat this conservatively. End stage renal disease on dialysis (Acute)Peritoneal dialysis status (Acute) Acute renal failure (Chronic) Nephrotic syndrome (Chronic) He needs to be able to use the home PD system - he states he thinks he can do this. Dr. Chacon's team need to evaluate this Bradycardia (Chronic) stable Type II diabetes mellitus - poor control (Chronic) She has a FS 68 mg/dl this morning. I will reduce his basal insulin Chronic obstructive lung disease (Chronic) secondary diagnosis Depression (Chronic) secondary diagnosis Essential hypertension (Chronic) controlled Hyperlipidemia (Chronic) secondary diagnosis Low back pain (Chronic) no new problems. Leg pains from yesterday improved Neuropathy (Chronic) secondary diagnosis Obesity (Chronic) Retinopathy (Chronic) secondary diagnosis DVT prophylaxis (Chronic) Full code status (Chronic) I reviewed the OT report. He would benefit from acute skilled rehab. His endurance is improving dramatically each day and I think he is an excellent candidate for PMRU and is ready for this as soon as they accept a bed. I discussed the above with the Jan Kaur. He accepts the need for PMRU. I spoke with Suyapa Shannon - she thinks he needs more rehabilitation before going home.
[2018-01-05] MEDS: Mometasone/Formoter 200/5 MDI INH SCH ×2 (07:47→21:02)
[2018-01-05] MEDS: Insulin LISPRO* 1 UNITS UNIT SUBCUT SCH ×6 (08:48→17:24)
[2018-01-05] MEDS: Acetaminophen TAB* 325 MG PO SCH ×4 (08:58→21:32)
[2018-01-05] MEDS: Furosemide TAB* 40 MG PO SCH ×2 (08:58→21:32)
[2018-01-05] MEDS: Omeprazole CAP* 20 MG PO SCH ×2 (08:58→16:47)
[2018-01-05] MEDS: Amiodarone TAB* 200 MG PO SCH (08:58)
[2018-01-05] MEDS: Mupirocin 2% OINT* TUBE TOPICAL SCH (08:59)
[2018-01-05] MEDS: Insulin GLARGINE(*) 1 UNITS UNIT SUBCUT SCH ×2 (08:59→21:35)
[2018-01-05] MEDS: Metolazone TAB* 5 MG PO SCH (09:01)
[2018-01-05] MEDS: oxyCODONE TAB* 5 MG TAB PO PRN ×2 (10:10→16:26)
--- NOTE | 2018-01-05 16:00 | PN ---
DATE: 01/05/2018. HISTORY OF PRESENT ILLNESS: Mr. Kaur has significantly improved since the last time I saw him. A question was posed to me as to whether or not I thought it was reasonable to send him home on peritoneal dialysis. I was observing my nurse with him as he was attempting to do an exchange. He required some coaching, but in general had the basic concepts down. I think he will require some additional coaching and training. He still looks pretty weak to me, although I understand he has been ambulating in the halls. He had a difficult time opening up the bag for his peritoneal dialysis. His blood pressure is adequately controlled at 119/50 with a pulse of 64. His fluid balance is much better than it had been and we have managed to ultrafilter off some significant weight bringing him down from 105.8 kilo's to 94.25 kilo's. His anemia of chronic kidney disease is well compensated with a hemoglobin of 11.5. He is slightly hypokalemic at 3.4. I think with a few extra days of strengthening and re-ambulation and some coaching from the peritoneal dialysis staff, he will be able to return home to manage his peritoneal dialysis at home. [id number]/[facility] #: [id number] NAMAN
[2018-01-05] MEDS: Levothyroxine TAB* 25 MCG TAB PO SCH (16:48)
[2018-01-05] MEDS: Metoclopramide TAB* 10 MG PO SCH (16:48)
[2018-01-05] MEDS: rOPINIRole TAB* 1 MG PO SCH (16:48)
[2018-01-05] MEDS: traZODone TAB* 50 MG TAB PO SCH (16:48)
[2018-01-05] MEDS: Atorvastatin* 20 MG TAB PO SCH (16:48)
[2018-01-05] MEDS: Trolamine Salicyl. 10% CREAM* 85 GM TUBE TOPICAL PRN (16:51)
[2018-01-05] MEDS ORDERED: Warfarin TAB(*) 5 MG PO ONE (17:00)
[2018-01-06] MEDS: Insulin LISPRO* 1 UNITS UNIT SUBCUT SCH ×8 (02:11→20:16)
[2018-01-06] MEDS: oxyCODONE TAB* 5 MG TAB PO PRN (06:08)
[2018-01-06 07:31] LABS: INR 2.47 (0.77-1.02)
[2018-01-06] MEDS: Mometasone/Formoter 200/5 MDI INH SCH ×2 (07:47→19:53)
--- NOTE | 2018-01-06 07:55 | PN ---
Subjective - Subjective Reason for Note: Progress Note History: I read with appreciation the excellent notes from Dr. Akin Chacon and Sumaya Del Real, RN about Jan Kaur's PD process. He is feeling well otherwise and is cracking jokes. He is aware of his situation. He has had no nausea, vomiting or abdominal pain. He is constipated. He has had no chest pain, dyspnea or palpitations. His weight is below target today (207 lbs). Active Problems: Active Problems Cholecystitis (Acute) K81.9 Elevated liver enzymes (Acute) R74.8 End stage renal disease on dialysis (Acute) N18.6, Z99.2 Peritoneal dialysis status (Acute) Z99.2 Vomiting (Acute) R11.10 Acute renal failure (Chronic) Bradycardia (Chronic) R00.1 Chronic obstructive lung disease (Chronic) J44.9 Depression (Chronic) F32.9 Essential hypertension (Chronic) I10 Hyperlipidemia (Chronic) E78.5 Hypertension (Chronic) I10 - SBP 110-120's - Continue Lasix (decreased), Losartan Low back pain (Chronic) M54.5 Nephrotic syndrome (Chronic) N04.9 - Stage 5 CKD - No immediate need for dialysis, no hyperkalemia, acidosis, or volume overload - BP may be overtreated, reduce dose lasix, could be contributing to constipation. Neuropathy (Chronic) G62.9 Obesity (Chronic) E66.9 - BMI 32.8 Retinopathy (Chronic) H35.00 Type II diabetes mellitus - poor control (Chronic) E11.65 - Glucose 140-150's - Resume home Insulin Current Medications: Current Medications Acetaminophen (Tylenol Tab*) 650 mg PO QID [facility] Last Admin: 01/05/18 21:32 Dose: 650 mg Albuterol (Ventolin Hfa Inhaler*) 2 puff INH Q6H PRN PRN Reason: SHORTNESS OF BREATH Last Admin: 12/27/17 07:57 Dose: 2 puff Albuterol (Ventolin 2.5 Mg/3 Ml Neb.Brooke*) 2.5 mg INH Q2H PRN PRN Reason: SOB/WHEEZING Amiodarone HCl (Cordarone Tab*) 200 mg PO DAILY [facility] Last Admin: 01/05/18 08:58 Dose: 200 mg Atorvastatin Calcium (Lipitor*) 20 mg PO QPM [facility] Last Admin: 01/05/18 16:48 Dose: 20 mg Furosemide (Lasix Tab*) 120 mg PO BID [facility] Last Admin: 01/05/18 21:32 Dose: 120 mg Insulin Glargine (Lantus(*)) 20 units SUBCUT Q12HR [facility] Last Admin: 01/05/18 21:35 Dose: 20 units Insulin Human Lispro (Humalog*) 0 units SUBCUT AC [facility]; Protocol Last Admin: 01/05/18 17:24 Dose: 5 units Insulin Human Lispro (Humalog*) 0 units SUBCUT [facility]; Protocol Last Admin: 01/06/18 02:11 Dose: Not Given Lactulose (Lactulose*) 30 ml PO BID PRN PRN Reason: CONSTIPATION Last Admin: 12/31/17 04:41 Dose: 30 ml Levothyroxine Sodium (Synthroid Tab*) 25 mcg PO QPM [facility] Last Admin: 01/05/18 16:48 Dose: 25 mcg Metoclopramide HCl (Reglan Tab*) 5 mg PO QPM [facility] Last Admin: 01/05/18 16:48 Dose: 5 mg Metolazone (Zaroxolyn Tab*) 5 mg PO QAM@0830 [facility] Last Admin: 01/05/18 09:01 Dose: 5 mg Mometasone Furoate/Formoterol Fumar (Dulera 200/5 Mdi*) 2 puff INH BID [facility]; Protocol Last Admin: 01/05/18 21:02 Dose: 2 puff Mupirocin (Bactroban 2 % Oint*) 1 applic TOPICAL DAILY [facility] Last Admin: 01/05/18 08:59 Dose: 1 applic Omeprazole (Prilosec Cap*) 40 mg PO BID [facility] Last Admin: 01/05/18 16:47 Dose: 40 mg Ondansetron HCl (Zofran Inj*) 4 mg IV Q6HR PRN PRN Reason: VOMITING Last Admin: 01/04/18 09:08 Dose: 4 mg Oxycodone HCl (Roxycodone Tab*) 5 mg PO Q6H PRN PRN Reason: PAIN MODERATE TO SEVERE Last Admin: 01/06/18 06:08 Dose: 5 mg Pharmacy Profile Note (Coumadin Per Pharmacy*) 0 note FOLLOW UP .PER PHARMACY PROTOC [facility]; Protocol Ropinirole HCl (Requip Tab*) 1 mg PO QPM [facility] Last Admin: 01/05/18 16:48 Dose: 1 mg Trazodone HCl (Desyrel Tab*) 50 mg PO QPM [facility] Last Admin: 01/05/18 16:48 Dose: 50 mg Trolamine Salicylate (Myoflex 10% Cream*) 1 applic TOPICAL Q6H PRN PRN Reason: .PAIN Last Admin: 01/05/18 16:51 Dose: 1 applic Home Medications: Home Medications Medication Instructions Recorded Confirmed Type Insulin Regular, Human [Novolin R] 10 - 15 unit SUBCUT QAM MDD 60 08/08/1312/26 History units Losartan TAB* [Cozaar TAB*] 100 mg PO QPM 08/08/13 12/26/17 History Insulin NPH Human Isophane 0 - 40 unit SC BID MDD 100 units 01/16/14 12/26/17 History [Humulin N] Insulin Regular, Human [Novolin R] 15 - 30 unit SUBCUT QPM MDD 60 01/16/1412/26 History units Ascorbic Acid TAB* [Vitamin C 1,000 mg PO QAM 10/04/15 12/26/17 History TAB*] Fluticas/Salmet 115/21 HFA(NF) 2 puff INH BID 10/04/15 12/26/17 History [Advair HFA 115/21 (NF)] LoraTADine TAB(NF) [Claritin 10 MG 10 mg PO QPM PRN 10/04/15 12/26/17 History TAB(NF)] Brimonidine 0.2 % * [Alphagan P 1 drop BOTH EYES BID 04/28/17 12/26/17 History 0.2% *] Dorzolamide 2% OPTH (NF) [Trusopt 1 drop BOTH EYES BID 04/28/17 12/26/17 History 2% OPTH (NF)] traZODone TAB* [Desyrel TAB*] 50 mg PO QPM 04/28/17 12/26/17 History Albuterol HFA INHALER* [Ventolin 2 puff INH Q6H PRN 05/14/17 12/26/17 History HFA Inhaler*] Cholecalciferol TAB* [Vitamin D 1,000 unit PO BID 05/14/17 12/26/17 History TAB*] Codeine Phosphate/Guaifenesin 10 ml PO BID PRN MDD 20ml 05/14/17 12/26/17 History [Codeine-Guaifen 10-100 mg/5 ml] Diltiazem CD CAP* [Cardizem CD 180 mg PO QAM 05/14/17 12/26/17 History CAP*] Multivitamins/Minerals TAB* 1 tab PO QAM 05/14/17 12/26/17 History [Theragran/minerals TAB*] Omeprazole CAP* [Prilosec CAP* 20 40 mg PO BID 05/14/17 12/26/17 History MG] Simvastatin (NF) [Zocor (NF)] 40 mg PO QPM 05/14/17 12/26/17 History Lactulose* 30 ml PO BID 06/25/17 12/26/17 History Levothyroxine Sodium [Levo-T] 25 mcg PO QPM 06/25/17 12/26/17 History Metoclopramide HCl 5 mg PO TID AC 06/25/17 12/26/17 History Metoclopramide HCl [Reglan] 5 mg PO QPM 06/25/17 12/26/17 History Metolazone TAB* [Zaroxolyn TAB*] 5 mg PO QAM 06/25/17 12/26/17 History Ropinirole HCl 1 mg PO QPM 06/25/17 12/26/17 History Furosemide TAB* [Lasix TAB*] 120 mg PO BID 08/26/17 12/26/17 History guaiFENesin LIQ* [Robitussin*] 10 ml PO Q4H PRN 08/26/17 12/26/17 History Acetaminophen [Acetaminophen Extra 1,000 mg PO BID PRN 09/21/17 12/26/17 History Strength] Polyethylene Glycol 3350* 17 gm PO BEDTIME PRN 09/27/17 12/26/17 History [Miralax*] Allergies: Allergies Allergy/AdvReac Type Severity Reaction Status Date / Time amlodipine [From [facility]] Allergy Severe Swelling Verified 12/26/17 21:01 hydrocodone Allergy Severe Difficulty Verified 12/26/17 21:01 Breathing shellfish derived Allergy Severe Difficulty Verified 12/26/17 21:01 Breathing lisinopril Allergy Intermediate Coughing Verified 12/26/17 21:01 NSAIDS (Non-Steroidal AdvReac Unknown Unknown Verified 12/26/17 21:01 Anti-Inflamma Reaction Details Objective - Vital Signs Vital Signs: Vital Signs 01/05/18 01/05/18 01/05/18 07:47 07:48 10:10 Temperature 98.1 F Pulse Rate 64 Respiratory 20 20 Rate Blood Pressure 119/50 (mmHg) O2 Sat by Pulse 100 100 Oximetry 01/05/18 01/05/18 01/05/18 11:08 12:46 15:06 Temperature 98.5 F 98.2 F Pulse Rate 67 62 Respiratory 20 20 17 Rate Blood Pressure 109/51 112/44 (mmHg) O2 Sat by Pulse 99 100 Oximetry 01/05/18 01/05/18 01/05/18 16:26 17:58 19:33 Temperature 98.2 F Pulse Rate 68 Respiratory 20 20 22 Rate Blood Pressure 127/48 (mmHg) O2 Sat by Pulse 100 Oximetry 01/05/18 01/05/18 01/06/18 20:00 23:38 00:00 Temperature 97.6 F Pulse Rate 70 Respiratory 18 18 Rate Blood Pressure 128/57 (mmHg) O2 Sat by Pulse 100 78 Oximetry 01/06/18 01/06/18 01/06/18 00:55 05:40 05:41 Temperature 98.1 F 98.1 F Pulse Rate 70 64 64 Respiratory 16 18 18 Rate Blood Pressure 110/47 110/47 (mmHg) O2 Sat by Pulse 99 100 100 Oximetry 01/06/18 06:08 Temperature Pulse Rate Respiratory 18 Rate Blood Pressure (mmHg) O2 Sat by Pulse Oximetry - Intake and Output Intake and Output: Intake & Output 01/03/18 01/04/18 01/05/18 01/06/18 11:59 11:59 11:59 11:59 Intake Total 1956 486 440 870 Output Total 0 360 575 200 Balance -103 126 -135 670 Weight 213 lb 12.8 oz 203 lb 14.4 oz 207 lb 12.8 oz 205 lb 9.6 oz Intake: Heparin 1177 486 Oral 780 0 440 870 Output: Urine 110 575 200 [place] 2060 250 Other: # Bowel Movements 0 ADLs: Meal Record Start: 12/27/17 01: 20 Freq: 09,13,18 Status: Complete Protocol: Created 12/27/17 01:20 System (Rec: 12/27/17 01:20 System ICU-C12) Document 12/27/17 09:00 [id number] (Rec: 12/27/17 13:41 [id number] ICU-C12) Document 12/27/17 13:00 [id number] (Rec: 12/27/17 14:56 [id number] ICU-C12) Document 12/27/17 18:00 MIR9559 (Rec: 12/27/17 18:18 [id number] ICU-C12) Document 12/28/17 09:00 RWP7524 (Rec: 12/28/17 09:34 [id number] ICU-C15) ADLs: Meal Record Start: 12/28/17 17: 08 Freq: DAILY@0900,1400,1800 Status: Active Protocol: Created 12/28/17 17:08 [id number] (Rec: 12/28/17 17:08 [id number] TELE-C11) Document 12/28/17 20:29 MWB9699 (Rec: 12/28/17 20:29 MZL5063 TELE-C03) Document 12/29/17 09:00 MDF7871 (Rec: 12/29/17 09:19 CRS2699 TELE-C11) Document 12/29/17 10:25 QGB3841 (Rec: 12/29/17 10:25 SBK5814 TELE-C07) Document 12/29/17 14:00 WLY6603 (Rec: 12/29/17 15:23 ZHE9094 TELE-C09) Document 12/29/17 20:59 SUM7618 (Rec: 12/29/17 21:00 NQQ0598 TELE-C11) Document 12/30/17 09:00 KMH0693 (Rec: 12/30/17 10:33 KLY6437 TELE-C11) Document 12/30/17 14:00 IAP0673 (Rec: 12/30/17 14:56 UYG2798 TELE-C03) Document 12/30/17 18:00 GVE8883 (Rec: 12/30/17 21:05 QUU1779 TELE-C10) Document 12/31/17 09:00 HEN6206 (Rec: 12/31/17 09:56 CQU9763 TELE-C03) Document 12/31/17 14:00 CDO5412 (Rec: 12/31/17 14:00 LTR1957 TELE-C03) Document 12/31/17 17:54 IBX7012 (Rec: 12/31/17 17:54 TOJ1535 TELE-C10) Document 01/01/18 09:00 MEM2921 (Rec: 01/01/18 09:43 ZHO2143 TELE-C05) Document 01/01/18 14:00 ONQ6999 (Rec: 01/01/18 14:21 TDJ7991 TELE-C11) Document 01/01/18 18:57 EAM4003 (Rec: 01/01/18 18:57 HOI8567 TELE-C03) Document 01/02/18 09:00 OZX5802 (Rec: 01/02/18 11:14 NFY6565 TELE-C11) Document 01/02/18 13:16 JHK8505 (Rec: 01/02/18 13:17 RMD0821 TELE-C11) Document 01/02/18 22:16 NBO1839 (Rec: 01/02/18 22:16 CHI2592 TELE-C11) Document 01/03/18 09:00 JWP8361 (Rec: 01/03/18 12:29 BOR6081 TELE-C05) Document 01/03/18 14:00 HPQ8790 (Rec: 01/03/18 14:28 NIF3265 TELE-C05) Document 01/03/18 21:53 MHP1172 (Rec: 01/03/18 21:54 ZJH5761 TELE-C11) Document 01/04/18 08:27 VWF1845 (Rec: 01/04/18 08:27 ZOG9018 TELE-C08) Document 01/04/18 09:43 SWD2230 (Rec: 01/04/18 09:44 ZUG9931 TELE-C08) Document 01/04/18 14:00 RWC0973 (Rec: 01/04/18 15:19 WIG2604 TELE-C08) Document 01/05/18 14:00 PTU0226 (Rec: 01/05/18 15:01 BHK0389 TELE-C05) Document 01/05/18 17:48 AZL9881 (Rec: 01/05/18 17:48 DRF5070 TELE-C02) Intake and Output Start: 12/26/17 20: 51 Freq: Status: Active Protocol: Created 12/26/17 20:51 System (Rec: 12/26/17 20:51 System ED-C31) Intake and Output Start: 12/27/17 01: 20 Freq: Q1HR Status: Complete Protocol: Created 12/27/17 01:20 System (Rec: 12/27/17 01:20 System ICU-C12) Document 12/27/17 03:00 PFY3630 (Rec: 12/27/17 04:39 YPS7400 ICU-C15) Document 12/27/17 05:00 UNB5319 (Rec: 12/27/17 05:10 ULS4902 ICU-C15) Document 12/27/17 05:17 XNU1504 (Rec: 12/27/17 05:17 CFY1031 ICU-M29) Document 12/27/17 11:23 HWQ5553 (Rec: 12/27/17 11:23 GDR6211 ICU-C12) Document 12/27/17 16:42 ECN2861 (Rec: 12/27/17 16:42 SNP4555 ISDEMO-M05 ) Document 12/27/17 18:18 QGU8163 (Rec: 12/27/17 18:18 BHU7341 ICU-C12) Document 12/27/17 19:00 PEG6958 (Rec: 12/27/17 20:04 OEQ1325 ICU-C16) Document 12/27/17 20:00 SSX5023 (Rec: 12/27/17 20:04 LTP9739 ICU-C16) Document 12/27/17 22:00 DFM9574 (Rec: 12/27/17 22:08 LDP6287 ICU-M28) Document 12/28/17 06:07 UFZ3617 (Rec: 12/28/17 06:07 MIH9509 ICU-C15) Document 12/28/17 07:00 TKF2772 (Rec: 12/28/17 07:37 PIW8345 ICU-C15) Document 12/28/17 13:40 WAF8500 (Rec: 12/28/17 13:40 QKI5009 ICU-C15) Intake and Output Start: 01/01/18 06: 53 Freq: Status: Active Protocol: Document 01/01/18 06:00 (Rec: 01/01/18 06:53 [id number]) Created 01/01/18 06:53 (Rec: 01/01/18 06:53 [id number]) Document 01/01/18 14:21 OIN5564 (Rec: 01/01/18 14:21 QKZ4271 TELE-C11) Document 01/01/18 21:55 OFP3257 (Rec: 01/01/18 21:55 FQJ4511 TELE-C13) Document 01/02/18 06:00 UPS0375 (Rec: 01/02/18 06:16 KUH6291 TELE-C01) Document 01/02/18 22:26 WAL2245 (Rec: 01/02/18 22:27 KLS7268 TELE-C11) Document 01/02/18 22:45 YVJ0921 (Rec: 01/02/18 22:45 SXS3761 TELE-C11) Document 01/03/18 06:00 OGH0159 (Rec: 01/03/18 06:05 [id number]) Document 01/04/18 12:17 ABA0443 (Rec: 01/04/18 12:17 UHK0345 TELE-C10) Document 01/04/18 14:45 RQA2685 (Rec: 01/04/18 15:04 ASS1384 TELE-C10) Document 01/04/18 15:20 EMP5941 (Rec: 01/04/18 15:20 QIK7594 TELE-C08) Document 01/04/18 21:45 PPK9436 (Rec: 01/04/18 21:48 EDY4499 TELE-C13) Document 01/05/18 06:00 HOB5773 (Rec: 01/05/18 06:28 ZFW1323 TELE-C01) Document 01/05/18 22:00 XOU5065 (Rec: 01/05/18 22:18 [id number]) - Physical Exam General: No Cyanosis, Yes Anemia, No Jaundice, No Clubbing Lungs and Chest: Yes: Chest Expansion Full, Chest Expansion Symetrica, Percussion Note Resonant, Vessicular Breath Sounds. No: Crackles, Wheezes Heart Rate and Rhythm: Regular Additional Cardiovascular: Yes: Normal Heart Sounds. No: Heart Murmur, Pedal Edema Abdominal Exam: Yes: Distention, Soft, Bowel Sounds Present. No: Abdominal Mass , Abdominal Tenderness Results - Results Lab Results: Laboratory Results - last 24 hr 01/05/18 01/05/18 01/05/18 07:32 11:27 16:30 INR (Anticoag Therapy) POC Glucose (mg/dL) 80 115 H 105 H 01/05/18 01/06/18 21:26 06:15 INR (Anticoag Therapy) 2.47 H POC Glucose (mg/dL) 128 H Assessment - Problem List Assessment: Patient Problems Cholecystitis (Acute) Elevated liver enzymes (Acute) End stage renal disease on dialysis (Acute) Peritoneal dialysis status (Acute) Vomiting (Acute) Acute renal failure (Chronic) Bradycardia (Chronic) Chronic obstructive lung disease (Chronic) Depression (Chronic) Essential hypertension (Chronic) Hyperlipidemia (Chronic) Hypertension (Chronic) Low back pain (Chronic) Nephrotic syndrome (Chronic) Neuropathy (Chronic) Obesity (Chronic) Retinopathy (Chronic) Type II diabetes mellitus - poor control (Chronic) DVT prophylaxis (Chronic) Full code status (Chronic) Plan: Cholecystitis (Acute) Elevated liver enzymes (Acute) Vomiting (Acute) This is resolving clinically End stage renal disease on dialysis (Acute)Peritoneal dialysis status (Acute) He is close to being able to go home on PD. Suyapa Shannon will be coming in today for joint training. I am hoping he will get the green light for discharge tomorrow. Type II diabetes mellitus - poor control (Chronic) controlled Bradycardia (Chronic) stable Essential hypertension (Chronic) controlled I spoke with Jan Kaur and Suyapa Shannon (on the phone). I explained to them that they will have support of a visiting nurse and also the dialysis unit front maker, but they need to be able to manage PD independently as a team. They both understand this.
[2018-01-06] MEDS: Mupirocin 2% OINT* TUBE TOPICAL SCH (08:25)
[2018-01-06] MEDS: Furosemide TAB* 40 MG PO SCH ×2 (08:30→20:18)
[2018-01-06] MEDS: Amiodarone TAB* 200 MG PO SCH (08:30)
[2018-01-06] MEDS: Acetaminophen TAB* 325 MG PO SCH ×4 (08:30→20:17)
[2018-01-06] MEDS: Omeprazole CAP* 20 MG PO SCH ×2 (08:30→17:20)
[2018-01-06] MEDS: Insulin GLARGINE(*) 1 UNITS UNIT SUBCUT SCH ×2 (08:32→20:15)
[2018-01-06] MEDS: Metolazone TAB* 5 MG PO SCH (08:38)
[2018-01-06] MEDS: Ondansetron INJ* 2 MG/ML VIAL IV PRN (09:57)
[2018-01-06] MEDS: Trolamine Salicyl. 10% CREAM* 85 GM TUBE TOPICAL PRN (13:01)
[2018-01-06] MEDS ORDERED: Heparin DIALYSIS ONLY(*) 1,000 UNITS/ML VIAL DIALYSIS ONE (13:30)
[2018-01-06] MEDS ORDERED: Warfarin TAB(*) 5 MG PO ONE (17:00)
[2018-01-06] MEDS: Levothyroxine TAB* 25 MCG TAB PO SCH (17:20)
[2018-01-06] MEDS: rOPINIRole TAB* 1 MG PO SCH (17:20)
[2018-01-06] MEDS: Metoclopramide TAB* 10 MG PO SCH (17:20)
[2018-01-06] MEDS: traZODone TAB* 50 MG TAB PO SCH (17:20)
[2018-01-06] MEDS: Atorvastatin* 20 MG TAB PO SCH (17:20)
[2018-01-07] MEDS: oxyCODONE TAB* 5 MG TAB PO PRN (02:41)
[2018-01-07 07:20] LABS: Hematocrit 35 % (42-52); Hemoglobin 11.8 g/dl (14.0-18.0); Mean Corpuscular HGB Conc 34 g/dl (31-36); Mean Corpuscular Hemoglobin 31 pg (27-31); Mean Corpuscular Volume 91 fL (80-94); Mean Platelet Volume 8.4 um3 (7.4-10.4); Platelet Count 237 10^3/ul (150-450); Red Blood Count 3.85 10^6/ul (4.00-5.40); Red Cell Distribution Width 15 % (10.5-15); White Blood Count 10.8 10^3/ul (3.5-10.8)
[2018-01-07 07:27] LABS: INR 2.06 (0.77-1.02)
[2018-01-07 07:38] LABS: EGFR Non-African American 7.3 (>60)
--- NOTE | 2018-01-07 07:45 | PN ---
Subjective - Subjective Reason for Note: Discharge Note History: He is feeling improved this morning. He has no nausea or vomiting. He has not had a bowel movement with the lactulose. He continues to be able to walk independently with a a walker. He has no chest pain, palpitations, dyspnea. He has the pain he has complained about in his legs, but no other pain at present. I reviewed the hand written note by Sumaya Del Real RN re: PD yesterday. Suyapa Shannon and Jan managed to complete the tasks required for independent home self-care. Active Problems: Active Problems Cholecystitis (Acute) K81.9 Elevated liver enzymes (Acute) R74.8 End stage renal disease on dialysis (Acute) N18.6, Z99.2 Peritoneal dialysis status (Acute) Z99.2 Vomiting (Acute) R11.10 Acute renal failure (Chronic) Bradycardia (Chronic) R00.1 Chronic obstructive lung disease (Chronic) J44.9 Depression (Chronic) F32.9 Essential hypertension (Chronic) I10 Hyperlipidemia (Chronic) E78.5 Hypertension (Chronic) I10 - SBP 110-120's - Continue Lasix (decreased), Losartan Low back pain (Chronic) M54.5 Nephrotic syndrome (Chronic) N04.9 - Stage 5 CKD - No immediate need for dialysis, no hyperkalemia, acidosis, or volume overload - BP may be overtreated, reduce dose lasix, could be contributing to constipation. Neuropathy (Chronic) G62.9 Obesity (Chronic) E66.9 - BMI 32.8 Retinopathy (Chronic) H35.00 Type II diabetes mellitus - poor control (Chronic) E11.65 - Glucose 140-150's - Resume home Insulin Current Medications: Current Medications Acetaminophen (Tylenol Tab*) 650 mg PO QID [facility] Last Admin: 01/06/18 20:17 Dose: 650 mg Albuterol (Ventolin Hfa Inhaler*) 2 puff INH Q6H PRN PRN Reason: SHORTNESS OF BREATH Last Admin: 12/27/17 07:57 Dose: 2 puff Albuterol (Ventolin 2.5 Mg/3 Ml Neb.Brooke*) 2.5 mg INH Q2H PRN PRN Reason: SOB/WHEEZING Amiodarone HCl (Cordarone Tab*) 200 mg PO DAILY [facility] Last Admin: 07/19/18 08:30 Dose: 200 mg Atorvastatin Calcium (Lipitor*) 20 mg PO QPM [facility] Last Admin: 01/06/18 17:20 Dose: 20 mg Furosemide (Lasix Tab*) 120 mg PO BID [facility] Last Admin: 01/06/18 20:18 Dose: 120 mg Insulin Glargine (Lantus(*)) 20 units SUBCUT Q12HR [facility] Last Admin: 01/06/18 20:15 Dose: 20 units Insulin Human Lispro (Humalog*) 0 units SUBCUT AC [facility]; Protocol Last Admin: 01/06/18 18:13 Dose: 6 units Insulin Human Lispro (Humalog*) 0 units SUBCUT ACHS [facility]; Protocol Last Admin: 01/06/18 20:16 Dose: 3 units Lactulose (Lactulose*) 30 ml PO BID PRN PRN Reason: CONSTIPATION Last Admin: 01/06/18 08:32 Dose: 30 ml Levothyroxine Sodium (Synthroid Tab*) 25 mcg PO QPM [facility] Last Admin: 01/06/18 17:20 Dose: 25 mcg Metoclopramide HCl (Reglan Tab*) 5 mg PO QPM [facility] Last Admin: 01/06/18 17:20 Dose: 5 mg Metolazone (Zaroxolyn Tab*) 5 mg PO QAM@0830 [facility] Last Admin: 01/06/18 08:38 Dose: 5 mg Mometasone Furoate/Formoterol Fumar (Dulera 200/5 Mdi*) 2 puff INH BID [facility]; Protocol Last Admin: 01/06/18 19:53 Dose: 2 puff Mupirocin (Bactroban 2 % Oint*) 1 applic TOPICAL DAILY [facility] Last Admin: 01/06/18 08:25 Dose: Not Given Omeprazole (Prilosec Cap*) 40 mg PO BID AC [facility] Last Admin: 01/06/18 17:20 Dose: 40 mg Ondansetron HCl (Zofran Inj*) 4 mg IV Q6HR PRN PRN Reason: VOMITING Last Admin: 01/06/18 09:57 Dose: 4 mg Oxycodone HCl (Roxycodone Tab*) 5 mg PO Q6H PRN PRN Reason: PAIN MODERATE TO SEVERE Last Admin: 01/07/18 02:41 Dose: 5 mg Pharmacy Profile Note (Coumadin Per Pharmacy*) 0 note FOLLOW UP .PER PHARMACY PROTOC [facility]; Protocol Ropinirole HCl (Requip Tab*) 1 mg PO QPM [facility] Last Admin: 01/06/18 17:20 Dose: 1 mg Trazodone HCl (Desyrel Tab*) 50 mg PO QPM [facility] Last Admin: 01/06/18 17:20 Dose: 50 mg Trolamine Salicylate (Myoflex 10% Cream*) 1 applic TOPICAL Q6H PRN PRN Reason: .PAIN Last Admin: 01/06/18 13:01 Dose: 1 applic Home Medications: Home Medications Medication Instructions Recorded Confirmed Type Insulin Regular, Human [Novolin R] 10 - 15 unit SUBCUT QAM MDD 60 08/08/1312/26 History units Losartan TAB* [Cozaar TAB*] 100 mg PO QPM 08/08/13 12/26/17 History Insulin NPH Human Isophane 0 - 40 unit SC BID MDD 100 units 01/16/14 12/26/17 History [Humulin N] Insulin Regular, Human [Novolin R] 15 - 30 unit SUBCUT QPM MDD 60 01/16/1412/26 History units Ascorbic Acid TAB* [Vitamin C 1,000 mg PO QAM 10/04/15 12/26/17 History TAB*] Fluticas/Salmet 115/21 HFA(NF) 2 puff INH BID 10/04/15 12/26/17 History [Advair HFA 115/21 (NF)] LoraTADine TAB(NF) [Claritin 10 MG 10 mg PO QPM PRN 10/04/15 12/26/17 History TAB(NF)] Brimonidine 0.2 % * [Alphagan P 1 drop BOTH EYES BID 04/28/17 12/26/17 History 0.2% *] Dorzolamide 2% OPTH (NF) [Trusopt 1 drop BOTH EYES BID 04/28/17 12/26/17 History 2% OPTH (NF)] traZODone TAB* [Desyrel TAB*] 50 mg PO QPM 04/28/17 12/26/17 History Albuterol HFA INHALER* [Ventolin 2 puff INH Q6H PRN 05/14/17 12/26/17 History HFA Inhaler*] Cholecalciferol TAB* [Vitamin D 1,000 unit PO BID 05/14/17 12/26/17 History TAB*] Codeine Phosphate/Guaifenesin 10 ml PO BID PRN MDD 20ml 05/14/17 12/26/17 History [Codeine-Guaifen 10-100 mg/5 ml] Diltiazem CD CAP* [Cardizem CD 180 mg PO QAM 05/14/17 12/26/17 History CAP*] Multivitamins/Minerals TAB* 1 tab PO QAM 05/14/17 12/26/17 History [Theragran/minerals TAB*] Omeprazole CAP* [Prilosec CAP* 20 40 mg PO BID 05/14/17 12/26/17 History MG] Simvastatin (NF) [Zocor (NF)] 40 mg PO QPM 05/14/17 12/26/17 History Lactulose* 30 ml PO BID 06/25/17 12/26/17 History Levothyroxine Sodium [Levo-T] 25 mcg PO QPM 06/25/17 12/26/17 History Metoclopramide HCl 5 mg PO TID AC 06/25/17 12/26/17 History Metoclopramide HCl [Reglan] 5 mg PO QPM 06/25/17 12/26/17 History Metolazone TAB* [Zaroxolyn TAB*] 5 mg PO QAM 06/25/17 12/26/17 History Ropinirole HCl 1 mg PO QPM 06/25/17 12/26/17 History Furosemide TAB* [Lasix TAB*] 120 mg PO BID 08/26/17 12/26/17 History guaiFENesin LIQ* [Robitussin*] 10 ml PO Q4H PRN 08/26/17 12/26/17 History Acetaminophen [Acetaminophen Extra 1,000 mg PO BID PRN 09/21/17 12/26/17 History Strength] Polyethylene Glycol 3350* 17 gm PO BEDTIME PRN 09/27/17 12/26/17 History [Miralax*] Allergies: Allergies Allergy/AdvReac Type Severity Reaction Status Date / Time amlodipine [From [facility]] Allergy Severe Swelling Verified 12/26/17 21:01 hydrocodone Allergy Severe Difficulty Verified 12/26/17 21:01 Breathing shellfish derived Allergy Severe Difficulty Verified 12/26/17 21:01 Breathing lisinopril Allergy Intermediate Coughing Verified 12/26/17 21:01 NSAIDS (Non-Steroidal AdvReac Unknown Unknown Verified 12/26/17 21:01 Anti-Inflamma Reaction Details Objective - Vital Signs Vital Signs: Vital Signs 01/06/18 01/06/18 01/06/18 07:48 07:53 08:00 Temperature 98.4 F Pulse Rate 66 68 Respiratory 18 17 16 Rate Blood Pressure 127/52 (mmHg) O2 Sat by Pulse 98 95 95 Oximetry 01/06/18 01/06/18 01/06/18 08:32 12:34 15:09 Temperature 97.4 F 97.5 F Pulse Rate 69 78 Respiratory 16 18 20 Rate Blood Pressure 119/50 120/60 (mmHg) O2 Sat by Pulse 100 100 Oximetry 01/06/18 01/06/18 01/06/18 16:00 17:10 19:07 Temperature 98.7 F Pulse Rate 86 Respiratory 24 Rate Blood Pressure 107/62 (mmHg) O2 Sat by Pulse 100 100 100 Oximetry 01/06/18 01/06/18 01/06/18 19:54 20:00 23:14 Temperature 97.9 F Pulse Rate 77 83 Respiratory 18 20 20 Rate Blood Pressure 136/64 (mmHg) O2 Sat by Pulse 98 100 Oximetry 01/07/18 01/07/18 01/07/18 00:00 02:41 02:50 Temperature 98.0 F Pulse Rate 72 Respiratory 16 16 Rate Blood Pressure 115/53 (mmHg) O2 Sat by Pulse 100 97 Oximetry 01/07/18 04:36 Temperature Pulse Rate Respiratory 18 Rate Blood Pressure (mmHg) O2 Sat by Pulse Oximetry - Intake and Output Intake and Output: Intake & Output 01/04/18 01/05/18 01/06/18 01/07/18 11:59 11:59 11:59 11:59 Intake Total 486 440 870 405 Output Total 360 575 200 100 Balance 126 -135 670 305 Weight 203 lb 14.4 oz 207 lb 12.8 oz 205 lb 9.6 oz 208 lb 3.2 oz Intake: Heparin 486 Oral 0 440 870 405 Output: Urine 110 575 200 100 Akers 250 Other: # Bowel Movements 0 0 ADLs: Meal Record Start: 12/27/17 01: 20 Freq: ,,18 Status: Complete Protocol: Created 12/27/17 01:20 System (Rec: 12/27/17 01:20 System ICU-C12) Document 12/27/17 09:00 [id number] (Rec: 12/27/17 13:41 [id number] ICU-C12) Document 12/27/17 13:00 SFA5613 (Rec: 12/27/17 14:56 [id number] ICU-C12) Document 12/27/17 18:00 [id number] (Rec: 12/27/17 18:18 [id number] ICU-C12) Document 12/28/17 09:00 FHP6789 (Rec: 12/28/17 09:34 [id number] ICU-C15) ADLs: Meal Record Start: 12/28/17 17: 08 Freq: DAILY@0900,1400,1800 Status: Active Protocol: Created 12/28/17 17:08 [id number] (Rec: 12/28/17 17:08 [id number] TELE-C11) Document 12/28/17 20:29 [id number] (Rec: 12/28/17 20:29 UVA1666 TELE-C03) Document 12/29/17 09:00 GPH4618 (Rec: 12/29/17 09:19 VAG2437 TELE-C11) Document 12/29/17 10:25 WPD6890 (Rec: 12/29/17 10:25 XDI1068 TELE-C07) Document 12/29/17 14:00 FFW1452 (Rec: 12/29/17 15:23 TAF6182 TELE-C09) Document 12/29/17 20:59 WIJ8397 (Rec: 12/29/17 21:00 HRG7205 TELE-C11) Document 12/30/17 09:00 YYX0803 (Rec: 12/30/17 10:33 NYI3043 TELE-C11) Document 12/30/17 14:00 XJR4872 (Rec: 12/30/17 14:56 YXQ5323 TELE-C03) Document 12/30/17 18:00 WPY2603 (Rec: 12/30/17 21:05 DRS2973 TELE-C10) Document 12/31/17 09:00 BWE8655 (Rec: 12/31/17 09:56 FVQ0272 TELE-C03) Document 12/31/17 14:00 WQO5529 (Rec: 12/31/17 14:00 KYL7341 TELE-C03) Document 12/31/17 17:54 BVH0836 (Rec: 12/31/17 17:54 OCS1300 TELE-C10) Document 01/01/18 09:00 ULH7282 (Rec: 01/01/18 09:43 CZN6912 TELE-C05) Document 01/01/18 14:00 NAH7508 (Rec: 01/01/18 14:21 OKU8489 TELE-C11) Document 01/01/18 18:57 TEX5795 (Rec: 01/01/18 18:57 UIJ2178 TELE-C03) Document 01/02/18 09:00 URH0004 (Rec: 01/02/18 11:14 TKU4878 TELE-C11) Document 01/02/18 13:16 NZO9719 (Rec: 01/02/18 13:17 HPX9574 TELE-C11) Document 01/02/18 22:16 BDP7072 (Rec: 01/02/18 22:16 VUB2916 TELE-C11) Document 01/03/18 09:00 OOV5980 (Rec: 01/03/18 12:29 SXC8864 TELE-C05) Document 01/03/18 14:00 KWL0154 (Rec: 01/03/18 14:28 MUF0058 TELE-C05) Document 01/03/18 21:53 BMY9019 (Rec: 01/03/18 21:54 KRW5888 TELE-C11) Document 01/04/18 08:27 YQC7835 (Rec: 01/04/18 08:27 HED5258 TELE-C08) Document 01/04/18 09:43 DLI9867 (Rec: 01/04/18 09:44 OMG8344 TELE-C08) Document 01/04/18 14:00 NFM2719 (Rec: 01/04/18 15:19 QQZ8534 TELE-C08) Document 01/05/18 14:00 PKK0536 (Rec: 01/05/18 15:01 BPK0407 TELE-C05) Document 01/05/18 17:48 RMZ6759 (Rec: 01/05/18 17:48 XLN8321 TELE-C02) Document 01/06/18 09:00 RZT0017 (Rec: 01/06/18 14:07 RSX3452 MED-C09) Document 01/06/18 14:00 DXR1442 (Rec: 01/06/18 14:14 JPM5611 MED-C09) Document 01/06/18 18:00 LXP6373 (Rec: 01/06/18 19:49 YLS5544 MED-C15) Intake and Output Start: 12/26/17 20: 51 Freq: Status: Active Protocol: Created 12/26/17 20:51 System (Rec: 12/26/17 20:51 System ED-C31) Intake and Output Start: 12/27/17 01: 20 Freq: Q1HR Status: Complete Protocol: Created 12/27/17 01:20 System (Rec: 12/27/17 01:20 System ICU-C12) Document 12/27/17 03:00 XDG7159 (Rec: 12/27/17 04:39 EFW6749 ICU-C15) Document 12/27/17 05:00 EPH7553 (Rec: 12/27/17 05:10 GRZ8425 ICU-C15) Document 12/27/17 05:17 XPJ5290 (Rec: 12/27/17 05:17 HXB2250 ICU-M29) Document 12/27/17 11:23 YCW1076 (Rec: 12/27/17 11:23 AKI8365 ICU-C12) Document 12/27/17 16:42 GKY5008 (Rec: 12/27/17 16:42 RIZ1538 ISDEAL-M05 ) Document 12/27/17 18:18 PZN9993 (Rec: 12/27/17 18:18 ATV9459 ICU-C12) Document 12/27/17 19:00 NIR6476 (Rec: 12/27/17 20:04 CSW5253 ICU-C16) Document 12/27/17 20:00 KHF0150 (Rec: 12/27/17 20:04 [id number] ICU-C16) Document 12/27/17 22:00 JKQ6448 (Rec: 12/27/17 22:08 TNJ6712 ICU-M28) Document 12/28/17 06:07 XYW9453 (Rec: 12/28/17 06:07 TEL8905 ICU-C15) Document 12/28/17 07:00 VFN9770 (Rec: 12/28/17 07:37 JIX4909 ICU-C15) Document 12/28/17 13:40 YGO8536 (Rec: 12/28/17 13:40 CNO6803 ICU-C15) Intake and Output Start: 01/01/18 06: 53 Freq: Status: Active Protocol: Document 01/01/18 06:00 (Rec: 01/01/18 06:53 IX08) Created 01/01/18 06:53 (Rec: 01/01/18 06:53 IX08) Document 01/01/18 14:21 YON1217 (Rec: 01/01/18 14:21 ROI8337 TELE-C11) Document 01/01/18 21:55 TGA6549 (Rec: 01/01/18 21:55 YLN7322 TELE-C13) Document 01/02/18 06:00 BVO6577 (Rec: 01/02/18 06:16 WRY9836 TELE-C01) Document 01/02/18 22:26 AOW7789 (Rec: 01/02/18 22:27 CYW4602 TELE-C11) Document 01/02/18 22:45 OXM4767 (Rec: 01/02/18 22:45 BGW9745 TELE-C11) Document 01/03/18 06:00 SEX2244 (Rec: 01/03/18 06:05 [id number]) Document 01/04/18 12:17 GVE5451 (Rec: 01/04/18 12:17 BOU1849 TELE-C10) Document 01/04/18 14:45 UPZ4092 (Rec: 01/04/18 15:04 WXE2495 TELE-C10) Document 01/04/18 15:20 LUI4802 (Rec: 01/04/18 15:20 KLP9158 TELE-C08) Document 01/04/18 21:45 MLT2872 (Rec: 01/04/18 21:48 VRR9901 TELE-C13) Document 01/05/18 06:00 PEB7683 (Rec: 01/05/18 06:28 LSV0977 TELE-C01) Document 01/05/18 22:00 [id number] (Rec: 01/05/18 22:18 [id number]) - Physical Exam General: No Cyanosis, Yes Anemia, No Jaundice, No Clubbing Lungs and Chest: Yes: Chest Expansion Full, Chest Expansion Symetrica, Percussion Note Resonant, Vessicular Breath Sounds. No: Crackles, Wheezes Heart Rate and Rhythm: Regular JVP: Not Elevated Additional Cardiovascular: Yes: Normal Heart Sounds. No: Heart Murmur, Pedal Edema Abdominal Exam: Yes: Distention, Soft, Bowel Sounds Present. No: Abdominal Mass , Abdominal Tenderness Results - Results Lab Results: Laboratory Results - last 24 hr 01/06/18 01/06/18 01/06/18 08:09 10:02 12:15 WBC RBC Hgb Hct MCV MCH MCHC RDW Plt Count MPV INR (Anticoag Therapy) POC Glucose (mg/dL) 88 159 H 190 H 01/06/18 01/06/18 01/07/18 17:08 20:01 07:12 WBC 10.8 RBC 3.85 L Hgb 11.8 L Hct 35 L MCV 91 MCH 31 MCHC 34 RDW 15 Plt Count 237 MPV 8.4 INR (Anticoag Therapy) POC Glucose (mg/dL) 90 154 H 01/07/18 07:12 WBC RBC Hgb Hct MCV MCH MCHC RDW Plt Count MPV INR (Anticoag Therapy) 2.06 H POC Glucose (mg/dL) Assessment - Problem List Assessment: Patient Problems Cholecystitis (Acute) Elevated liver enzymes (Acute) End stage renal disease on dialysis (Acute) Peritoneal dialysis status (Acute) Vomiting (Acute) Acute renal failure (Chronic) Bradycardia (Chronic) Chronic obstructive lung disease (Chronic) Depression (Chronic) Essential hypertension (Chronic) Hyperlipidemia (Chronic) Hypertension (Chronic) Low back pain (Chronic) Nephrotic syndrome (Chronic) Neuropathy (Chronic) Obesity (Chronic) Retinopathy (Chronic) Type II diabetes mellitus - poor control (Chronic) DVT prophylaxis (Chronic) Full code status (Chronic) Plan: Cholecystitis (Acute)Elevated liver enzymes (Acute) Vomiting (Acute) He is recovering well. He has had no further pain, nausea or vomiting. I explained to him that he should contact us right away if he develops symptoms. LFTs and BMP pending End stage renal disease on dialysis (Acute)Peritoneal dialysis status (Acute) Acute renal failure (Chronic) He is managing his PD independently with the help of Suyapa Shannon. He is at target weight Bradycardia (Chronic) stable Essential hypertension (Chronic) controlled Type 2 diabetes mellitus - I will convert him back to NPH insulin at discharge. I spoke to Jan Kaur - he is ready for discharge. I called Suyapa Mirtha and she is ready to take him home. I discussed warfarin. I discussed the symptoms to watch out for if he is developing acute cholecystitis and told her that he should come straight to the hospital if that happens.
[2018-01-07] MEDS: Mometasone/Formoter 200/5 MDI INH SCH (07:50)
[2018-01-07 08:08] VITALS: BP 126/57
[2018-01-07 08:47] LABS: ABS Basophils 0 10^3/ul (0-0.2); ABS Eosinophils 0.4 10^3/ul (0-0.6); ABS Lymphocytes 1.5 10^3/ul (1.0-4.8); ABS Monocytes 1.2 10^3/ul (0-0.8); ABS Neutrophils 7.7 10^3/ul (1.5-7.7); ABS Nucleated RBC 0 10^3/ul; Eosinophil % 3.5 % (0-6); Lymphocyte % 14.1 % (25-47); Nucleated Red Blood Cells % 0
[2018-01-07] MEDS: Insulin LISPRO* 1 UNITS UNIT SUBCUT SCH ×4 (09:16→13:49)
[2018-01-07] MEDS: Omeprazole CAP* 20 MG PO SCH (09:21)
[2018-01-07] MEDS: Acetaminophen TAB* 325 MG PO SCH ×2 (09:22→13:25)
[2018-01-07] MEDS: Amiodarone TAB* 200 MG PO SCH (09:22)
[2018-01-07] MEDS: Insulin GLARGINE(*) 1 UNITS UNIT SUBCUT SCH (09:23)
[2018-01-07] MEDS: Metolazone TAB* 5 MG PO SCH (09:35)
[2018-01-07] MEDS: Mupirocin 2% OINT* TUBE TOPICAL SCH (09:35)
[2018-01-07] MEDS: Furosemide TAB* 40 MG PO SCH (10:05)
[2018-01-07] MEDS: Trolamine Salicyl. 10% CREAM* 85 GM TUBE TOPICAL PRN (10:15)
--- NOTE | 2018-01-08 18:49 | DS ---
CC: Dr. Akin Chacon DISCHARGE SUMMARY: DATE OF ADMISSION: 12/26/17 DATE OF DISCHARGE: 01/07/18 DISCHARGE DIAGNOSES: 1. Sepsis. 2. Altered mental status. 3. Infection secondary to either peritoneal dialysis/hemodialysis access or secondary to acute cholecystitis. 4. New diagnosis of atrial fibrillation. COMORBIDITIES: 1. End-stage renal disease, peritoneal dialysis, which had failed with weight gain and acute renal insufficiency. 2. Altered mental status with marked depression. 3. Uncontrolled type 2 diabetes mellitus, requiring insulin. SECONDARY DIAGNOSES: 1. Type 2 diabetes mellitus with diabetic nephropathy, retinopathy, neuropathy. 2. History of nephrotic syndrome and end-stage renal disease, previous history of hemodialysis, refusing ongoing therapy, peritoneal dialysis with problems with home usage. 3. Chronic obstructive pulmonary disease. 4. Essential hypertension. 5. Hyperlipidemia. 6. Chronic low back pain. 7. Chronic leg pain associated with dialysis. HISTORY: David Kaur is a 72-year-old white male. His presentation is documented in Dr. Aravind Win's admitting history and physical, which is part of the electronic medical record. We also obtained further history from the dialysis unit and from his significant other, Julissa Shannon. He has a history of end-stage renal disease secondary to diabetic nephropathy. He had inguinal hernia repair, which entailed a period of 6 weeks on hemodialysis. He declined further hemodialysis and has restarted outpatient peritoneal dialysis. For the 1 week prior to admission, he had not been coping as well with his home dialysis and had been phoning the dialysis nurse almost on a daily basis until 2 to 3 days prior to admission. He had gained weight, had altered mental status, had become weak and presented with volume overload, respiratory distress , altered mental status, marked hyperkalemia. PHYSICAL EXAMINATION: At presentation, temperature 36.6 Celsius, pulse 76, respirations 13, blood pressure 150/57, oximetry 91%. Mild respiratory distress. Respiratory: Moderate tachypnea, coarse breath sounds, poor aeration. Regular heart sounds. 2+ JVD. Bilateral leg edema. Abdomen was soft, nontender. No rebound, guarding, or rigidity. Normal bowel sounds. No hepatosplenomegaly or masses. No costovertebral angle tenderness. Psychiatry: Alert and oriented, calm, cooperative. INITIAL INVESTIGATIONS: On 12/26/17, white count 9.3, hemoglobin 10.9, hematocrit 32, platelets 150, neutrophil percent 85.9%. Sodium 121, potassium 7 , chloride 84, bicarbonate 23, anion gap 14, BUN 112, creatinine 10.29, glucose 208, calcium 9.1. LFTs: AST 10, ALT 14, ALP 55. CK 216, myoglobin 1497.9. Troponin I 0.07. C- reactive protein 169.49. INITIAL IMPRESSION: End-stage renal disease, volume overload, hyperkalemia, type 2 diabetes with proliferative retinopathy, chronic obstructive pulmonary disease. On the second day in the hospital, which was 12/27/17, I saw the patient together with Dr. Akin Chacon. We both marked that he had an alteration in mental state with marked negativity and depression. We looked at his investigations included that he had acute infection. He had a markedly raised CRP and percent neutrophil count. We assumed the worst that it was related to his hemodialysis catheter. We pancultured him and removed the HD catheter, but left the PD catheter in situ. Dr. Chacon reinitiated peritoneal dialysis during the hospital stay. CONSULTATIONS DURING THE HOSPITAL STAY: Dr. Chacon and I remained in close contact in terms of the management of this patient. I also had a cardiological consult concerning his rhythm disturbances, which were commented on in a report on 12/29/17. He had several EKGs on 12/27/17, normal sinus rhythm, first- degree AV block and second-degree AV block type 1. On 12/28/17, atrial fibrillation versus atypical flutter, ventricular rate 58, variable block. Tele strips, 12/27/17, normal sinus rhythm to SVT of 150. On 12/28/17, wide complex tachycardia. On 12/28/17 later, atypical flutter, variable block. She agreed with my already initiated management plan, which was to start him on amiodarone. OTHER INVESTIGATIONS: On 01/03/18, gallbladder ultrasound: Cholelithiasis with sonographic findings of mild acute cholecystitis and mild duct dilatation and pericholecystic fluid. Lab investigations during the hospitalization: His percent neutrophil count went down from 85.9 down to 70 and his C-reactive protein went down from maximum of 230.77 on 12/27/17 to 13.95 on 01/07/18. Other labs which were significant: He had elevated liver function tests, which on 01/05/18 showed an AST of 48, an ALT of 109, and an alkaline phosphatase of 265. His amylase and lipase were negative. Microbiology: One blood culture grew Staphylococcus epidermidis. This was a venous culture. His peritoneal fluid and his central catheter did not culture any bacteria; otherwise, he was negative. HOSPITAL COURSE: 1. Infection: We treated him with vancomycin and levofloxacin and he responded well to this. 2. Altered mental state: This improved during his hospital stay and by the last 2 days in the hospital, he was back to his normal self, making jokes, and no longer depressed. 3. Dialysis: He had successful peritoneal dialysis with his weight going from a maximum of 233 pounds down to 208 pounds on the day of discharge. His electrolytes improved. His creatinine went from 10.29 down to 7.41. This was accomplished by Dr. Chacon's excellent team using peritoneal dialysis only. 4. Cardiac rhythm disturbance: He developed atrial fibrillation and flutter. He also had episodes of bradycardia. I started him on warfarin during the hospitalization, which will be termination clerk. I also started him on amiodarone. 5. Elevated LFTs and abnormal ultrasound: He had episodes of vomiting and also elevation of his liver function tests, which were only mild and he had mild acute cholecystitis. It is unclear to me whether this was his initial presenting illness. I think on balance it probably was not as his liver function tests were normal at presentation, though this remains a possibility. Clearly, his gallbladder did not seem to me to be severely damaged as I would expect in somebody who presented as severely sick as he did. 6. Care level: For the first few days in the hospital, he required intensive care treatment, but he was able to transfer to the regular floor. By the end of his hospital admission, he was walking independently with a walker. He also had excellent intensive treatment with himself and with Julissa Shannon, his significant other, to learn once again how to cope independently at home with peritoneal dialysis. At the end, he was deemed safe for discharge. On the day of discharge, he was feeling much better. He had no more nausea or vomiting. He seemed cheerful and oriented, no longer depressed. He seemed confident that he could manage together with Julissa Shannon the discipline of managing both his dialysis and his diabetes and coming to my office for management of his warfarin. He did not have any chest pain, shortness of breath , palpitations. He had no cough or sputum production. Gastrointestinal System : His appetite had recovered. He had some constipation. Nervous System: No headaches and he had full capacity. PHYSICAL EXAMINATION ON THE DAY OF DISCHARGE: Vital Signs: Temperature 98 degrees Fahrenheit, pulse of 68, respirations 16, oxygen saturation 100% on room air, blood pressure 126/57. No cyanosis, anemia, jaundice, clubbing, or lymphadenopathy. Cardiovascular System: His pulse was regular. Heart sounds were normal. No added sounds or murmurs. No pedal edema. Respiratory System: His chest was clear. Abdomen: He had dwell from his peritoneal dialysis, a distended abdomen. No tenderness or organomegaly. Bowel sounds present. Nervous System: Alert and oriented. Normal speech. Arms and legs full power and normal tone and coordination. He had no ulcers, calluses, or infections on his feet. ASSESSMENT AND PLAN: 1. Infection and sepsis. This resolved with parenteral IV antibiotics, removal of his hemodialysis catheter and we were able to stop the antibiotics without his CRP going back up again. 2. Failure of peritoneal dialysis. This most likely reflected an alteration in mental state attending his infection. He responded well to professional management of his peritoneal dialysis in the hospital. He also relearned how to do this at home together with Julissa Shannon. 3. Atrial fibrillation. This likely was secondary to sepsis and electrolyte abnormalities. In the short-term, we are treating this with amiodarone and warfarin. He is tolerating both of these. 4. Acute cholecystitis. This was mild, likely secondary to his acute illness; however, it remains possible that this was the primary infection brought him into the hospital. I have educated him as to the symptoms of recurrent acute cholecystitis. Given that he is refusing future hemodialysis, there are technical difficulties in maintaining peritoneal dialysis on the patient who is having a laparoscopic cholecystectomy. I discussed these with Dr. Chacon in case these come up in the future. In short, he would probably have to stop peritoneal dialysis for a couple of days and then start off with small volumes. 5. Type 2 diabetes mellitus. This came back under control when the acute medical illness was treated. 6. Chronic obstructive pulmonary disease. This is stable. DISCHARGE MEDICATIONS: 1. Warfarin 6 mg p.o. daily. 2. Amiodarone 200 mg daily. 3. Losartan 100 mg daily. 4. Regular insulin 10 to 15 units before meals as previously. 5. N insulin 20 units twice daily. 6. Loratadine 10 mg daily. 7. Fluticasone/salmeterol 115/21 two puffs twice daily. 8. Trazodone 50 mg daily. 9. Dorzolamide 2% one drop both eyes twice daily. 10. Brimonidine 0.2% one drop twice a day. 11. Simvastatin 40 mg q.h.s. 12. Albuterol HFA inhaler 2 puffs every 6 hours as needed. 13. Omeprazole 40 mg daily. 14. Diltiazem 180 mg slow release each day. 15. Cholecalciferol 1000 units a day. 16. Metolazone 5 mg q.a.m. as per Dr. Chacon. 17. Ropinirole 1 mg q.h.s. 18. Metoclopramide 5 mg t.i.d. 19. Levothyroxine 25 mcg a day. 20. Lactulose 30 mL daily. 21. Furosemide 120 mg twice daily per Dr. Chacon. 22. Acetaminophen 1000 mg twice daily as needed. 23. PEG 17 g at bedtime as needed for constipation. FOLLOWUP: He will follow up at my office early next week for an INR and for transition of care management. [id number]/[facility] #: [id number] NAMAN
== END 2018-01-07 14:00 | disposition home health service (06) | DRG 856 ==
LOC: ED 20:42 → ICU 12-27 01:04 → MEDTELE 12-28 13:18 → MED 01-06 05:30
PROVIDERS: ADMIT Hospitalist; ATTEND Internal Medicine
PROC: 05PY03Z Removal of Infusion Device from Upper Vein, Open Approach (ICD-10-PCS; principal; 2017-12-27)
PROC: 5A1D70Z Performance of Urinary Filtration, Intermittent, Less than 6 Hours Per Day (ICD-10-PCS; 2017-12-27)
PROC: 3E1M39Z Irrigation of Peritoneal Cavity using Dialysate, Percutaneous Approach (ICD-10-PCS; 2017-12-28)
DX: T80.29XA Infection following other infusion, transfusion and therapeutic injection, initial encounter (principal); A41.9 Sepsis, unspecified organism; N18.6 End stage renal disease; I12.0 Hypertensive chronic kidney disease with stage 5 chronic kidney disease or end stage renal disease; K81.0 Acute cholecystitis; N17.9 Acute kidney failure, unspecified; I48.92 Unspecified atrial flutter; Y82.8 Other medical devices associated with adverse incidents; E87.70 Fluid overload, unspecified; E11.22 Type 2 diabetes mellitus with diabetic chronic kidney disease; J44.9 Chronic obstructive pulmonary disease, unspecified; E11.9 Type 2 diabetes mellitus without complications; E03.9 Hypothyroidism, unspecified; I25.10 Atherosclerotic heart disease of native coronary artery without angina pectoris; E78.00 Pure hypercholesterolemia, unspecified; M19.90 Unspecified osteoarthritis, unspecified site; F41.9 Anxiety disorder, unspecified; G89.29 Other chronic pain; M54.9 Dorsalgia, unspecified; K21.9 Gastro-esophageal reflux disease without esophagitis; K58.9 Irritable bowel syndrome, unspecified; E87.5 Hyperkalemia; E11.21 Type 2 diabetes mellitus with diabetic nephropathy; E11.3599 Type 2 diabetes mellitus with proliferative diabetic retinopathy without macular edema, unspecified eye; H42 Glaucoma in diseases classified elsewhere; E11.39 Type 2 diabetes mellitus with other diabetic ophthalmic complication; E11.40 Type 2 diabetes mellitus with diabetic neuropathy, unspecified; E11.51 Type 2 diabetes mellitus with diabetic peripheral angiopathy without gangrene; E66.9 Obesity, unspecified; G25.81 Restless legs syndrome; F32.9 Major depressive disorder, single episode, unspecified; I44.7 Left bundle-branch block, unspecified; I48.91 Unspecified atrial fibrillation; I44.0 Atrioventricular block, first degree; Z68.31 Body mass index [BMI] 31.0-31.9, adult; Z88.8 Allergy status to other drugs, medicaments and biological substances; Z99.81 Dependence on supplemental oxygen; Z99.2 Dependence on renal dialysis; Z87.01 Personal history of pneumonia (recurrent); Z98.42 Cataract extraction status, left eye; Z98.41 Cataract extraction status, right eye; Z84.1 Family history of disorders of kidney and ureter; Z82.49 Family history of ischemic heart disease and other diseases of the circulatory system; Z85.828 Personal history of other malignant neoplasm of skin; Y92.9 Unspecified place or not applicable; I25.2 Old myocardial infarction; Z87.891 Personal history of nicotine dependence; Z88.6 Allergy status to analgesic agent; Z91.013 Allergy to seafood
CPT/HCPCS: 36415; 71046; 76705; 80048; 80053; 80076; 80202; 81003; 81015; 82150; 82310; 82533; 82550; 82565; 83036; 83605; 83690; 83735; 83874; 83880; 84100; 84145; 84439; 84443; 84479; 84481; 84484; 84520; 85025; 85610; 85730; 86140; 87040; 87071; 87077; 87086; 87150; 87186; 87205; 87641; 89051; 90935; 90945; 93005; 94640; 99284; A9270-GY; G0257; G8978-GP-CI; G8978-GP-CL; G8979-GP-CI; G8980-GP-CI; G8987-GO-CK; G8988-GO-CI; G8989-GO-CI; J1644; J1940; J1956; J2060; J2405; J3370; J3480

== ENCOUNTER 2018-04-04 13:30 | Inpatient (IN) | payer MEDICARE ==
[2018-04-04 14:57] LABS: ABS Basophils 0 10^3/ul (0-0.2); ABS Eosinophils 0.1 10^3/ul (0-0.6); ABS Lymphocytes 0.7 10^3/ul (1.0-4.8); ABS Monocytes 0.9 10^3/ul (0-0.8); ABS Neutrophils 5.1 10^3/ul (1.5-7.7); ABS Nucleated RBC 0 10^3/ul; Eosinophil % 1.1 % (0-6); Hematocrit 30 % (42-52); Hemoglobin 10.7 g/dl (14.0-18.0); Lymphocyte % 9.9 % (25-47); Mean Corpuscular HGB Conc 35 g/dl (31-36); Mean Corpuscular Hemoglobin 31 pg (27-31); Mean Corpuscular Volume 89 fL (80-94); Mean Platelet Volume 8.4 um3 (7.4-10.4); Nucleated Red Blood Cells % 0.1; Platelet Count 177 10^3/ul (150-450); Red Cell Distribution Width 14 % (10.5-15); White Blood Count 6.8 10^3/ul (3.5-10.8)
[2018-04-04 15:10] LABS: EGFR Non-African American 6.7 (>60)
--- NOTE | 2018-04-04 15:17 | RAD ---
HISTORY: weakness COMPARISONS: December 26, 2017 VIEWS: 1: frontal AP view of the chest at 2:42 PM FINDINGS: LINES AND TUBES: None. CARDIOMEDIASTINAL SILHOUETTE: The cardiomediastinal silhouette is normal for portable technique. PLEURA: The costophrenic angles are sharp. No pleural abnormalities are noted. LUNG PARENCHYMA: There is patchy alveolar opacification of left lung base. ABDOMEN: The upper abdomen is clear. There is no subphrenic gas. BONES AND SOFT TISSUES: No bone or soft tissue abnormalities are noted. IMPRESSION: PATCHY LEFT BASILAR ATELECTASIS VERSUS CONSOLIDATION. RECOMMEND FOLLOW-UP UNTIL RESOLUTION TO EXCLUDE UNDERLYING PULMONARY PARENCHYMAL PATHOLOGY.
--- NOTE | 2018-04-04 15:26 | ED ---
Complex/Multi-Sys Presentation - HPI Summary HPI Summary: A 73 y/o M presents to ED with c/o ongoing weakness. Pt is on dialysis 4x a day , has a peritoneal catheter in place. Associated sx: fever, chills, nausea, dry heaving, diarrhea onset in ED, mild SOB, mild cough. Denies abd pain, MELARA, vision changes, ear ache, sore throat, neck pain, CP, urinary sx, anxiety, depression. No recent exposure to anyone sick. PMHx: AR. - History Of Current Complaint Chief Complaint: EDWeakness Time Seen by Provider: 04/04/18 13:52 Hx Obtained From: Patient Onset/Duration: Still Present Timing: Constant Severity Currently: Moderate Severity Initially: Moderate Associated Signs And Symptoms: Positive: SOB - mild, Cough - mild, Diarrhea, Fever, Other - pos: chills, dry heaving. neg: vision changes, ear ache, sore throat, neck pain, CP, urinary sx, anxiety, depression.. Negative: Headache, Abdominal Pain - Allergies/Home Medications Allergies/Adverse Reactions: Allergies Allergy/AdvReac Type Severity Reaction Status Date / Time amlodipine [From [facility]] Allergy Severe Swelling Verified 12/26/17 21:01 hydrocodone Allergy Severe Difficulty Verified 12/26/17 21:01 Breathing shellfish derived Allergy Severe Difficulty Verified 12/26/17 21:01 Breathing lisinopril Allergy Intermediate Coughing Verified 12/26/17 21:01 NSAIDS (Non-Steroidal AdvReac Unknown Unknown Verified 12/26/17 21:01 Anti-Inflamma Reaction Details Home Medications: Home Medications Acetaminophen [Tylenol Extra Strength] 500 mg PO Q6HR PRN 04/04/18 [History Confirmed 04/04/18] Albuterol HFA INHALER* [Ventolin HFA Inhaler*] 2 puff INH Q4H PRN 04/04/18 [ History Confirmed 04/04/18] Brimonidine Tartrate 1 drop BOTH EYES BID 04/04/18 [History Confirmed 04/04/18] Cinacalcet TAB* [Sensipar TAB*] 60 mg PO DAILY 04/04/18 [History Confirmed 04/04] Dorzolamide 2% OPTH (NF) [Trusopt 2% OPTH (NF)] 1 drop BOTH EYES BID 04/04/18 [ History Confirmed 04/04/18] Insulin NPH Human Isophane [Humulin N Kwikpen] 20 units SUBCUT QAM 04/04/18 [ History Confirmed 04/04/18] Insulin Regular, Human [Novolin R Relion] 10 unit SUBCUT BID 04/04/18 [History Confirmed 04/04/18] Levothyroxine TAB* [Synthroid TAB*] 100 mcg PO DAILY 04/04/18 [History Confirmed 04/04/18] Losartan TAB* [Cozaar TAB*] 100 mg PO DAILY 04/04/18 [History Confirmed 04/04/18 ] Metoclopramide TAB* [Reglan TAB*] 10 mg PO ACHS 04/04/18 [History Confirmed ] Patiromer Calcium Sorbitex [Veltassa] 8.4 gm PO DAILY PRN 04/04/18 [History Confirmed 04/04/18] Simvastatin (NF) [Zocor (NF)] 40 mg PO BEDTIME 04/04/18 [History Confirmed 04/04] Sucroferric Oxyhydroxide [Velphoro] 500 mg PO AC 04/04/18 [History Confirmed ] Warfarin TAB(*) [Coumadin TAB(*)] 6 mg PO DAILY@1700 04/04/18 [History Confirmed 04/04/18] oxyCODONE TAB* [Roxycodone TAB 5 mg*] 5 mg PO Q4H PRN 04/04/18 [History Confirmed 04/04/18] rOPINIRole TAB* [Requip*] 4 mg PO BEDTIME 04/04/18 [History Confirmed 04/04/18] PMH/Surg Hx/FS Hx/Imm Hx Previously Healthy: No Endocrine/Hematology History: Reports: Hx Diabetes - on insulin, Hx Thyroid Disease - Hypothyroid, Hx Anemia Cardiovascular History: Reports: Hx Angina, Hx Coronary Artery Disease, Hx Hypercholesterolemia, Hx Hypertension - Hypertension and Venous hypertension, Hx Myocardial Infarction, Hx Peripheral Vascular Disease - Chronic Venous insufficiency, Other Cardiovascular Problems/Disorders - AV Fistula left arm. Denies: Hx Pacemaker/ICD, Hx Valvular Heart Disease Respiratory History: Reports: Hx Asthma - Inhaler prn, Hx Chronic Bronchitis, Hx Chronic Obstructive Pulmonary Disease (COPD), Hx Pneumonia, Hx Seasonal Allergies, Other Respiratory Problems/Disorders - wears 4L at home GI History: Reports: Hx Gastroesophageal Reflux Disease - on omeprazole, Hx Irritable Bowel Denies: Hx Jaundice, Other GI Disorders History: Reports: Hx Acute Renal Failure, Hx Chronic Renal Failure, Hx Dialysis - PT HAS FISTULA, PERITONEAL AND HEMODIALYSIS CATHETERS IN PLACE Denies: Other Problems/Disorders - frequent urination, pt states from fluid pill Musculoskeletal History: Reports: Hx Arthritis, Hx Back Problems, Other Musculoskeletal History - Chronic back pain, History of wound right leg- healed Sensory History: Reports: Hx Cataracts - Bilateral, history of, Hx Glaucoma, Hx Hearing Problem Denies: Hx Contacts or Glasses, Hx Hearing Aid Opthamlomology History: Reports: Hx Cataracts - Bilateral, history of, Hx Glaucoma Denies: Hx Contacts or Glasses Neurological History: Reports: Hx Nerve Disease - Diabetic Neuropathy, Other Neuro Impairments/Disorders Denies: Hx Headaches, Hx Seizures, Hx Spinal Cord Injury Psychiatric History: Reports: Hx Anxiety - Panic Attacks - Cancer History Cancer Type, Location and Year: Basal Cell CA Hx Chemotherapy: No Hx Radiation Therapy: No - Surgical History Surgery Procedure, Year, and Place: Eye surgery 1986, 2013. Tonsillectomy, appendectomy in childhood. Cataracts- Bilateral. AV Fistula Left Arm. PERITONEAL AND HEMODIALYSIS CATHETERS. Left inguinal hernia repair SEPTEMBER 2017 - HERNIA REPAIR Hx Anesthesia Reactions: No Infectious Disease History: No Infectious Disease History: Denies: Traveled Outside the [place] in Last 30 Days - Family History Known Family History: Positive: Cardiac Disease - Mother from heart attack , Other - Brother has kidney disease - Social History Occupation: Retired Lives: Dormitory/Roommates Alcohol Use: None Alcohol Amount: Stopped 30 years ago Hx Substance Use: No Substance Use Type: Reports: None Hx Tobacco Use: Yes Smoking Status (MU): Former Smoker Type: Cigarettes, Cigars, Pipe, Smokeless Tobacco Amount Used/How Often: 50 cigars per week, pipe, chewed tobacco Length of Time of Smoking/Using Tobacco: 30 years Have You Smoked in the Last Year: No Review of Systems Positive: Fever, Chills Negative: Blurred Vision Negative: Sore Throat, Ear Ache Negative: Chest Pain Positive: Shortness Of Breath - mild, Cough - mild Positive: Diarrhea, Nausea, Other - pos: dry heaving Negative: dysuria, hematuria Negative: Arthralgia - neck pain Positive: Weakness. Negative: Headache Negative: Anxious, Depressed All Other Systems Reviewed And Are Negative: No Physical Exam - Summary Physical Exam Summary: Appearance: Alert, conversive, nontoxic appearing. Smells of stool. Skin: Warm, dry, no mottling, no rashes, no contusions HEENT: EOMI, PERRL, dry mucous membranes. False teeth. Neck: No masses on the neck, supple Respiratory: Clear to auscultation, breath sounds present, no rales, no rhonchi , no wheezes Cardiovascular: RRR, pulses are symmetrical in both lower and upper extremities Abdomen: Soft, non-tender. PE catheter noted to LLQ. Bowel Sounds: Present Musculoskeletal: No CVA tenderness, no obvious deformity, moving all extremities in a grossly normal manner. Bilat pedal edema, erythema to RLE. Neurological: A&Ox3, CN II-XII Intact, moving all extremities symmetrically Psychiatric: Normal affect and mood Triage Information Reviewed: Yes Vital Signs On Initial Exam: Initial Vitals Temp Pulse Resp BP Pulse Ox 98.2 F 87 40 111/57 94 04/04/18 13:45 04/04/18 13:45 04/04/18 13:45 04/04/18 13:45 04/04/18 13:45 Vital Signs Reviewed: Yes Diagnostics - Vital Signs Vital Signs Temp Pulse Resp BP Pulse Ox 04/04/18 13:45 98.2 F 87 40 111/57 94 - Laboratory Lab Results: Lab Results 04/04/18 04/04/18 Range/Units 14:40 14:40 WBC 6.8 (3.5-10.8) 10^3/ul RBC 3.40 L (4.00-5.40) 10^6/ul Hgb 10.7 L (14.0-18.0) g/dl Hct 30 L (42-52) % MCV 89 (80-94) fL MCH 31 (27-31) pg MCHC 35 (31-36) g/dl RDW 14 (10.5-15) % Plt Count 177 (150-450) 10^3/ul MPV 8.4 (7.4-10.4) um3 Neut % (Auto) 75.4 (38-83) % Lymph % (Auto) 9.9 L (25-47) % [place] % (Auto) 13.3 H (0-7) % Eos % (Auto) 1.1 (0-6) % Baso % (Auto) 0.3 (0-2) % Absolute Neuts (auto) 5.1 (1.5-7.7) 10^3/ul Absolute Lymphs (auto) 0.7 L (1.0-4.8) 10^3/ul Absolute Monos (auto) 0.9 H (0-0.8) 10^3/ul Absolute Eos (auto) 0.1 (0-0.6) 10^3/ul Absolute Basos (auto) 0 (0-0.2) 10^3/ul Absolute Nucleated RBC 0 10^3/ul Nucleated RBC % 0.1 Sodium 129 L (135-145) mmol/L Potassium Pending Chloride 90 L (101-111) mmol/L Carbon Dioxide 27 (22-32) mmol/L Anion Gap Pending BUN 51 H (6-24) mg/dL Creatinine 7.90 H (0.67-1.17) mg/dL Est GFR ( Amer) 8.1 (>60) Est GFR (Non-Af Amer) 6.7 (>60) BUN/Creatinine Ratio 6.5 L (8-20) Glucose 253 H (70-100) mg/dL Calcium 7.4 L (8.6-10.3) mg/dL Phosphorus 3.1 (2.5-5.0) mg/dL Magnesium 1.3 L (1.9-2.7) mg/dL Total Bilirubin 0.50 (0.2-1.0) mg/dL AST 12 L (13-39) U/L ALT 9 (7-52) U/L Alkaline Phosphatase 66 (34-104) U/L Troponin I Pending Total Protein 5.0 L (6.4-8.9) g/dL Albumin 2.7 L (3.2-5.2) g/dL Globulin 2.3 (2-4) g/dL Albumin/Globulin Ratio 1.2 (1-3) Result Diagrams: 04/04/18 14:40 04/04/18 14:40 Lab Statement: Any lab studies that have been ordered have been reviewed, and results considered in the medical decision making process. - EKG 1600 Cardiac Rate: NL - 83 bpm EKG Rhythm: Sinus Rhythm ST Segment: Non-Specific EKG Interpretation: Slighty prolonged QRS 111, QTC 502. Incomplete LBBB. Complex Multi-Symp Course/Dx Course Of Treatment: Pt is a 73 y/o M presenting with ongoing weakness. Pt is on dialysis 4x a day, has a peritoneal catheter. Associated sx: fever, chills, nausea, dry heaving, diarrhea onset in ED, mild SOB, mild cough. Consulted with Dr. Alexander, hospitalist, who will admit pt. - Diagnoses Provider Diagnoses: Hypokalemia, ESRD (end stage renal disease) - Physician Notifications Discussed Care Of Patient With: Tia Alexander - hospitalist Time Discussed With Above Provider: 15:26 Instructed by Provider To: Admit As Inpatient Discharge - Sign-Out/Discharge Documenting (check all that apply): Patient Departure - ADM - Discharge Plan Condition: Stable Disposition: ADMITTED TO [facility] - Billing Disposition and Condition Condition: STABLE Disposition: Admitted to [facility] - Attestation Statements Document Initiated by Scribe: Yes Documenting Scribe: Kevin Fan Provider For Whom Scribe is Documenting (Include Credential): Dr. Cortney Hankins MD Scribe Attestation: I, Kevin Fan, scribed for Dr. Cortney Hankins MD on 04/04/18 at 1951. Scribe Documentation Reviewed: Yes Provider Attestation: The documentation as recorded by the Kevin rivera accurately reflects the service I personally performed and the decisions made by ks, Dr. Cortney Hankins MD Consult Consult: 1615: Consult with Dr. Chacon, nephrology Agrees with admission. Courtesy call. Recommends Mg and fluids. 1630: Consult with Dr. Alexander, hospitalist Confirms admit.
[2018-04-04] MEDS ORDERED: Potassium Chloride LIQUID* 20 MEQ PACKET PO ONE (15:50)
[2018-04-04] MEDS ORDERED: Magnesium Sulfate 1 GM IV* 1 GM/100 ML BAG IV ONE (16:16)
[2018-04-04] MEDS ORDERED: NS 0.9% 500 ML* 500 ML IV ONE (16:17)
[2018-04-04] MEDS ORDERED: KCL 20 MEQ/100 ML IVPREMIX* 20 MEQ/100 ML BAG IV ONE (17:13)
[2018-04-04] MEDS ORDERED: NS 0.9% 1000 ML* 1,000 ML IV SCH (17:15)
[2018-04-04] MEDS ORDERED: Ondansetron INJ* 2 MG/ML VIAL ONE (17:30)
[2018-04-04] MEDS ORDERED: Ondansetron INJ* 2 MG/ML VIAL IV ONE (17:36)
[2018-04-04] MEDS ORDERED: oxyCODONE TAB* 5 MG TAB PO PRN (17:38)
[2018-04-04] MEDS ORDERED: Albuterol HFA INHALER* 8 gm MDI INH PRN (17:38)
[2018-04-04 17:59] LABS: INR 2.47 (0.77-1.02)
[2018-04-04] MEDS ORDERED: Ondansetron INJ* 2 MG/ML VIAL IV PRN (18:12)
[2018-04-04] MEDS ORDERED: hydrOXYzine HCL TAB* 25 MG PO PRN (20:04)
[2018-04-04] MEDS: rOPINIRole TAB* 4 MG PO SCH (20:37)
[2018-04-04] MEDS: Azithromycin TAB* 250 MG PO SCH (20:39)
[2018-04-04] MEDS: Metoclopramide TAB* 10 MG PO SCH (20:39)
[2018-04-04] MEDS: traZODone TAB* 50 MG TAB PO SCH (20:40)
[2018-04-04] MEDS: Atorvastatin* 10 MG TAB PO SCH (20:40)
[2018-04-04] MEDS: Omeprazole CAP* 20 MG PO SCH (20:41)
[2018-04-04] MEDS: cefTRIAXone(*) 1 GM in NS 0.9% 50 ML* 50 ML IVPB SCH (20:42)
[2018-04-04] MEDS: Insulin LISPRO* 1 UNITS UNIT SUBCUT SCH (20:43)
[2018-04-04] MEDS: Insulin GLARGINE(*) 1 UNITS UNIT SUBCUT SCH (20:45)
--- NOTE | 2018-04-04 21:31 | HP ---
CC: Dr. Watkins * HISTORY AND PHYSICAL: DATE OF ADMISSION: 04/04/18 PRIMARY CARE PROVIDER: Dr. Watkins. TAPING MACHINE OPERATOR: Dr. Chacon. CHIEF COMPLAINT: Weakness. HISTORY OF PRESENT ILLNESS: Mr. Kaur is a 73-year-old male who yesterday stated that he felt essentially normal. Today, he woke up and he felt very weak. He had done dialysis overnight; however, has been unable to do any of his dialysis treatments during the day today due to severe weakness. He states that he had a fever up to 101 at home. He has felt short of breath. He denies any chest pain or abdominal pain. He states that he had to call the ambulance due to the severe weakness and on the way here, he began to have diarrhea. The patient again denies any abdominal pain. He has not noticed any blood in the stool. He has noted that he has felt mildly lightheaded and he has noticed his breathing is fast. He denies any recent sick contacts. In terms of his dialysate fluid, he states that it has not been cloudy and there has been no fibrin in it. The patient has a very flat affect at this time and does not elaborate on my questions making obtaining a history somewhat difficult. PAST MEDICAL HISTORY: 1. End-stage renal disease. 2. Type 2 diabetes. 3. Coronary artery disease. 4. COPD. 5. Glaucoma. 6. RLS. 7. Hypothyroidism. 8. Hypertension. 9. Hyperlipidemia. 10. GERD. PAST SURGICAL HISTORY: 1. Appendectomy. 2. Peritoneal dialysis catheter insertion. 3. Bilateral cataract extractions. 4. Right vitrectomy for retinal detachment. 5. Tonsillectomy. 6. Left upper extremity dialysis fistula. MEDICATIONS: I will preface this by saying this was based off list obtained from Dr. Chacon's office, which is different than the list the patient has brought with him. 1. Oxycodone 5 mg p.o. q.4 hours p.r.n. pain. 2. Albuterol 2 puffs inhaled q.4 hours p.r.n. shortness of breath. 3. Coumadin 6 mg p.o. daily. 4. Veltassa 8.4 g p.o. daily p.r.n. hyperkalemia. 5. Velphoro 500 mg p.o. q.a.c. 6. Trusopt 2% one drop to both eyes b.i.d. 7. Sensipar 60 mg p.o. daily. 8. Trazodone 50 mg p.o. q.h.s. 9. Requip 4 mg p.o. q.h.s. 10. Reglan 10 mg p.o. q.a.c. and h.s. 11. Losartan 100 mg p.o. daily. 12. Loratadine 10 mg p.o. daily p.r.n. allergies. 13. Levothyroxine 100 mcg p.o. daily. 14. Regular insulin 10 units subcutaneous twice daily. 15. Insulin NPH 20 units subcutaneous q.a.m. 16. Brimonidine 1 drop to both eyes b.i.d. 17. Tylenol 500 mg p.o. q.6 hours p.r.n. pain. 18. Multivitamin 1 tab p.o. daily. 19. Simvastatin 40 mg p.o. q.h.s. 20. Omeprazole 40 mg p.o. b.i.d. 21. Advair 115/21 two puffs inhaled twice daily. 22. Ascorbic acid 1000 mg p.o. daily. ALLERGIES: AMLODIPINE, HYDROCODONE, SHELLFISH, LISINOPRIL, and NSAIDS. FAMILY HISTORY: Mom at the age of 65 of an RI. Dad at the age of 88 of an RI. SOCIAL HISTORY: The patient is a former smoker, he quit over 25 years ago. He also was a former heavy drinker quitting over 25 years ago. 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 He is , but has a girlfriend with whom he lives. He has no biologic children of his own. REVIEW OF SYSTEMS: The patient admits to fever as above. He states that up until today his appetite had been fine; however, today his appetite has been very poor. He has no chest pain. He has chronic lower extremity edema. He states that it is at baseline. He denies any significant cough, but he does state that he has been coughing intermittently over the last few days bringing up some whitish sputum. He does feel short of breath and as if he is breathing fast. He admits to dry heaves for a week and 1 to 2 episodes a day of actual vomiting. He has no abdominal pain. He admits to the diarrhea as above. No hematochezia. No hematuria. He states that he makes a minimal amount of urine. He denies any dysuria. He last urinated on the day of admission. No stroke like symptoms. No sudden changes in vision. No dysphagia. He states that he feels achy all over. No rashes. No anxiety or depression. PHYSICAL EXAMINATION GENERAL: The patient is a well-developed, elderly male, seen sitting in the stretcher, in no acute distress with a very flat affect and slow to respond to questions. VITAL SIGNS: Blood pressure 116/53, pulse 87, respirations 18, temp 98.2, O2 sat 96% on room air. HEENT: Pupils are round. There is evidence of prior cataract extraction. Extraocular muscles are intact. Oropharynx is clear. Oral mucosa is dry. NECK: There is no submandibular, cervical, or supraclavicular adenopathy. PULMONARY: Lungs are clear to auscultation bilaterally. CARDIAC: Normal S1, S2. Regular rate and rhythm. I do not appreciate any murmurs. There is 1+ bilateral lower extremity edema. ABDOMEN: Bowel sounds are present. Abdomen is soft, nondistended. He is mildly tender to palpation diffusely. MUSCULOSKELETAL: There is no cyanosis or clubbing of the digits. There is full active range of motion of all 4 extremities. NEURO: Cranial nerves II through XII are grossly intact. Sensation is intact to light touch throughout. Strength is 5/5 and symmetric in both upper and lower extremities bilaterally. PSYCH: The patient is alert. He is oriented x3. Again, his affect appears flat. SKIN: Warm and dry. There are no rashes. DIAGNOSTIC STUDIES/LAB DATA: WBC 6.8, hemoglobin 10.7, hematocrit 30, platelets 177. Sodium 129, potassium 2.4, chloride 90, CO2 27, BUN 51, creatinine 7.90, glucose 253, calcium 7.4, phosphorus 3.1, magnesium 1.3. Bilirubin 0.5, AST 12, ALT 9, alk phos 66. Troponin 0.06. Albumin 2.7. EKG reveals normal sinus rhythm with a first-degree AV block. There are nonspecific ST changes. Chest x-ray reveals a patchy left basilar atelectasis versus consolidation. ASSESSMENT AND PLAN: Mr. Kaur is a 73-year-old male with a history of end- stage renal disease, on peritoneal dialysis; type 2 diabetes; coronary artery disease; chronic obstructive pulmonary disease; hypertension and hypothyroidism , who presented to the emergency room with complaints of severe weakness and began having diarrhea. 1. Weakness. The patient's weakness likely is on the basis of his electrolyte abnormalities and possibly GI illness. The patient states that he has had dry heaves over the last 1 week along with couple episodes of vomiting over the last couple days. Additionally, he began to have diarrhea. The patient did have antibiotics within the last 1 month. I will rule out C. diff. He will have normal saline at 75 mL per hour. He is receiving potassium and magnesium supplementation. The patient will have a repeat electrolyte panel obtained at 2200 this evening to ensure that his potassium and magnesium have improved. The patient's affect is quite odd; however, I have never met the patient before. He will be evaluated by Dr. Watkins tomorrow, who knows the patient from the outpatient setting. The patient also has an elevated troponin of 0.06. This could be secondary to demand ischemia. Repeat troponin is pending. 2. Type 2 diabetes. The patient will be switched from NPH and regular insulin to Lantus 10 units at bedtime and a lispro sliding scale. We will need to monitor his sugars closely as I will keep him on a clear liquid diet alone for right now due to the dry heaving and diarrhea. 3. Coronary artery disease. The patient, as above, has a mildly elevated troponin of 0.06. I suspect this represents demand ischemia; however, followup troponin has been ordered and is pending at this time. In the meantime, he will continue on his ARB and we will watch for complaints of chest pain. 4. Chronic obstructive pulmonary disease. There are no signs of exacerbation. The patient is saturating fine on room air. He is quite tachypneic, however. An ABG is being obtained currently. He will continue his p.r.n. albuterol. 5. Hypothyroidism. We will continue home dose of Synthroid. 6. Hypertension. BP is under good control. We will continue home medication regimen. 7. Restless leg syndrome. Continue Requip. 8. Atrial fibrillation. In December 2017, the patient was diagnosed with atrial fibrillation. He currently is in sinus rhythm and INR is in good range at 2.47. 9. DVT prophylaxis: According to the Adult Thrombosis Prophylaxis Risk Factor Assessment Guide, the patient has a total risk factor score of 4 making him high risk. He is already on Coumadin with a therapeutic INR, which will act as a DVT prophylaxis. 10. Code status is full. TIME SPENT: 65 minutes were spent admitting this patient. [id number]/[facility] #: [id number] NAMAN
[2018-04-04] MEDS ORDERED: Heparin VIAL(*) 5000 UNITS/ML VIAL (FIVE THOUSAND) SUBCUT SCH (22:00)
[2018-04-04] MEDS: Mometasone/Formoter 200/5 MDI INH SCH (22:16)
[2018-04-05] MEDS: Levothyroxine TAB* 25 MCG TAB PO SCH (05:30)
[2018-04-05 06:59] LABS: ABS Basophils 0 10^3/ul (0-0.2); ABS Eosinophils 0.3 10^3/ul (0-0.6); ABS Lymphocytes 0.7 10^3/ul (1.0-4.8); ABS Monocytes 0.8 10^3/ul (0-0.8); ABS Neutrophils 3.6 10^3/ul (1.5-7.7); ABS Nucleated RBC 0 10^3/ul; Eosinophil % 5.7 % (0-6); Hematocrit 28 % (42-52); Hemoglobin 9.6 g/dl (14.0-18.0); Lymphocyte % 12.9 % (25-47); Mean Corpuscular HGB Conc 35 g/dl (31-36); Mean Corpuscular Hemoglobin 32 pg (27-31); Mean Corpuscular Volume 91 fL (80-94); Mean Platelet Volume 8.2 um3 (7.4-10.4); Nucleated Red Blood Cells % 0; Platelet Count 157 10^3/ul (150-450); Red Blood Count 3.05 10^6/ul (4.00-5.40); Red Cell Distribution Width 14 % (10.5-15); White Blood Count 5.4 10^3/ul (3.5-10.8)
[2018-04-05] MEDS: Mometasone/Formoter 200/5 MDI INH SCH ×2 (08:00→19:52)
--- NOTE | 2018-04-05 08:38 | PN ---
Subjective - Subjective Reason for Note: Progress Note History: History from Dr. Alexander's H and P, patient and Suyapa Shield. 1 week ago couldn' t eat much at all, would be OK for a couple of days then throw up. Mentioned it to Dr. Chacon - thought it was viral. he has had some dizziness on getting up. He has had poor balance - fallen 2 - 3 times in the last 2 months.He has to hang onto things for a minute or two. One week ago he woke Suyapa to help her with PD at 4 am. On another occasion, 5:30 he thought there was someone outside - nobody out there. This was unusual. The night before admission - he couldn't weigh himself, he couldn't walk to the scales. He was weak, poor balance. Yesterday morning he couldn't stand up. Suyapa couldn't hold him up. He had a fever 100.8F The day before yesterday he had difficulty eating, keeping food down - just an egg salad sandwich. He has had no fevers, sweats or chills. He denies cough, sputum production. He has had no chest pain, palpitations. He has had nausea. On the way to the hospital in the ambulance he developed diarrhea. Suyapa states he has been coughing over the previous week. Last PD - until yesterday morning he was up to date with dialysis. Active Problems: Active Problems Atelectasis of left lung (Acute) J98.11 Electrolyte abnormality (Acute) E87.8 End stage renal disease on dialysis (Acute) N18.6, Z99.2 Peritoneal dialysis status (Acute) Z99.2 Weakness generalized (Acute) R53.1 Bradycardia (Chronic) R00.1 Chronic obstructive lung disease (Chronic) J44.9 Depression (Chronic) F32.9 Low back pain (Chronic) M54.5 Type II diabetes mellitus - poor control (Chronic) E11.65 - Glucose 140-150's - Resume home Insulin Vomiting (Chronic) R11.10 Current Medications: Current Medications Albuterol (Ventolin Hfa Inhaler*) 2 puff INH Q4H PRN PRN Reason: SOB/WHEEZING Ascorbic Acid (Vitamin C Tab*) 1,000 mg PO QAM GREGG Atorvastatin Calcium (Lipitor*) 20 mg PO BEDTIME [facility]GG Last Admin: 04/04/18 20:40 Dose: 20 mg Azithromycin (Zithromax Tab*) 500 mg PO DAILY [facility] Last Admin: 04/04/18 20:39 Dose: 500 mg Brimonidine Tartrate (Alphagan 0.2%) 1 drop BOTH EYES BID [facility] Last Admin: 04/05/18 00:37 Dose: 1 drop Cinacalcet (Sensipar Tab*) 60 mg PO DAILY [facility] Hydroxyzine HCl (Atarax Tab*) 25 mg PO Q6H PRN PRN Reason: ANXIETY Sodium Chloride (Ns 0.9% 1000 Ml*) 1,000 mls @ 75 mls/hr IV PER RATE [facility] Last Admin: 04/05/18 05:34 Dose: 75 mls/hr Ceftriaxone Sodium 1 gm/ (Sodium Chloride) 50 mls @ 200 mls/hr IVPB Q24H [facility] Last Admin: 04/04/18 20:42 Dose: 200 mls/hr Insulin Glargine (Lantus(*)) 10 units SUBCUT BEDTIME [facility] Last Admin: 04/04/18 20:45 Dose: 10 units Insulin Human Lispro (Humalog*) 0 units SUBCUT ACHS [facility]; Protocol Last Admin: 04/04/18 20:43 Dose: 6 units Levothyroxine Sodium (Synthroid Tab*) 100 mcg PO DAILY@0600 [facility] Last Admin: 04/05/18 05:30 Dose: 100 mcg Losartan Potassium (Cozaar Tab*) 100 mg PO DAILY [facility] Metoclopramide HCl (Reglan Tab*) 10 mg PO ACHS [facility] Last Admin: 04/04/18 20:39 Dose: 10 mg Mometasone Furoate/Formoterol Fumar (Dulera 200/5 Mdi*) 2 puff INH BID [facility]; Protocol Last Admin: 04/05/18 08:00 Dose: 2 puff Multivitamins/Minerals (Theragran/Minerals Tab*) 1 tab PO QAM [facility] Omeprazole (Prilosec Cap*) 40 mg PO BID [facility] Last Admin: 04/04/18 20:41 Dose: 40 mg Ondansetron HCl (Zofran Inj*) 4 mg IV Q6H PRN PRN Reason: NAUSEA Oxycodone HCl (Roxycodone Tab*) 5 mg PO Q4H PRN PRN Reason: PAIN Ropinirole HCl (Requip*) 4 mg PO BEDTIME [facility] Last Admin: 04/04/18 20:37 Dose: 4 mg Trazodone HCl (Desyrel Tab*) 50 mg PO BEDTIME [facility] Last Admin: 04/04/18 20:40 Dose: 50 mg Warfarin Sodium (Coumadin Tab(*)) 6 mg PO DAILY@1700 [facility]; Protocol Home Medications: Home Medications Medication Instructions Recorded Confirmed Type Ascorbic Acid TAB* [Vitamin C 1,000 mg PO QAM 10/04/15 04/04/18 History TAB*] Fluticas/Salmet 115/21 HFA(NF) 2 puff INH BID 10/04/15 04/04/18 History [Advair HFA 115/21 (NF)] LoraTADine TAB(NF) [Claritin 10 MG 10 mg PO DAILY PRN 10/04/15 04/04/18 History TAB(NF)] traZODone TAB* [Desyrel TAB*] 50 mg PO BEDTIME 04/28/17 04/04/18 History Multivitamins/Minerals TAB* 1 tab PO QAM 05/14/17 04/04/18 History [Theragran/minerals TAB*] Omeprazole CAP* [Prilosec CAP* 20 40 mg PO BID 05/14/17 04/04/18 History MG] Acetaminophen [Tylenol Extra 500 mg PO Q6HR PRN 04/04/18 04/04/18 History Strength] Albuterol HFA INHALER* [Ventolin 2 puff INH Q4H PRN 04/04/18 04/04/18 History HFA Inhaler*] Brimonidine Tartrate 1 drop BOTH EYES BID 04/04/18 04/04/18 History Cinacalcet TAB* [Sensipar TAB*] 60 mg PO DAILY 04/04/18 04/04/18 History Dorzolamide 2% OPTH (NF) [Trusopt 1 drop BOTH EYES BID 04/04/18 04/04/18 History 2% OPTH (NF)] Insulin NPH Human Isophane 20 units SUBCUT QAM 04/04/18 04/04/18 History [Humulin N Kwikpen] Insulin Regular, Human [Novolin R 10 unit SUBCUT BID 04/04/18 04/04/18 History Relion] Levothyroxine TAB* [Synthroid TAB*] 100 mcg PO DAILY 04/04/18 04/04/18 History Losartan TAB* [Cozaar TAB*] 100 mg PO DAILY 04/04/18 04/04/18 History Metoclopramide TAB* [Reglan TAB*] 10 mg PO ACHS 04/04/18 04/04/18 History Patiromer Calcium Sorbitex 8.4 gm PO DAILY PRN 04/04/18 04/04/18 History [Veltassa] Simvastatin (NF) [Zocor (NF)] 40 mg PO BEDTIME 04/04/18 04/04/18 History Sucroferric Oxyhydroxide [Velphoro] 500 mg PO AC 04/04/18 04/04/18 History Warfarin TAB(*) [Coumadin TAB(*)] 6 mg PO DAILY@1700 04/04/18 04/04/18 History oxyCODONE TAB* [Roxycodone TAB 5 5 mg PO Q4H PRN 04/04/18 04/04/18 History mg*] rOPINIRole TAB* [Requip*] 4 mg PO BEDTIME 04/04/18 04/04/18 History Allergies: Allergies Allergy/AdvReac Type Severity Reaction Status Date / Time [place] [facility] Allergy Severe Swelling Verified 12/26/17 21:01 hydrocodone Allergy Severe Difficulty Verified 12/26/17 21:01 Breathing shellfish derived Allergy Severe Difficulty Verified 12/26/17 21:01 Breathing lisinopril Allergy Intermediate Coughing Verified 12/26/17 21:01 NSAIDS (Non-Steroidal AdvReac Unknown Unknown Verified 12/26/17 21:01 Anti-Inflamma Reaction Details Objective - Vital Signs Vital Signs: Vital Signs 04/04/18 04/04/18 04/04/18 13:45 13:53 14:23 Temperature 98.2 F Pulse Rate 87 86 Respiratory 40 18 Rate Blood Pressure 111/57 111/57 116/53 (mmHg) O2 Sat by Pulse 94 96 Oximetry 04/04/18 04/04/18 04/04/18 15:00 16:00 17:00 Temperature Pulse Rate 86 85 72 Respiratory 21 21 Rate Blood Pressure (mmHg) O2 Sat by Pulse 96 100 100 Oximetry 10/15/18 10/15/18 10/15/18 17:28 17:59 18:00 Temperature Pulse Rate 80 81 77 Respiratory 38 17 10 Rate Blood Pressure 128/61 118/54 (mmHg) O2 Sat by Pulse 100 96 94 Oximetry 04/04/18 04/04/18 04/04/18 19:10 19:54 19:55 Temperature 98.2 F 99.5 F 99.5 F Pulse Rate 77 76 76 Respiratory 28 22 22 Rate Blood Pressure 118/54 100/45 100/45 (mmHg) O2 Sat by Pulse 96 100 100 Oximetry 04/04/18 04/04/18 04/05/18 22:24 23:38 03:49 Temperature 98.3 F 98.0 F Pulse Rate 89 76 64 Respiratory 20 24 24 Rate Blood Pressure 113/50 114/55 (mmHg) O2 Sat by Pulse 99 100 100 Oximetry 04/05/18 08:01 Temperature Pulse Rate 54 Respiratory 20 Rate Blood Pressure (mmHg) O2 Sat by Pulse 100 Oximetry - Intake and Output Intake and Output: Intake & Output 04/02/18 04/03/18 04/04/18 04/05/18 11:59 11:59 11:59 11:59 Intake Total 1213 Output Total 150 Balance 1063 Weight 211 lb 11.2 oz Intake: IV Fluids 955 NS (0.9%) 955 IVPB 258 ABX - CEFTRIAXONE 58 potassium and magnesium 200 Oral 0 Output: Urine 150 Other: # Bowel Movements 0 Estimated Stool Amount Small # Voids 0 ADLs: Meal Record Start: 04/04/18 18: 16 Freq: DAILY@0900,1400,1800 Status: Active Protocol: Created 04/04/18 18:16 System (Rec: 04/04/18 18:16 System [id number]) Intake and Output Start: 04/04/18 13: 58 Freq: Status: Active Protocol: Created 04/04/18 13:58 System (Rec: 04/04/18 13:58 System [id number]) Intake and Output Start: 04/04/18 18: 16 Freq: DAILY@0600,1400,2200 Status: Active Protocol: Created 04/04/18 18:16 System (Rec: 04/04/18 18:16 System [id number]) Document 04/04/18 22:00 [id number] (Rec: 04/05/18 01:34 [id number]) Document 04/05/18 06:00 [id number] (Rec: 04/05/18 06:24 [id number] [place] [place] Physical Exam General Physical Exam Comment: He is sitting in a recliner. He is alert and oriented - able to give an account of himself. General: No Cyanosis, Yes Anemia, No Jaundice, No Clubbing Lungs and Chest: Yes: Chest Expansion Full, Chest Expansion Symetrica, Percussion Note Resonant, Vessicular Breath Sounds. No: Crackles, Wheezes, Respiratory Distress, Use of Accessory Muscles Heart Rate and Rhythm: Regular JVP: Not Elevated Additional Cardiovascular: Yes: Normal Heart Sounds, Pedal Edema - trace - wearing below knees support hose Abdominal Exam: Yes: Distention - mild, Soft. No: Abdominal Mass, Hepatomegaly , Abdominal Tenderness, Guarding, Rebound Tenderness - Extremities Cranial Nerves II-XII Intact: Yes Limbs: Abnormal Power - no focal weakness, general weakness - Neuro Orientation: A/O x3 Speech: Normal Results - Results Lab Results: Laboratory Results - last 24 hr 04/04/18 04/04/18 04/04/18 14:40 14:40 17:35 WBC 6.8 RBC 3.40 L Hgb 10.7 L Hct 30 L MCV 89 MCH 31 MCHC 35 RDW 14 Plt Count 177 MPV 8.4 Neut % (Auto) 75.4 Lymph % (Auto) 9.9 L [place] % (Auto) 13.3 H Eos % (Auto) 1.1 Baso % (Auto) 0.3 Absolute Neuts (auto) 5.1 Absolute Lymphs (auto) 0.7 L Absolute Monos (auto) 0.9 H Absolute Eos (auto) 0.1 Absolute Basos (auto) 0 Absolute Nucleated RBC 0 Nucleated RBC % 0.1 INR (Anticoag Therapy) 2.47 H Patient Temperature ABG pH ABG pH (Temp Correct) ABG pCO2 ABG pCO2 (Temp Corrct ABG pO2 ABG pO2 (Temp Correct ABG HCO3 ABG O2 Saturation ABG Base Excess Respiration Rate O2 Delivery Device Ventilator Type Vent Mode FiO2 Inspiratory Time PEEP Pressure Support Pressure Control EPAP IPAP BiPAP Sodium 129 L Potassium 2.4 L* Chloride 90 L Carbon Dioxide 27 Anion Gap 12 H BUN 51 H Creatinine 7.90 H Est GFR ( Amer) 8.1 Est GFR (Non-Af Amer) 6.7 BUN/Creatinine Ratio 6.5 L Glucose 253 H POC Glucose (mg/dL) Lactic Acid Calcium 7.4 L Phosphorus 3.1 Magnesium 1.3 L Total Bilirubin 0.50 AST 12 L ALT 9 Alkaline Phosphatase 66 Troponin I 0.06 H* Total Protein 5.0 L Albumin 2.7 L Globulin 2.3 Albumin/Globulin Ratio 1.2 Influenza A (Rapid) Influenza B (Rapid) 04/04/18 04/04/18 04/04/18 17:35 17:35 18:09 WBC RBC Hgb Hct MCV MCH MCHC RDW Plt Count MPV Neut % (Auto) Lymph % (Auto) [place] % (Auto) Eos % (Auto) Baso % (Auto) Absolute Neuts (auto) Absolute Lymphs (auto) Absolute Monos (auto) Absolute Eos (auto) Absolute Basos (auto) Absolute Nucleated RBC Nucleated RBC % INR (Anticoag Therapy) Patient Temperature ABG pH ABG pH (Temp Correct) ABG pCO2 ABG pCO2 (Temp Corrct ABG pO2 ABG pO2 (Temp Correct ABG HCO3 ABG O2 Saturation ABG Base Excess Respiration Rate O2 Delivery Device Ventilator Type Vent Mode FiO2 Inspiratory Time PEEP Pressure Support Pressure Control EPAP IPAP BiPAP Sodium Potassium Chloride Carbon Dioxide Anion Gap BUN Creatinine Est GFR ( Amer) Est GFR (Non-Af Amer) BUN/Creatinine Ratio Glucose POC Glucose (mg/dL) Lactic Acid 0.9 Calcium Phosphorus Magnesium Total Bilirubin AST ALT Alkaline Phosphatase Troponin I 0.08 H* Total Protein Albumin Globulin Albumin/Globulin Ratio Influenza A (Rapid) Negative Influenza B (Rapid) Negative 04/04/18 04/04/18 04/04/18 18:10 20:17 21:35 WBC RBC Hgb Hct MCV MCH MCHC RDW Plt Count MPV Neut % (Auto) Lymph % (Auto) [place] % (Auto) Eos % (Auto) Baso % (Auto) Absolute Neuts (auto) Absolute Lymphs (auto) Absolute Monos (auto) Absolute Eos (auto) Absolute Basos (auto) Absolute Nucleated RBC Nucleated RBC % INR (Anticoag Therapy) Patient Temperature Not Reportable ABG pH 7.46 H ABG pH (Temp Correct) Not Reportable ABG pCO2 37 ABG pCO2 (Temp Corrct Not Reportable ABG pO2 118 H ABG pO2 (Temp Correct Not Reportable ABG HCO3 26.8 ABG O2 Saturation 98.3 H ABG Base Excess 2.5 H Respiration Rate Not Reportable O2 Delivery Device 4lpm nc Ventilator Type Not Reportable Vent Mode Not Reportable FiO2 Not Reportable Inspiratory Time Not Reportable PEEP Not Reportable Pressure Support Not Reportable Pressure Control Not Reportable EPAP Not Reportable IPAP Not Reportable BiPAP Not Reportable Sodium 128 L Potassium 2.8 L Chloride 92 L Carbon Dioxide 25 Anion Gap 11 BUN Creatinine Est GFR ( Amer) Est GFR (Non-Af Amer) BUN/Creatinine Ratio Glucose POC Glucose (mg/dL) 253 H Lactic Acid Calcium Phosphorus Magnesium Total Bilirubin AST ALT Alkaline Phosphatase Troponin I Total Protein Albumin Globulin Albumin/Globulin Ratio Influenza A (Rapid) Influenza B (Rapid) 04/04/18 04/05/18 21:35 06:03 WBC 5.4 RBC 3.05 L Hgb 9.6 L Hct 28 L MCV 91 MCH 32 H MCHC 35 RDW 14 Plt Count 157 MPV 8.2 Neut % (Auto) 66.4 Lymph % (Auto) 12.9 L [place] % (Auto) 14.6 H Eos % (Auto) 5.7 Baso % (Auto) 0.4 Absolute Neuts (auto) 3.6 Absolute Lymphs (auto) 0.7 L Absolute Monos (auto) 0.8 Absolute Eos (auto) 0.3 Absolute Basos (auto) 0 Absolute Nucleated RBC 0 Nucleated RBC % 0 INR (Anticoag Therapy) Patient Temperature ABG pH ABG pH (Temp Correct) ABG pCO2 ABG pCO2 (Temp Corrct ABG pO2 ABG pO2 (Temp Correct ABG HCO3 ABG O2 Saturation ABG Base Excess Respiration Rate O2 Delivery Device Ventilator Type Vent Mode FiO2 Inspiratory Time PEEP Pressure Support Pressure Control EPAP IPAP BiPAP Sodium Potassium Chloride Carbon Dioxide Anion Gap BUN Creatinine Est GFR ( Amer) Est GFR (Non-Af Amer) BUN/Creatinine Ratio Glucose POC Glucose (mg/dL) Lactic Acid Calcium Phosphorus Magnesium Total Bilirubin AST ALT Alkaline Phosphatase Troponin I 0.07 H* Total Protein Albumin Globulin Albumin/Globulin Ratio Influenza A (Rapid) Influenza B (Rapid) Radiology Results: Patient Name: JACOB MORSE Medical Record#: [id number] Ordering Physician: Cortney Hankins MD Acct.#: [id number] : 1945 Age: 73 Sex: M Location: EMERGENCY DEPARTMENT Exam Date: 04/04/18 1433 ADM Status: REG ER Order Information: CHEST 1 VW Accession Number: [id number] CPT: 95982 HISTORY: weakness COMPARISONS: December 26, 2017 VIEWS: 1: frontal AP view of the chest at 2:42 PM FINDINGS: LINES AND TUBES: None. CARDIOMEDIASTINAL SILHOUETTE: The cardiomediastinal silhouette is normal for portable technique. PLEURA: The costophrenic angles are sharp. No pleural abnormalities are noted. LUNG PARENCHYMA: There is patchy alveolar opacification of left lung base. ABDOMEN: The upper abdomen is clear. There is no subphrenic gas. BONES AND SOFT TISSUES: No bone or soft tissue abnormalities are noted. IMPRESSION: PATCHY LEFT BASILAR ATELECTASIS VERSUS CONSOLIDATION. RECOMMEND FOLLOW-UP UNTIL RESOLUTION TO EXCLUDE UNDERLYING PULMONARY PARENCHYMAL PATHOLOGY. <Electronically signed by Alvin Ward MD in OV> 04/04/181513 Dictated By: Alvin Ward MD Dictated Date/Time: 04/04/181513 Transcribed Date/Time: 04/04/181512 Copy to: CC:Kyle Watkins MD; Cortney Hankins MD Imaging - [facility] Imaging - [facility] [address] [address] ph ([phone]) ph ([phone]) ph ([phone]) This report is only to be considered final once signed by the Provider(s) as displayed in the "<Electronically Signed by >" field (s). Absence of a signature indicates the report is in a draft status and still needs to be finalized. In the event this document was created by someone other than the signing Provider, the individual initiating the document will be listed in the "Entered by:" or "Dictated by:" elizabeth. 1 of 1 EKG Report: 83 sinus rhythm Rate 83 QTc 503 QRS axis 3. Incomplete LBBB. 1st degree AV block - (not atrial fib as stated in the automated report - I inspected the EKG) Assessment - Problem List Assessment: Patient Problems Atelectasis of left lung (Acute) Electrolyte abnormality (Acute) End stage renal disease on dialysis (Acute) Peritoneal dialysis status (Acute) Weakness generalized (Acute) Bradycardia (Chronic) Chronic obstructive lung disease (Chronic) Depression (Chronic) Low back pain (Chronic) Type II diabetes mellitus - poor control (Chronic) Vomiting (Chronic) Acute renal failure (Chronic) DVT prophylaxis (Chronic) Essential hypertension (Chronic) Full code status (Chronic) Hyperlipidemia (Chronic) Hypertension (Chronic) Nephrotic syndrome (Chronic) Neuropathy (Chronic) Obesity (Chronic) Retinopathy (Chronic) Plan: Electrolyte abnormality (Acute) Weakness generalized (Acute) He is on home peritoneal dialysis.Peritoneal dialysis status (Acute) Vomiting (Chronic) He has a 1 week history of disturbed appetite, episodes of dry heaves and vomiting. He has had poor balance and a number of falls. He was too weak to get into the living room to weigh himself the night before admission. He was too weak to get out of bed/start PD on the day of admission. He had some diarrhea on the way into the hospital by ambulance. Investigations shows no increase in his WBC or neut%. He had a low grade fever at home, but not in the ED. There is atelectasis in the left base, but no physical signs of pneumonia. He has striking hypokalemia and mild hyponatremia, aside from signs of end stage renal disease. He was not acidotic on ABGs and his base excess was low at 2.5. He is not markedly hyperglycemic. The possibilities include occult infection (he is being treated empirically with ceftriaxone), problems with excess extraction of electrolytes during dialysis, problems losing electrolytes with vomiting/diarrhea. We will correct these abnormalities and see if his strength returns - he is feeling a little improved today. I will check his cortisol level. End stage renal disease on dialysis (Acute)Acute renal failure (Chronic) - this is only secondary to over due PD. I will contact the dialysis unit Atlectasis left lower lung I will check a CRP and pro-calcitonin levels and follow WBC. Bradycardia (Chronic) stable Chronic obstructive lung disease (Chronic) not exacerbated. Depression (Chronic) He denies depressive ideation - just feels weak and unwell Low back pain (Chronic) inactive Type II diabetes mellitus - poor control (Chronic) Continue current Rx DVT prophylaxis (Chronic) Essential hypertension (Chronic) His BP is on the low side today Full code status (Chronic) Hyperlipidemia (Chronic) continue current rx Neuropathy (Chronic) I examined his feet - no callouses, ulcers or infections Obesity (Chronic) Retinopathy (Chronic) secondary diagnosis I spoke to the patient and on the phone to Suyapa Shannon and explained the above
[2018-04-05] MEDS: Omeprazole CAP* 20 MG PO SCH ×2 (09:00→22:26)
[2018-04-05] MEDS: Azithromycin TAB* 250 MG PO SCH (09:01)
[2018-04-05] MEDS: Cinacalcet TAB* 30 MG PO SCH (09:01)
[2018-04-05] MEDS: Multivitamins/Minerals TAB PO SCH (09:02)
[2018-04-05] MEDS: Metoclopramide TAB* 10 MG PO SCH ×4 (09:02→22:27)
[2018-04-05] MEDS: Ascorbic Acid TAB* 500 MG PO SCH (09:02)
[2018-04-05] MEDS: Insulin LISPRO* 1 UNITS UNIT SUBCUT SCH ×4 (09:03→22:26)
[2018-04-05] MEDS: Losartan TAB* 25 MG PO SCH (09:42)
[2018-04-05 09:47] LABS: INR 2.32 (0.77-1.02)
[2018-04-05 10:01] LABS: EGFR Non-African American 6.4 (>60)
[2018-04-05 10:37] LABS: EGFR Non-African American 6.4 (>60)
[2018-04-05] MEDS: KCL 20 MEQ/100 ML IVPREMIX* 20 MEQ/100 ML BAG IV SCH ×2 (11:30→15:09)
[2018-04-05] MEDS ORDERED: Warfarin TAB(*) 6 MG PO SCH (17:00)
[2018-04-05] MEDS ORDERED: Heparin DIALYSIS ONLY(*) 1,000 UNITS/ML VIAL DIALYSIS ONE (18:00)
[2018-04-05] MEDS: Mupirocin 2% OINT* TUBE TOPICAL SCH (18:11)
[2018-04-05] MEDS: cefTRIAXone(*) 1 GM in NS 0.9% 50 ML* 50 ML IVPB SCH (18:12)
[2018-04-05] MEDS: Acetaminophen TAB* 325 MG PO PRN ×2 (19:48→23:55)
[2018-04-05] MEDS ORDERED: Vancomycin(*) 1,000 MG in NS 0.9% 250 ML* 250 ML IVPB ONE (21:30)
[2018-04-05 21:52] LABS: Urine Appearance Clear; Urine Blood 1+ (Negative); Urine Color Colorless; Urine Ketones Negative (Negative); Urine Protein Negative (Negative); Urine Red Blood Cell Absent (Absent); Urine Specific Gravity 1.001 (1.010-1.030); Urine Urobilinogen Negative (Negative); Urine White Blood Cell Absent (Absent)
[2018-04-05] MEDS: Insulin GLARGINE(*) 1 UNITS UNIT SUBCUT SCH (22:26)
[2018-04-05] MEDS: rOPINIRole TAB* 4 MG PO SCH (22:26)
[2018-04-05] MEDS: Atorvastatin* 10 MG TAB PO SCH (22:27)
[2018-04-05] MEDS: traZODone TAB* 50 MG TAB PO SCH (22:27)
[2018-04-05] MEDS: Cefepime* 2 GM in Dextrose 50mL Q24H (Duplex) IV SCH (22:59)
[2018-04-05] MEDS ORDERED: NS 0.9% 500 ML* 500 ML IV ONE (23:00)
[2018-04-06] MEDS ORDERED: NS 0.9% 500 ML* 500 ML IV ONE (01:00)
--- NOTE | 2018-04-06 02:21 | PN ---
Progress Note - Progress Note Date of Service: 04/06/18 Note: Paged by Dr. Pablo to evaluate patient for hypotension. Concern for sepsis secondary to infected PD catheter. Patient given 1L NS. Now vitals have improved. Patient denies pain or SOB. Breath sounds diminished, no rales. Will monitor on floor for now.
[2018-04-06] MEDS: Levothyroxine TAB* 25 MCG TAB PO SCH (06:15)
[2018-04-06 08:08] LABS: ABS Basophils 0 10^3/ul (0-0.2); ABS Eosinophils 0.2 10^3/ul (0-0.6); ABS Lymphocytes 0.6 10^3/ul (1.0-4.8); ABS Monocytes 0.6 10^3/ul (0-0.8); ABS Neutrophils 8.2 10^3/ul (1.5-7.7); ABS Nucleated RBC 0 10^3/ul; Eosinophil % 1.8 % (0-6); Hematocrit 28 % (42-52); Hemoglobin 9.6 g/dl (14.0-18.0); Lymphocyte % 6.1 % (25-47); Mean Corpuscular HGB Conc 35 g/dl (31-36); Mean Corpuscular Hemoglobin 31 pg (27-31); Mean Corpuscular Volume 90 fL (80-94); Mean Platelet Volume 8.4 um3 (7.4-10.4); Nucleated Red Blood Cells % 0.1; Platelet Count 175 10^3/ul (150-450); Red Cell Distribution Width 14 % (10.5-15); White Blood Count 9.5 10^3/ul (3.5-10.8)
[2018-04-06 08:26] LABS: EGFR Non-African American 7.9 (>60)
--- NOTE | 2018-04-06 08:40 | PN ---
Subjective - Subjective Reason for Note: Progress Note History: He had an episode of pyrexia and this was followed by hypotension over night. His O2 didn't desaturate. He responded to 1 liter of NS IV as a bolus. This morning he is unable to name any symptoms from this. He denies chills/rigors. He has no chest pain, palpitations. He has no cough/sputum and denies dyspnea at rest - he is on O2 by [place] now. He has had no nausea/vomiting since I saw him yesterday and states he is hungry this morning. The diarrhea he thinks has stopped. Active Problems: Active Problems Atelectasis of left lung (Acute) J98.11 Electrolyte abnormality (Acute) E87.8 End stage renal disease on dialysis (Acute) N18.6, Z99.2 Fever (Acute) R50.9 Hypotension (Acute) Peritoneal dialysis status (Acute) Z99.2 Peritonitis, dialysis-associated (Acute) T85.71XA Troponin I above reference range (Acute) R74.8 Weakness generalized (Acute) R53.1 Bradycardia (Chronic) R00.1 Chronic obstructive lung disease (Chronic) J44.9 Depression (Chronic) F32.9 Low back pain (Chronic) M54.5 Type II diabetes mellitus - poor control (Chronic) E11.65 - Glucose 140-150's - Resume home Insulin Vomiting (Chronic) R11.10 Current Medications: Current Medications Acetaminophen (Tylenol Tab*) 650 mg PO Q4H PRN PRN Reason: PAIN OR TEMPERATURE Last Admin: 04/05/18 23:55 Dose: 650 mg Albuterol (Ventolin Hfa Inhaler*) 2 puff INH Q4H PRN PRN Reason: SOB/WHEEZING Ascorbic Acid (Vitamin C Tab*) 1,000 mg PO QAM [facility] Last Admin: 04/05/18 09:02 Dose: 1,000 mg Atorvastatin Calcium (Lipitor*) 20 mg PO BEDTIME [facility] Last Admin: 04/05/18 22:27 Dose: 20 mg Brimonidine Tartrate (Alphagan 0.2%) 1 drop BOTH EYES BID [facility] Last Admin: 04/05/18 22:26 Dose: 1 drop Cinacalcet (Sensipar Tab*) 60 mg PO DAILY [facility] Last Admin: 04/05/18 09:01 Dose: 60 mg Hydroxyzine HCl (Atarax Tab*) 25 mg PO Q6H PRN PRN Reason: ANXIETY Cefepime HCl (Maxipime 2 Gm In Dextrose Duplex (*)) 2 gm in 50 mls @ 100 mls/ hr IV Q48H [facility] Last Admin: 04/05/18 22:59 Dose: 100 mls/hr Insulin Glargine (Lantus(*)) 10 units SUBCUT BEDTIME [facility] Last Admin: 04/05/18 22:26 Dose: 10 units Insulin Human Lispro (Humalog*) 0 units SUBCUT ACHS [facility]; Protocol Last Admin: 04/05/18 22:26 Dose: 3 units Levothyroxine Sodium (Synthroid Tab*) 100 mcg PO DAILY@0600 [facility] Last Admin: 04/06/18 06:15 Dose: 100 mcg Losartan Potassium (Cozaar Tab*) 100 mg PO DAILY [facility] Last Admin: 04/05/18 09:42 Dose: Not Given Metoclopramide HCl (Reglan Tab*) 10 mg PO ACHS [facility] Last Admin: 04/05/18 22:27 Dose: 10 mg Mometasone Furoate/Formoterol Fumar (Dulera 200/5 Mdi*) 2 puff INH BID [facility]; Protocol Last Admin: 04/05/18 19:52 Dose: 2 puff Multivitamins/Minerals (Theragran/Minerals Tab*) 1 tab PO QAM [facility] Last Admin: 04/05/18 09:02 Dose: 1 tab Mupirocin (Bactroban 2 % Oint*) 1 applic TOPICAL DAILY [facility] Last Admin: 04/05/18 18:11 Dose: 1 applic Omeprazole (Prilosec Cap*) 40 mg PO BID [facility] Last Admin: 04/05/18 22:26 Dose: 40 mg Ondansetron HCl (Zofran Inj*) 4 mg IV Q6H PRN PRN Reason: NAUSEA Oxycodone HCl (Roxycodone Tab*) 5 mg PO Q4H PRN PRN Reason: PAIN Ropinirole HCl (Requip*) 4 mg PO BEDTIME [facility] Last Admin: 04/05/18 22:26 Dose: 4 mg Trazodone HCl (Desyrel Tab*) 50 mg PO BEDTIME [facility] Last Admin: 04/05/18 22:27 Dose: 50 mg Warfarin Sodium (Coumadin Tab(*)) 6 mg PO DAILY@1700 [facility]; Protocol Last Admin: 04/05/18 18:11 Dose: 6 mg Home Medications: Home Medications Medication Instructions Recorded Confirmed Type Ascorbic Acid TAB* [Vitamin C 1,000 mg PO QAM 10/04/15 04/04/18 History TAB*] Fluticas/Salmet 115/21 HFA(NF) 2 puff INH BID 10/04/15 04/04/18 History [Advair HFA 115/21 (NF)] LoraTADine TAB(NF) [Claritin 10 MG 10 mg PO DAILY PRN 10/04/15 04/04/18 History TAB(NF)] traZODone TAB* [Desyrel TAB*] 50 mg PO BEDTIME 04/28/17 04/04/18 History Multivitamins/Minerals TAB* 1 tab PO QAM 05/14/17 04/04/18 History [Theragran/minerals TAB*] Omeprazole CAP* [Prilosec CAP* 20 40 mg PO BID 05/14/17 04/04/18 History MG] Acetaminophen [Tylenol Extra 500 mg PO Q6HR PRN 04/04/18 04/04/18 History Strength] Albuterol HFA INHALER* [Ventolin 2 puff INH Q4H PRN 04/04/18 04/04/18 History HFA Inhaler*] Brimonidine Tartrate 1 drop BOTH EYES BID 04/04/18 04/04/18 History Cinacalcet TAB* [Sensipar TAB*] 60 mg PO DAILY 04/04/18 04/04/18 History Dorzolamide 2% OPTH (NF) [Trusopt 1 drop BOTH EYES BID 04/04/18 04/04/18 History 2% OPTH (NF)] Insulin NPH Human Isophane 20 units SUBCUT QAM 04/04/18 04/04/18 History [Humulin N Kwikpen] Insulin Regular, Human [Novolin R 10 unit SUBCUT BID 04/04/18 04/04/18 History Relion] Levothyroxine TAB* [Synthroid TAB*] 100 mcg PO DAILY 04/04/18 04/04/18 History Losartan TAB* [Cozaar TAB*] 100 mg PO DAILY 04/04/18 04/04/18 History Metoclopramide TAB* [Reglan TAB*] mg PO ACHS 04/04/18 04/04/18 History Patiromer Calcium Sorbitex 8.4 gm PO DAILY PRN 04/04/18 04/04/18 History [Veltassa] Simvastatin (NF) [Zocor (NF)] 40 mg PO BEDTIME 04/04/18 04/04/18 History Sucroferric Oxyhydroxide [Velphoro] 500 mg PO AC 04/04/18 04/04/18 History Warfarin TAB(*) [Coumadin TAB(*)] 6 mg PO DAILY@1700 04/04/18 04/04/18 History oxyCODONE TAB* [Roxycodone TAB 5 5 mg PO Q4H PRN 04/04/18 04/04/18 History mg*] rOPINIRole TAB* [Requip*] 4 mg PO BEDTIME 04/04/18 04/04/18 History Allergies: Allergies Allergy/AdvReac Type Severity Reaction Status Date / Time amlodipine [From [facility]] Allergy Severe Swelling Verified 12/26/17 21:01 hydrocodone Allergy Severe Difficulty Verified 12/26/17 21:01 Breathing shellfish derived Allergy Severe Difficulty Verified 12/26/17 21:01 Breathing lisinopril Allergy Intermediate Coughing Verified 12/26/17 21:01 NSAIDS (Non-Steroidal AdvReac Unknown Unknown Verified 12/26/17 21:01 Anti-Inflamma Reaction Details Objective - Vital Signs Vital Signs: Vital Signs 04/05/18 04/05/18 04/05/18 10:50 16:03 18:48 Temperature 98.3 F 98.0 F 102.5 F Pulse Rate 58 69 104 Respiratory 23 26 24 Rate Blood Pressure 114/50 115/55 124/53 (mmHg) O2 Sat by Pulse 100 100 100 Oximetry 04/05/18 04/05/18 04/05/18 19:53 20:00 22:00 Temperature 100.9 F Pulse Rate 113 127 Respiratory 20 36 19 Rate Blood Pressure 111/55 (mmHg) O2 Sat by Pulse 97 95 Oximetry 04/05/18 04/06/18 04/06/18 23:57 00:34 00:42 Temperature 99.5 F Pulse Rate 103 Respiratory 36 Rate Blood Pressure 80/44 69/42 85/44 (mmHg) O2 Sat by Pulse 100 Oximetry 04/06/18 04/06/18 04/06/18 01:40 03:10 03:11 Temperature 98.6 F 98.6 F Pulse Rate 84 84 Respiratory 30 30 Rate Blood Pressure 102/45 102/52 102/52 (mmHg) O2 Sat by Pulse 100 100 Oximetry 04/06/18 04/06/18 07:42 08:00 Temperature 98.1 F 98.0 F Pulse Rate 77 78 Respiratory 22 28 Rate Blood Pressure 112/56 118/60 (mmHg) O2 Sat by Pulse 100 99 Oximetry - Intake and Output Intake and Output: Intake & Output 04/03/18 04/04/18 04/05/18 04/06/18 11:59 11:59 11:59 11:59 Intake Total 1933 1815 Output Total 350 375 Balance 1583 1440 Weight 211 lb 11.2 oz Intake: IV Fluids 955 520 NS (0.9%) 955 520 IVPB 258 865 ABX - CEFTRIAXONE 58 65 ABX - VANCOMYCIN 300 NS (0.9%) 500 potassium and magnesium 200 Oral 720 430 Output: Urine 350 375 Other: # Bowel Movements 0 0 Estimated Stool Amount Small # Voids 0 1 ADLs: Meal Record Start: 04/04/18 18: 16 Freq: DAILY@0900,1400,1800 Status: Active Protocol: Created 04/04/18 18:16 System (Rec: 04/04/18 18:16 System MED-C16) Document 04/05/18 09:00 [id number] (Rec: 04/05/18 10:02 [id number] MED-C11) Document 04/05/18 14:00 [id number] (Rec: 04/05/18 14:10 [id number] MED-C09) Document 04/05/18 18:00 [id number] (Rec: 04/05/18 19:57 [id number] MED-C07) Intake and Output Start: 04/04/18 13: 58 Freq: Status: Active Protocol: Created 04/04/18 13:58 System (Rec: 04/04/18 13:58 System [id number]) Intake and Output Start: 04/04/18 18: 16 Freq: DAILY@0600,1400,2200 Status: Active Protocol: Created 04/04/18 18:16 System (Rec: 04/04/18 18:16 System MED-C16) Document 04/04/18 22:00 [id number] (Rec: 04/05/18 01:34 [id number] MED-C09) Document 04/05/18 06:00 [id number] (Rec: 04/05/18 06:24 [id number] MED-C11) Document 04/05/18 14:00 [id number] (Rec: 04/05/18 14:10 [id number] MED-C09) Document 04/05/18 22:00 [id number] (Rec: 04/05/18 23:14 [id number] MED-C07) Document 04/06/18 06:00 [id number] (Rec: 04/06/18 06:21 [id number] MED-C09) - Physical Exam General Physical Exam Comment: Warm and well perfused. Sitting up in a cardiac chair. General: No Cyanosis, Yes Anemia, No Jaundice, No Clubbing Skin: Normal: Rash Lungs and Chest: Yes: Chest Expansion Full, Chest Expansion Symetrica, Vessicular Breath Sounds, Crackles - Crackles both lower lungs. No: Percussion Note Resonant - dull bases, Wheezes, Respiratory Distress, Use of Accessory Muscles Heart Rate and Rhythm: Regular Additional Cardiovascular: Yes: Normal Heart Sounds, Pedal Edema. No: Heart Murmur Abdominal Exam: Yes: Soft. No: Distention, Abdominal Tenderness - Extremities Cranial Nerves II-XII Intact: Yes Limbs: Abnormal Power - generally weak Results - Results Lab Results: Laboratory Results - last 24 hr 04/05/18 04/05/18 04/05/18 06:03 08:03 09:25 WBC RBC Hgb Hct MCV MCH MCHC RDW Plt Count MPV Neut % (Auto) Lymph % (Auto) [place] % (Auto) Eos % (Auto) Baso % (Auto) Absolute Neuts (auto) Absolute Lymphs (auto) Absolute Monos (auto) Absolute Eos (auto) Absolute Basos (auto) Absolute Nucleated RBC Nucleated RBC % INR (Anticoag Therapy) Sodium 131 L 129 L Potassium 2.8 L 2.8 L Chloride 93 L 93 L Carbon Dioxide 26 25 Anion Gap 12 H 11 BUN 55 H 55 H Creatinine 8.24 H 8.27 H Est GFR ( Amer) 7.8 7.7 Est GFR (Non-Af Amer) 6.4 6.4 BUN/Creatinine Ratio 6.7 L 6.7 L Glucose 163 H 212 H POC Glucose (mg/dL) 175 H Lactic Acid Calcium 7.2 L 7.4 L Magnesium 1.5 L Total Bilirubin 0.40 AST 14 ALT 9 Alkaline Phosphatase 64 Troponin I 0.05 H* C-Reactive Protein 123.36 H Total Protein 4.3 L Albumin 2.5 L Globulin 1.8 L Albumin/Globulin Ratio 1.4 Procalcitonin Cortisol 16.31 Urine Color Urine Appearance Urine pH Ur Specific [place] Urine Protein Urine Ketones Urine Blood Urine Nitrate Urine Bilirubin Urine Urobilinogen Ur Leukocyte Esterase Urine WBC (Auto) Urine RBC (Auto) Urine Bacteria Urine Glucose Fluid Source Fluid Volume Fluid Color Fluid Appearance Fluid WBC Fluid RBC Fluid Tot Cell Count Fluid Neutrophils Fluid Band Neutrophils Fluid Lymphocytes Fluid Monocytes 04/05/18 04/05/18 04/05/18 09:25 09:25 11:30 WBC RBC Hgb Hct MCV MCH MCHC RDW Plt Count MPV Neut % (Auto) Lymph % (Auto) [place] % (Auto) Eos % (Auto) Baso % (Auto) Absolute Neuts (auto) Absolute Lymphs (auto) Absolute Monos (auto) Absolute Eos (auto) Absolute Basos (auto) Absolute Nucleated RBC Nucleated RBC % INR (Anticoag Therapy) 2.32 H Sodium Potassium Chloride Carbon Dioxide Anion Gap BUN Creatinine Est GFR ( Amer) Est GFR (Non-Af Amer) BUN/Creatinine Ratio Glucose POC Glucose (mg/dL) 241 H Lactic Acid Calcium Magnesium Total Bilirubin AST ALT Alkaline Phosphatase Troponin I C-Reactive Protein Total Protein Albumin Globulin Albumin/Globulin Ratio Procalcitonin 1.0 H Cortisol Urine Color Urine Appearance Urine pH Ur Specific [place] Urine Protein Urine Ketones Urine Blood Urine Nitrate Urine Bilirubin Urine Urobilinogen Ur Leukocyte Esterase Urine WBC (Auto) Urine RBC (Auto) Urine Bacteria Urine Glucose Fluid Source Fluid Volume Fluid Color Fluid Appearance Fluid WBC Fluid RBC Fluid Tot Cell Count Fluid Neutrophils Fluid Band Neutrophils Fluid Lymphocytes Fluid Monocytes 04/05/18 04/05/18 04/05/18 17:38 20:00 20:00 WBC RBC Hgb Hct MCV MCH MCHC RDW Plt Count MPV Neut % (Auto) Lymph % (Auto) [place] % (Auto) Eos % (Auto) Baso % (Auto) Absolute Neuts (auto) Absolute Lymphs (auto) Absolute Monos (auto) Absolute Eos (auto) Absolute Basos (auto) Absolute Nucleated RBC Nucleated RBC % INR (Anticoag Therapy) Sodium Potassium Chloride Carbon Dioxide Anion Gap BUN Creatinine Est GFR ( Amer) Est GFR (Non-Af Amer) BUN/Creatinine Ratio Glucose POC Glucose (mg/dL) 210 H Lactic Acid Calcium Magnesium Total Bilirubin AST ALT Alkaline Phosphatase Troponin I C-Reactive Protein Total Protein Albumin Globulin Albumin/Globulin Ratio Procalcitonin Cortisol Urine Color Colorless Urine Appearance Clear Urine pH 6.0 Ur Specific [place] 1.001 L Urine Protein Negative Urine Ketones Negative Urine Blood 1+ A Urine Nitrate Negative Urine Bilirubin Negative Urine Urobilinogen Negative Ur Leukocyte Esterase Negative Urine WBC (Auto) Absent Urine RBC (Auto) Absent Urine Bacteria Absent Urine Glucose 1+(50 mg/dl) A Fluid Source Peritonial fluid Fluid Volume 3.5 Fluid Color Colorless Fluid Appearance Cloudy Fluid WBC 4816 Fluid RBC 531 Fluid Tot Cell Count 100 Fluid Neutrophils 82 Fluid Band Neutrophils 2 Fluid Lymphocytes 8 Fluid Monocytes 8 04/05/18 04/06/18 04/06/18 20:26 00:11 07:39 WBC 9.5 RBC 3.10 L Hgb 9.6 L Hct 28 L MCV 90 MCH 31 MCHC 35 RDW 14 Plt Count 175 MPV 8.4 Neut % (Auto) 86.1 H Lymph % (Auto) 6.1 L [place] % (Auto) 5.9 Eos % (Auto) 1.8 Baso % (Auto) 0.1 Absolute Neuts (auto) 8.2 H Absolute Lymphs (auto) 0.6 L Absolute Monos (auto) 0.6 Absolute Eos (auto) 0.2 Absolute Basos (auto) 0 Absolute Nucleated RBC 0 Nucleated RBC % 0.1 INR (Anticoag Therapy) Sodium Potassium Chloride Carbon Dioxide Anion Gap BUN Creatinine Est GFR ( Amer) Est GFR (Non-Af Amer) BUN/Creatinine Ratio Glucose POC Glucose (mg/dL) 184 H Lactic Acid 1.4 Calcium Magnesium Total Bilirubin AST ALT Alkaline Phosphatase Troponin I C-Reactive Protein Total Protein Albumin Globulin Albumin/Globulin Ratio Procalcitonin Cortisol Urine Color Urine Appearance Urine pH Ur Specific [place] Urine Protein Urine Ketones Urine Blood Urine Nitrate Urine Bilirubin Urine Urobilinogen Ur Leukocyte Esterase Urine WBC (Auto) Urine RBC (Auto) Urine Bacteria Urine Glucose Fluid Source Fluid Volume Fluid Color Fluid Appearance Fluid WBC Fluid RBC Fluid Tot Cell Count Fluid Neutrophils Fluid Band Neutrophils Fluid Lymphocytes Fluid Monocytes Other Results/Reports: RUN DATE: 04/06/18 [facility] LAB LIVE PAGE 1 RUN TIME: [address] [place] [id number] Specimen Inquiry Name: JACOB KAUR : [address]: Kyle Watkins MD Acct: [id number] Unit: [id number] AGE: 73 Location: [place] [address] Re04/04/18 SEX: M Status: ADM IN SPEC: [id number] KEVIN: 04/05/[address]: Dimple Box MD REQ: [id number] RECD: 04/05/18 STATUS: COMP OTHR DR: Kyle Watkins MD _ Tia Alexander DO SOURCE: MISC SOUR SPDESC:PERITONEAL ORDERED: Gram Stain Procedure Result Reported Site Gram Stain Final 04/06/18628 ML 4+ Neutrophils 2+ Yeast BY CYTOSPIN SMEAR * ML - Main Lab . END OF REPORT DEPARTMENT OF PATHOLOGY, [address] [place] [id number] Fabián Dean M.D. Director [facility] # [id number] Assessment - Problem List Assessment: Patient Problems Atelectasis of left lung (Acute) Electrolyte abnormality (Acute) End stage renal disease on dialysis (Acute) Fever (Acute) Hypotension (Acute) Peritoneal dialysis status (Acute) Peritonitis, dialysis-associated (Acute) Troponin I above reference range (Acute) Weakness generalized (Acute) Bradycardia (Chronic) Chronic obstructive lung disease (Chronic) Depression (Chronic) Low back pain (Chronic) Type II diabetes mellitus - poor control (Chronic) Vomiting (Chronic) Acute renal failure (Chronic) DVT prophylaxis (Chronic) Essential hypertension (Chronic) Full code status (Chronic) Hyperlipidemia (Chronic) Hypertension (Chronic) Nephrotic syndrome (Chronic) Neuropathy (Chronic) Obesity (Chronic) Retinopathy (Chronic) Plan: Peritonitis, dialysis-associated (Acute) telectasis of left lung (Acute) Fever ( Acute) Hypotension (Acute) Weakness generalized (Acute) The cytospin of his peritoneal dialysate shows 2+ yeast and 4+ neutrophils and cell count >4,000 WBC. . He had an episode of fever 102.5F yesterday evening, this was followed by hypotension responding to a saline bolus. His BP has responded. This morning he is afebrile. However, he now has crackles both bases - this may be an infectious process, but could also be pulmonary edema from volume. I will check a CXR. His labs today are pending. Peritoneal fluid, blood, urine and stool cultures are pending. His stool was negative for C. difficile. He has no focal symptoms to point us towards the underlying etiology. His initial antibacterial coverage was ceftriazone and azithromycin. This was discontinued and he is now on cefepime. He also had a bolus of vancomycin last night. I will maintain these 2 antibacterials. I will check his lactate level to determine if he is becoming more septic. I note his cortisol level is not low. I spoke with Dr. Akin Chacon. He states that removal of the PD catheter is indicated - yet Mr Kaur has declined HD in the past adamantly. If he declines the latter we will offer either palliative care, or an attempted treatment with his PD in situ - which is likely going to prolong the problem and result in decreasing efficiency of PD with a poor prognosis. I will check a CT scan of his abdo and pelvis with contrast to look for underlying pathology Electrolyte abnormality (Acute) Pending today's results End stage renal disease on dialysis (Acute) Acute renal failure (Chronic) Peritoneal dialysis status (Acute) He is undergoing PD at present. I will check his electrolytes when they are available Troponin I above reference range (Acute) He has had a series: Laboratory Tests 04/04/18 04/04/18 04/04/18 14:40 17:35 21:35 Troponin I 0.06 H* 0.08 H* 0.07 H* 04/05/18 09:25 Troponin I 0.05 H* There is no clear upward trend. This may be due to demand ischemia. If he has evidence of pulmonary edema on the chest XR I will check a transthoracic echocardiogram Bradycardia (Chronic) Range 54 - 127 bpm. He was tachycardic when he was hypotensive. Chronic obstructive lung disease (Chronic) he is no wheezing. Depression (Chronic) He has a flat affect - but this is usual for him when he is acutely sick Low back pain (Chronic) he complains about pain over his buttocks from sitting in cardiac chair. We will be wary of causing decubitus ulcers Type II diabetes mellitus - poor control (Chronic) He has had some hyperglycemia Vomiting (Chronic) None since yesterday DVT prophylaxis (Chronic) Essential hypertension (Chronic) see above Full code status (Chronic) In active discussion Hyperlipidemia (Chronic) secondary diagnosis Obesity (Chronic) Retinopathy (Chronic) secondary diagnosis. I spoke to Jacob Kaur after his discussion with Dr. Chacon. I asked him if he understood what he was told and he said "not good". I discussed again the usual therapeutic protocol of removing the PD catheter and resuming HD - likely permanently. He is not likely to want this. I also told him that we would then have the option of waiting for the cultures to confirm the diagnosis and treating him empirically. If it is confirmed, then considering either treating him with the PD catheter in situ - likely to be futile, or making him DNR and starting comfort care. He is not at present ready to make a decision on this. Dr. Dimple Box will assume care tomorrow.
[2018-04-06] MEDS: Insulin LISPRO* 1 UNITS UNIT SUBCUT SCH ×4 (08:59→21:49)
[2018-04-06] MEDS: Metoclopramide TAB* 10 MG PO SCH ×4 (09:01→21:46)
[2018-04-06] MEDS: Multivitamins/Minerals TAB PO SCH (09:01)
[2018-04-06] MEDS: Ascorbic Acid TAB* 500 MG PO SCH (09:01)
[2018-04-06] MEDS: Mometasone/Formoter 200/5 MDI INH SCH ×2 (09:05→19:41)
[2018-04-06] MEDS: Losartan TAB* 25 MG PO SCH (09:06)
[2018-04-06] MEDS ORDERED: Iodixanol* (CONTRAST) 320 MG/ML 100 ML SDV IV ONE (09:40)
[2018-04-06] MEDS ORDERED: Vancomycin(*) 1,000 MG in NS 0.9% 250 ML* 250 ML IVPB SCH (10:00)
[2018-04-06] MEDS: Omeprazole CAP* 20 MG PO SCH ×2 (10:36→21:46)
--- NOTE | 2018-04-06 11:03 | RAD ---
INDICATION: Bibasilar crackles. COMPARISON: Correlation is made with a prior study from April 04, 2018. TECHNIQUE: A portable view of the chest was obtained. FINDINGS: Cardiac and mediastinal contours appear to be within normal limits. There are small infiltrates at both lung bases which have progressed slightly from the prior study. The lungs are underinflated. No pleural effusion is seen. IMPRESSION: SMALL BIBASILAR INFILTRATES DEMONSTRATING SLIGHT PROGRESSION.
[2018-04-06] MEDS: Mupirocin 2% OINT* TUBE TOPICAL SCH (11:59)
[2018-04-06] MEDS: Cinacalcet TAB* 30 MG PO SCH (14:27)
--- NOTE | 2018-04-06 15:36 | RAD ---
INDICATION: Peritoneal dialysis, associated peritonitis. COMPARISON: Comparison is made with a prior CT of the abdomen and pelvis from May 14, 2017. TECHNIQUE: A CT scan of the abdomen and pelvis was performed with intravenous and with oral contrast following intravenous injection of 120 ml of Visipaque 320 nonionic contrast. Contiguous axial sections were obtained from the lung bases through the symphysis pubis. Images were reconstructed in the coronal and sagittal planes. FINDINGS: LUNG BASES: There is mild dependent bilateral lower lobe subsegmental atelectasis. No pleural effusion is present. LIVER: The liver is mildly enlarged. The liver is decreased in attenuation consistent with fatty infiltration. No significant focal abnormality is seen. GALLBLADDER: There are faintly visualized calcified gallstones present. BILE DUCTS: No intra or extrahepatic ductal distention is seen. SPLEEN: The spleen is mildly enlarged and unchanged from the prior study. PANCREAS: The pancreas is normal in size. No ductal distention or calcifications are seen. ADRENAL GLANDS: The adrenal glands are normal in size. KIDNEYS: The kidneys appear slightly small in size. No renal calculi or hydronephrosis is seen. There is suggestion of a 1.6 cm cyst in the upper pole of the right kidney although evaluation is limited due to beam hardening artifact from the patient's arms. AORTA: The aorta is normal in caliber with moderate calcific plaque present. LYMPH NODES: No significantly enlarged lymph nodes are seen. BOWEL: The stomach, small and large bowel appear nondistended. The appendix is not well visualized. There are scattered diverticula within the colon. There is no evidence for diverticulitis or colitis. PELVIC ORGANS: There is mild bladder wall thickening which may be due to incomplete distention. The prostate gland is enlarged measuring 6.2 cm in transverse dimension. PERITONEUM: There is a peritoneal dialysis catheter. The distal portion is located just above the urinary bladder in the midline. There is a small amount of free intraperitoneal fluid present in the pelvis. No localized fluid collections are seen. No free intraperitoneal air is seen. There is skin thickening and increased density in the subcutaneous tissues in the anterior abdominal wall in the periumbilical region which may represent edema or localized inflammation. BONES: No significant focal osseous abnormality is seen. IMPRESSION: 1. THERE IS A SMALL AMOUNT OF FREE INTRAPERITONEAL FLUID IN THE PELVIS. NO LOCULATED FLUID COLLECTIONS ARE SEEN. THERE IS NO SPECIFIC EVIDENCE FOR PERITONITIS. 2. THERE IS SKIN THICKENING AND SOFT TISSUE EDEMA PRESENT IN THE ANTERIOR ABDOMINAL WALL SUBCUTANEOUS TISSUES IN THE PERIUMBILICAL REGION POSSIBLY REPRESENTING AN LOCALIZED EDEMATOUS CHANGE VERSUS CELLULITIS. RECOMMEND CLINICAL CORRELATION. 3. HEPATOSPLENOMEGALY AND HEPATIC STEATOSIS. 4. CHOLELITHIASIS.
[2018-04-06] MEDS: Fluconazole 100 MG TAB* TAB PO SCH (16:57)
[2018-04-06] MEDS ORDERED: Warfarin TAB(*) 6 MG PO ONE (17:00)
[2018-04-06] MEDS: rOPINIRole TAB* 4 MG PO SCH (21:46)
[2018-04-06] MEDS: Atorvastatin* 10 MG TAB PO SCH (21:46)
[2018-04-06] MEDS: traZODone TAB* 50 MG TAB PO SCH (21:46)
[2018-04-06] MEDS: Insulin GLARGINE(*) 1 UNITS UNIT SUBCUT SCH (21:49)
--- NOTE | 2018-04-07 04:14 | PN ---
PROGRESS NOTE: DATE OF VISIT: 04/06/18 HISTORY: Mr. Kaur developed a fever yesterday. As a result we were requested to produce peritoneal dialysate specimens. Unfortunately, he has a very high white count in his peritoneal fluid, 4816 and 82% of which are neutrophils. In addition, his Gram stain reveals yeast. He is actually continuing to feel fairly good. He is eating, does not have much in the way of abdominal pain. His fluid has been cloudy. He has been draining well. His blood pressure is 118/60, he is afebrile at the present time. 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 There is a 15% to 45% mortality even with appropriate therapy. There are multiple different causes including other intraabdominal pathology such as colon cancer or diverticular abscess. Standard care requires removal of the dialysis catheter treatment for fungal peritonitis and then remotely replacing the peritoneal dialysis catheter recognizing the sclerosis will make it likely that a return to peritoneal dialysis is impossible. In the past, Mr. Kaur had said that he would never return to hemodialysis and in fact had us return him to peritoneal dialysis sooner than we wanted to after hernia surgery because he would not do hemodialysis anymore. I have discussed these issues with him, pointing out that our alternatives are: 1. Standard of care with removal of the catheter and return to hemodialysis. 2. Empirically treating for fungal peritonitis until cultures are back and then converting our therapy directed by those cultures recognizing that it is highly likely to fail and with failure that increases his likelihood of dying. 3. Abandoning dialysis entirely and moving across to a hospice based mode of therapy. He has not yet decided which of these courses he wants to take. He wants to discuss this with his significant other. I have discussed all of this with Dr. Watkins. We will be initiating oral fluconazole at this point. We will have to review with the pharmacy about potential drug interactions. [id number]/[facility] #: [id number] NAMAN
[2018-04-07] MEDS: Levothyroxine TAB* 25 MCG TAB PO SCH (05:52)
[2018-04-07 07:46] LABS: ABS Basophils 0 10^3/ul (0-0.2); ABS Eosinophils 0.3 10^3/ul (0-0.6); ABS Lymphocytes 0.6 10^3/ul (1.0-4.8); ABS Monocytes 0.6 10^3/ul (0-0.8); ABS Neutrophils 4.3 10^3/ul (1.5-7.7); ABS Nucleated RBC 0 10^3/ul; Eosinophil % 5.6 % (0-6); Hematocrit 26 % (42-52); Hemoglobin 9.2 g/dl (14.0-18.0); Lymphocyte % 9.7 % (25-47); Mean Corpuscular HGB Conc 36 g/dl (31-36); Mean Corpuscular Hemoglobin 31 pg (27-31); Mean Corpuscular Volume 88 fL (80-94); Mean Platelet Volume 8.4 um3 (7.4-10.4); Nucleated Red Blood Cells % 0.1; Platelet Count 180 10^3/ul (150-450); Red Blood Count 2.93 10^6/ul (4.00-5.40); Red Cell Distribution Width 14 % (10.5-15); White Blood Count 5.8 10^3/ul (3.5-10.8)
[2018-04-07 07:57] LABS: EGFR Non-African American 9.1 (>60)
[2018-04-07 07:59] LABS: INR 2.66 (0.77-1.02)
[2018-04-07] MEDS: Multivitamins/Minerals TAB PO SCH (08:03)
[2018-04-07] MEDS: Cinacalcet TAB* 30 MG PO SCH (08:03)
[2018-04-07] MEDS: Metoclopramide TAB* 10 MG PO SCH ×4 (08:03→20:58)
[2018-04-07] MEDS: Fluconazole 100 MG TAB* TAB PO SCH (08:03)
[2018-04-07] MEDS: Omeprazole CAP* 20 MG PO SCH ×2 (08:03→20:58)
[2018-04-07] MEDS: Mupirocin 2% OINT* TUBE TOPICAL SCH (08:04)
[2018-04-07] MEDS: Mometasone/Formoter 200/5 MDI INH SCH ×2 (08:17→19:38)
[2018-04-07] MEDS: Insulin LISPRO* 1 UNITS UNIT SUBCUT SCH ×3 (09:03→17:44)
[2018-04-07] MEDS ORDERED: Potassium Chlor TAB* 20 MEQ TAB.ER PO SCH (13:00)
[2018-04-07] MEDS ORDERED: Morphine PCA 5 MG/ML * Titrate per Protocol PCA PRN (13:55)
[2018-04-07] MEDS ORDERED: Heparin DIALYSIS ONLY(*) 1,000 UNITS/ML VIAL DIALYSIS ONE (14:00)
[2018-04-07] MEDS ORDERED: Morphine ORAL CONCENTRATE* 5 MG/0.25 ML ORAL.SYRIN PO PRN (15:10)
[2018-04-07] MEDS: rOPINIRole TAB* 4 MG PO SCH ×2 (16:29→20:58)
[2018-04-07] MEDS ORDERED: Warfarin TAB(*) 6 MG PO ONE (17:00)
[2018-04-07] MEDS: Cefepime* 2 GM in Dextrose 50mL Q24H (Duplex) IV SCH (20:57)
[2018-04-07] MEDS: Insulin GLARGINE(*) 1 UNITS UNIT SUBCUT SCH (20:58)
[2018-04-07] MEDS: traZODone TAB* 50 MG TAB PO SCH (20:58)
[2018-04-07] MEDS: LORazepam TAB(*) 0.5 MG PO PRN (20:59)
[2018-04-07] MEDS: Acetaminophen TAB* 325 MG PO PRN (21:14)
[2018-04-07] MEDS: Morphine ORAL CONCENTRATE* 5 MG/0.25 ML ORAL.SYRIN PO PRN (22:49)
[2018-04-08] MEDS: Levothyroxine TAB* 25 MCG TAB PO SCH (06:25)
--- NOTE | 2018-04-08 07:57 | PN ---
PROGRESS NOTE: DATE OF VISIT: 04/07/18 SUBJECTIVE: I had a long discussion with Mr. Kaur today about the situation with his dialysis. We have lost ultrafiltration capacity and he has been gaining significant weight on a daily basis because of his fluids. I pointed out to him that he is going to be in pulmonary edema very shortly and confirmed with him that he did not want intubation and ventilation. We had a long discussion with the issue of discontinuance of dialysis or not. I pointed out to him that we would have some problems socially if he wants to continue on peritoneal dialysis in that none of the nursing comes locally do that. He would have to be transferred down to [place]. He did not like that idea at all. He is still labored with the issue whether to discontinue dialysis or not. I pointed it out to him that as we approach pulmonary edema, we would be in a futile situation and that we may not be technically capable of proceeding on with dialysis. He had considerable concerns about the financial aspects of his care and he needs to complete a Medicaid application again. At the end of our discussion, he basically decided that he did not want to continue with dialysis and that he wanted to execute a DNR order. I have discussed these issues with Dr. Box. We executed a MOLST form. We will be continuing dialysis through the present treatment merely just to flush out his abdomen to remove which can be somewhat uncomfortable in fungal peritonitis. I have recommended that Dr. Box leave the contingency morphine drip order for him. [id number]/[facility] #: [id number] [facility]as
[2018-04-08] MEDS: Mometasone/Formoter 200/5 MDI INH SCH (07:58)
[2018-04-08 09:19] VITALS: BP 126/56
[2018-04-08] MEDS: LORazepam TAB(*) 0.5 MG PO PRN (09:38)
[2018-04-08] MEDS: Morphine ORAL CONCENTRATE* 5 MG/0.25 ML ORAL.SYRIN PO PRN (09:38)
[2018-04-08] MEDS: Fluconazole 100 MG TAB* TAB PO SCH (09:39)
== END 2018-04-08 09:55 | disposition hospice, inpatient (51) | DRG 919 ==
LOC: ED 13:30 → MED 17:13
PROVIDERS: ADMIT Hospitalist; ATTEND Internal Medicine
PROC: 3E1M39Z Irrigation of Peritoneal Cavity using Dialysate, Percutaneous Approach (ICD-10-PCS; principal; 2018-04-05)
DX: T85.71XA Infection and inflammatory reaction due to peritoneal dialysis catheter, initial encounter (principal); K65.9 Peritonitis, unspecified; N18.6 End stage renal disease; I12.0 Hypertensive chronic kidney disease with stage 5 chronic kidney disease or end stage renal disease; J98.11 Atelectasis; E87.1 Hypo-osmolality and hyponatremia; N17.9 Acute kidney failure, unspecified; B48.8 Other specified mycoses; E11.22 Type 2 diabetes mellitus with diabetic chronic kidney disease; I25.10 Atherosclerotic heart disease of native coronary artery without angina pectoris; J44.9 Chronic obstructive pulmonary disease, unspecified; E11.39 Type 2 diabetes mellitus with other diabetic ophthalmic complication; H42 Glaucoma in diseases classified elsewhere; G25.81 Restless legs syndrome; E03.9 Hypothyroidism, unspecified; E78.5 Hyperlipidemia, unspecified; K21.9 Gastro-esophageal reflux disease without esophagitis; R60.0 Localized edema; I48.91 Unspecified atrial fibrillation; E11.51 Type 2 diabetes mellitus with diabetic peripheral angiopathy without gangrene; I73.9 Peripheral vascular disease, unspecified; K58.9 Irritable bowel syndrome, unspecified; M19.90 Unspecified osteoarthritis, unspecified site; H91.90 Unspecified hearing loss, unspecified ear; E11.40 Type 2 diabetes mellitus with diabetic neuropathy, unspecified; F41.9 Anxiety disorder, unspecified; E87.6 Hypokalemia; Z66 Do not resuscitate; I95.9 Hypotension, unspecified; I44.7 Left bundle-branch block, unspecified; I44.0 Atrioventricular block, first degree; E11.319 Type 2 diabetes mellitus with unspecified diabetic retinopathy without macular edema; E11.21 Type 2 diabetes mellitus with diabetic nephropathy; E66.9 Obesity, unspecified; Y73.1 Therapeutic (nonsurgical) and rehabilitative gastroenterology and urology devices associated with adverse incidents; R74.8 Abnormal levels of other serum enzymes; R00.1 Bradycardia, unspecified; M54.5 Low back pain; E11.65 Type 2 diabetes mellitus with hyperglycemia; Z87.891 Personal history of nicotine dependence; Z88.5 Allergy status to narcotic agent; Z88.6 Allergy status to analgesic agent; Z91.013 Allergy to seafood; Z82.49 Family history of ischemic heart disease and other diseases of the circulatory system; I25.2 Old myocardial infarction; Z87.01 Personal history of pneumonia (recurrent); Z99.81 Dependence on supplemental oxygen; Z85.828 Personal history of other malignant neoplasm of skin; Z99.2 Dependence on renal dialysis; Z98.42 Cataract extraction status, left eye; Z98.41 Cataract extraction status, right eye; Z88.8 Allergy status to other drugs, medicaments and biological substances; Z84.1 Family history of disorders of kidney and ureter; Y92.9 Unspecified place or not applicable; Z68.37 Body mass index [BMI] 37.0-37.9, adult
CPT/HCPCS: 36415; 71045; 74177; 80048; 80051; 80053; 81003; 81015; 82533; 82803; 83605; 83735; 84100; 84145; 84484; 85025; 85610; 86140; 87040; 87045; 87046; 87077; 87106; 87205; 87493; 89051; 93005; 94640; 99284; A9270-GY; G8978-GP-CK; G8978-GP-CL; G8979-GP-CI; J0692; J0696; J1644; J2405; J3370; J3475; J3480; Q9967